=== PATIENT | female | born 1955 | race Caucasian/White ===

== ENCOUNTER → 2017-06-26 15:39 | Outpatient (CLI) | payer OTHER, SELFPAY ==
[2017-06-26 15:49] LABS: Pathologist Comment May follow
[2017-06-26 17:06] LABS: RBC /Synovial Fluid 0.006 10^6/uL (0); Synovial Fld Mononuclear WBC % 41.7 %; Synovial Fld Polynuclear WBC # 0.591 10^3/ul; Synovial Fld Polynuclear WBC % 58.3 %
[2017-06-26 20:20] LABS: Monocyte /Synovial Fluid 5 %; Neutrophil 39 % (0-25)
[2017-06-26 20:21] LABS: AUTO B FLUID DILUENT BKGD CT WBC <0.1 RBC <0.01 (W<.1,R<.01); CRYSTALS, BODY FLUID Other, see comment; Color / Synovial Fluid Yellow (Pale Yellow); Viscosity / Synovial Fluid Mod. Viscous (HIGH)
[2017-06-26 20:22] LABS: Appearance /Synovial Fluid Hazy (CLEAR); Source / Synovial Fluid RT KNEE; Source- Body Fluid SYNOVIAL
[2017-06-26 20:23] LABS: Body Fluid QC Type(s) BF1Q,BF2Q; Other Cell /Synovial Fluid 56 %
[2017-06-27 10:47] LABS: Pathologist Review Reviewed
== END ==
PROVIDERS: Family Provider Nurse Practitioner; PCP Nurse Practitioner; Visit Provider Internal Medicine Rheumatology
DX: M06.4 Inflammatory polyarthropathy (principal); M15.9 Polyosteoarthritis, unspecified; M25.562 Pain in left knee
CPT/HCPCS: 87070; 87075; 87205; 89050; 89051; 89060

== ENCOUNTER → 2017-08-10 13:36 | Outpatient (CLI) | payer OTHER, SELFPAY ==
[2017-08-10 15:15] LABS: Absolute Lymphocyte Count 3.14 X10^3/ul (0.83-4.51); Absolute Neutrophil Count 5.9 X10^3/uL (2.0-7.7); Basophil# 0.05 X10^3/uL; Basophil% 0.5 % (0-1); Eosinophil# 0.23 X10^3/uL; Eosinophils% 2.3 % (0-5); Hematocrit 41.8 % (37-47); Hemoglobin 13.8 g/dl (12.0-15.0); Lymphocyte # 3.14 X10^3/ul (4.0); Lymphocyte % 30.7 % (19-41); Mean Corpuscular Hgb 29.9 pg (27.0-32.0); Mean Corpuscular Volume 90.5 fL (81-99); Mean Platelet Vol. 10.5 fl (6.2-12.0); Monocyte# 0.91 X10^3/uL; Monocyte% 8.9 % (0-10); Neutrophil # 5.86 X10^3/uL (2.7-7.7); Neutrophil % 57.3 % (47-70); Platelet Count 285 K/mm3 (150-450); RBC Distribution Width CV 13.7 % (11.6-14.6); RBC Distribution Width SD 44.9 fl (35.1-43.9); Red Blood Count 4.62 M/mm3 (4.2-5.4); White Blood Count 10.2 K/mm3 (4.4-11.0)
[2017-08-10 15:24] LABS: AST(SGOT) 21 U/L (15-37); Alanine Aminotransfer ALT/SGPT 31 U/L (13-56); Albumin, Serum 3.7 g/dL (3.2-5.0); Alkaline Phosphatase 51 U/L (45-117); Anion Gap 7 (5-15); BUN 14 mg/dL (7-18); BUN/Creat Ratio 21.1 RATIO (10-20); Chloride 104 mmol/L (98-107); Creatinine, Serum 0.66 mg/dL (0.55-1.02); EST Glomerular Filtration Rate 96 mL/min (>60); Est Glom Filt Rate - Afr Amer 116 mL/min (>60); Globulin 3.7 g/dL (2.2-4.2); Glucose 98 mg/dL (74-106); Potassium 3.2 mmol/L (3.5-5.1); Protein, Total 7.4 g/dL (6.4-8.2); Sodium Level 143 mmol/L (136-145)
[2017-08-10 15:33] LABS: POSITIVE COUNT NO; POSITIVE DIFFERENTIAL NO; POSITIVE MORPHOLOGY NO
== END ==
PROVIDERS: Family Provider Nurse Practitioner; PCP Nurse Practitioner; Visit Provider Internal Medicine Rheumatology
DX: M06.4 Inflammatory polyarthropathy (principal); M15.9 Polyosteoarthritis, unspecified; K21.9 Gastro-esophageal reflux disease without esophagitis; K58.9 Irritable bowel syndrome, unspecified; H43.813 Vitreous degeneration, bilateral; R51 Headache; Z85.3 Personal history of malignant neoplasm of breast
CPT/HCPCS: 36415; 80053; 85025

== ENCOUNTER → 2017-08-27 13:47 | Outpatient (CLI) | payer OTHER, SELFPAY ==
--- NOTE | 2017-08-27 13:49 | VDLE_ITS ---
Reason For Study: SWELLING RIGHT GSV is normal. CFV is compressible, spontaneous, phasic, competent and demonstrates normal augmentation. FV is compressible, spontaneous, phasic, competent and demonstrates normal augmentation. POP V is compressible, spontaneous, phasic, competent and demonstrates normal augmentation. T/P Trunk is compressible. PTV is compressible. RT PerV is compressible. Procedure Exam performed in department. A preliminary report was called and/or faxed to Yaneth Mcgregor. Interpretation Summary Deep veins of the right lower extremity are patent and compressible segmentally. There is no evidence of right lower extremity deep vein thrombosis. Valvular competence appears intact within the proximal deep venous system on the right . The right greater saphenous vein appears patent and compressible segmentally. Ordering Physician: Yaneth Mcgregor Referring Physician: Yaneth Mcgregor Performed By: Sabrina Amaral, LAUREN, RVT
== END ==
PROVIDERS: Family Provider Nurse Practitioner; PCP Nurse Practitioner; Visit Provider Nurse Practitioner
DX: M79.89 Other specified soft tissue disorders (principal)
CPT/HCPCS: 93971

== ENCOUNTER 2018-03-06 05:24 | Inpatient (IN) | payer OTHER, SELFPAY ==
[2018-02-22 10:33] VITALS: BP 137/83; PULSE 94; RESP 16; TEMP 36.8; O2SAT 96; BMI 30.2
--- NOTE | 2018-02-22 10:40 | SDCEKG_ITS ---
Test Reason : Blood Pressure : / mmHG Vent. Rate : 086 BPM Atrial Rate : 086 BPM P-R Int : 142 ms QRS Dur : 088 ms QT Int : 372 ms P-R-T Axes : 011 023 039 degrees QTc Int : 445 ms Normal sinus rhythm Normal ECG Confirmed by LIZBETH VILLALBA, JOANNE ([id number]), greeting card editor OLIMPIA WOO ([id number] on 03/01/2018 1:11:35 PM Referred By: Mauricio Tapia Confirmed By:JOANNE NIEVES MD
[2018-02-22 11:07] LABS: Absolute Lymphocyte Count 2.38 X10^3/ul (0.83-4.51); Absolute Neutrophil Count 4.6 X10^3/uL (2.0-7.7); Basophil# 0.04 X10^3/uL; Basophil% 0.5 % (0-1); Eosinophil# 0.15 X10^3/uL; Eosinophils% 1.8 % (0-5); Hematocrit 43.6 % (37-47); Hemoglobin 14.5 g/dl (12.0-15.0); Lymphocyte # 2.38 X10^3/ul (4.0); Lymphocyte % 28.5 % (19-41); Mean Corp Hgb Conc 33.3 g/gl (32-36); Mean Corpuscular Hgb 30.1 pg (27.0-32.0); Mean Corpuscular Volume 90.5 fL (81-99); Mean Platelet Vol. 9.8 fl (6.2-12.0); Monocyte# 1.15 X10^3/uL; Monocyte% 13.8 % (0-10); POSITIVE COUNT NO; POSITIVE DIFFERENTIAL NO; POSITIVE MORPHOLOGY NO; Platelet Count 278 K/mm3 (150-450); RBC Distribution Width CV 13.1 % (11.6-14.6); RBC Distribution Width SD 42.8 fl (35.1-43.9); Red Blood Count 4.82 M/mm3 (4.2-5.4); White Blood Count 8.4 K/mm3 (4.4-11.0)
[2018-02-22 11:34] LABS: Anion Gap 7 (5-15); BUN 18 mg/dL (7-18); BUN/Creat Ratio 26.5 RATIO (10-20); Chloride 105 mmol/L (98-107); Creatinine, Serum 0.68 mg/dL (0.55-1.02); EST Glomerular Filtration Rate 93 mL/min (>60); Est Glom Filt Rate - Afr Amer 113 mL/min (>60); Estimated Creatinine Clearance 70.96 ml/min; Glucose 84 mg/dL (74-106); Potassium 4.2 mmol/L (3.5-5.1); Sodium Level 142 mmol/L (136-145)
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
--- NOTE | 2018-03-01 11:02 | CASEMGMT ---
Called and spoke with patient regarding discharge needs after upcoming surgery. Patient plans to return home with assistance from spouse. Outpatient physical therapy is set up for 03/11/18 at [facility] and spouse will assist with transportation to/from. Patient has a walker and cane at home. Does not have a toilet riser or shower seat but has both readily available for use. There is 1 step into house from outside, bedroom and bathroom are on 1st level of home. Informed patient that RN-CM will follow up after surgery. Zonia Langley LPN Clinical Support
[2018-03-06] VITALS (14 sets, daily range): BP systolic 108–147; BP diastolic 63–83; PULSE 95–111; RESP 16–18; TEMP 36.5–37; O2SAT 95–100; BMI 30.2
[2018-03-06] MEDS: Celecoxib 200 MG Capsule 400 MG PO (06:23)
[2018-03-06] MEDS: oxyCODONE HCl Cr 10 MG Tablet PO (06:23)
[2018-03-06] MEDS: Acetaminophen 500 MG Tablet 1000 MG PO ×2 (06:24→22:26)
[2018-03-06] MEDS: Scopolamine 1mg/72hr Patch 1 PATCH TD (06:55)
[2018-03-06] MEDS: Cefazolin 2 GM in 0.9% Normal Saline 100 ML IV (07:25)
--- NOTE | 2018-03-06 07:32 | RAD_ITS ---
STUDY: X-RAY - RIGHT KNEE REASON FOR EXAM: Female, 62 years old. Total right knee replacement. TECHNIQUE: 2 view(s) of the knee. COMPARISON: None. FINDINGS: Normal visualized distal femur. Normal visualized proximal tibia and fibula. Normal proximal tibiofibular articulation. The patient is status post right total knee replacement. There is normal alignment. Postoperative soft tissue changes. RAD/Knee 1 or 2 Views IMPRESSION: Status post total knee replacement. There is good alignment. Postoperative soft tissue changes. Electronically Signed: Ernie Fields MD at 14:22 EDT Tel [phone], Service support ,
--- NOTE | 2018-03-06 08:46 | PCM.OPRPT ---
Report of Operation Date of Procedure: 03/06/18 Pre-Operative Diagnosis: Right knee primary osteoarthritis Post-Operative Diagnosis: Right knee primary osteoarthritis Surgery/Procedure Performed:: Right total knee replacement Description of Surgical Findings:: Stable knee with good patella tracking software deployment engineer: Maya Means Type of Anesthesia:: Spinal Anesthesiologist: Mitchell Lambert Special Medications: 2 g Ancef, 1 g TXA at incision, 1 g TXA closure, 10 mg Decadron, joint cocktail (5 mg Duramorph, 30 mL of 0.5% Ropivicaine, 1000 units of epinephrine, 30 mg of Toradol) Specimen's removed: Bony cuts Estimated Blood Loss (mL): 50 Fluids Replaced: 1000 mL crystalloid Description of Procedure: Implants used: 1. [place] size 3 triathlon cruciate retaining distal femoral component 2. [place] size 3 universal tibial baseplate 3. Tristen X3 9 mm CS polyethylene 4. Tristen X3 29 mm asymmetric patella Brief history operative indications: 62-year-old f with history of right knee osteoarthritis with radiographic findings with loss of joint space, osteophyte formation and subchondral sclerosis. Failed conservative measures as mentioned in the H&P. Discussion of total knee arthroplasty as well as risk and benefits were discussed the patient including but not limited to blood loss, DVTs, PEs, neurovascular damage, general risk of anesthesia including loss of life, and stiffness or instability were discussed with patient. Patient demonstrated understanding and was able to sign informed consent. Procedure: On the date of procedure patient's right lower extremity was marked in the preoperative area. The patient was then taken back to the operating room where the patient was placed on the table in the supine position. All bony prominences were identified a well-padded. Anesthesia assumed control of the C-spine and airway and remained controlled throughout the remainder of the procedure. A tourniquet was placed on the right upper thigh and the leg was prepped in a sterile fashion. The surgeon then scrubbed at this time. Upon reentering the room the right lower extremity was draped in a standard orthopedic fashion. A timeout was then called and everyone agreed upon the side, the site, the procedure to be performed, patient's identity and antibiotics given. Esmarch bandage was used to exsanguinate the extremity and the tourniquet was placed up to 250 mmHg with the knee in flexion. A midline skin incision was made and sharp dissection was taken down through skin subcutaneous tissue and fat. The standard medial parapatellar incision was made and the patella was subluxed laterally. The standard deep MCL release was done and the fat pad was resected. Next our attention was directed to the femur. Navigation pins were placed, navigation was registered. The distal femoral cutting block was pinned into place and 9 mm of distal femur resection was completed. The distal femoral cut was verified with navigation. The knee was then placed in deep flexion in the standard [employer] sizing guide was used to place the femoral component in 3? external rotation based on the posterior condyles. A size 3 4-in-1 cutting block was selected and pinned into place. The anterior cut was then made and checked for notching. The subsequent anterior chamfer cuts, posterior condylar cuts and posterior chamfer cuts were made while ensuring the MCL and LCL were protected. Our attention was then turned to the tibia where the navigation pins were placed, navigation was registered. [employer] tibial cutting guide was used to make the appropriate tibial cut 90 degrees from the mechanical axis. Navigation was then used to verify the cut. A size 3 tibial base plate was selected. the knee was flexed to 90 degrees and the soft tissues and posterior osteophytes were removed from the joint. 40 cc of the periarticular injection was injected into the posterior medial corner of the joint. The appropriate trials were then placed on the femur and tibia. A trial polyethylene was trialed to ensure proper balancing and stability of the knee. Patella tracking, was then verified and corrected appropriately as needed. The appropriate tibial internal rotation was then marked with a bovie. Our attention was then directed to the patella. The patella was everted and a flat resection was made. The lug holes were drilled and the patella trial was placed. Patellar tracking was checked and deemed appropriate. Once we were happy lug holes were drilled for the femur and trial components were removed. the tibia was subluxed and pinned into place and the keel was punched and the canal was reamed. Final components were verified and opened, and cement was mixed in a vacuum. Tristen Simplex cement was used. The wound was copiously irrigated with normal saline. When the cement was ready the components were cemented into place starting with the tibia, femur and finally the patella. The trial poly component was placed and the knee was placed in full extension. All excess cement was removed in the process. Once the cement had cured the tracking, alignment and balance were verified and a size 9 mm polyethylene component was placed. Once the final components were placed the wound was copiously irrigated with normal saline solution and the periarticular injection was given. The wound was closed in a layer nath fashion using #1 vicryl interrupted sutures for the arthrotomy, 2-0 interrupted Vicryl suture for the subcuticular layer and marleen for final skin closure. A sterile compressive dressing was then placed. The patient was then awakened from anesthesia, transferred to the [facility] and transferred to the PACU for recovery. Post op plan DVT ppx: ASA 81mg, thigh high compression stockings Follow up: in office in 2 weeks for wound check PT: to start POD #0 at hospital, outpatient PT should be arranged. Grafts/Implants Used: Katy triathlon total knee - Complications None - Admit VTE Documentation VTE Present on Admission: No VTE Mechan Device Prophylaxis: SCD's, Thigh High IMER Hose VTE Pharm Prophylaxis ordered?: Yes
--- NOTE | 2018-03-06 08:49 | OP.PCM_ITS ---
Report of Operation Date of Procedure: 03/06/18 Pre-Operative Diagnosis: Right knee primary osteoarthritis Post-Operative Diagnosis: Right knee primary osteoarthritis Surgery/Procedure Performed:: Right total knee replacement Description of Surgical Findings:: Stable knee with good patella tracking piano accompanist: Maya Means Type of Anesthesia:: Spinal Anesthesiologist: Mitchell Lambert Special Medications: 2 g Ancef, 1 g TXA at incision, 1 g TXA closure, 10 mg Decadron, joint cocktail (5 mg Duramorph, 30 mL of 0.5% Ropivicaine, 1000 units of epinephrine, 30 mg of Toradol) Specimen's removed: Bony cuts Estimated Blood Loss (mL): 50 Fluids Replaced: 1000 mL crystalloid Description of Procedure: Implants used: 1. [place] size 3 triathlon cruciate retaining distal femoral component 2. [place] size 3 universal tibial baseplate 3. Tristen X3 9 mm CS polyethylene 4. Tristen X3 29 mm asymmetric patella Brief history operative indications: 62-year-old f with history of right knee osteoarthritis with radiographic findings with loss of joint space, osteophyte formation and subchondral sclerosis. Failed conservative measures as mentioned in the H&P. Discussion of total knee arthroplasty as well as risk and benefits were discussed the patient including but not limited to blood loss, DVTs, PEs, neurovascular damage , general risk of anesthesia including loss of life, and stiffness or instability were discussed with patient. Patient demonstrated understanding and was able to sign informed consent. Procedure: On the date of procedure patient's right lower extremity was marked in the preoperative area. The patient was then taken back to the operating room where the patient was placed on the table in the supine position. All bony prominences were identified a well-padded. Anesthesia assumed control of the C- spine and airway and remained controlled throughout the remainder of the procedure. A tourniquet was placed on the right upper thigh and the leg was prepped in a sterile fashion. The surgeon then scrubbed at this time. Upon reentering the room the right lower extremity was draped in a standard orthopedic fashion. A timeout was then called and everyone agreed upon the side , the site, the procedure to be performed, patient's identity and antibiotics given. Esmarch bandage was used to exsanguinate the extremity and the tourniquet was placed up to 250 mmHg with the knee in flexion. A midline skin incision was made and sharp dissection was taken down through skin subcutaneous tissue and fat. The standard medial parapatellar incision was made and the patella was subluxed laterally. The standard deep MCL release was done and the fat pad was resected. Next our attention was directed to the femur. Navigation pins were placed, navigation was registered. The distal femoral cutting block was pinned into place and 9 mm of distal femur resection was completed. The distal femoral cut was verified with navigation. The knee was then placed in deep flexion in the standard [employer] sizing guide was used to place the femoral component in 3? external rotation based on the posterior condyles. A size 3 4-in-1 cutting block was selected and pinned into place. The anterior cut was then made and checked for notching. The subsequent anterior chamfer cuts, posterior condylar cuts and posterior chamfer cuts were made while ensuring the MCL and LCL were protected. Our attention was then turned to the tibia where the navigation pins were placed , navigation was registered. [employer] tibial cutting guide was used to make the appropriate tibial cut 90 degrees from the mechanical axis. Navigation was then used to verify the cut. A size 3 tibial base plate was selected. the knee was flexed to 90 degrees and the soft tissues and posterior osteophytes were removed from the joint. 40 cc of the periarticular injection was injected into the posterior medial corner of the joint. The appropriate trials were then placed on the femur and tibia. A trial polyethylene was trialed to ensure proper balancing and stability of the knee. Patella tracking, was then verified and corrected appropriately as needed. The appropriate tibial internal rotation was then marked with a bovie. Our attention was then directed to the patella. The patella was everted and a flat resection was made. The lug holes were drilled and the patella trial was placed. Patellar tracking was checked and deemed appropriate. Once we were happy lug holes were drilled for the femur and trial components were removed. the tibia was subluxed and pinned into place and the keel was punched and the canal was reamed. Final components were verified and opened, and cement was mixed in a vacuum. [place] Simplex cement was used. The wound was copiously irrigated with normal saline. When the cement was ready the components were cemented into place starting with the tibia, femur and finally the patella. The trial poly component was placed and the knee was placed in full extension. All excess cement was removed in the process. Once the cement had cured the tracking, alignment and balance were verified and a size 9 mm polyethylene component was placed. Once the final components were placed the wound was copiously irrigated with normal saline solution and the periarticular injection was given. The wound was closed in a layer anth fashion using #1 vicryl interrupted sutures for the arthrotomy, 2-0 interrupted Vicryl suture for the subcuticular layer and marleen for final skin closure. A sterile compressive dressing was then placed. The patient was then awakened from anesthesia, transferred to the [facility] and transferred to the PACU for recovery. Post op plan DVT ppx: ASA 81mg, thigh high compression stockings Follow up: in office in 2 weeks for wound check PT: to start POD #0 at hospital, outpatient PT should be arranged. Grafts/Implants Used: Tristen triathlon total knee - Complications None - Admit VTE Documentation VTE Present on Admission: No VTE Mechan Device Prophylaxis: SCD's, Thigh High IMER Hose VTE Pharm Prophylaxis ordered?: Yes
[2018-03-06] MEDS: Lactated Ringers 1,000 ML 999 ML IV (09:00)
--- NOTE | 2018-03-06 09:10 | EKG12_ITS ---
Test Reason : POST OP Blood Pressure : / mmHG Vent. Rate : 104 BPM Atrial Rate : 104 BPM P-R Int : 166 ms QRS Dur : 088 ms QT Int : 390 ms P-R-T Axes : 067 029 031 degrees QTc Int : 512 ms Sinus tachycardia Otherwise normal ECG When compared with ECG of 22-FEB-2018 09:42, QT has lengthened Confirmed by LIZBETH VILLALBA, JOANNE ([id number]), scientific editor OLIMPIA WOO ([id number] on 03/07/2018 2:39:21 PM Referred By: Mauricio Tapia Confirmed By:JOANNE NIEVES MD
[2018-03-06] MEDS: Lactated Ringers 1,000 ML 125 ML IV ×2 (12:16→19:59)
[2018-03-06] MEDS: Ondansetron 4 MG/2 ML Vial IV (12:42)
[2018-03-06] MEDS: proMETHazine 25 MG/ML Syringe 12.5 MG IM (14:54)
[2018-03-06] MEDS: Cefazolin 1 GM/50 ML BAG IV ×2 (15:40→23:20)
[2018-03-06] MEDS: oxyCODONE 5 MG Tablet PO ×2 (17:12→22:31)
[2018-03-06] MEDS: Hydroxychloroquine 200 MG Tablet PO (17:13)
[2018-03-06] MEDS: Aspirin 81 MG TAB.CHEW PO (17:13)
[2018-03-06] MEDS: Meloxicam 7.5 MG Tablet PO (22:27)
[2018-03-06] MEDS: Senna/Docusate Sodium 1 Tablet 2 TABLET PO (22:28)
[2018-03-07 04:14] VITALS: BP 133/77; PULSE 97; RESP 18; TEMP 36.9; O2SAT 100
[2018-03-07 06:28] LABS: Hematocrit 36.7 % (37-47); Hemoglobin 12.2 g/dl (12.0-15.0); Mean Corp Hgb Conc 33.2 g/gl (32-36); Mean Corpuscular Hgb 30.1 pg (27.0-32.0); Mean Corpuscular Volume 90.6 fL (81-99); Mean Platelet Vol. 10.3 fl (6.2-12.0); Platelet Count 246 K/mm3 (150-450); RBC Distribution Width CV 12.8 % (11.6-14.6); RBC Distribution Width SD 42.5 fl (35.1-43.9); Red Blood Count 4.05 M/mm3 (4.2-5.4); White Blood Count 16.7 K/mm3 (4.4-11.0)
[2018-03-07 06:31] LABS: Scan Indicated on CBC? Y/N NO
[2018-03-07 06:43] LABS: Anion Gap 9 (5-15); BUN 12 mg/dL (7-18); Calcium,Total 8.7 mg/dL (8.5-10.1); Chloride 107 mmol/L (98-107); EST Glomerular Filtration Rate 89 mL/min (>60); Est Glom Filt Rate - Afr Amer 108 mL/min (>60); Estimated Creatinine Clearance 68.93 ml/min; Glucose 93 mg/dL (74-106); Potassium 3.6 mmol/L (3.5-5.1); Sodium Level 145 mmol/L (136-145)
[2018-03-07] MEDS: Acetaminophen 500 MG Tablet 1000 MG PO ×2 (06:48→13:48)
[2018-03-07] MEDS: oxyCODONE 5 MG Tablet PO ×2 (06:48→12:22)
[2018-03-07] MEDS: Omeprazole 20 MG Capsule PO (06:50)
[2018-03-07] MEDS: Meloxicam 7.5 MG Tablet PO (09:31)
[2018-03-07] MEDS: Multivitamins,Therapeutic Tablet 1 TABLET PO (09:31)
[2018-03-07] MEDS: Senna/Docusate Sodium 1 Tablet 2 TABLET PO (09:31)
[2018-03-07] MEDS: Hydroxychloroquine 200 MG Tablet PO (09:32)
[2018-03-07] MEDS: Aspirin 81 MG TAB.CHEW PO (09:32)
[2018-03-07 10:00] VITALS: BP 94/69; PULSE 102; RESP 18; TEMP 36.7; O2SAT 100
--- NOTE | 2018-03-07 10:01 | PCM.PN.ORT ---
Subjective: The patient was in physical therapy upon examination. Patient denies any chest pain, shortness of breath, dizziness, lightheadedness, nausea or vomiting, or calf pain. Pain is controlled on medications. No adverse overnight events. Patient is wishing to go home today. Objective: Vital signs stable and afebrile. Patient is able to plantarflex and dorsiflex actively. Sensation is intact to light touch to saphenous, sural, superficial and deep peroneal, and tibial distribution. Dressing is with minimal discharge Negative Homans bilaterally, negative signs and symptoms of DVT. - Physical Exam General: Alert, Oriented x3, Cooperative, No apparent distress Vital Signs Temp Pulse Resp BP Pulse Ox 98.4 F 97 18 133/77 H 100 03/07/18 04:14 03/07/18 04:14 03/07/18 04:14 03/07/18 04:14 03/07/18 04:14 Oxygen Delivery Method Room Air Weight: 78.7 kg Body Mass Index (BMI) 30.2 Intake and Output for Last 24 Hours 03/05/18 03/06/18 03/07/18 23:59 23:59 23:59 Intake Total 4533 / 4533 1786 / 1786 Balance 4533 / 4533 1786 / 1786 Laboratory Tests Past 24 Hrs 03/07/18 03/07/18 05:15 05:15 WBC 16.7 H RBC 4.05 L Hgb 12.2 Hct 36.7 L MCV 90.6 MCH 30.1 MCHC 33.2 RDW 12.8 RDW Differential 42.5 Plt Count 246 MPV 10.3 Sodium 145 Potassium 3.6 Chloride 107 Carbon Dioxide 29.0 Anion Gap 9 BUN 12 Creatinine 0.70 Estim Creat Clear Calc 68.93 Est GFR (MDRD) Af Amer 108 Est GFR (MDRD) Non-Af 89 BUN/Creatinine Ratio 17.0 Glucose 93 Calcium 8.7 Medical Necessity - Tobacco Use Smoking Status: Never smoker Assessment/Plan 1. S/P right total knee arthroplasty POD #1 2. Continue Pain Medications: Tylenol and OxyIR 3. DVT Prophylaxis: Aspirin 81 mg twice daily ?4 weeks 4. PT/OT: Weightbearing as tolerated 5. H & H: 12.2/36.7, asymptomatic 6. Leukocytosis: Currently 16.7, afebrile. Patient did receive Decadron intraoperatively 7. Encouraged Incentive Spirometry 8. Disposition: Plan will be for discharge home this afternoon. Prescriptions will be E scribed to [facility]. Patient will follow-up per postop instructions.
--- NOTE | 2018-03-07 10:07 | PCM.DC.TKR ---
Discharge Diet: No Restrictions Discharge Activity: May Not Drive May shower in (days): 1 - Turned dressing away from water Ice area for (Minutes): 20 - every hour while awake. Weight Bearing Status: Weight bearing as tolerated Elevate: Operative Extremity Additional Activity Instructions:: Wear elastic stockings for 2 weeks after your surgery. Call your doctor if your incision/area has: Continuous Slow Oozing, Sudden Increased Bleeding, Increased Pain/ Swelling, Increased Redness, Foul Smelling Discharge Call your doctor if you observe: Fever of 101 or Higher, Coldness, Increased Pain, Numbness or Tingling, Change in Color, Calf discomfort, Uncontrolled pain Remove Dressing in (days):: 4 - Okay to remove on March 11, 2018 Additional Instructions: Follow [facility] postop instructions Do not take [id number] fish oil products 2 weeks postoperatively Allergies/Adverse Reactions: Allergies lansoprazole [From Prevacid] Allergy (Verified 02/22/18 10:15) Chest tightness rabeprazole sodium [From Aciphex] Allergy (Verified 02/22/18 10:15) Chest tightness clarithromycin Adverse Reaction (Verified 02/22/18 10:15) Nausea/Vom/Diarrhea cyclobenzaprine HCl [From Flexeril] Adverse Reaction (Verified 02/22/18 10:15) Nausea/Vom/Diarrhea hydrocodone bitartrate [From Vicodin] Adverse Reaction (Verified 02/22/18 10:15) Nausea morphine Adverse Reaction (Verified 02/22/18 10:15) Nausea/Vom/Diarrhea Medications to take at Discharge Ergocalciferol [Vitamin D] 50,000 unit PO WE 05/22/13 Lorazepam [Ativan] 0.5 mg PO PRN PRN 05/22/13 Multivitamins,Therapeutic [Multivitamin] 1 tab PO DAILY 05/22/13 Omeprazole [Prilosec] 20 mg PO DAILY 05/22/13 Hydroxychloroquine Sulfate [Plaquenil] 200 mg PO BID 02/22/18 Lorazepam [Ativan] 0.5 mg PO BID 03/06/18 Acetaminophen [Tylenol] 1,000 mg PO Q8 #90 tab 03/07/18 Aspirin [Aspirin, Baby] 81 mg PO BIDCM #60 tab.chew 03/07/18 Meloxicam [Mobic] 7.5 mg PO BID #30 tab 03/07/18 Oxycodone [Oxyir] 5 - 10 mg PO Q4H PRN PRN 6 Days #80 tablet 03/07/18 Senna/Docusate Sodium [Senokot-S] 2 tab PO BID #20 tab 03/07/18 The following prescriptions were given: Oxycodone [Oxyir] 5 - 10 mg PO Q4H PRN PRN 6 Days #80 tablet PRN Reason: Mod-Severe Pain (-03/27) Acetaminophen [Tylenol] 1,000 mg PO Q8 #90 tab Aspirin [Aspirin, Baby] 81 mg PO BIDCM #60 tab.chew Meloxicam [Mobic] 7.5 mg PO BID #30 tab Senna/Docusate Sodium [Senokot-S] 2 tab PO BID #20 tab Primary Care Physician: Yaneth Mcgregor [Primary Care Provider] - Test Results: Test results from this visit will be discussed in further detail at your follow-up appointment, if applicable. Please Follow Up With: [facility] When: 03/11/18 @10:00 am with April Please Follow Up With: Stepan Wilson PA-C When: 03/20/18 @ 9:15 am
--- NOTE | 2018-03-07 10:12 | DCINST_ITS ---
Discharge Diet: No Restrictions Discharge Activity: May Not Drive May shower in (days): 1 - Turned dressing away from water Ice area for (Minutes): 20 - every hour while awake. Weight Bearing Status: Weight bearing as tolerated Elevate: Operative Extremity Additional Activity Instructions:: Wear elastic stockings for 2 weeks after your surgery. Call your doctor if your incision/area has: Continuous Slow Oozing, Sudden Increased Bleeding, Increased Pain/ Swelling, Increased Redness, Foul Smelling Discharge Call your doctor if you observe: Fever of 101 or Higher, Coldness, Increased Pain, Numbness or Tingling, Change in Color, Calf discomfort, Uncontrolled pain Remove Dressing in (days):: 4 - Okay to remove on March 11, 2018 Additional Instructions: Follow [facility] postop instructions Do not take [id number]-[id number] fish oil products 2 weeks postoperatively Allergies/Adverse Reactions: Allergies lansoprazole [From Prevacid] Allergy (Verified 02/22/18 10:15) Chest tightness rabeprazole sodium [From Aciphex] Allergy (Verified 02/22/18 10:15) Chest tightness clarithromycin Adverse Reaction (Verified 02/22/18 10:15) Nausea/Vom/Diarrhea cyclobenzaprine HCl [From Flexeril] Adverse Reaction (Verified 02/22/18 10:15) Nausea/Vom/Diarrhea hydrocodone bitartrate [From Vicodin] Adverse Reaction (Verified 02/22/18 10:15) Nausea morphine Adverse Reaction (Verified 02/22/18 10:15) Nausea/Vom/Diarrhea Medications to take at Discharge Ergocalciferol [Vitamin D] 50,000 unit PO WE 05/22/13 Lorazepam [Ativan] 0.5 mg PO PRN PRN 05/22/13 Multivitamins,Therapeutic [Multivitamin] 1 tab PO DAILY 05/22/13 Omeprazole [Prilosec] 20 mg PO DAILY 05/22/13 Hydroxychloroquine Sulfate [Plaquenil] 200 mg PO BID 02/22/18 Lorazepam [Ativan] 0.5 mg PO BID 03/06/18 Acetaminophen [Tylenol] 1,000 mg PO Q8 #90 tab 03/07/18 Aspirin [Aspirin, Baby] 81 mg PO BIDCM #60 tab.chew 03/07/18 Meloxicam [Mobic] 7.5 mg PO BID #30 tab 03/07/18 Oxycodone [Oxyir] 5 - 10 mg PO Q4H PRN PRN 6 Days #80 tablet 03/07/18 Senna/Docusate Sodium [Senokot-S] 2 tab PO BID #20 tab 03/07/18 The following prescriptions were given: Oxycodone [Oxyir] 5 - 10 mg PO Q4H PRN PRN 6 Days #80 tablet PRN Reason: Mod-Severe Pain (-03/27) Acetaminophen [Tylenol] 1,000 mg PO Q8 #90 tab Aspirin [Aspirin, Baby] 81 mg PO BIDCM #60 tab.chew Meloxicam [Mobic] 7.5 mg PO BID #30 tab Senna/Docusate Sodium [Senokot-S] 2 tab PO BID #20 tab Primary Care Physician: Yaneth Mcgregor [Primary Care Provider] - Test Results: Test results from this visit will be discussed in further detail at your follow- up appointment, if applicable. Please Follow Up With: [facility] When: 03/11/18 @10:00 am with April Please Follow Up With: Stepan Wilson PA-C When: 03/20/18 @ 9:15 am
--- NOTE | 2018-03-07 11:34 | CASEMGMT ---
RN CM Note. Intro role of CM to patient in room. Reviewed dc plan. Pt states she will return home with family support, has equipment and first PT appt is Sunday. No further needs identified. Rom COLINN RN ACM
[2018-03-07 13:48] VITALS: BP 118/70; PULSE 88; RESP 18; TEMP 37.1; O2SAT 100
[2018-03-07] MEDS: proMETHazine 25 MG/ML Syringe 12.5 MG IM (14:48)
[2018-03-07 15:21] VITALS: BP 118/70; PULSE 88; RESP 18; TEMP 37.1; O2SAT 100
== END 2018-03-07 15:28 | disposition home or self-care (01) | DRG 470 ==
LOC: ACINP 05:25 → MS3 08:37
PROVIDERS: Admitting Provider Specialist; Family Provider Nurse Practitioner; PCP Nurse Practitioner; Visit Provider Specialist
PROC: 0SRC0J9 Replacement of Right Knee Joint with Synthetic Substitute, Cemented, Open Approach (ICD-10-PCS; CPT 27447; principal; 2018-03-06 06:45)
DX: M17.11 Unilateral primary osteoarthritis, right knee (principal); K58.9 Irritable bowel syndrome, unspecified; Z85.3 Personal history of malignant neoplasm of breast
CPT/HCPCS: 36415; 71046; 73560; 80048; 85025; 85027; 87081; 93005; 97110; 97162; 97165; 97530; 97535; 99251; C1776; J7120; A4216; G0463; J2405

== ENCOUNTER → 2018-04-25 09:43 | Outpatient (CLI) | payer OTHER, SELFPAY ==
--- NOTE | 2018-04-25 09:46 | BI_ITS ---
MAMMOGRAPHY - BILATERAL SCREENING REASON FOR EXAM: Female, 62 years old. Routine annual screening examination. PERTINENT HISTORY: Personal history of breast cancer. Prior left lumpectomy with radiation treatment. TECHNIQUE: Digital bilateral breast guerita (3D mammographic acquisition) in the CC and MLO projections. 2-D mediolateral oblique (MLO) and craniocaudad (CC) views of both breasts were obtained. CAD: Full Field Digital Mammography with Computer Added Detection was performed. COMPARISON: Comparison is made with prior study dated April 24, 2017 and May 27, 2013. FINDINGS: Breast Composition: The breasts are almost entirely fatty. There are no dominant masses or suspicious calcifications. Once again, the patient is status post lumpectomy in the deep upper central portion of the left breast. Residual architectural distortion is present. This is in keeping with prior lumpectomy. There is stable overlying skin thickening. No other significant abnormalities are identified. There has been no significant change since the prior study. BI/SCREENING MAMM (CAD), BILAT IMPRESSION: Stable bilateral screening mammogram. Yearly follow-up mammogram recommended. (A) ASSESSMENT CATEGORY: BIRADS Category 2: Benign. A letter regarding these results will be sent to the patient by the facility within 30 days. Approximately 10% of breast cancers are not detected by mammography. A normal mammogram should not delay biopsy of a clinically suspicious abnormality. [id number] Electronically Signed: Ernie Fields MD at 11:28 EST Tel [phone], Service support ,
== END ==
PROVIDERS: Family Provider Nurse Practitioner; PCP Nurse Practitioner; Visit Provider Nurse Practitioner
DX: Z12.31 Encounter for screening mammogram for malignant neoplasm of breast (principal); C50.912 Malignant neoplasm of unspecified site of left female breast
CPT/HCPCS: 77063; 77067

== ENCOUNTER → 2018-07-12 09:31 | Outpatient (CLI) | payer OTHER, SELFPAY ==
[2018-03-06 06:06] VITALS: BMI 30.2
[2018-07-12 11:01] LABS: ALB/GLOB Ratio 1.1 RATIO (0.9-2.4); AST(SGOT) 20 U/L (15-37); Alanine Aminotransfer ALT/SGPT 32 U/L (13-56); Alkaline Phosphatase 53 U/L (45-117); Anion Gap 10 (5-15); BUN 18 mg/dL (7-18); Chloride 104 mmol/L (98-107); Cholesterol 186 mg/dL (200); Creatinine, Serum 0.67 mg/dL (0.55-1.02); EST Glomerular Filtration Rate 95 mL/min (>60); Est Glom Filt Rate - Afr Amer 115 mL/min (>60); Globulin 3.8 g/dL (2.2-4.2); Glucose 87 mg/dL (74-106); High Density Lipoprotein 48 mg/dL; Potassium 3.7 mmol/L (3.5-5.1); Protein, Total 7.8 g/dL (6.4-8.2); Sodium Level 142 mmol/L (136-145); Triglycerides 144 mg/dL; Very Low Density Lipoprotein 29 mg/dL (5-40); Vitamin D,25 Hydroxy 74.6 ng/mL (29.95-100.01)
== END ==
PROVIDERS: Family Provider Nurse Practitioner; PCP Nurse Practitioner; Referring Provider Nurse Practitioner; Visit Provider Nurse Practitioner
DX: Z13.220 Encounter for screening for lipoid disorders (principal); M19.90 Unspecified osteoarthritis, unspecified site; E55.9 Vitamin D deficiency, unspecified
CPT/HCPCS: 36415; 80053; 80061; 82306

== ENCOUNTER → 2018-07-22 08:50 | Outpatient (CLI) | payer OTHER, SELFPAY ==
[2018-07-22 09:44] LABS: Absolute Lymphocyte Count 2.74 X10^3/ul (0.83-4.51); Basophil# 0.04 X10^3/uL; Basophil% 0.5 % (0-1); Eosinophil# 0.18 X10^3/uL; Eosinophils% 2.3 % (0-5); Hematocrit 41.8 % (37-47); Hemoglobin 13.7 g/dl (12.0-15.0); Lymphocyte # 2.74 X10^3/ul (4.0); Lymphocyte % 35.8 % (19-41); Mean Corp Hgb Conc 32.8 g/gl (32-36); Mean Corpuscular Hgb 29.8 pg (27.0-32.0); Mean Corpuscular Volume 91.1 fL (81-99); Mean Platelet Vol. 10.4 fl (6.2-12.0); Monocyte# 0.67 X10^3/uL; Monocyte% 8.7 % (0-10); Neutrophil # 3.99 X10^3/uL (2.7-7.7); Neutrophil % 52.2 % (47-70); Platelet Count 270 K/mm3 (150-450); RBC Distribution Width CV 13.4 % (11.6-14.6); Red Blood Count 4.59 M/mm3 (4.2-5.4); White Blood Count 7.7 K/mm3 (4.4-11.0)
[2018-07-22 09:48] LABS: POSITIVE COUNT NO; POSITIVE DIFFERENTIAL NO; POSITIVE MORPHOLOGY NO
[2018-07-22 10:06] LABS: ALB/GLOB Ratio 1.1 RATIO (0.9-2.4); AST(SGOT) 19 U/L (15-37); Alanine Aminotransfer ALT/SGPT 32 U/L (13-56); Albumin, Serum 3.8 g/dL (3.2-5.0); Alkaline Phosphatase 54 U/L (45-117); Anion Gap 10 (5-15); BUN 16 mg/dL (7-18); BUN/Creat Ratio 23.5 RATIO (10-20); Calcium,Total 8.7 mg/dL (8.5-10.1); Chloride 105 mmol/L (98-107); Creatinine, Serum 0.68 mg/dL (0.55-1.02); EST Glomerular Filtration Rate 93 mL/min (>60); Est Glom Filt Rate - Afr Amer 112 mL/min (>60); Globulin 3.5 g/dL (2.2-4.2); Glucose 119 mg/dL (74-106); Potassium 3.5 mmol/L (3.5-5.1); Protein, Total 7.3 g/dL (6.4-8.2); Sodium Level 145 mmol/L (136-145)
== END ==
PROVIDERS: Family Provider Nurse Practitioner; PCP Nurse Practitioner; Referring Provider Internal Medicine Rheumatology; Visit Provider Internal Medicine Rheumatology
DX: M06.4 Inflammatory polyarthropathy (principal); M15.9 Polyosteoarthritis, unspecified; M35.00 Sjogren syndrome, unspecified; K21.9 Gastro-esophageal reflux disease without esophagitis; R51 Headache; K58.9 Irritable bowel syndrome, unspecified; H43.813 Vitreous degeneration, bilateral; Z85.3 Personal history of malignant neoplasm of breast
CPT/HCPCS: 36415; 80053; 85025

== ENCOUNTER → 2018-08-20 09:53 | Outpatient (CLI) | payer OTHER, SELFPAY ==
[2018-03-06 06:06] VITALS: BMI 30.2
--- NOTE | 2018-08-20 10:00 | BD_ITS ---
STUDY: DUAL ENERGY X-RAY ABSORPTIOMETRY / DXA REASON FOR EXAM: Female, 63 years old. The patient is postmenopausal. Loss of height. TECHNIQUE: Bone Mineral Density (BMD) measurements of lumbar spine and bilateral hips were obtained. COMPARISON: None. FINDINGS: Lumbar Spine (L1-L4): g/cm2 (0.977) / T-score (-1.6) / Z-score (0.2) Findings are suggestive of osteopenia with a moderate fracture risk. Left Femur Total: g/cm2 (0.827) / T-score (-1.4) / Z-score (-0.3) Left Femoral Neck: g/cm2 (0.765) / T-score (-2.0) / Z-score (-0.6) Right Femur Total: g/cm2 (0.806) / T-score (-1.6) / Z-score (-0.5) Right Femoral Neck: g/cm2 (0.780) / T-score (-1.9) / Z-score (-0.5) BD/Dexa Bone Density Study IMPRESSION: The patient is considered osteopenic as outlined below according to World Hal Organization (WHO) criteria with a moderate fracture risk. Reference Information: The T-score is the number of standard deviations above or below the standard which is normal for young adults at their peak bone mineral density. The World Health Organization (WHO) interprets the T-scores as follows: Above -1 Normal bone density Between -1 and -2.5 Osteopenia Equal to / or below -2.5 Osteoporosis As a practical clinical guideline, osteopenia may be graded as follows: Mild -1 through -1.5 Moderate -1.6 through -2.0 Severe -2.1 through -2.4 The Z-score is the number of standard deviations above or below age-matched controls. A Z-score of less than -1.5 would be considered abnormal. References: 1. NIH Osteoporosis and Related Bone Diseases http://www.osteo.org 2. International Society for Clinical Densitometry http://www.iscd.org 3. National Osteoporosis Foundation http://www.nof.org Electronically Signed: Ernie Fields, at 13:26 EST , Service support ,
== END ==
PROVIDERS: Family Provider Nurse Practitioner; PCP Nurse Practitioner; Referring Provider Nurse Practitioner; Visit Provider Nurse Practitioner
DX: Z78.0 Asymptomatic menopausal state (principal)
CPT/HCPCS: 77080

== ENCOUNTER → 2019-01-14 08:30 | Outpatient (CLI) | payer OTHER, SELFPAY ==
[2018-03-06 06:06] VITALS: BMI 30.2
[2019-01-14 08:57] LABS: Absolute Lymphocyte Count 2.57 X10^3/uL (0.83-4.51); Absolute Neutrophil Count 4.7 X10^3/uL (2.0-7.7); Basophil# 0.06 X10^3/uL; Basophil% 0.7 % (0-1); Eosinophil# 0.21 X10^3/uL; Eosinophils% 2.5 % (0-5); Hematocrit 44.4 % (37-47); Hemoglobin 14.7 g/dL (12.0-15.0); Lymphocyte # 2.57 X10^3/ul (4.0); Lymphocyte % 30.4 % (19-41); Mean Corp Hgb Conc 33.1 g/dL (32-36); Mean Corpuscular Hgb 30.3 pg (27.0-32.0); Mean Corpuscular Volume 91.5 fL (81-99); Mean Platelet Vol. 9.8 fl (6.2-12.0); Monocyte# 0.91 X10^3/uL; Monocyte% 10.8 % (0-10); NRBC Flagged by Analyzer 0 % (0-5); Neutrophil # 4.65 X10^3/uL (2.7-7.7); Platelet Count 287 K/mm3 (150-450); RBC Distribution Width CV 12.7 % (11.6-14.6); RBC Distribution Width SD 42.3 fl (35.1-43.9); Red Blood Count 4.85 M/mm3 (4.2-5.4); White Blood Count 8.5 K/mm3 (4.4-11.0)
[2019-01-14 09:29] LABS: ALB/GLOB Ratio 1.1 RATIO (0.9-2.4); AST(SGOT) 21 U/L (15-37); Alanine Aminotransfer ALT/SGPT 29 U/L (13-56); Albumin, Serum 3.9 g/dL (3.2-5.0); Alkaline Phosphatase 57 U/L (45-117); Anion Gap 8 (5-15); BUN 17 mg/dL (7-18); BUN/Creat Ratio 22.2 RATIO (10-20); Calcium,Total 8.9 mg/dL (8.5-10.1); Chloride 106 mmol/L (98-107); Creatinine, Serum 0.77 mg/dL (0.55-1.02); EST Glomerular Filtration Rate 81 mL/min (>60); Est Glom Filt Rate - Afr Amer 98 mL/min (>60); Globulin 3.6 g/dL (2.2-4.2); Glucose 101 mg/dL (74-106); Potassium 3.9 mmol/L (3.5-5.1); Protein, Total 7.5 g/dL (6.4-8.2); Sodium Level 143 mmol/L (136-145)
== END ==
PROVIDERS: Family Provider Nurse Practitioner; PCP Nurse Practitioner; Referring Provider Internal Medicine Rheumatology; Visit Provider Internal Medicine Rheumatology
DX: M06.4 Inflammatory polyarthropathy (principal); M15.9 Polyosteoarthritis, unspecified; M35.00 Sjogren syndrome, unspecified; K21.9 Gastro-esophageal reflux disease without esophagitis; R51 Headache; K58.9 Irritable bowel syndrome, unspecified; H43.813 Vitreous degeneration, bilateral; Z85.3 Personal history of malignant neoplasm of breast
CPT/HCPCS: 36415; 80053; 85025

== ENCOUNTER → 2019-04-30 09:56 | Outpatient (CLI) | payer OTHER, SELFPAY ==
--- NOTE | 2019-04-30 09:58 | BI_ITS ---
MAMMOGRAPHY - BILATERAL SCREENING REASON FOR EXAM: Female, 63 years old. Routine annual screening examination. PERTINENT HISTORY: Personal history of breast cancer. Prior left lumpectomy with radiation therapy. TECHNIQUE: Digital bilateral breast rose (3D mammographic acquisition) in the CC and MLO projections. 2-D mediolateral oblique (MLO) and craniocaudad (CC) views of both breasts were obtained. CAD: Full Field Digital Mammography with Computer Added Detection was performed. COMPARISON: Comparison is made with prior study of April 25, 2018 and April 24, 2017. FINDINGS: Breast Composition: The breasts are almost entirely fatty. There are no dominant masses or suspicious calcifications. Once again, the patient is status post lumpectomy in the upper deep central portion of the left breast. Residual postoperative architectural distortion is seen with the mild periareolar thickening. No other significant abnormalities are identified. There has been no significant change since the prior study. BI/SCREEN MAMM (CAD) W/ROSE BILAT IMPRESSION: Stable bilateral screening mammogram. Yearly follow-up mammogram recommended. (A) ASSESSMENT CATEGORY: BIRADS Category 2: Benign. A letter regarding these results will be sent to the patient by the facility within 30 days. Approximately 10% of breast cancers are not detected by mammography. A normal mammogram should not delay biopsy of a clinically suspicious abnormality. [id number] Electronically Signed: Ernie Fields, at 10:58 EST , Service support ,
== END ==
PROVIDERS: Family Provider Nurse Practitioner; PCP Nurse Practitioner; Referring Provider Nurse Practitioner; Visit Provider Nurse Practitioner
DX: C50.912 Malignant neoplasm of unspecified site of left female breast (principal); Z12.31 Encounter for screening mammogram for malignant neoplasm of breast
CPT/HCPCS: 77063; 77067

== ENCOUNTER → 2019-06-02 10:07 | Outpatient (CLI) | payer OTHER, SELFPAY ==
[2018-03-06 06:06] VITALS: BMI 30.2
[2019-06-02 11:17] LABS: Absolute Lymphocyte Count 2.93 X10^3/uL (0.83-4.51); Absolute Neutrophil Count 6.2 X10^3/uL (2.0-7.7); Basophil# 0.07 X10^3/uL; Basophil% 0.7 % (0-1); Eosinophil# 0.24 X10^3/uL; Eosinophils% 2.3 % (0-5); Hematocrit 45.8 % (37-47); Hemoglobin 14.6 g/dL (12.0-15.0); Lymphocyte # 2.93 X10^3/ul (4.0); Lymphocyte % 28.6 % (19-41); Mean Corp Hgb Conc 31.9 g/dL (32-36); Mean Corpuscular Hgb 29.4 pg (27.0-32.0); Mean Corpuscular Volume 92.3 fL (81-99); Mean Platelet Vol. 10.5 fl (6.2-12.0); Monocyte# 0.74 X10^3/uL; Monocyte% 7.2 % (0-10); NRBC Flagged by Analyzer 0 % (0-5); Neutrophil # 6.19 X10^3/uL (2.7-7.7); Neutrophil % 60.3 % (47-70); Platelet Count 309 K/mm3 (150-450); RBC Distribution Width CV 12.8 % (11.6-14.6); RBC Distribution Width SD 43.4 fl (35.1-43.9); Red Blood Count 4.96 M/mm3 (4.2-5.4); White Blood Count 10.3 K/mm3 (4.4-11.0)
[2019-06-02 11:26] LABS: Prothrombin Time (Protime)PT. 12.9 SECONDS (11.7-14.9)
[2019-06-02 11:50] LABS: AST(SGOT) 18 U/L (15-37); Alanine Aminotransfer ALT/SGPT 33 U/L (13-56); Alkaline Phosphatase 64 U/L (45-117); Anion Gap 3 (5-15); BUN 16 mg/dL (7-18); BUN/Creat Ratio 21.9 RATIO (10-20); Calcium,Total 8.9 mg/dL (8.5-10.1); Chloride 105 mmol/L (98-107); Creatinine, Serum 0.73 mg/dL (0.55-1.02); EST Glomerular Filtration Rate 85 mL/min (>60); Est Glom Filt Rate - Afr Amer 103 mL/min (>60); Globulin 3.9 g/dL (2.2-4.2); Glucose 137 mg/dL (74-106); Potassium 3.4 mmol/L (3.5-5.1); Protein, Total 7.9 g/dL (6.4-8.2); Sodium Level 139 mmol/L (136-145)
== END ==
PROVIDERS: Family Provider Nurse Practitioner; PCP Nurse Practitioner; Referring Provider Nurse Practitioner; Visit Provider Nurse Practitioner
DX: Z01.818 Encounter for other preprocedural examination (principal)
CPT/HCPCS: 36415; 80053; 85025; 85610

== ENCOUNTER → 2019-06-04 09:57 | Outpatient (CLI) | payer OTHER, SELFPAY ==
[2018-03-06 06:06] VITALS: BMI 30.2
[2019-06-04 10:31] LABS: Potassium 3.8 mmol/L (3.5-5.1)
== END ==
PROVIDERS: Family Provider Nurse Practitioner; PCP Nurse Practitioner; Referring Provider Nurse Practitioner; Visit Provider Nurse Practitioner
DX: E87.6 Hypokalemia (principal)
CPT/HCPCS: 36415; 84132

== ENCOUNTER → 2019-06-06 08:48 | Outpatient (CLI) | payer OTHER, SELFPAY ==
[2018-03-06 06:06] VITALS: BMI 30.2
--- NOTE | 2019-06-06 08:51 | ECHOCS_ITS ---
Reason For Study: Tachycardia Procedure This was a 2D Doppler, Color Flow transthoracic echocardiogram. Technically difficult study, contrast injection performed. Unable to perform strain analysis due to needed use of Definity. Exam performed in department. Left Ventricle Normal LV size. Left ventricular systolic function is normal. The estimated ejection fraction is 60 %. Stage 1 diastolic dysfunction. Atria Normal left atrium. Normal right atrium. Mitral Valve Normal mitral valve. Tricuspid Valve Normal tricuspid valve. Aortic Valve Normal aortic valve. Trisinus/trileaflet aortic valve. Pulmonic Valve Normal pulmonic valve. Great Vessels Normal aortic root. The pulmonary artery is normal size. Normal inferior vena cava. Pericardium/Pleural No pericardial effusion. Medication 22 gauge I.V. with prn adaptor inserted into right arm. Diluted definity 4ml given slow IV push to enhance endocardial definition. MMode/2D Measurements & Calculations LVIDd: 4.5 cm IVSd: 1.0 cm Ao root diam: 2.8 cm LVIDs: 2.5 cm LVPWd: 0.94 cm LA dimension: 3.8 cm RVDd: 3.3 cm FS: 44.7 % LAV(MOD-bp): 52.7 ml LA A4 area: 17.1 cm2 RA A4 area: 14.0 cm2 LAV(MOD-bp) Indexed: 28.3 ml/m2 LAV(MOD-sp2): 53.1 ml LAV(MOD-sp4): 44.8 ml Time Measurements MV dec time: 0.23 sec Doppler Measurements & Calculations MV E max duncan: 79.3 cm/sec Lat Peak E' Duncan: 6.6 cm/sec Med Peak E' Duncan: 5.9 cm/sec MV A max duncan: 102.5 cm/sec E/E' lat: 11.9 E/E' med: 13.5 MV E/A: 0.77 MV V2 max: 109.8 cm/sec MV P1/2t max duncan: 92.5 cm/sec Ao V2 max: 160.8 cm/sec MV max P.8 mmHg MV P1/2t: 64.1 msec Ao max P.3 mmHg MV V2 mean: 62.4 cm/sec MV dec slope: 422.6 cm/sec2 MV mean P.9 mmHg MV V2 VTI: 20.4 cm MVA(P1/2t): 3.4 cm2 LV V1 max: 101.0 cm/sec PA V2 max: 116.5 cm/sec LV V1 max P.1 mmHg Interpretation Summary Normal LV size. Left ventricular systolic function is normal. The estimated ejection fraction is 60 %. Stage 1 diastolic dysfunction. Contrast injection was performed. Ordering Physician: Yaneth Mcgregor Referring Physician: Yaneth Mcgregor Performed By: Brian Sánchez RCS
== END ==
PROVIDERS: Family Provider Nurse Practitioner; PCP Nurse Practitioner; Referring Provider Nurse Practitioner; Visit Provider Nurse Practitioner
DX: R00.0 Tachycardia, unspecified (principal)
CPT/HCPCS: 93225; 93226; 93306; Q9957; A4216; C8929

== ENCOUNTER → 2019-06-20 10:58 | Outpatient (CLI) | payer OTHER, SELFPAY ==
[2019-06-20 11:56] LABS: Erythrocyte Sedimentation Rate 6 mm/hr (0-30)
[2019-06-20 11:58] LABS: Absolute Lymphocyte Count 2.88 X10^3/uL (0.83-4.51); Absolute Neutrophil Count 5.8 X10^3/uL (2.0-7.7); Basophil# 0.05 X10^3/uL; Basophil% 0.5 % (0-1); Eosinophil# 0.24 X10^3/uL; Eosinophils% 2.4 % (0-5); Hematocrit 43.2 % (37-47); Lymphocyte # 2.88 X10^3/ul (4.0); Mean Corp Hgb Conc 32.4 g/dL (32-36); Mean Corpuscular Hgb 29.5 pg (27.0-32.0); Mean Corpuscular Volume 91.1 fL (81-99); Mean Platelet Vol. 10.1 fl (6.2-12.0); Monocyte# 0.92 X10^3/uL; Monocyte% 9.3 % (0-10); NRBC Flagged by Analyzer 0 % (0-5); Neutrophil # 5.78 X10^3/uL (2.7-7.7); Neutrophil % 58.2 % (47-70); Platelet Count 283 K/mm3 (150-450); RBC Distribution Width CV 12.8 % (11.6-14.6); RBC Distribution Width SD 42.5 fl (35.1-43.9); Red Blood Count 4.74 M/mm3 (4.2-5.4); White Blood Count 9.9 K/mm3 (4.4-11.0)
[2019-06-20 12:33] LABS: AST(SGOT) 28 U/L (15-37); Alanine Aminotransfer ALT/SGPT 46 U/L (13-56); Albumin, Serum 3.9 g/dL (3.2-5.0); Alkaline Phosphatase 57 U/L (45-117); Anion Gap 2 (5-15); BUN 14 mg/dL (7-18); BUN/Creat Ratio 19.3 RATIO (10-20); CRP 3.31 mg/L (0.0-3.0); Calcium,Total 8.7 mg/dL (8.5-10.1); Chloride 104 mmol/L (98-107); Creatinine, Serum 0.73 mg/dL (0.55-1.02); EST Glomerular Filtration Rate 86 mL/min (>60); Est Glom Filt Rate - Afr Amer 104 mL/min (>60); Globulin 3.8 g/dL (2.2-4.2); Glucose 105 mg/dL (74-106); Potassium 3.8 mmol/L (3.5-5.1); Protein, Total 7.7 g/dL (6.4-8.2); Sodium Level 137 mmol/L (136-145)
== END ==
PROVIDERS: Family Provider Nurse Practitioner; PCP Nurse Practitioner; Referring Provider Internal Medicine Rheumatology; Visit Provider Internal Medicine Rheumatology
DX: M06.4 Inflammatory polyarthropathy (principal); K21.9 Gastro-esophageal reflux disease without esophagitis; M35.00 Sjogren syndrome, unspecified; R51 Headache; K58.9 Irritable bowel syndrome, unspecified; H43.813 Vitreous degeneration, bilateral
CPT/HCPCS: 36415; 80053; 85025; 85652; 86140

== ENCOUNTER → 2019-07-16 09:55 | Outpatient (CLI) | payer OTHER, SELFPAY ==
--- NOTE | 2019-07-16 09:58 | VDLE_ITS ---
Reason For Study: PAIN RIGHT LEFT CFV is compressible, spontaneous, phasic, GSV is normal. competent and demonstrates normal CFV is compressible, spontaneous, phasic, augmentation. competent, and demonstrates normal Procedure augmentation. Exam performed in department. FV is compressible, spontaneous, phasic, A preliminary report was called and/or faxed competent and demonstrates normal to [facility]. augmentation. POP V is compressible, spontaneous, phasic, competent and demonstrates normal augmentation. T/P Trunk is compressible. PTV is compressible. LT PerV is compressible. Interpretation Summary Deep veins of the left lower extremity are patent and compressible segmentally. There is no evidence of left lower extremity deep vein thrombosis. Valvular competence appears intact within the proximal deep venous system on the left . The left great saphenous vein appears patent and compressible segmentally. Ordering Physician: Christ Wilson Referring Physician: EVIN GONZALEZ Performed By: Sabrina Amaral, LAUREN, RVT
== END ==
LOC: CVS 09:56
PROVIDERS: PCP Nurse Practitioner; Referring Provider Physician Assistant Surgical; Visit Provider Physician Assistant Surgical
DX: M79.662 Pain in left lower leg (principal)
CPT/HCPCS: 93971

== ENCOUNTER → 2020-05-03 08:41 | Outpatient (CLI) | payer OTHER, SELFPAY ==
[2018-03-06 06:06] VITALS: BMI 30.2
--- NOTE | 2020-05-03 08:43 | BI_ITS ---
MAMMOGRAPHY - BILATERAL SCREENING REASON FOR EXAM: Female, 64 years old. Routine annual screening examination. PERTINENT HISTORY: Personal history of breast cancer. Prior left lumpectomy with radiation treatment. TECHNIQUE: Digital bilateral breast rose (3D mammographic acquisition) in the CC and MLO projections. 2-D mediolateral oblique (MLO) and craniocaudad (CC) views of both breasts were obtained. CAD: Full Field Digital Mammography with Computer Added Detection was performed. COMPARISON: Comparison is made with prior examination dated 04/30/2019 and 04/25/2018. FINDINGS: Breast Composition: There are scattered areas of fibroglandular density. There are no dominant masses or suspicious calcifications. Once again, there is evidence of architectural distortion in the upper central portion of the left breast secondary to prior lumpectomy. There is deformity of the breast at that site. This is unchanged. No other significant abnormalities are identified. There has been no significant change since the prior study. BI/SCREEN MAMM (CAD) W/ROSE BILAT IMPRESSION: Stable bilateral screening mammogram. Yearly follow-up mammogram recommended. (A) ASSESSMENT CATEGORY: BIRADS Category 2: Benign. A letter regarding these results will be sent to the patient by the facility within 30 days. Approximately 10% of breast cancers are not detected by mammography. A normal mammogram should not delay biopsy of a clinically suspicious abnormality. [id number] Electronically Signed: Ernie Fields, at 10:02 EST , Service support ,
== END ==
PROVIDERS: Family Provider Nurse Practitioner; PCP Nurse Practitioner; Referring Provider Nurse Practitioner; Visit Provider Nurse Practitioner
DX: Z12.31 Encounter for screening mammogram for malignant neoplasm of breast (principal); C50.912 Malignant neoplasm of unspecified site of left female breast
CPT/HCPCS: 77063; 77067

== ENCOUNTER → 2020-08-24 09:40 | Outpatient (CLI) | payer BC, SELFPAY ==
[2020-08-27 08:41] LABS: HPV APTIMA, High Risk Negative (Negative)
== END ==
PROVIDERS: PCP Nurse Practitioner; Visit Provider Student in an Organized Health Care Education/Training Program
DX: Z12.4 Encounter for screening for malignant neoplasm of cervix (principal)
CPT/HCPCS: 87624; 88175; G0145

== ENCOUNTER 2020-08-26 11:41 | Outpatient (RCR) | payer MEDICARE, SELFPAY ==
[2018-03-06 06:06] VITALS: BMI 30.2
[2020-08-26] MEDS: COVID-19 VACC, MRNA(PFIZER)/PF 30 MCG/0.3 ML SYRINGE IM (10:42)
[2020-09-16] MEDS: COVID-19 VACC, MRNA(PFIZER)/PF 30 MCG/0.3 ML SYRINGE IM (10:27)
== END 2020-11-23 23:59 ==
LOC: IMMUN 11:41
PROVIDERS: PCP Nurse Practitioner; Referring Provider Family Medicine; Visit Provider Family Medicine
DX: Z23 Encounter for immunization (principal)
CPT/HCPCS: 0001A; 0002A; 91300

== ENCOUNTER → 2021-02-07 08:54 | Outpatient (CLI) | payer MEDICARE, SELFPAY ==
[2021-02-07 09:25] LABS: Absolute Lymphocyte Count 3.13 X10^3/uL (0.83-4.51); Absolute Neutrophil Count 5.8 X10^3/uL (2.0-7.7); Basophil# 0.06 X10^3/uL; Basophil% 0.6 % (0-1); Eosinophil# 0.23 X10^3/uL; Eosinophils% 2.3 % (0-5); Hematocrit 46.8 % (37-47); Hemoglobin 15.1 g/dL (12.0-15.0); Lymphocyte # 3.13 X10^3/ul (0.83-4.51); Lymphocyte % 31.1 % (19-41); Mean Corp Hgb Conc 32.3 g/dL (32-36); Mean Corpuscular Hgb 29.8 pg (27.0-32.0); Mean Corpuscular Volume 92.5 fL (81-99); Mean Platelet Vol. 10.2 fl (6.2-12.0); Monocyte# 0.83 X10^3/uL; Monocyte% 8.3 % (0-10); NRBC Flagged by Analyzer 0 % (0-5); Neutrophil # 5.76 X10^3/uL (2.7-7.7); Neutrophil % 57.2 % (47-70); Platelet Count 296 K/mm3 (150-450); RBC Distribution Width CV 13.2 % (11.6-14.6); RBC Distribution Width SD 44.8 fl (35.1-43.9); Red Blood Count 5.06 M/mm3 (4.2-5.4); White Blood Count 10.1 K/mm3 (4.4-11.0)
[2021-02-07 10:13] LABS: Vitamin D,25 Hydroxy 64.4 ng/mL
[2021-02-07 10:15] LABS: AST(SGOT) 26 U/L (15-37); Alanine Aminotransfer ALT/SGPT 39 U/L (13-56); Albumin, Serum 3.9 g/dL (3.2-5.0); Alkaline Phosphatase 64 U/L (45-117); Anion Gap 4 (5-15); BUN 13 mg/dL (7-18); BUN/Creat Ratio 19.2 RATIO (10-20); Chloride 104 mmol/L (98-107); Cholesterol 198 mg/dL (200); Creatinine, Serum 0.68 mg/dL (0.55-1.02); EST Glomerular Filtration Rate 93 mL/min (>60); Est Glom Filt Rate - Afr Amer 112 mL/min (>60); Globulin 4.1 g/dL (2.2-4.2); Glucose 96 mg/dL (74-106); High Density Lipoprotein 45 mg/dL; Potassium 3.9 mmol/L (3.5-5.1); Sodium Level 140 mmol/L (136-145); Thyroid Stim Hormone (TSH) 2.45 uIU/mL (0.358-3.74); Triglycerides 116 mg/dL; Very Low Density Lipoprotein 23 mg/dL (5-40)
== END ==
PROVIDERS: PCP Nurse Practitioner; Referring Provider Nurse Practitioner; Visit Provider Nurse Practitioner
DX: E55.9 Vitamin D deficiency, unspecified (principal); M19.90 Unspecified osteoarthritis, unspecified site; Z13.220 Encounter for screening for lipoid disorders; F41.9 Anxiety disorder, unspecified; R00.0 Tachycardia, unspecified; E87.6 Hypokalemia; Z68.32 Body mass index [BMI] 32.0-32.9, adult; Z78.0 Asymptomatic menopausal state
CPT/HCPCS: 36415; 80053; 80061; 82306; 84443; 85025

== ENCOUNTER → 2021-05-04 08:34 | Outpatient (CLI) | payer MEDICARE, SELFPAY ==
--- NOTE | 2021-05-04 08:36 | BI_ITS ---
MAMMOGRAPHY - BILATERAL SCREENING REASON FOR EXAM: Female, 65 years old. Routine annual screening examination. PERTINENT HISTORY: Personal history of breast cancer. Prior left lumpectomy with radiation therapy. TECHNIQUE: Digital bilateral breast rose (3D mammographic acquisition) in the CC and MLO projections. 2-D mediolateral oblique (MLO) and craniocaudad (CC) views of both breasts were obtained. CAD: Full Field Digital Mammography with Computer Added Detection was performed. COMPARISON: Comparison is made with prior examination dated 05/03/2020 and 04/30/2019. FINDINGS: Breast Composition: There are scattered areas of fibroglandular density. There are no dominant masses or suspicious calcifications. Once again, the patient is status post lumpectomy in the deep upper central aspect of the left breast with resultant architectural distortion and postoperative changes. There has been no change. No other significant abnormalities are identified. There has been no significant change since the prior study. BI/SCRN MAMM (CAD)W/ROSE BILAT IMPRESSION: Stable bilateral screening mammogram. Yearly follow-up mammogram recommended. (A) ASSESSMENT CATEGORY: BIRADS Category 2: Benign. A letter regarding these results will be sent to the patient by the facility within 30 days. Approximately 10% of breast cancers are not detected by mammography. A normal mammogram should not delay biopsy of a clinically suspicious abnormality. [id number] Electronically Signed: Ernie Fields MD at 9:36 EST , Service support ,
== END ==
PROVIDERS: PCP Nurse Practitioner; Referring Provider Nurse Practitioner; Visit Provider Nurse Practitioner
DX: Z12.31 Encounter for screening mammogram for malignant neoplasm of breast (principal)
CPT/HCPCS: 77063; 77067

== ENCOUNTER 2021-09-06 09:12 | Outpatient (CLI) | payer MEDICARE, SELFPAY ==
[2021-09-06 09:52] LABS: Absolute Lymphocyte Count 3.36 X10^3/uL (0.83-4.51); Absolute Neutrophil Count 6.3 X10^3/uL (2.0-7.7); Basophil# 0.07 X10^3/uL; Basophil% 0.6 % (0-1); Eosinophil# 0.31 X10^3/uL; Eosinophils% 2.8 % (0-5); Hematocrit 44.7 % (37-47); Hemoglobin 15.3 g/dL (12.0-15.0); Lymphocyte # 3.36 X10^3/ul (0.83-4.51); Lymphocyte % 30.6 % (19-41); Mean Corp Hgb Conc 34.2 g/dL (32-36); Mean Corpuscular Hgb 30.7 pg (27.0-32.0); Mean Corpuscular Volume 89.8 fL (81-99); Mean Platelet Vol. 10.4 fl (6.2-12.0); Monocyte# 0.87 X10^3/uL; Monocyte% 7.9 % (0-10); NRBC Flagged by Analyzer 0 % (0-5); Neutrophil # 6.31 X10^3/uL (2.7-7.7); Neutrophil % 57.6 % (47-70); Platelet Count 293 K/mm3 (150-450); RBC Distribution Width CV 13.1 % (11.6-14.6); RBC Distribution Width SD 42.6 fl (35.1-43.9); Red Blood Count 4.98 M/mm3 (4.2-5.4)
[2021-09-06 10:32] LABS: AST(SGOT) 23 U/L (15-37); Alanine Aminotransfer ALT/SGPT 33 U/L (13-56); Alkaline Phosphatase 64 U/L (45-117); Anion Gap 4 (5-15); BUN 13 mg/dL (7-18); BUN/Creat Ratio 19.8 RATIO (10-20); Calcium,Total 9.1 mg/dL (8.5-10.1); Chloride 102 mmol/L (98-107); Cholesterol 192 mg/dL (200); Creatinine, Serum 0.66 mg/dL (0.55-1.02); EST Glomerular Filtration Rate 96 mL/min (>60); Est Glom Filt Rate - Afr Amer 116 mL/min (>60); Globulin 3.9 g/dL (2.2-4.2); Glucose 100 mg/dL (74-106); High Density Lipoprotein 44 mg/dL; Potassium 3.7 mmol/L (3.5-5.1); Protein, Total 7.9 g/dL (6.4-8.2); Sodium Level 139 mmol/L (136-145); Thyroid Stim Hormone (TSH) 2.31 uIU/mL (0.358-3.74); Triglycerides 136 mg/dL; Very Low Density Lipoprotein 27 mg/dL (5-40)
== END 2021-09-06 23:59 | disposition home or self-care (01) ==
PROVIDERS: PCP Nurse Practitioner; Referring Provider Nurse Practitioner; Visit Provider Nurse Practitioner
DX: E55.9 Vitamin D deficiency, unspecified (principal); R51.9 Headache, unspecified; E87.6 Hypokalemia; I10 Essential (primary) hypertension; Z13.220 Encounter for screening for lipoid disorders
CPT/HCPCS: 36415; 80053; 80061; 82306; 84443; 85025

== ENCOUNTER → 2022-01-24 | Outpatient (CLI) | payer MEDICARE, SELFPAY ==
--- NOTE | 2022-01-24 09:00 | BD_ITS ---
STUDY: DUAL ENERGY X-RAY ABSORPTIOMETRY / DXA REASON FOR EXAM: Female, 66 years old. [id number]. Patient is postmenopausal. TECHNIQUE: Bone Mineral Density (BMD) measurements of lumbar spine and bilateral hips were obtained. COMPARISON: Comparison is made with prior study of 08/20/2018. FINDINGS: Lumbar Spine (L1-L4): g/cm2 (0.817) / T-score (-2.1) / Z-score (-0.2) Findings are suggestive of osteopenia with a high fracture risk. Left Femur Total: g/cm2 (0.742) / T-score (-1.6) / Z-score (-0.3) Left Femoral Neck: g/cm2 (0.548) / T-score (-2.7) / Z-score (-1.1) Right Femur Total: g/cm2 (0.747) / T-score (-1.6) / Z-score (-0.3) Right Femoral Neck: g/cm2 (0.626) / T-score (-2.0) / Z-score (-0.4) The T-Scores on the most recent prior examination were: Lumbar Spine (L1-L4): There has been worsening of bone density since the previous examination. Left Femur Total: which represents a worsening of 3.1%. Right Femur Total: which represents an improvement of 0.2%. BD/Dexa Bone Density Study IMPRESSION: The patient is considered osteoporotic as outlined below according to World Hal Organization (WHO) criteria with a high fracture risk. There has been worsening of bone density since the previous examination. Reference Information: The T-score is the number of standard deviations above or below the standard which is normal for young adults at their peak bone mineral density. The World Health Organization (WHO) interprets the T-scores as follows: Above -1 Normal bone density Between -1 and -2.5 Osteopenia Equal to / or below -2.5 Osteoporosis As a practical clinical guideline, osteopenia may be graded as follows: Mild -1 through -1.5 Moderate -1.6 through -2.0 Severe -2.1 through -2.4 The Z-score is the number of standard deviations above or below age-matched controls. A Z-score of less than -1.5 would be considered abnormal. References: 1. NIH Osteoporosis and Related Bone Diseases www osteo.org 2. International Society for Clinical Densitometry www iscd.org 3. National Osteoporosis Foundation www nof.org Electronically Signed: Ernie Fields MD at 15:23 EDT ,
== END | disposition home or self-care (01) ==
LOC: OPBD 08:56
PROVIDERS: PCP Nurse Practitioner; Visit Provider Nurse Practitioner Family
DX: Z78.0 Asymptomatic menopausal state (principal)
CPT/HCPCS: 77080

== ENCOUNTER → 2022-05-05 | Outpatient (CLI) | payer MEDICARE, SELFPAY ==
--- NOTE | 2022-05-05 07:58 | BI_ITS ---
MAMMOGRAPHY - BILATERAL SCREENING REASON FOR EXAM: Female, 66 years old. Routine annual screening examination. PERTINENT HISTORY: Personal history of breast cancer. Prior left lumpectomy and radiation treatment. TECHNIQUE: Digital bilateral breast rose (3D mammographic acquisition) in the CC and MLO projections. 2-D mediolateral oblique (MLO) and craniocaudad (CC) views of both breasts were obtained. CAD: Full Field Digital Mammography with Computer Added Detection was performed. COMPARISON: Comparison is made with prior study 05/04/2021 and 05/03/2020. FINDINGS: Breast Composition: There are scattered areas of fibroglandular density. The patient is status post lumpectomy in the deep upper central portion of the left breast with resultant breast deformity and postoperative dense calcification. No new abnormality is seen. No other significant abnormalities are identified. There has been no significant change since the prior study. BI/SCRN MAMM (CAD)W/ROSE BILAT IMPRESSION: Stable bilateral screening mammogram. Yearly follow-up mammogram recommended. (A) ASSESSMENT CATEGORY: BIRADS Category 2: Benign. A letter regarding these results will be sent to the patient by the facility within 30 days. Approximately 10% of breast cancers are not detected by mammography. A normal mammogram should not delay biopsy of a clinically suspicious abnormality. [id number] Electronically Signed: Ernie Fields MD at 8:51 EST ,
== END | disposition home or self-care (01) ==
LOC: OPBI 07:57
PROVIDERS: PCP Nurse Practitioner; Visit Provider Nurse Practitioner
DX: Z12.31 Encounter for screening mammogram for malignant neoplasm of breast (principal)
CPT/HCPCS: 77063; 77067

== ENCOUNTER 2022-05-22 09:52 | Outpatient (RCR) | payer MEDICARE, SELFPAY ==
--- NOTE | 2022-05-22 16:42 | HP.PTEVAL_ITS ---
Patient's Visit Information KEVIN PINA is a 66 year old F referred to Physical Therapy by Dr. Elena Nichole MD with a diagnosis of STRESS INCONTINENCE AND NOCTURIA. Date of Evaluation: 05/22/22 Physical Therapist: Aminata Giles PT, Cert MDT - Visit Plan Frequency: 1x/Week Duration: 8-10 WKS Plan: *CHECK AUTH: RECORD # OF VISITS APPROVED AND EXPIRATION DATE. CHECK CODES APPROVED WITH POC*. MANUAL PF THERAPY FOR STRENGTHENING, LENGTHENING/RELAXATION AND ENDURANCE TRAINING. URINARY RETENTION AND FREQUENCY EDUCATION. HEALTHY BLADDER HABBIT EDUCATION. TRAINING IN COORDINATION OF PELVIC FLOOR MUSCULATURE WITH HIP AND CORE (TRANSVERSE ABDOMINUS) MUSCULATURE. POSTURE CORRECTION/STRENGTHENING. CORE STRENGTHENING. GURPREET LE ROM, STRETCHING AND STRENGTHENING. TRAINING IN ABDOMINAL CAVITY PRESSURE MGMT WITH ADL'S. - Subjective Work/Leisure: SEMI-RETIRED. WATCHES 11 [employer]. Present symptoms: PATIENT REPORTS SHE HAD A UTI MAR 30 2022. TOOK ANTIBIOTIC. HAD A LOT OF PELVIC PAIN INITIALLY. STILL HAS SOME PELVIC PAIN AND HAS TO GO TO THE BATHROOM A LOT. HAVING SOME URINE LEAKING TOO. NO LONGER HAS A UTI. STATES UROLOGIST RULED OUT interstitial cystitis. STATES SHE ALSO LEAKES WITH COUGHING AND SNEEZING. GETTING UP TO URINATE 3-4 TIMES A NIGHT. Present since: URINARY FREQUENCY FOR 10 PLUS YEARS. Pain Scale: PELVIC PAIN - WORST 3/10, LEAST 0/10. Currently: 2/10. Is it getting better, worse or staying the same: STAYING THE SAME BUT BETTER THAN DURING UTI. WORSE NOW THAN BEFORE UTI. HAVING MORE URGENCY TO GO NOW THAN SHE DID BEFORE THE UTI. Commenced as a result of: UTI. Symptoms at onset: A LOT OF PELVIC PAIN. Worse: FULL BLADDER, AFTER micturition SHE HAS INCREASED PELVIC PAIN TOO. COUGHING AND SNEEZING CAUSE URINARY LEAKING. NIGHT TIME LEAKING. VAGINAL CREAM PRESCRIBED BY DR. NICHOLE - WILL LET HER KNOW - CAUSED BURNING WITH ONE USE. Better: EMPTYING BLADDER HELPS PELVIC PAIN. SITTING AND LYING DOWN SEEM TO HELP PELVIC PAIN TOO. Disturbed sleep: MORE URGENCY AT NIGHT. GETTING UP ABOUT 3 - 4 TIMES A NIGHT TO URINATE. Previous history/Previous treatment: FIRST UTI IN 20 TO 30 YEARS. NO PRIOR TREATMENT FOR INCONTINENCE OR PELVIC PAIN. NO SIGNIFICANT HISTORY OF LOW BACK PROBLEMS BUT DOES HAVE ARTHRITIS MAINLY IN HANDS AND FEET ALSO R HIP AND SHLDS. Treatment this episode: ANTIBIOTIC FOR UTI AND VAGINAL CREAM - SEE ABOVE. DR. HINKLE ALSO PRESCRIBED SOME MEDICINE ORGINALLY THAT HELPED SOME OF HER PELVIC PAIN. Gait: NORMAL. WALKS ABOUT A MILE ONE DAY A WK FOR EX. Bowel Dysfunction: NO. Unexplained weight loss: NO. Imaging: US OF BLADDER TO SEE IF BLADDER IS EMPTYING AND IT IS PER PATINT REPORT. PMH/Recent major surgery: IBS. GURPREET TKR'S. H/O BREAST CANCER TREATED WITH LUMPECTOMY AND RADIATION ABOUT 8 YEARS AGO. TACHYCARDIA, OSTEOPOROSIS, ARTHRITIS, GERD, HTN, ANXIETY. H/O FOOT FX. - Objective Sitting/Standing Posture: POOR. DECREASED LORDOSIS BUT NE RELEVENT LATERAL SHIFT. Active Correction of posture: BETTER - DECREASES C/O PELVIC PAIN. Other Observations: INDEP GAIT AND TRANSFERS. Sensory deficit: GURPREET LE LIGHT TOUCH SENSATION GROSSLY INTACT AND SYMMETRICAL. ROM deficit: GURPREET UE'S AND LE'S WFL BUT GURPREET HIP ADDUCTION, HIP FLEXION, HS AND GASTROC SOLEUS COMPLEX TIGHTNESS. Motor deficit: GURPREET LE'S GROSSLY 5/5 WITH MMT'ING EXCEPT HIPS 4-/5. Dural Signs: NEGATIVE GURPREET LE'S. Lumbar mvmt loss: flex - NIL. ext - MOD. R SG - MOD. L SG - MOD. PATIENT DENIES INCREASED PAIN WITH LUMBAR ROM TESTING ALL PLANES. Core strength: POOR. Palpation: NO EXTERNAL PELVIC TENDERNESS WITH PELVIC EXAM BUT THERE IS INTROITUS REDINESS AND IRRITATION UPON OBSERVATION. PATIENT REPORTS SHE IS STILL HAVING IRRIATATION FROM THE NEW CREAM SHE TRIED. INTERNAL VAGINAL EXAM postponed DUE TO REDNESS AND IRRITATION TODAY. PATIENT COMMUNICATES ONLY A FAIR UNDERSTANDING OF PROPER PF CONTRACTION AND FEELS WEAK. FUNCTIONAL SCREEN: Incontinence Impact Questionnaire Score: 0. Urogenital Distress Inventory Score: 9 - Goals Goal 1:: DECREASE URINARY LEAKAGE EPISODES TO 1 OR LESS PER DAY Goal Time Frame: 4-6 Weeks Goal 2:: PATIENT WILL SUCCESSFULLY DELAY VOIDING FOR 10 MINUTES WHEN URGENCY OCCURS WITHOUT PELVIC PAIN. Goal Time Frame: 2-4 Weeks Goal 3:: PATIENT WILL HAVE PELVIC FLOOR MUSCLE STRENGTH GRADE TO 5/5 Goal Time Frame: 6-8 Weeks Goal 4:: PATIENT WILL DEMONSTRATE 10 CONSISTENT AND CONSECUTIVE 10 SECOND PELVIC FLOOR MUSCLE CONTRACTIONS TO DEMONSTRATE GOOD PELVIC FLOOR ENDURANCE. Goal Time Frame: 8-12 Weeks Goal 5:: NORMALIZE VOIDING FREQUENCEY EVERY 3-4 HOURS WITHOUT PELVIC PAIN OR LEAKING. Goal Time Frame: 8-12 Weeks Goal 6:: PATIENT WILL BE INDEP WITH A HEP/HOME INSTRUCTIONS FOR CONTINUED IMPRO VEMENT ONCE FORMAL PHYSICAL THERAPY CONCLUDES. - Anticipated Interventions Patient/Client Instruction: Educate patient on: Condition, Plan of Care, Risk Factors For the Purpose of:: To improve self management Therapeutic Exercise to Include: Strength training, Endurance training, Coordination, Body mechanics, Postural training, Flexibilty training, Neuromotor development, Dynamic Lumbar Stabilization For the Purpose of:: To decrease pain, To improve muscle performance and motor function, To increase tolerance to activity/condition/position, To improve ability of physical actions for home/community/work/leisure Manual Therapy Techniques to Include: Soft tissue mobilization Comment: BIOFEEDBACK For the Purpose of:: To decrease pain, To improve muscle performance and motor function Thank you for the opportunity to evaluate your patient. For Medicare and Medicare HMO plans, please review the plan of care and approve it. It will need to be FAXED BACK to us at [phone] for Medicare purposes. For Medicare only, by signing this I certify the plan of care. Please let me know if there are questions or concerns regarding this plan of care. Physician Signature: Date:
--- NOTE | 2022-09-13 13:36 | HP.PT.NRP ---
KEVIN PINA was seen in my office for initial evaluation on 05/22/22. The following Plan of Care was established for this patient: Initial Frequency: 1x/Week Initial Duration: 8-10 WKS Patient/Client Instruction: Educate patient on: Condition, Plan of Care, Risk Factors For the Purpose of:: To improve self management Therapeutic Exercise to Include: Strength training, Endurance training, Coordination, Body mechanics, Postural training, Flexibilty training, Neuromotor development, Dynamic Lumbar Stabilization For the Purpose of:: To decrease pain, To improve muscle performance and motor function, To increase tolerance to activity/condition/position, To improve ability of physical actions for home/community/work/leisure Manual Therapy Techniques to Include: Soft tissue mobilization Comment: BIOFEEDBACK For the Purpose of:: To decrease pain, To improve muscle performance and motor function This patient was last seen in our office 05/22/23. Pertinent comments regarding their Physical therapy will appear below: This patient has not returned to Physical Therapy and is appropriate to return to MD for further follow-up as needed. At this point I will be discontinuing this patient from physical therapy. I would be happy to see this patient again in the future if found appropriate by the physician. Thank you! Aminata Giles, PT, Cert MDT
== END 2022-05-22 19:00 | disposition home or self-care (01) ==
LOC: PT 09:52
PROVIDERS: PCP Nurse Practitioner Family; Referring Provider Urology; Visit Provider Urology
DX: N39.3 Stress incontinence (female) (male) (principal); R35.1 Nocturia
CPT/HCPCS: 97162

== ENCOUNTER → 2022-10-04 | Outpatient (CLI) | payer MEDICARE, SELFPAY ==
[2022-10-04 09:59] LABS: Absolute Lymphocyte Count 3.86 X10^3/uL (0.83-4.51); Absolute Neutrophil Count 6.8 X10^3/uL (2.0-7.7); Basophil# 0.08 X10^3/uL; Basophil% 0.7 % (0-1); Eosinophil# 0.18 X10^3/uL; Eosinophils% 1.5 % (0-5); Hematocrit 45.4 % (37-47); Hemoglobin 14.6 g/dL (12.0-15.0); Lymphocyte # 3.86 X10^3/ul (0.83-4.51); Mean Corp Hgb Conc 32.2 g/dL (32-36); Mean Corpuscular Hgb 29.9 pg (27.0-32.0); Monocyte# 1.11 X10^3/uL; Monocyte% 9.2 % (0-10); NRBC Flagged by Analyzer 0 % (0-5); Neutrophil # 6.78 X10^3/uL (2.7-7.7); Neutrophil % 56.1 % (47-70); Platelet Count 283 K/mm3 (150-450); RBC Distribution Width CV 13.6 % (11.6-14.6); RBC Distribution Width SD 46.9 fl (35.1-43.9); Red Blood Count 4.88 M/mm3 (4.2-5.4); White Blood Count 12.1 K/mm3 (4.4-11.0)
[2022-10-04 10:23] LABS: Vitamin B12 669 pg/mL (211-911); Vitamin D,25 Hydroxy 48.3 ng/mL
[2022-10-04 10:58] LABS: AST(SGOT) 16 U/L (15-37); Alanine Aminotransfer ALT/SGPT 29 U/L (13-56); Albumin, Serum 3.8 g/dL (3.2-5.0); Alkaline Phosphatase 49 U/L (45-117); Anion Gap 3 (5-15); BUN 15 mg/dL (7-18); BUN/Creat Ratio 22.3 RATIO (10-20); Calcium,Total 8.7 mg/dL (8.5-10.1); Chloride 105 mmol/L (98-107); Cholesterol 194 mg/dL (200); Creatinine, Serum 0.67 mg/dL (0.55-1.02); EST Glomerular Filtration Rate 93 mL/min (>60); Est Glom Filt Rate - Afr Amer 112 mL/min (>60); Globulin 3.9 g/dL (2.2-4.2); Glucose 92 mg/dL (74-106); High Density Lipoprotein 45 mg/dL; Magnesium 2.3 mg/dL (1.6-2.6); Potassium 3.7 mmol/L (3.5-5.1); Protein, Total 7.7 g/dL (6.4-8.2); Sodium Level 137 mmol/L (136-145); Thyroid Stim Hormone (TSH) 2.67 uIU/mL (0.358-3.74); Triglycerides 183 mg/dL; Very Low Density Lipoprotein 37 mg/dL (5-40)
== END | disposition home or self-care (01) ==
LOC: LAB 09:16
PROVIDERS: PCP Internal Medicine; Referring Provider Nurse Practitioner Family; Visit Provider Nurse Practitioner Family
DX: E55.9 Vitamin D deficiency, unspecified (principal); I10 Essential (primary) hypertension; F41.9 Anxiety disorder, unspecified; Z13.220 Encounter for screening for lipoid disorders
CPT/HCPCS: 36415; 80053; 80061; 82306; 82607; 82746; 83735; 84443; 85025

== ENCOUNTER → 2023-06-21 | Outpatient (CLI) | payer MEDICARE, SELFPAY ==
--- NOTE | 2023-06-21 09:13 | BI_ITS ---
MAMMOGRAPHY - BILATERAL SCREENING REASON FOR EXAM: Female, 68 years old. Routine annual screening examination. PERTINENT HISTORY: Personal history of breast cancer. Prior left lumpectomy and radiation treatment. TECHNIQUE: Digital bilateral breast rose (3D mammographic acquisition) in the CC and MLO projections. 2-D mediolateral oblique (MLO) and craniocaudad (CC) views of both breasts were obtained. CAD: Full Field Digital Mammography with Computer Added Detection was performed. COMPARISON: Comparison is made with prior study dated May 05, 2022 and May 04, 2021. FINDINGS: Breast Composition: There are scattered areas of fibroglandular density. There are no dominant masses or suspicious calcifications. Metastases again, the patient is status post lumpectomy in the deep upper central portion of the left breast with resultant breast deformity and postoperative dystrophic calcification. No other significant abnormalities are identified. There has been no significant change since the prior study. BI/SCRN MAMM (CAD)W/ROSE BILAT IMPRESSION: Stable bilateral screening mammogram. Yearly follow-up mammogram recommended. (A) ASSESSMENT CATEGORY: BIRADS Category 2: Benign. A letter regarding these results will be sent to the patient by the facility within 30 days. Approximately 10% of breast cancers are not detected by mammography. A normal mammogram should not delay biopsy of a clinically suspicious abnormality. [id number] Electronically Signed: Ernie Fields MD at 13:46 EST ,
--- OUTSIDE RECORDS SUMMARY | 2023-06-21 09:43 | XMS RPT_ITS | CCD ---
Author Name Unknown Address [address] [place] [address] Organization [facility] Care Team Providers Care Front Maker Lockstitch Name Role Phone Ciesa, Nallely Unavailable [facility] [place] Unavailable Chuckie Kenny Unavailable Unavailable April Moon Unavailable Unavailable Unavailable Unavailable Unavailable Unavailable Miladys Duarte Unavailable Unavailable Elizabeth Ramirez Unavailable Chuckie Kenny Unavailable Unavailable April Moon Unavailable Unavailable Chuckie Cummins Unavailable Unavailable Ciesa LORENE Nallely Unavailable [facility] [place] Unavailable Chuckie Cummins LPN Unavailable Unavailable April Moon RN Unavailable Unavailable Unavailable Unavailable Estrella Dupree LPN Unavailable Unavailable Ciesa, Yaneth Unavailable Dr. Rayray Mary Unavailable CAM Macario LPN Unavailable Unavailable Beryl Whitmore CNP Unavailable Beryl Whitmore CNP Unavailable Ciesa, Yaneth Unavailable Clotilde Metcalf LPN Unavailable Unavailable Ciesa LORENE, Nallely Primary Care Provider Padmini Hinkle DO Unavailable Elena Nichole Unavailable fredrick Fuentes Unavailable Unavailable Beryl Whitmore Primary Care Provider [phone] Beryl Whitmore CNP Attending Unavailable Beryl Whitmore CNP Consulting Unavailable Beryl Whitmore CNP Referring Unavailable BERYL WHITMORE Primary Care Unavailable ASHLEY HINKLE Attending Unavailable Allergies Allergy Classification Reported Allergen(s) Allergy Type Date of Onset Reaction(s) Facility Acetaminophen / HYDROcodone (2 sources) Acetaminophen / HYDROcodone; Translations: [Vicodin *ANALGESICS - OPIOID*] Drug Allergy [facility] Work Phone: cyclobenzaprine (2 sources) cyclobenzaprine; Translations: [Flexeril *MUSCULOSKELETAL THERAPY AGENTS*] Drug Allergy Dizziness [facility] Work Phone: Dust (2 sources) Dust; Translations: [Dust] Substance Allergy [facility] Work Phone: Macrolides (antibiotic) (2 sources) Clarithromycin; Translations: [Clarithromycin *MACROLIDES*] Drug Allergy [facility] Work Phone: Opioid Agonists (2 sources) Morphine; Translations: [Morphine Sulfate (PF) *ANALGESICS - OPIOID*] Drug Allergy [facility]; [facility] Work Phone: Proton Pump Inhibitors (4 sources) RABEprazole; Translations: [Aciphex *ULCER DRUGS*] Drug Allergy [facility]; [facility] Work Phone: Medications Current Medications Medication Drug Class(es) Dates Sig (Normalized) Sig (Original) famotidine 20 mg oral tablet (2 sources) Histamine-2 Receptor Antagonist Start: 09-25-2022 End: 03-28-2023 take 1 tablet by mouth twice daily as needed famotidine 20 mg oral tablet 1 (one) tablet twice daily as needed for indigestion for 0 days Quantity: 30 {Tablet} Refills: 0 Ordered: 28-Mar-2023 Clotilde Metcalf LPN Start : 25-Sep-2022 End : 28-Mar-2023 Discontinued Comments: Medication taken as needed. Completed/Discontinued Medications Medication Drug Class(es) Dates Sig (Normalized) Sig (Original) acetaminophen 500 mg oral tablet (20 sources) take 1 tablet by natalie th every six hours as needed for pain Tylenol Extra Strength 500 MG Oral Tablet 1 q6h prn for pain (500 MG) Active Problems Active Problems Problem Classification Problem Date Documented Da te Episodic/Chronic Anxiety disorders (20 sources) Anxiety; Translations: [Anxiety] Onset: 06-03-2007 08-22-2017 Chronic Past or Other Problems Problem Classification Problem Date Documented Da te Episodic/Chronic Other bone disease and musculoskeletal deformities (4 sources) Osteopenia; Translations: [Other specified disorders of bone density and structure, unspecified site] Onset: 03-07-2013 06-13-2021 Episodic Other connective tissue disease (6 sources) Swelling of right lower limb; Translations: [Right leg swelling] Resolved: 07-09-2018 09-03-2018 Other non-traumatic joint disorders (2 sources) Arthritis of left knee; Translations: [Arthritis of knee, left] 06-24-2019 Results Test Name Value Interpretation Reference Range Facil ity Vital Signs Date Time Vital Sign Value Performing Clinician Facility 03-28-2023 09:11-0400 Body height 158.75 cm Clotilde Metcalf LPN [facility] Work Phone: 03-28-2023 09:11-0400 Body mass index (BMI) [Ratio] 32.4 kg/m2 Clotilde Metcalf LPN [facility] Work Phone: 03-28-2023 09:11-0400 Body surface area Derived from formula 1.84 m2 Clotilde Metcalf LPN [facility] Work Phone: 03-28-2023 09:11-0400 Body temperature 97.2 [degF] Clotilde Metcalf LPN [facility] Work Phone: Encounters Encounter Date Encounter Type Care Provider Facility Start: 05-21-2023 End: 05-21-2023 ambulatory BERYL WHITMORE Facility:[facility] Start: 03-28-2023 Review Beryl Whitmore [employer]Y FARM MANAGER Work Phone: [facility] Start: 02-23-2023 ambulatory Ashley Hinkle APRN.DA[employer] FARM MANAGER Work Phone: OB/Gynecology Procedures Date Procedure Procedure Detail Performing Clinician Start: 05-22-2022 End: 05-22-2022 Inital Evaluation (1) - PT Procedure Note: See Note; NOTES: [facility] [address] [place] [address] [address] [place] [address] / REHABILITATION SERVICES INITIAL EVALUATION MR#: [id number] Acct: [id number] Name: LYNSEY PINA Rep #: [id number] : 1955 66 From: Aminata Giles PT, Cert. MDT Referring Dr.: Dr. Elena Nichole MD Status: RE G RCR Insurance: [facility] MEDICARE S[employer]IOR [employer] SELF PAY INSURANCE Patient's Visit Information LYNSEY PINA is a 66 year old F referred to Physical Therapy by Dr. Elena Nichole MD with a diagnosis of STRESS INCONTINENCE AND NOCTURIA. Date of Evaluation: 05/22/22 Physical Therapist: Aminata Giles PT, Cert MDT - Visit Plan Frequency: 1x/Week Duration: 8-10 WKS Plan: *CHECK AUTH: RECORD # OF VISITS APPROVED AND EXPIRATION DATE. CHECK CODES APPROVED WITH POC*. MANUAL PF THERAPY FOR STRENGTHENING, LENGTHENING/RELAXATION AND ENDURANCE TRAINING. URINARY RETENTION AND FREQUENCY EDUCATION. HEALTHY BLADDER HABBIT EDUCATION. TRAINING IN COORDINATION OF PELVIC FLOOR MUSCULATURE WITH HIP AND CORE (TRANSVERSE ABDOMINUS) MUSCULATURE. POSTURE CORRECTION/STRENGTHENING. CORE STRENGTHENING. GURPREET LE ROM, STRETCHING AND STRENGTHENING. TRAINING IN ABDOMINAL CAVITY PRESSURE MGMT WITH ADL'S. - Subjective Work/Leisure: SEMI-RETIRED. WATCHES 11 [employer]. Present symptoms: PATIENT REPORTS SHE HAD A UTI MAR 30 2022. TOOK ANTIBIOTIC. HAD A LOT OF PELVIC PAIN INITIALLY. STILL HAS SOME PELVIC PAIN AND HAS TO GO TO THE BATHROOM A LOT. HAVING SOME URINE LEAKING TOO. NO LONGER HAS A UTI. STATES UROLOGIST RULED OUT interstitial cystitis. STATES SHE ALSO LEAKES WITH COUGHING AND SNEEZING. GETTING UP TO URINATE 3-4 TIMES A NIGHT. Present since: URINARY FREQUENCY FOR 10 PLUS YEARS. Pain Scale: PELVIC PAIN - WORST 3/10, LEAST 0/10. Currently: 2/10. Is it getting better, worse or staying the same: STAYING THE SAME BUT BETTER THAN DURING UTI. WORSE NOW THAN BEFORE UTI. HAVING MORE URGENCY TO GO NOW THAN SHE DID BEFORE THE UTI. Commenced as a result of: UTI. Symptoms at onset: A LOT OF PELVIC PAIN. Worse: FULL BLADDER, AFTER micturition SHE HAS INCREASED PELVIC PAIN TOO. COUGHING AND SNEEZING CAUSE URINARY LEAKING. NIGHT TIME LEAKING. VAGINAL CREAM PRESCRIBED BY DR. NICHOLE - WILL LET HER KNOW - CAUSED BURNING WITH ONE USE. Better: EMPTYING BLADDER HELPS PELVIC PAIN. SITTING AND LYING DOWN SEEM TO HELP PELVIC PAIN TOO. Disturbed sleep: MORE URGENCY AT NIGHT. GETTING UP ABOUT 3 - 4 TIMES A NIGHT TO URINATE. Previous history/Previous treatment: FIRST UTI IN 20 TO 30 YEARS. NO PRIOR TREATMENT FOR INCONTINENCE OR PELVIC PAIN. NO SIGNIFICANT HISTORY OF LOW BACK PROBLEMS BUT DOES HAVE ARTHRITIS MAINLY IN HANDS AND FEET ALSO R HIP AND SHLDS. Treatment this episode: ANTIBIOTIC FOR UTI AND VAGINAL CREAM - SEE ABOVE. DR. HINKLE ALSO PRESCRIBED SOME MEDICINE ORGINALLY THAT HELPED SOME OF HER PELVIC PAIN. Gait: NORMAL. WALKS ABOUT A MILE ONE DAY A WK FOR EX. Bowel Dysfunction: NO. Unexplained weight loss: NO. Imaging: US OF BLADDER TO SEE IF BLADDER IS EMPTYING AND IT IS PER PATINT REPORT. PMH/Recent major surgery: IBS. GURPREET TKR'S. H/O BREAST CANCER TREATED WITH LUMPECTOMY AND RADIATION ABOUT 8 YEARS AGO. TACHYCARDIA, OSTEOPOROSIS, ARTHRITIS, GERD, HTN, ANXIETY. H/O FOOT FX. - Objective Sitting/Standing Posture: POOR. DECREASED LORDOSIS BUT NE RELEVENT LATERAL SHIFT. Active Correction of posture: BETTER - DECREASES C/O PELVIC PAIN. Other Observations: INDEP GAIT AND TRANSFERS. Sensory deficit: GURPREET LE LIGHT TOUCH SENSATION GROSSLY INTACT AND SYMMETRICAL. ROM deficit: GURPREET UE'S AND LE'S WFL BUT GURPREET HIP ADDUCTION, HIP FLEXION, HS AND GASTROC SOLEUS COMPLEX TIGHTNESS. Motor deficit: GURPREET LE'S GROSSLY 5/5 WITH MMT'ING EXCEPT HIPS 4-/5. Dural Signs: NEGATIVE GURPREET LE'S. Lumbar mvmt loss: flex - NIL. ext - MOD. R SG - MOD. L SG - MOD. PATIENT DENIES INCREASED PAIN WITH LUMBAR ROM TESTING ALL PLANES. Core strength: POOR. Palpation: NO EXTERNAL PELVIC TENDERNESS WITH PELVIC EXAM BUT THERE IS INTROITUS REDINESS AND IRRITATION UPON OBSERVATION. PATIENT REPORTS SHE IS STILL HAVING IRRIATATION FROM THE NEW CREAM SHE TRIED. INTERNAL VAGINAL EXAM postponed DUE TO REDNESS AND IRRITATION TODAY. PATIENT COMMUNICATES ONLY A FAIR UNDERSTANDING OF PROPER PF CONTRACTION AND FEELS WEAK. FUNCTIONAL SCREEN: Incontinence Impact Questionnaire Score: 0. Urogenital Distress Inventory Score: 9 - Goals Goal 1:: DECREASE URINARY LEAKAGE EPISODES TO 1 OR LESS PER DAY Goal Time Frame: 4-6 Weeks Goal 2:: PATIENT WILL SUCCESSFULLY DELAY VOIDING FOR 10 MINUTES WHEN URGENCY OCCURS WITHOUT PELVIC PAIN. Goal Time Frame: 2-4 Weeks Goal 3:: PATIENT WILL HAVE PELVIC FLOOR MUSCLE STRENGTH GRADE TO 5/5 Goal Time Frame: 6-8 Weeks Goal 4:: PATIENT WILL DEMONSTRATE 10 CONSISTENT AND CONSECUTIVE 10 SECOND PELVIC FLOOR MUSCLE CONTRACTIONS TO DEMONSTRATE GOOD PELVIC FLOOR ENDURANCE. Goal Time Frame: 8-12 Weeks Goal 5:: NORMALIZE VOIDING FREQUENCEY EVERY 3-4 HOURS WITHOUT PELVIC PAIN OR LEAKING. Goal Time Frame: 8-12 Weeks Goal 6:: PATIENT WILL BE INDEP WITH A HEP/HOME INSTRUCTIONS FOR CONTINUED IMPROVEMENT ONCE FORMAL PHYSICAL THERAPY CONCLUDES. - Anticipated Interventions Patient/Client Instruction: Educate patient on: Condition, Plan of Care, Risk Factors For the Purpose of:: To improve self management Therapeutic Exercise to Include: Strength training, Endurance training, Coordination, Body mechanics, Postural training, Flexibilty training, Neuromotor development, Dynamic Lumbar Stabilization For the Purpose of:: To decrease pain, To improve muscle performance and motor function, To increase tolerance to activity/condition/position, To improve ability of physical actions for home/community/work/leisure Manual Therapy Techniques to Include: Soft tissue mobilization Comment: BIOFEEDBACK For the Purpose of:: To decrease pain, To improve muscle performance and motor function Thank you for the opportunity to evaluate your patient. For Medicare and Medicare HMO plans, please review the plan of care and approve it. It will need to be FAXED BACK to us at [phone] for Medicare purposes. For Medicare only, by signing this I certify the plan of care. Please let me know if there are questions or concerns regarding this plan of care. Physician Signature: _Date: <Electronically signed by Aminata Giles PT, Cert. T> 05/22/22 [id number] CC: CUCO Whitmore; Dr. Elena Nichole MD SOFI Signed Beryl Whitmore [employer] FARM MANAGER Work Phone: Start: 05-05-2022 End: 05-05-2022 SCRN MAMM (CAD)W/ROSE BILAT Procedure Note: See Note; NOTES: [facility] Imaging Services [address] [place] [address] SCRN MAMM (CAD)W/ROSE BILAT MR#: [id number] Acct: [id number] Name: LYNSEY PINA Rep #: [id number] : 1955 F 66 From: Ernie alcala MD PCP: Yaneth Mcgregor BRIDGE MAINTAINER-C Status: REG CLI Study: SCRN MAMM (CAD)W/ROSE BILAT Date of Exam: 04/18 02/06 Exam# [id number] Ordering Dr: Antonia Mattson NP N P-C MAMMOGRAPHY - BILATERAL SCREENING REASON FOR EXAM: Female, 66 years old. Routine annual screening examination. PERTINENT HISTORY: Personal history of breast cancer. Prior left lumpectomy and radiation treatment. TECHNIQUE: Digital bilateral breast rose (3D mammographic acquisition) in the CC and MLO projections. 2-D mediolateral oblique (MLO) and craniocaudad (CC) views of both breasts were obtained. CAD: Full Field Digital Mammography with Computer Added Detection was performed. COMPARISON: Comparison is made with prior study 05/04/2021 and 05/03/2020. FINDINGS: Breast Composition: There are scattered areas of fibroglandular density. The patient is status post lumpectomy in the deep upper central portion of the left breast with resultant breast deformity and postoperative dense calcification. No new abnormality is seen. No other significant abnormalities are identified. There has been no significant change since the prior study. BI/SCRN MAMM (CAD)W/ROSE BILAT IMPRESSION: Stable bilateral screening mammogram. Yearly follow-up mammogram recommended. (A) ASSESSMENT CATEGORY: BIRADS Category 2: Benign. A letter regarding these results will be sent to the patient by the facility within 30 days. Approximately 10% of breast cancers are not detected by mammography. A normal mammogram should not delay biopsy of a clinically suspicious abnormality. [id number] Electronically Signed: Ernie Fields MD at 8:51 EST , CC: ALFREDA Mattson; CUCO Mcgregor Hairspring Ii Inspector: Signed Beryl Whitmore [facility] Work Phone: Start: 04-16-2022 Urnls dip stick/tablet rgnt auto w/o microscopy Holly Berry APRN.[facility] Work Phone: Start: 01-24-2022 End: 01-25-2022 Dexa Bone Density Study Comments: See Note; NOTES: [facility] Imaging Services [address] [place] [address] Dexa Bone Density Study MR#: [id number] Acct: [id number] Name: LYNSEY PINA Rep #: [id number] : 1955 F 66 From: Ernie alcala MD PCP: CUCO Zambrano [facility] Study: Dexa Bone Density Study Date of Exam: 01/24/22 Exam# [id number] Ordering Dr: Beryl Whitmore STUDY: DUAL ENERGY X-RAY ABSORPTIOMETRY / DXA REASON FOR EXAM: Female, 66 years old. [id number]. Patient is postmenopausal. TECHNIQUE: Bone Mineral Density (BMD) measurements of lumbar spine and bilateral hips were obtained. COMPARISON: Comparison is made with prior study of 08/20/2018. FINDINGS: Lumbar Spine (L1-L4): g/cm2 (0.817) / T-score (-2.1) / Z-score (-0.2) Findings are suggestive of osteopenia with a high fracture risk. Left Femur Total: g/cm2 (0.742) / T-score (-1.6) / Z-score (-0.3) Left Femoral Neck: g/cm2 (0.548) / T-score (-2.7) / Z-score (-1.1) Right Femur Total: g/cm2 (0.747) / T-score (-1.6) / Z-score (-0.3) Right Femoral Neck: g/cm2 (0.626) / T-score (-2.0) / Z-score (-0.4) The T-Scores on the most recent prior examination were: Lumbar Spine (L1-L4): There has been worsening of bone density since the previous examination. Left Femur Total: which represents a worsening of 3.1%. Right Femur Total: which represents an improvement of 0.2%. BD/Dexa Bone Density Study IMPRESSION: The patient is considered osteoporotic as outlined below according to World Hal Organization (WHO) criteria with a high fracture risk. There has been worsening of bone density since the previous examination. Reference Information: The T-score is the number of standard deviations above or below the standard which is normal for young adults at their peak bone mineral density. The World Health Organization (WHO) interprets the T-scores as follows: Above -1 Normal bone density Between -1 and -2.5 Osteopenia Equal to / or below -2.5 Osteoporosis As a practical clinical guideline, osteopenia may be graded as follows: Mild -1 through -1.5 Moderate -1.6 through -2.0 Severe -2.1 through -2.4 The Z-score is the number of standard deviations above or below age-matched controls. A Z-score of less than -1.5 would be considered abnormal. References: 1. NIH Osteoporosis and Related Bone Diseases www osteo.org 2. International Society for Clinical Densitometry www iscd.org 3. National Osteoporosis Foundation www nof.org Electronically Signed: Ernie Fields MD at 15:23 EDT , CC: CUCO Whitmore; CUCO Mcgregor Hairspring Ii Inspector: Signed Beryl Whitmore [employer] FARM MANAGER Work Phone: Start: 05-04-2021 End: 05-04-2021 SCRN MAMM (CAD)W/ROSE BILAT Comments: See Note; NOTES: [facility] Imaging Services [address] [place] [address] SCRN MAMM (CAD)W/ROSE BILAT MR#: [id number] Acct: [id number] Name: LYNSEY PINA Rep #: [id number] : 1955 F 65 From: Ernie alcala MD PCP: CUCO Zambrano Status: REG CLI Study: SCRN MAMM (CAD)W/ROSE BILAT Date of Exam: 04/18 01/05 Exam# [id number] Ordering Dr: Antonia Mattson NP N P-C MAMMOGRAPHY - BILATERAL SCREENING REASON FOR EXAM: Female, 65 years old. Routine annual screening examination. PERTINENT HISTORY: Personal history of breast cancer. Prior left lumpectomy with radiation therapy. TECHNIQUE: Digital bilateral breast rose (3D mammographic acquisition) in the CC and MLO projections. 2-D mediolateral oblique (MLO) and craniocaudad (CC) views of both breasts were obtained. CAD: Full Field Digital Mammography with Computer Added Detection was performed. COMPARISON: Comparison is made with prior examination dated 05/03/2020 and 04/30/2019. FINDINGS: Breast Composition: There are scattered areas of fibroglandular density. There are no dominant masses or suspicious calcifications. Once again, the patient is status post lumpectomy in the deep upper central aspect of the left breast with resultant architectural distortion and postoperative changes. There has been no change. No other significant abnormalities are identified. There has been no significant change since the prior study. BI/SCRN MAMM (CAD)W/ROSE BILAT IMPRESSION: Stable bilateral screening mammogram. Yearly follow-up mammogram recommended. (A) ASSESSMENT CATEGORY: BIRADS Category 2: Benign. A letter regarding these results will be sent to the patient by the facility within 30 days. Approximately 10% of breast cancers are not detected by mammography. A normal mammogram should not delay biopsy of a clinically suspicious abnormality. [id number] Electronically Signed: Ernie Fields MD at 9:36 EST , Service support , CC: ALFREDA Mattson; CUCO Mcgregor Hairspring Ii Inspector: Signed Yaneth Mcgregor CNP Work Phone: Start: 05-03-2020 End: 05-03-2020 SCREEN MAMM (CAD) W/ROSE BILAT Comments: See Note; NOTES: [facility] Imaging Services [address] [place] [address] SCREEN MAMM (CAD) W/ROSE BILAT MR#: [id number] Acct: [id number] Name: LYNSEY PINA Rep #: [id number] : 1955 F 64 From: Ernie alcala MD PCP: CUCO Zambrano Status: [facility] Study: SCREEN MAMM (CAD) W/ROSE BILAT Date of Exam: 07/03/19 Exam# [id number] Ordering Dr: Antonia Mattson NP N P-C MAMMOGRAPHY - BILATERAL SCREENING REASON FOR EXAM: Female, 64 years old. Routine annual screening examination. PERTINENT HISTORY: Personal history of breast cancer. Prior left lumpectomy with radiation treatment. TECHNIQUE: Digital bilateral breast rose (3D mammographic acquisition) in the CC and MLO projections. 2-D mediolateral oblique (MLO) and craniocaudad (CC) views of both breasts were obtained. CAD: Full Field Digital Mammography with Computer Added Detection was performed. COMPARISON: Comparison is made with prior examination dated 04/30/2019 and 04/25/2018. FINDINGS: Breast Composition: There are scattered areas of fibroglandular density. There are no dominant masses or suspicious calcifications. Once again, there is evidence of architectural distortion in the upper central portion of the left breast secondary to prior lumpectomy. There is deformity of the breast at that site. This is unchanged. No other significant abnormalities are identified. There has been no significant change since the prior study. BI/SCREEN MAMM (CAD) W/ROSE BILAT IMPRESSION: Stable bilateral screening mammogram. Yearly follow-up mammogram recommended. (A) ASSESSMENT CATEGORY: BIRADS Category 2: Benign. A letter regarding these results will be sent to the patient by the facility within 30 days. Approximately 10% of breast cancers are not detected by mammography. A normal mammogram should not delay biopsy of a clinically suspicious abnormality. [id number] Electronically Signed: Ernie Fields, at 10:02 EST , Service support , CC: ALFREDA Mattson; CUCO Mcgregor Hairspring Ii Inspector: Signed Yaneth Mcgregor [employer] FARM MANAGER Work Phone: Start: 06-06-2019 End: 06-06-2019 Echo, Complete w/ Contrast Comments: See Note; NOTES: [facility] [address] [place] [address] Echo Complete W/ Contrast 06/06/19 0900 MR#: [id number] Acct: [id number] Name: LYNSEY PINA Rep #: [id number] : 1955 64 From: Niko Osorio MD Attending Dr: CUCO Zambrano Status: REG CLI Ordering Dr: Yaneth Mcgregor Date: 06/06/19 Location: [facility] Sex: F C Admitted: Reason For Study: Tachycardia Procedure This was a 2D Doppler, Color Flow transthoracic echocardiogram. Technically difficult study, contrast injection performed. Unable to perform strain analysis due to needed use of Definity. Exam performed in department. Left Ventricle Normal LV size. Left ventricular systolic function is normal. The estimated ejection fraction is 60 %. Stage 1 diastolic dysfunction. Atria Normal left atrium. Normal right atrium. Mitral Valve Normal mitral valve. Tricuspid Valve Normal tricuspid valve. Aortic Valve Normal aortic valve. Trisinus/trileaflet aortic valve. Pulmonic Valve Normal pulmonic valve. Great Vessels Normal aortic root. The pulmonary artery is normal size. Normal inferior vena cava. Pericardium/Pleural No pericardial effusion. Medication 22 gauge I.V. with prn adaptor inserted into right arm. Diluted definity 4ml given slow IV push to enhance endocardial definition. MMode/2D Measurements AND Calculations LVIDd: 4.5 cm IVSd: 1.0 cm Ao root diam: 2.8 cm LVIDs: 2.5 cm LVPWd: 0.94 cm LA dimension: 3.8 cm RVDd: 3.3 cm FS: 44.7 % LAV(MOD-bp): 52.7 ml LA A4 area: 17.1 cm2 RA A4 area: 14.0 cm2 LAV(MOD-bp) Indexed: 28.3 ml/m2 LAV(MOD-sp2): 53.1 ml LAV(MOD-sp4): 44.8 ml Time Measurements MV dec time: 0.23 sec Doppler Measurements AND Calculations MV E max duncan: 79.3 cm/sec Lat Peak E' Duncan: 6.6 cm/sec Med Peak E' Duncan: 5.9 cm/sec MV A max duncan: 102.5 cm/sec E/E' lat: 11.9 E/E' med: 13.5 MV E/A: 0.77 MV V2 max: 109.8 cm/sec MV P1/2t max duncan: 92.5 cm/sec Ao V2 max: 160.8 cm/sec MV max P.8 mmHg MV P1/2t: 64.1 msec Ao max P.3 mmHg MV V2 mean: 62.4 cm/sec MV dec slope: 422.6 cm/sec2 MV mean P.9 mmHg MV V2 VTI: 20.4 cm MVA(P1/2t): 3.4 cm2 LV V1 max: 101.0 cm/sec PA V2 max: 116.5 cm/sec LV V1 max P.1 mmHg Interpretation Summary Normal LV size. Left ventricular systolic function is normal. The estimated ejection fraction is 60 %. Stage 1 diastolic dysfunction. Contrast injection was performed. Ordering Physician: Yaneth Mcgregor Referring Physician: Yaneth Mcgregor Performed By: Brian Sánchez RCS 06/06/19 1047 Date Niko Osorio MD CC: BRIDGE MAINTAINER-C Yaneth cMgregor Date Dictated: 06/06/19 0900 Date Transcribed: 06/06/191046 Hairspring Ii Inspector: Signed Nallely Meche Work Phone: Start: 04-30-2019 End: 04-30-2019 SCREEN MAMM (CAD) W/ROSE BILAT Comments: See Note; NOTES: [facility] Imaging Services [address] [place] [address] SCREEN MAMM (CAD) W/ROSE BILAT MR#: [id number] Acct: [id number] Name: LYNSEY PINA Rep #: [id number] : 1955 F 63 From: Ernie Fields MD PCP: CUCO Zambrano [facility] [facility] Study: SCREEN MAMM (CAD) W/ROSE BILAT Date of Exam: 04/30/19 Exam# [id number] Ordering Dr: Antonia Mattson MAMMOGRAPHY - BILATERAL SCREENING REASON FOR EXAM: Female, 63 years old. Routine annual screening examination. PERTINENT HISTORY: Personal history of breast cancer. Prior left lumpectomy with radiation therapy. TECHNIQUE: Digital bilateral breast rose (3D mammographic acquisition) in the CC and MLO projections. 2-D mediolateral oblique (MLO) and craniocaudad (CC) views of both breasts were obtained. CAD: Full Field Digital Mammography with Computer Added Detection was performed. COMPARISON: Comparison is made with prior study of April 25, 2018 and April 24, 2017. FINDINGS: Breast Composition: The breasts are almost entirely fatty. There are no dominant masses or suspicious calcifications. Once again, the patient is status post lumpectomy in the upper deep central portion of the left breast. Residual postoperative architectural distortion is seen with the mild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 Plan of Treatment Date Care Activity Detail Author Start: 09-30-2025 Colonoscopy COLONOSCOPY [facility] Start: 09-30-2025 COLORECTAL CANCER SCREENING COLORECTAL CANCER SCREENING [facility] Start: 03-28-2023 25 hydroxy includes fractions if performed CALCIFEDIOL (71482) : prior next ov [facility] Work Phone: Start: 03-28-2023 Assay of thyroid stimulating hormone tsh TSH (THYROID STIMULATING HORMONE) (00179) : prior next ov [facility]; [facility] Work Phone: Start: 03-28-2023 Blood count complete auto&auto difrntl wbc CBC, PLATELETS & AUT DIFF (20365) : prior to next OV [facility]; [facility] Work Phone: Start: 03-28-2023 Comprehensive metabolic panel METABOLIC PANEL, COMPREHENSIVE (80851) : prior next ov [facility]; [facility] Work Phone: Start: 03-28-2023 Lipid panel LIPID PANEL (13067) : prior next ov [facility]; [facility] Work Phone: Start: 03-28-2023 Patient Education Osteoporosis in Women *: aging [facility]; [facility] Work Phone: Start: 03-28-2023 Procedure Education Eprescribed prescriptions (G8553) [facility]; [facility] Work Phone: Start: 03-28-2023 Provider Instructions for Treatment Follow up in 6 months [facility]; [facility] Work Phone: Start: 03-28-2023 Urinalysis qual/semiquant except immunoassays URINALYSIS (34793) : prior next ov [facility]; [facility] Work Phone: Start: 02-16-2023 Influenza vaccination INFLUENZA (#1) [facility] Start: 09-25-2022 25 hydroxy includes fractions if performed CALCIFEDIOL (34033) [facility]; [facility] Work Phone: Start: 09-25-2022 Assay of magnesium MAGNESIUM (53135) [facility]; [facility] Work Phone: Start: 09-25-2022 Assay of thyroid stimulating hormone tsh TSH (THYROID STIMULATING HORMONE) (00213) [facility]; [facility] Work Phone: Start: 09-25-2022 Blood count complete auto&auto difrntl wbc CBC, PLATELETS & AUT DIFF (07329) [facility]; [facility] Work Phone: Start: 09-25-2022 Comprehensive metabolic panel METABOLIC PANEL, COMPREHENSIVE (68262) [facility]; [facility] Work Phone: Start: 09-25-2022 Cyanocobalamin vitamin b-12 VITAMIN B12 AND FOLATES (93548) [facility]; [facility] Work Phone: Start: 09-25-2022 Lipid panel LIPID PANEL (35544) [facility]; [facility] Work Phone: Start: 09-25-2022 Procedure Education Eprescribed prescriptions (G8553) [facility]; [facility] Work Phone: Start: 09-25-2022 Provider Instructions for Treatment Follow up in 6 months [facility]; [facility] Work Phone: Start: 07-24-2022 Procedure Education Eprescribed prescriptions (G8553) [facility]; [facility] Work Phone: Start: 07-24-2022 Provider Instructions for Treatment Follow up if no improvement or if symptoms worsen [facility]; [facility] Work Phone: Start: 06-18-2022 ADVANCE DIRECTIVE DISCUSSION ADVANCE DIRECTIVE DISCUSSION [facility] Start: 06-18-2022 DEPRESSION ASSESSMENT DEPRESSION ASSESSMENT [facility] Start: 05-23-2022 Patient Education [facility]; [facility] Work Phone: Start: 05-23-2022 Procedure Education Eprescribed prescriptions (G8553) [facility]; [facility] Work Phone: Start: 05-23-2022 Provider Instructions for Treatment [facility]; [facility] Work Phone: Start: 05-23-2022 Urnls dip stick/tablet rgnt non-auto w/o micrscp Urinalysis, Office (55906) [facility]; [facility] Work Phone: Start: 04-20-2022 Procedure Education Eprescribed prescriptions (G8553) [facility]; [facility] Work Phone: Start: 03-30-2022 Procedure Education Eprescribed prescriptions (G8553) [facility]; [facility] Work Phone: Start: 02-16-2022 Influenza vaccination INFLUENZA (#1) [facility] Start: 01-27-2022 25 hydroxy includes fractions if performed CALCIFEDIOL (40864) [facility]; [facility] Work Phone: Immunizations Immunization Date Immunization Notes Care Provider Domi mendoza 12-31-2015 zoster vaccine, live Natalie C allow SCRUM MASTER.DAIRY FARM MANAGER Work Phone: [facility] Work Phone: 07-02-2007 tetanus toxoid, redu jean carlos diphtheria toxoid, and acellular pertussis vaccine, adsorbed Natalie Callskyler SCRUM MASTER.DAIRY FARM MANAGER Work Phone: [facility] Work Phone: Payers Date Payer Category Payer Medicare [id number] 2020 Unknown 2019 Unknown [id number] 1955 Unknown [id number] Social History Date Type Detail Facility Alcohol use: Never smoker [facility] Work Phone: Start: 04-16-2022 End: 07-14-2022 Exercise [facility] Work Phone: Medical Equipment Procedure Code Equipment Code Equipment Origin al Text Equipment Identifier Dates Mrkr 8ga [facility] mrk [employer] - [id number] Start: 04-10-2013 Clinical Notes 10-01-2015 to 05-21-2023 Colette Tomas RN - 02/23/2023 12:54 PM EDTDatavares Mattson APRN.CNP - 05/15/2022 8:54 AM ESTTelephone Encounter - Bonita Gavi - 04/17/2022 4:45 PM EDT Note Date & Type Note Facility 05-21-2023 Note HNO ID: [id number] Author: Ashley Hinkle APRN.DAIRY FARM MANAGER Service: ? 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 Inverse psoriasis Postmenopausal: Yes HRT use: Yes, OCP How long: few yrs. 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 Uses OTC prilosec. EGD 09/05/00 - - H pylori negative. 08/04/09 - Repeat EGD recommended as soon as insurance permits Hyperlipidemia 08/04/2009 Mild elevation. Diet recommended. 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.39) Sprain of neck 07/04/2007 08/04/09 - Neck symptom stable, occaisional need for home exercises Unspecified vitamin D deficiency 07/01/2007 PAST SURGICAL HISTORY Procedure Laterality Date BX BREAST PERC VACUUM/ROTN 04/10/2013 left 12 oclock superficial COLONOSCOPY FLX DX W/COLLJ SPEC WHEN PFRMD 10/01/2015 Colonoscopy EGD 09/05/2000 MASTECTOMY,PARTIAL, WITH AXILLARY LYMPHADENECTOMY 05/27/2013 left REMOVAL OF CALCIUM DEPOSITS ?2009 left middle finger REMV CATARACT EXTRACAP,INSERT LENS Bilateral TOTAL KNEE REPLACEMENT Bilateral 2018 FAMILY HISTORY Problem Relation Age of Onset Stroke Mother Cancer Father Bladder Cancer No Known Problems Brother Diabetes Maternal Grandmother SOCIAL HISTORY Social History Tobacco Use Smoking status: Never Passive exposure: Never Smokeless tobacco: Never Vaping Use Vaping Use: Never used Substance Use Topics Alcohol use: No Drug use: No REVIEW OF SYSTEMS Abdomen: No abdominal pain, nausea, vomiting, diarrhea, or constipation. No bloating, early satiety, indigestion, or increased flatulence. Bladder: No dysuria, gross hematuria, urinary frequency, urinary urgency, or incontinence Breast: No breast lumps, nipple d/c, overlying skin changes, redness or skin retraction Allergies and current medication updated:Yes EXAM: Ht 5' 2.5 (1.59m) Wt 181 lb (82.1kg) BMI 32.56 kg/(m2). GENERAL: pleasant, female in no apparent distress HEENT: Normocephalic, atraumatic, mucus membranes moist, and no lesions NECK: Supple, full range of motion, no adenopathy, and thyroid normal DERMATOLOGY: Normal, without lesions, non-icteric, and non-hirsute BREAST: soft, non-tender, symmetric, no dominant mass, normal nipple-areolar complex, no lymphadenopathy, and no nipple discharge CHEST: Normal inspiratory effort ABDOMEN: soft, non-tender, and no masses PELVIC: external genitalia normal, normal Bartholin's glands, urethra, [place]'s glands, no vulvar lesions, no cervical lesions, physiologic discharge present, normal appearing perineal body and perianal region BIMANUAL: uterus normal size, shape and consistency, no adnexal masses, and non-tender RECTOVAGINAL: deferred. NEURO: alert and oriented x3,exam grossly non-focal EXTREMITIES: normal ASSESSMENT/PLAN: 1) Health maintenance: Pap/HPV screening no longer needed Mammogram up to date Nutrition, exercise and routine health maintenance exams reviewed. Calcium/Vitamin D supplementation information provided. Colon cancer screening: up to date with screening BMD: up to date- 2022 osteoporosis 2) Follow up one year or sooner as needed Ashley Hinkle APRN.LORENE [facility] 02-23-2023 Note HNO ID: [id number] Author: Colette Tomas RN Service: ? Author Type: ? Type: Progress Notes Filed: 02/23/2023 12:54 PM Note Text: Received outside medical records from [facility]. Sent for scanning. Colette Tomas RN [facility] 02-23-2023 History of Present illness Narrative Received outside medical records from [facility]. Sent for scanning. Colette Tomas RN documented in this encounter [facility] 05-15-2022 History of Present illness Narrative Chief Complaint Patient presents with: Established Patient HPI: Lynsey Pina is a 66 year old female who presents here today for follow up breast cancer. Per Dr. James's previous note: H/o found to have an abnormality in the right breast on a screening mammogram 03/04/13. Magnification views and US: Spot compression views in CC and MLO projections, medial rolled CC view, and 90 degrees ML view of left breast are obtained. There is 6 mm x 7 mm slightly irregular nodule in posterior upper mid left breast. No calcifications in this nodule are noted. This is a new finding compared to previous studies of 2011 and 2008. Ultrasound study of left breast fails to visualize the nodule seen in the above described mammographic study. However there is 5 mm x 2 mm x 3 mm lobulated cyst in upper mid left breast 1 cm from the left nipple. No solid mass in ultrasound study is noted. IMPRESSION: 1. 7 mm irregular nodule in left breast as described above. Rule out malignancy. Stereotactic core biopsy of this nodule is suggested for further evaluation. 2. 5 mm cyst in the retroareolar left breast as described above. 3. BI-RADS 4. Suspicious. Underwent biopsy: Left breast, 12 o'clock, 3 o'clock, 6 o'clock, and 9 o'clock, needle core biopsies (A-D) - Small focus of invasive ductal carcinoma with extensive lymphocytic response. 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 -See comment. JJR/sld 04/11/2013 COMMENT Cytokeratin AE1/AE3, CAM 5.2 and cytokeratin 7 are positive within the tumor cells. A p63 and SMMS immunohistochemical stains focally highlight myoepithelial cells supporting the diagnosis of ductal carcinoma in situ and are negative surrounding the invasive carcinoma. Estrogen and progesterone receptors including FISH for HER2 will be reported in an addendum. Dr. Samina Vazquez has seen selected slides and concurs. ANALYTE SPECIFIC REAGENT (ASR) DISCLAIMER This test was developed and its performance characteristics determined by [facility] [place]. The U.S. Food and Drug Administration has not approved or cleared this test; however, FDA clearance or approval is not currently required for clinical use. Procedure Results and Interpretation HER2(ERBB2) Gene Amplification: NOT AMPLIFIED Result: HER2(ERBB2) gene amplification is absent; the average copy number is 2.0. The HER2(ERBB2)/Chromosome 17 ratio is 1.4 (reference range is 0.8 - 1.7). Specimen fixation and processin% neutral buffered formalin-fixed and paraffin-embedded tissue Length of fixation: > 6 hours and < 48 hours Cold ischemia time: 0 minutes The HER2(ERBB2) assay was developed, validated, and reported in accordance with guidelines published by the [place] Society of Clinical Oncology and the College of [place] Path[employer] (J. Clin. Oncol. 25: 118-145, 2007). JJR/sondra/04/17/2013 Procedure Pathologist: Abraham Che M.D. Electronic Signature ESTROGEN/PROGESTERONE RECEPTOR (ER/MA) ANALYSIS Date Ordered: 04/15/2013 Date Reported: 04/16/2013 Procedure Results and Interpretation Estrogen and Progesterone Receptor Immunoperoxidase Assay Estrogen receptor: Negative (< 1%) Stain intensity: Weak Progesterone receptor: Negative (< 1%) Stain intensity: Weak Staining of greater than or equal to 1% of the tumor cells is considered positive. MRI: FINDINGS: The breasts are mostly fatty bilaterally. No significant background enhancement is seen. There is mild postoperative change high in the 12 o'clock region of the left breast consistent with history of recent biopsy. There is mild nodular enhancement surrounding the biopsy site most consistent with residual neoplasm. No other areas of abnormal enhancement are seen bilaterally. No architectural distortion or abnormal lymph nodes are evident. IMPRESSION: Postoperative change with mild adjacent nodular enhancement consistent with biopsy-proven carcinoma. No additional areas of concern are seen bilaterally. Then underwent partial mastectomy with SLN biopsy and completion ALND 05/27/13. No SLN identified visibly despite blue dye localizing to an area in the axilla. Axillary contents sample didn't contain LNs. Final pathology: 2 mm invasive ductal carcinoma. No LVI. Margins negative. Closest was superior at 3 mm. Triple negative. No lymph nodes observed. Underwent repeat SLN biopsy on 08/21/2013--1 node negative. Radiation treatment:09/24/13 to 11/06/13. No new concerns today. Appetite: It's Good. Energy level: Good. Denies fevers or recent illness. Resp:denies cough or sob Cardiac:denies chest pain/palpitations GI:denies abd pain, n/v, moving bowels regularly :denies dysuria/hematuria-UTI in Mar. treated at -seeing Urologist tomorrow. Extrem:+arthritis to feet/hands-takes mobic prn- Dx with RA fall 2016. Pt. s/p L total knee done in 2019 Endo:denies hot flashes Neuro:denies symptoms of neuropathy Skin:denies rashes/lesions Heme:denies bleeding The ROS is otherwise negative. Past medical history, appointments, medications, allergies reviewed. No changes. EXAM: BP 157/92 Pulse 111 Temp 36.8 C (98.2 F) Ht 160 cm (5' 2.99 ) Wt 81.6 kg (180 lb) BMI 31.89 kg/m APPEARANCE Well appearing, alert, in no acute distress, well-hydrated, well nourished. HEART RRR with normal S1 and S2, no murmur LUNG clear to auscultation BREAST FEMALE no mass/nodule b/l, L scar to upper/radiation changes LYMPH NODES No cervical lymphadenopathy, No supraclavicular lymphadenopathy, and No axillary lymphadenopathy. ABDOMEN bowel sounds normoactive, soft, non-tender, non-distended EXTREMITIES No edema NEURO Awake, alert and oriented x 3, Normal gait, and No involuntary motions. SKIN Skin color, texture, turgor normal, no suspicious rashes or lesions ASSESSMENT/PLAN: 1. Personal history of breast cancer - ICD9: V10.3, ICD10: Z85.3 pT1a (2mm) pN0 M0 ER/MA negative HER2 non-amplified (FISH) invasive ductal carcinoma of the left breast. - No concerning findings on exam. - Pt. now over 8 years out from radiation treatment. - BP lower at home per pt. - Reviewed mammogram with pt. Done at [facility]. - Mammogram due 2022. Pt. has this done at [facility]. - Follow up as needed. Pt. will follow up with PCP/MANAGER VIDEO for yearly CBE/mammogram. - Pt. aware to call office with any questions/concerns. The patient indicates understanding of these issues and agrees with the plan. All documentation from previous visit of 05/11/21-Dr. James/myself was copied and pasted, documentation has been reviewed and edited as necessary for today's visit. Antonia Mattson APRN.CNP documented in this encounter [facility] 04-17-2022 Miscellaneous Notes Patient given results and verbalized understanding of instructions given. Bonita Gatica Please inform patient that urine culture did not show any growth of bacteria requiring treatment. I would recommend to stop antibiotic Advise due to blood in the urine that she follow up with urology or MANAGER VIDEO for recheck of urine in 1-2 weeks, as well as discuss possible UTI symptom. documented in this encounter [facility] 04-16-2022 History of Present illness Narrative Subjective HPI Lynsey presents today with one day hx of pain with urination, urgency and she noted a small amount of blood in the urine. She states she has just complete a RX of Macrobid one week ago. She felt better for a few days after completing, symptoms were similar. She states prior to this she has not had hx of uti She denies back discomfort, abdominal pain, she is eating and drinking, she is post menopausal and is having no vaginal issues Blood pressure 148/84, pulse 104, temperature 36.9 C (98.5 F), temperature source Tympanic, resp. rate 18, weight 84 kg (185 lb 3.2 oz), SpO2 99 %. PAST MEDICAL HISTORY Diagnosis Date Allergic rhinitis 08/04/2009 Use nasonex routinely ANXIETY STATE NOS 06/03/2007 Takes prn lorazepam, infrequent use Breast cancer (HCC) 03/2013 GERD (gastroesophageal reflux disease) 08/04/2009 Chronic GERD, uses PPI routinely. Uses OTC prilosec. EGD 09/05/00 - - H pylori negative. 08/04/09 - Repeat EGD recommended as soon as insurance permits Hyperlipidemia 08/04/2009 Mild elevation. Diet recommended. 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) Sprain of neck 07/04/2007 08/04/09 - Neck symptom stable, occaisional need for home exercises Unspecified vitamin D deficiency 07/01/2007 PAST SURGICAL HISTORY Procedure Laterality Date BX BREAST PERC VACUUM/ROTN 04/10/13 left 12 oclock superficial COLONOSCOPY FLX DX W/COLLJ SPEC WHEN PFRMD 10/01/15 Colonoscopy EGD 09/05/00 MASTECTOMY,PARTIAL, WITH AXILLARY LYMPHADENECTOMY 05/27/13 left REMOVAL OF CALCIUM DEPOSITS ?2008 left middle finger ALLERGIES Codeine, Morphine, Aciphex [Rabeprazole Sodium], Clarithromycin, Flexeril [Cyclobenzaprine Hcl], Flonase [Fluticasone Propionate], and Prevacid [Lansoprazole] MEDICATIONS calcium carbonate/vitamin D3 (CALCIUM 600 + D ORAL) Take by mouth. Zinc 50 mg tab Take 50 mg by mouth once daily. ascorbic acid, vitamin C, (VITAMIN C) 500 mg tablet Take 500 mg by mouth once daily. meloxicam (MOBIC) 7.5 mg tablet Take 7.5 mg by mouth twice daily. acetaminophen (TYLENOL) 500 mg tablet Take 500 mg by mouth every 8 hours as needed. VITAMIN D 50,000 unit capsule TAKE 1 CAPSULE BY MOUTH ONCE PER WEEK (Patient taking differently: 5,000 Units.) PSEUDOEPHEDRINE HCL (SUDAFED ORAL) Take by mouth. PRN for sinus infection guaiFENesin (MUCINEX) 600 mg 12 hr tablet Take 1,200 mg by mouth as needed. LORazepam (ATIVAN) 0.5 mg tab Take 1 tablet by mouth twice daily as needed. Omeprazole Magnesium (PRILOSEC OTC) 20 mg tablet Take 1 tablet by mouth once daily. multivitamins w-minerals/lut(CENTRUM SILVER TAB) Take one(1) tablet daily. sulfamethoxazole-trimethoprim (BACTRIM DS) 800-160 mg per tablet Take 1 tablet by mouth twice daily for 7 days. FAMILY HISTORY Problem Relation Age of Onset Stroke Mother Diabetes Maternal Grandmother Cancer Father Bladder Cancer None Sister None Sister None Brother Social History Tobacco Use Smoking status: Never Smokeless tobacco: Never Vaping Use Vaping Use: Never used Substance Use Topics Alcohol use: No Drug use: No Review of Systems Genitourinary: Positive for dysuria, frequency, hematuria and urgency. Negative for flank pain. All other systems reviewed and are negative. Objective Physical Exam Vitals and nursing note reviewed. Constitutional: General: She is not in acute distress. Appearance: Normal appearance. She is not ill-appearing. HENT: Head: Normocephalic and atraumatic. Nose: Nose normal. Eyes: Extraocular Movements: Extraocular movements intact. Pupils: Pupils are equal, round, and reactive to light. Cardiovascular: Rate and Rhythm: Normal rate and regular rhythm. Pulmonary: Effort: Pulmonary effort is normal. Breath sounds: Normal breath sounds. Abdominal: General: Abdomen is flat. Bowel sounds are normal. There is no distension. Palpations: Abdomen is soft. There is no mass. Tenderness: There is no abdominal tenderness. There is no right CVA tenderness, left CVA tenderness, guarding or rebound. Hernia: No hernia is present. Musculoskeletal: General: Normal range of motion. Cervical back: Normal range of motion and neck supple. No rigidity. Lymphadenopathy: Cervical: No cervical adenopathy. Skin: General: Skin is warm and dry. Neurological: General: No focal deficit present. Mental Status: She is alert and oriented to person, place, and time. Psychiatric: Mood and Affect: Mood normal. ASSESSMENT/PLAN: 1. Urinary frequency - ICD9: 788.41, ICD10: R35.0 recurrent - UA positive for hematuria - Patient education for prevention given - UA DIP, URINE (POC) - URINE CULTURE Long discussion on hematuria and post menopausal, she is to make appt with pcp to discuss. She has not had a hx of UTI and this is second in one month, pending culture results. She will call in two days if she has not been notified Natalie Jay APRN.CNP documented in this encounter [facility] documented as of this encounter (statuses as of 04/16/2022) [facility]04-15-2016 History of Past illness Narrative* Problem Noted Date Resolved Date Colon cancer screening 10/01/2015 6 Abnormal mammogram, unspecified 04/10/2013 12/04/2013 Hyperlipidemia 08/04/2009 03/20/2013 Overview: Mild elevation. Diet recommended. Component Reference Range 07/14/2009 Triglyceride, Kareem 30-200 mg/dL 142 Cholesterol, Lena 0-200 mg/dL 203 (H) HDL Chol, Kareem 40-60 mg/dL 39 (L) VLDL Chol, Kareem 5-40 mg/dL 28 LDL Chol, Kareem 0-129 mg/dL 136 (H) TC HDL Risk, Kareem 0.0-5.0 5.2 (H) Atopic rhinitis 03/12/2009 08/04/2009 Pain in joint, shoulder region 09/01/2008 0 10/13/2008 Neck Sprain and Strain 07/04/2007 3 Overview: 08/04/09 - Neck symptom stable, occaisional need for home exercises documented as of this encounter (statuses as of 04/17/2022) [facility]2016 History of Past illness Narrative* Problem Noted Date Resolved Date Colon cancer screening 10/01/2015 6 Abnormal mammogram, unspecified 04/10/2013 12/04/2013 Hyperlipidemia 08/04/2009 03/20/2013 Overview: Mild elevation. Diet recommended. Component Reference Range 07/14/2009 Triglyceride, Lena 30-200 mg/dL 142 Cholesterol, Lena 0-200 mg/dL 203 (H) HDL Chol, Kareem 40-60 mg/dL 39 (L) VLDL Chol, Lena 5-40 mg/dL 28 LDL Chol, Lena 0-129 mg/dL 136 (H) TC HDL Risk, Kareem 0.0-5.0 5.2 (H) Atopic rhinitis 03/12/2009 08/04/2009 Pain in joint, shoulder region 09/01/2008 0 10/13/2008 Neck Sprain and Strain 07/04/2007 3 Overview: 08/04/09 - Neck symptom stable, occaisional need for home exercises documented as of this encounter (statuses as of 05/15/2022) [facility] History of Past illness Narrative* Problem Noted Date Diagnosed Date Resolved Date Colon cancer screening 10/01/201505/05 Abnormal mammogram, unspecified 04/10/2013 12/04/2013 Hyperlipidemia 08/04/2009 03/20/2013 Overview: Mild elevation. Diet recommended. Component Reference Range 07/14/2009 Triglyceride, Lena 30-200 mg/dL 142 Cholesterol, Lena 0-200 mg/dL 203 (H) HDL Chol, Lena 40-60 mg/dL 39 (L) VLDL Chol, Lena 5-40 mg/dL 28 LDL Chol, Lena 0-129 mg/dL 136 (H) TC HDL Risk, Lena 0.0-5.0 5.2 (H) Atopic rhinitis 03/12/2009 08/04/2009 Pain in joint, shoulder region 09/01/2008 10/13/2008 Neck Sprain and Strain 07/04/200703/20 Overview: 08/04/09 - Neck symptom stable, occaisional need for home exercises documented as of this encounter (statuses as of 02/23/2023) [facility]- Primary [facility] Personal history of breast cancer- Primary Personal history of malignant neoplasm of breast [facility] Name Dates Details How to access health [employer] online Indication:Non-smoker Start:24-Jun-2019 Instruction Type:Patient Education How to access health [employer] online - Detail Indication:Non-smoker Start:24-Jun-2019 Instruction Type:Patient Education Patient Instructions Indication:BMI 32.0-32.9,adult Start:24-Jun-2019 Instruction Type:Provider Instructions for Treatment How to access health informa tion online Indication:Non-smoker Start:13-Jun-2019 Instruction Type:Patient Education How to access health informa tion online - Detail Indication:Non-smoker Start:13-Jun-2019 Instruction Type:Patient Education Patient Instructions Indication:Non-smoker Start:13-Jun-2019 Instruction Type:Provider Instructions for Treatment How to access health informa [employer] online Indication:Non-smoker Start:23-May-2019 Instruction Type:Patient Education How to access health informa tion online - Detail Indication:Non-smoker Start:23-May-2019 Instruction Type:Patient Education Patient Instructions Indication:Non-smoker Start:23-May-2019 Instruction Type:Provider Instructions for Treatment How to access health informa tion online Indication:Non-smoker Start:05-Sep-2018 Instruction Type:Patient Education How to access health informa tion online - Detail Indication:Non-smoker Start:05-Sep-2018 Instruction Type:Patient Education Patient Instructions Indication:Non-smoker Start:05-Sep-2018 Instruction Type:Provider Instructions for Treatment How to access health informa tion online Indication:Non-smoker Start:03-Sep-2018 Instruction Type:Patient Education How to access health informa tion online - Detail Indication:Non-smoker Start:03-Sep-2018 Instruction Type:Patient Education Patient Instructions Indication:Non-smoker Start:03-Sep-2018 Instruction Type:Provider Instructions for Treatment How to access health informa tion online Indication:Non-smoker Start:09-Jul-2018 Instruction Type:Patient Education How to access health informa tion online - Detail Indication:Non-smoker Start:09-Jul-2018 Instruction Type:Patient Education Patient Instructions Indication:Non-smoker Start:09-Jul-2018 Instruction Type:Provider Instructions for Treatment How to access health informa tion online Indication:Anxiety Start:22-Aug-2017 Instruction Type:Patient Education How to access health informa tion online - Detail Indication:Anxiety Start:22-Aug-2017 Instruction Type:Patient Education Patient Instructions Indication:Anxiety Start:22-Aug-2017 Instruction Type:Provider Instructions for Treatment How to access health informa tion online Indication:Sore throat Start:06-Apr-2017 Instruction Type:Patient Education How to access health informa tion online - Detail Indication:Sore throat Start:06-Apr-2017 Instruction Type:Patient Education Patient Instructions Indication:Sore throat Start:06-Apr-2017 Instruction Type:Provider Instructions for Treatment Patient Instructions Indication:Dislocation of jaw, bilateral, subsequent encounter Start:24-Oct-2016 Instruction Type:Provider Instructions for Treatment How to access health informa tion online Indication:Sore throat Start:24-Oct-2016 Instruction Type:Patient Education How to access health informa tion online - Detail Indication:Sore throat Start:24-Oct-2016 Instruction Type:Patient Education Patient Instructions Indication:Sore throat Start:24-Oct-2016 Instruction Type:Provider Instructions for Treatment [facility]; [facility] Work Phone: Instructions* Name Dates Details Patient Instructions Indication:BMI 32.0-32.9,adult Start:02-Feb-2021 Instruction Type:Provider Instructions for Treatment How to Access Health Informa tion Online using Patient Portal and [employer] Apps Indication:BMI 32.0-32.9,adult Start:02-Feb-2021 Instruction Type:Patient Education How to access health informa tion online Indication:Non-smoker Start:24-Jun-2019 Instruction Type:Patient Education How to access health informa tion online - Detail Indication:Non-smoker Start:24-Jun-2019 Instruction Type:Patient Education Patient Instructions Indication:BMI 32.0-32.9,adult Start:24-Jun-2019 Instruction Type:Provider Instructions for Treatment How to access health informa tion online Indication:Non-smoker Start:13-Jun-2019 Instruction Type:Patient Education How to access health informa tion online - Detail Indication:Non-smoker Start:13-Jun-2019 Instruction Type:Patient Education Patient Instructions Indication:Non-smoker Start:13-Jun-2019 Instruction Type:Provider Instructions for Treatment How to access health informa tion online Indication:Non-smoker Start:23-May-2019 Instruction Type:Patient Education How to access health informa tion online - Detail Indication:Non-smoker Start:23-May-2019 Instruction Type:Patient Education Patient Instructions Indication:Non-smoker Start:23-May-2019 Instruction Type:Provider Instructions for Treatment How to access health informa tion online Indication:Non-smoker Start:05-Sep-2018 Instruction Type:Patient Education How to access health informa tion online - Detail Indication:Non-smoker Start:05-Sep-2018 Instruction Type:Patient Education Patient Instructions Indication:Non-smoker Start:05-Sep-2018 Instruction Type:Provider Instructions for Treatment How to access health informa tion online Indication:Non-smoker Start:03-Sep-2018 Instruction Type:Patient Education How to access health informa tion online - Detail Indication:Non-smoker Start:03-Sep-2018 Instruction Type:Patient Education Patient Instructions Indication:Non-smoker Start:03-Sep-2018 Instruction Type:Provider Instructions for Treatment How to access health informa tion online Indication:Non-smoker Start:09-Jul-2018 Instruction Type:Patient Education How to access health informa tion online - Detail Indication:Non-smoker Start:09-Jul-2018 Instruction Type:Patient Education Patient Instructions Indication:Non-smoker Start:09-Jul-2018 Instruction Type:Provider Instructions for Treatment How to access health informa tion online Indication:Anxiety Start:22-Aug-2017 Instruction Type:Patient Education How to access health informa tion online - Detail Indication:Anxiety Start:22-Aug-2017 Instruction Type:Patient Education Patient Instructions Indication:Anxiety Start:22-Aug-2017 Instruction Type:Provider Instructions for Treatment How to access health informa tion online Indication:Sore throat Start:06-Apr-2017 Instruction Type:Patient Education How to access health informa tion online - Detail Indication:Sore throat Start:06-Apr-2017 Instruction Type:Patient Education Patient Instructions Indication:Sore throat Start:06-Apr-2017 Instruction Type:Provider Instructions for Treatment Patient Instructions Indication:Dislocation of jaw, bilateral, subsequent encounter Start:24-Oct-2016 Instruction Type:Provider Instructions for Treatment How to access health informa tion online Indication:Sore throat Start:24-Oct-2016 Instruction Type:Patient Education How to access health informa tion online - Detail Indication:Sore throat Start:24-Oct-2016 Instruction Type:Patient Education Patient Instructions Indication:Sore throat Start:24-Oct-2016 Instruction Type:Provider Instructions for Treatment [facility]; [facility] Work Phone: Instructions* Name Dates Details Patient Instructions Indication:Non-smoker Start:22-Jun-2021 Instruction Type:Provider Instructions for Treatment How to Access Health Informa tion Online using Patient Portal and [employer] Apps Indication:Non-smoker Start:22-Jun-2021 Instruction Type:Patient Education Patient Instructions Indication:BMI 32.0-32.9,adult Start:02-Feb-2021 Instruction Type:Provider Instructions for Treatment How to Access Health Informa tion Online using Patient Portal and [employer] Apps Indication:BMI 32.0-32.9,adult Start:02-Feb-2021 Instruction Type:Patient Education How to access health informa tion online Indication:Non-smoker Start:24-Jun-2019 Instruction Type:Patient Education How to access health informa tion online - Detail Indication:Non-smoker Start:24-Jun-2019 Instruction Type:Patient Education Patient Instructions Indication:BMI 32.0-32.9,adult Start:24-Jun-2019 Instruction Type:Provider Instructions for Treatment How to access health informa tion online Indication:Non-smoker Start:13-Jun-2019 Instruction Type:Patient Education How to access health informa tion online - Detail Indication:Non-smoker Start:13-Jun-2019 Instruction Type:Patient Education Patient Instructions Indication:Non-smoker Start:13-Jun-2019 Instruction Type:Provider Instructions for Treatment How to access health informa tion online Indication:Non-smoker Start:23-May-2019 Instruction Type:Patient Education How to access health informa tion online - Detail Indication:Non-smoker Start:23-May-2019 Instruction Type:Patient Education Patient Instructions Indication:Non-smoker Start:23-May-2019 Instruction Type:Provider Instructions for Treatment How to access health informa tion online Indication:Non-smoker Start:05-Sep-2018 Instruction Type:Patient Education How to access health informa tion online - Detail Indication:Non-smoker Start:05-Sep-2018 Instruction Type:Patient Education Patient Instructions Indication:Non-smoker Start:05-Sep-2018 Instruction Type:Provider Instructions for Treatment How to access health informa tion online Indication:Non-smoker Start:03-Sep-2018 Instruction Type:Patient Education How to access health informa tion online - Detail Indication:Non-smoker Start:03-Sep-2018 Instruction Type:Patient Education Patient Instructions Indication:Non-smoker Start:03-Sep-2018 Instruction Type:Provider Instructions for Treatment How to access health informa tion online Indication:Non-smoker Start:09-Jul-2018 Instruction Type:Patient Education How to access health informa tion online - Detail Indication:Non-smoker Start:09-Jul-2018 Instruction Type:Patient Education Patient Instructions Indication:Non-smoker Start:09-Jul-2018 Instruction Type:Provider Instructions for Treatment How to access health informa tion online Indication:Anxiety Start:22-Aug-2017 Instruction Type:Patient Education How to access health informa tion online - Detail Indication:Anxiety Start:22-Aug-2017 Instruction Type:Patient Education Patient Instructions Indication:Anxiety Start:22-Aug-2017 Instruction Type:Provider Instructions for Treatment How to access health informa tion online Indication:Sore throat Start:06-Apr-2017 Instruction Type:Patient Education How to access health informa tion online - Detail Indication:Sore throat Start:06-Apr-2017 Instruction Type:Patient Education Patient Instructions Indication:Sore throat Start:06-Apr-2017 Instruction Type:Provider Instructions for Treatment Patient Instructions Indication:Dislocation of jaw, bilateral, subsequent encounter Start:24-Oct-2016 Instruction Type:Provider Instructions for Treatment How to access health informa tion online Indication:Sore throat Start:24-Oct-2016 Instruction Type:Patient Education How to access health informa tion online - Detail Indication:Sore throat Start:24-Oct-2016 Instruction Type:Patient Education Patient Instructions Indication:Sore throat Start:24-Oct-2016 Instruction Type:Provider Instructions for Treatment [facility]; [facility] Work Phone: Instructions* Name Dates Details Patient Instructions Indication:Non-smoker Start:22-Jun-2021 Instruction Type:Provider Instructions for Treatment How to Access Health Informa tion Online using Patient Portal and [employer] Apps Indication:Non-smoker Start:22-Jun-2021 Instruction Type:Patient Education Patient Instructions Indication:BMI 32.0-32.9,adult Start:02-Feb-2021 Instruction Type:Provider Instructions for Treatment How to Access Health Informa tion Online using Patient Portal and [employer] Indication:BMI 32.0-32.9,adult Start:02-Feb-2021 Instruction Type:Patient Education How to access health informa tion online Indication:Non-smoker Start:24-Jun-2019 Instruction Type:Patient Education How to access health informa tion online - Detail Indication:Non-smoker Start:24-Jun-2019 Instruction Type:Patient Education Patient Instructions Indication:BMI 32.0-32.9,adult Start:24-Jun-2019 Instruction Type:Provider Instructions for Treatment How to access health informa tion online Indication:Non-smoker Start:13-Jun-2019 Instruction Type:Patient Education How to access health informa tion online - Detail Indication:Non-smoker Start:13-Jun-2019 Instruction Type:Patient Education Patient Instructions Indication:Non-smoker Start:13-Jun-2019 Instruction Type:Provider Instructions for Treatment How to access health informa tion online Indication:Non-smoker Start:23-May-2019 Instruction Type:Patient Education How to access health informa tion online - Detail Indication:Non-smoker Start:23-May-2019 Instruction Type:Patient Education Patient Instructions Indication:Non-smoker Start:23-May-2019 Instruction Type:Provider Instructions for Treatment How to access health informa tion online Indication:Non-smoker Start:05-Sep-2018 Instruction Type:Patient Education How to access health informa tion online - Detail Indication:Non-smoker Start:05-Sep-2018 Instruction Type:Patient Education Patient Instructions Indication:Non-smoker Start:05-Sep-2018 Instruction Type:Provider Instructions for Treatment How to access health informa tion online Indication:Non-smoker Start:03-Sep-2018 Instruction Type:Patient Education How to access health informa tion online - Detail Indication:Non-smoker Start:03-Sep-2018 Instruction Type:Patient Education Patient Instructions Indication:Non-smoker Start:03-Sep-2018 Instruction Type:Provider Instructions for Treatment How to access health informa tion online Indication:Non-smoker Start:09-Jul-2018 Instruction Type:Patient Education How to access health informa tion online - Detail Indication:Non-smoker Start:09-Jul-2018 Instruction Type:Patient Education Patient Instructions Indication:Non-smoker Start:09-Jul-2018 Instruction Type:Provider Instructions for Treatment How to access health informa tion online Indication:Anxiety Start:22-Aug-2017 Instruction Type:Patient Education How to access health informa tion online - Detail Indication:Anxiety Start:22-Aug-2017 Instruction Type:Patient Education Patient Instructions Indication:Anxiety Start:22-Aug-2017 Instruction Type:Provider Instructions for Treatment How to access health informa tion online Indication:Sore throat Start:06-Apr-2017 Instruction Type:Patient Education How to access health informa tion online - Detail Indication:Sore throat Start:06-Apr-2017 Instruction Type:Patient Education Patient Instructions Indication:Sore throat Start:06-Apr-2017 Instruction Type:Provider Instructions for Treatment Patient Instructions Indication:Dislocation of jaw, bilateral, subsequent encounter Start:24-Oct-2016 Instruction Type:Provider Instructions for Treatment How to access health informa tion online Indication:Sore throat Start:24-Oct-2016 Instruction Type:Patient Education How to access health informa tion online - Detail Indication:Sore throat Start:24-Oct-2016 Instruction Type:Patient Education Patient Instructions Indication:Sore throat Start:24-Oct-2016 Instruction Type:Provider Instructions for Treatment [facility]; [facility] Work Phone: Instructions* Name Dates Details Patient Instructions Indication:Non-smoker Start:21-Sep-2021 Instruction Type:Provider Instructions for Treatment How to Access Health Informa tion Online using Patient Portal and [employer] Apps Indication:Non-smoker Start:21-Sep-2021 Instruction Type:Patient Education Patient Instructions Indication:BMI 32.0-32.9,adult Start:22-Aug-2021 Instruction Type:Provider Instructions for Treatment How to Access Health Informa tion Online using Patient Portal and [employer] Apps Indication:BMI 32.0-32.9,adult Start:22-Aug-2021 Instruction Type:Patient Education Patient Instructions Indication:Non-smoker Start:22-Jun-2021 Instruction Type:Provider Instructions for Treatment How to Access Health Informa tion Online using Patient Portal and [employer] Apps Indication:Non-smoker Start:22-Jun-2021 Instruction Type:Patient Education Patient Instructions Indication:BMI 32.0-32.9,adult Start:02-Feb-2021 Instruction Type:Provider Instructions for Treatment How to Access Health Informa tion Online using Patient Portal and [employer] Apps Indication:BMI 32.0-32.9,adult Start:02-Feb-2021 Instruction Type:Patient Education How to access health informa tion online Indication:Non-smoker Start:24-Jun-2019 Instruction Type:Patient Education How to access health informa tion online - Detail Indication:Non-smoker Start:24-Jun-2019 Instruction Type:Patient Education Patient Instructions Indication:BMI 32.0-32.9,adult Start:24-Jun-2019 Instruction Type:Provider Instructions for Treatment How to access health informa tion online Indication:Non-smoker Start:13-Jun-2019 Instruction Type:Patient Education How to access health informa tion online - Detail Indication:Non-smoker Start:13-Jun-2019 Instruction Type:Patient Education Patient Instructions Indication:Non-smoker Start:13-Jun-2019 Instruction Type:Provider Instructions for Treatment How to access health informa tion online Indication:Non-smoker Start:23-May-2019 Instruction Type:Patient Education How to access health informa tion online - Detail Indication:Non-smoker Start:23-May-2019 Instruction Type:Patient Education Patient Instructions Indication:Non-smoker Start:23-May-2019 Instruction Type:Provider Instructions for Treatment How to access health informa tion online Indication:Non-smoker Start:05-Sep-2018 Instruction Type:Patient Education How to access health informa tion online - Detail Indication:Non-smoker Start:05-Sep-2018 Instruction Type:Patient Education Patient Instructions Indication:Non-smoker Start:05-Sep-2018 Instruction Type:Provider Instructions for Treatment How to access health informa tion online Indication:Non-smoker Start:03-Sep-2018 Instruction Type:Patient Education How to access health informa tion online - Detail Indication:Non-smoker Start:03-Sep-2018 Instruction Type:Patient Education Patient Instructions Indication:Non-smoker Start:03-Sep-2018 Instruction Type:Provider Instructions for Treatment How to access health informa tion online Indication:Non-smoker Start:09-Jul-2018 Instruction Type:Patient Education How to access health informa tion online - Detail Indication:Non-smoker Start:09-Jul-2018 Instruction Type:Patient Education Patient Instructions Indication:Non-smoker Start:09-Jul-2018 Instruction Type:Provider Instructions for Treatment How to access health informa tion online Indication:Anxiety Start:22-Aug-2017 Instruction Type:Patient Education How to access health informa tion online - Detail Indication:Anxiety Start:22-Aug-2017 Instruction Type:Patient Education Patient Instructions Indication:Anxiety Start:22-Aug-2017 Instruction Type:Provider Instructions for Treatment How to access health informa tion online Indication:Sore throat Start:06-Apr-2017 Instruction Type:Patient Education How to access health informa tion online - Detail Indication:Sore throat Start:06-Apr-2017 Instruction Type:Patient Education Patient Instructions Indication:Sore throat Start:06-Apr-2017 Instruction Type:Provider Instructions for Treatment Patient Instructions Indication:Dislocation of jaw, bilateral, subsequent encounter Start:24-Oct-2016 Instruction Type:Provider Instructions for Treatment How to access health informa tion online Indication:Sore throat Start:24-Oct-2016 Instruction Type:Patient Education How to access health informa tion online - Detail Indication:Sore throat Start:24-Oct-2016 Instruction Type:Patient Education Patient Instructions Indication:Sore throat Start:24-Oct-2016 Instruction Type:Provider Instructions for Treatment [facility]; [facility] Work Phone: Instructions* Name Dates Details Patient Instructions Indication:Non-smoker Start:04-Jan-2022 Instruction Type:Provider Instructions for Treatment How to Access Health Informa tion Online using Patient Portal and [employer] Apps Indication:Non-smoker Start:04-Jan-2022 Instruction Type:Patient Education Patient Instructions Indication:Non-smoker Start:21-Sep-2021 Instruction Type:Provider Instructions for Treatment How to Access Health Informa tion Online using Patient Portal and [employer] Apps Indication:Non-smoker Start:21-Sep-2021 Instruction Type:Patient Education Patient Instructions Indication:BMI 32.0-32.9,adult Start:22-Aug-2021 Instruction Type:Provider Instructions for Treatment How to Access Health Informa tion Online using Patient Portal and [employer] Apps Indication:BMI 32.0-32.9,adult Start:22-Aug-2021 Instruction Type:Patient Education Patient Instructions Indication:Non-smoker Start:22-Jun-2021 Instruction Type:Provider Instructions for Treatment How to Access Health Informa tion Online using Patient Portal and [employer] Apps Indication:Non-smoker Start:22-Jun-2021 Instruction Type:Patient Education Patient Instructions Indication:BMI 32.0-32.9,adult Start:02-Feb-2021 Instruction Type:Provider Instructions for Treatment How to Access Health Informa tion Online using Patient Portal and [employer]rd [employer] Apps Indication:BMI 32.0-32.9,adult Start:02-Feb-2021 Instruction Type:Patient Education How to access health informa tion online Indication:Non-smoker Start:24-Jun-2019 Instruction Type:Patient Education How to access health informa tion online - Detail Indication:Non-smoker Start:24-Jun-2019 Instruction Type:Patient Education Patient Instructions Indication:BMI 32.0-32.9,adult Start:24-Jun-2019 Instruction Type:Provider Instructions for Treatment How to access health informa tion online Indication:Non-smoker Start:13-Jun-2019 Instruction Type:Patient Education How to access health informa tion online - Detail Indication:Non-smoker Start:13-Jun-2019 Instruction Type:Patient Education Patient Instructions Indication:Non-smoker Start:13-Jun-2019 Instruction Type:Provider Instructions for Treatment How to access health informa tion online Indication:Non-smoker Start:23-May-2019 Instruction Type:Patient Education How to access health informa tion online - Detail Indication:Non-smoker Start:23-May-2019 Instruction Type:Patient Education Patient Instructions Indication:Non-smoker Start:23-May-2019 Instruction Type:Provider Instructions for Treatment How to access health informa tion online Indication:Non-smoker Start:05-Sep-2018 Instruction Type:Patient Education How to access health informa tion online - Detail Indication:Non-smoker Start:05-Sep-2018 Instruction Type:Patient Education Patient Instructions Indication:Non-smoker Start:05-Sep-2018 Instruction Type:Provider Instructions for Treatment How to access health informa tion online Indication:Non-smoker Start:03-Sep-2018 Instruction Type:Patient Education How to access health informa tion online - Detail Indication:Non-smoker Start:03-Sep-2018 Instruction Type:Patient Education Patient Instructions Indication:Non-smoker Start:03-Sep-2018 Instruction Type:Provider Instructions for Treatment How to access health informa tion online Indication:Non-smoker Start:09-Jul-2018 Instruction Type:Patient Education How to access health informa tion online - Detail Indication:Non-smoker Start:09-Jul-2018 Instruction Type:Patient Education Patient Instructions Indication:Non-smoker Start:09-Jul-2018 Instruction Type:Provider Instructions for Treatment How to access health informa tion online Indication:Anxiety Start:22-Aug-2017 Instruction Type:Patient Education How to access health informa tion online - Detail Indication:Anxiety Start:22-Aug-2017 Instruction Type:Patient Education Patient Instructions Indication:Anxiety Start:22-Aug-2017 Instruction Type:Provider Instructions for Treatment How to access health informa tion online Indication:Sore throat Start:06-Apr-2017 Instruction Type:Patient Education How to access health informa tion online - Detail Indication:Sore throat Start:06-Apr-2017 Instruction Type:Patient Education Patient Instructions Indication:Sore throat Start:06-Apr-2017 Instruction Type:Provider Instructions for Treatment Patient Instructions Indication:Dislocation of jaw, bilateral, subsequent encounter Start:24-Oct-2016 Instruction Type:Provider Instructions for Treatment How to access health informa tion online Indication:Sore throat Start:24-Oct-2016 Instruction Type:Patient Education How to access health informa tion online - Detail Indication:Sore throat Start:24-Oct-2016 Instruction Type:Patient Education Patient Instructions Indication:Sore throat Start:24-Oct-2016 Instruction Type:Provider Instructions for Treatment [facility]; [facility] Work Phone: Instructions* Name Dates Details Patient Instructions Indication:Non-smoker Start:04-Jan-2022 Instruction Type:Provider Instructions for Treatment How to Access Health Informa tion Online using Patient Portal and [employer]rd [employer] Apps Indication:Non-smoker Start:04-Jan-2022 Instruction Type:Patient Education Patient Instructions Indication:Non-smoker Start:21-Sep-2021 Instruction Type:Provider Instructions for Treatment How to Access Health Informa tion Online using Patient Portal and [employer]rd [employer] Apps Indication:Non-smoker Start:21-Sep-2021 Instruction Type:Patient Education Patient Instructions Indication:BMI 32.0-32.9,adult Start:22-Aug-2021 Instruction Type:Provider Instructions for Treatment How to Access Health Informa tion Online using Patient Portal and [employer]rd [employer] Apps Indication:BMI 32.0-32.9,adult Start:22-Aug-2021 Instruction Type:Patient Education Patient Instructions Indication:Non-smoker Start:22-Jun-2021 Instruction Type:Provider Instructions for Treatment How to Access Health Informa tion Online using Patient Portal and [employer]rd [employer] Apps Indication:Non-smoker Start:22-Jun-2021 Instruction Type:Patient Education Patient Instructions Indication:BMI 32.0-32.9,adult Start:02-Feb-2021 Instruction Type:Provider Instructions for Treatment How to Access Health Informa tion Online using Patient Portal and [employer]rd [employer] Apps Indication:BMI 32.0-32.9,adult Start:02-Feb-2021 Instruction Type:Patient Education How to access health informa tion online Indication:Non-smoker Start:24-Jun-2019 Instruction Type:Patient Education How to access health informa tion online - Detail Indication:Non-smoker Start:24-Jun-2019 Instruction Type:Patient Education Patient Instructions Indication:BMI 32.0-32.9,adult Start:24-Jun-2019 Instruction Type:Provider Instructions for Treatment How to access health informa tion online Indication:Non-smoker Start:13-Jun-2019 Instruction Type:Patient Education How to access health informa tion online - Detail Indication:Non-smoker Start:13-Jun-2019 Instruction Type:Patient Education Patient Instructions Indication:Non-smoker Start:13-Jun-2019 Instruction Type:Provider Instructions for Treatment How to access health informa tion online Indication:Non-smoker Start:23-May-2019 Instruction Type:Patient Education How to access health informa tion online - Detail Indication:Non-smoker Start:23-May-2019 Instruction Type:Patient Education Patient Instructions Indication:Non-smoker Start:23-May-2019 Instruction Type:Provider Instructions for Treatment How to access health informa tion online Indication:Non-smoker Start:05-Sep-2018 Instruction Type:Patient Education How to access health informa tion online - Detail Indication:Non-smoker Start:05-Sep-2018 Instruction Type:Patient Education Patient Instructions Indication:Non-smoker Start:05-Sep-2018 Instruction Type:Provider Instructions for Treatment How to access health informa tion online Indication:Non-smoker Start:03-Sep-2018 Instruction Type:Patient Education How to access health informa tion online - Detail Indication:Non-smoker Start:03-Sep-2018 Instruction Type:Patient Education Patient Instructions Indication:Non-smoker Start:03-Sep-2018 Instruction Type:Provider Instructions for Treatment How to access health informa tion online Indication:Non-smoker Start:09-Jul-2018 Instruction Type:Patient Education How to access health informa tion online - Detail Indication:Non-smoker Start:09-Jul-2018 Instruction Type:Patient Education Patient Instructions Indication:Non-smoker Start:09-Jul-2018 Instruction Type:Provider Instructions for Treatment How to access health informa tion online Indication:Anxiety Start:22-Aug-2017 Instruction Type:Patient Education How to access health informa tion online - Detail Indication:Anxiety Start:22-Aug-2017 Instruction Type:Patient Education Patient Instructions Indication:Anxiety Start:22-Aug-2017 Instruction Type:Provider Instructions for Treatment How to access health informa tion online Indication:Sore throat Start:06-Apr-2017 Instruction Type:Patient Education How to access health informa tion online - Detail Indication:Sore throat Start:06-Apr-2017 Instruction Type:Patient Education Patient Instructions Indication:Sore throat Start:06-Apr-2017 Instruction Type:Provider Instructions for Treatment Patient Instructions Indication:Dislocation of jaw, bilateral, subsequent encounter Start:24-Oct-2016 Instruction Type:Provider Instructions for Treatment How to access health informa tion online Indication:Sore throat Start:24-Oct-2016 Instruction Type:Patient Education How to access health informa tion online - Detail Indication:Sore throat Start:24-Oct-2016 Instruction Type:Patient Education Patient Instructions Indication:Sore throat Start:24-Oct-2016 Instruction Type:Provider Instructions for Treatment [facility]; [facility] Work Phone: Instructions* Name Dates Details Patient Instructions Indication:Non-smoker Start:04-Jan-2022 Instruction Type:Provider Instructions for Treatment How to Access Health Informa tion Online using Patient Portal and [employer]rd [employer] Apps Indication:Non-smoker Start:04-Jan-2022 Instruction Type:Patient Education Patient Instructions Indication:Non-smoker Start:21-Sep-2021 Instruction Type:Provider Instructions for Treatment How to Access Health Informa tion Online using Patient Portal and [employer]rd [employer] Apps Indication:Non-smoker Start:21-Sep-2021 Instruction Type:Patient Education Patient Instructions Indication:BMI 32.0-32.9,adult Start:22-Aug-2021 Instruction Type:Provider Instructions for Treatment How to Access Health Informa tion Online using Patient Portal and [employer]rd [employer] Apps Indication:BMI 32.0-32.9,adult Start:22-Aug-2021 Instruction Type:Patient Education Patient Instructions Indication:Non-smoker Start:22-Jun-2021 Instruction Type:Provider Instructions for Treatment How to Access Health Informa tion Online using Patient Portal and [employer]rd [employer] Apps Indication:Non-smoker Start:22-Jun-2021 Instruction Type:Patient Education Patient Instructions Indication:BMI 32.0-32.9,adult Start:02-Feb-2021 Instruction Type:Provider Instructions for Treatment How to Access Health Informa tion Online using Patient Portal and [employer]rd [employer] Apps Indication:BMI 32.0-32.9,adult Start:02-Feb-2021 Instruction Type:Patient Education How to access health informa tion online Indication:Non-smoker Start:24-Jun-2019 Instruction Type:Patient Education How to access health informa tion online - Detail Indication:Non-smoker Start:24-Jun-2019 Instruction Type:Patient Education Patient Instructions Indication:BMI 32.0-32.9,adult Start:24-Jun-2019 Instruction Type:Provider Instructions for Treatment How to access health informa tion online Indication:Non-smoker Start:13-Jun-2019 Instruction Type:Patient Education How to access health informa tion online - Detail Indication:Non-smoker Start:13-Jun-2019 Instruction Type:Patient Education Patient Instructions Indication:Non-smoker Start:13-Jun-2019 Instruction Type:Provider Instructions for Treatment How to access health informa tion online Indication:Non-smoker Start:23-May-2019 Instruction Type:Patient Education How to access health informa tion online - Detail Indication:Non-smoker Start:23-May-2019 Instruction Type:Patient Education Patient Instructions Indication:Non-smoker Start:23-May-2019 Instruction Type:Provider Instructions for Treatment How to access health informa tion online Indication:Non-smoker Start:05-Sep-2018 Instruction Type:Patient Education How to access health informa tion online - Detail Indication:Non-smoker Start:05-Sep-2018 Instruction Type:Patient Education Patient Instructions Indication:Non-smoker Start:05-Sep-2018 Instruction Type:Provider Instructions for Treatment How to access health informa tion online Indication:Non-smoker Start:03-Sep-2018 Instruction Type:Patient Education How to access health informa tion online - Detail Indication:Non-smoker Start:03-Sep-2018 Instruction Type:Patient Education Patient Instructions Indication:Non-smoker Start:03-Sep-2018 Instruction Type:Provider Instructions for Treatment How to access health informa tion online Indication:Non-smoker Start:09-Jul-2018 Instruction Type:Patient Education How to access health informa tion online - Detail Indication:Non-smoker Start:09-Jul-2018 Instruction Type:Patient Education Patient Instructions Indication:Non-smoker Start:09-Jul-2018 Instruction Type:Provider Instructions for Treatment How to access health informa tion online Indication:Anxiety Start:22-Aug-2017 Instruction Type:Patient Education How to access health informa tion online - Detail Indication:Anxiety Start:22-Aug-2017 Instruction Type:Patient Education Patient Instructions Indication:Anxiety Start:22-Aug-2017 Instruction Type:Provider Instructions for Treatment How to access health informa tion online Indication:Sore throat Start:06-Apr-2017 Instruction Type:Patient Education How to access health informa tion online - Detail Indication:Sore throat Start:06-Apr-2017 Instruction Type:Patient Education Patient Instructions Indication:Sore throat Start:06-Apr-2017 Instruction Type:Provider Instructions for Treatment Patient Instructions Indication:Dislocation of jaw, bilateral, subsequent encounter Start:24-Oct-2016 Instruction Type:Provider Instructions for Treatment How to access health informa tion online Indication:Sore throat Start:24-Oct-2016 Instruction Type:Patient Education How to access health informa tion online - Detail Indication:Sore throat Start:24-Oct-2016 Instruction Type:Patient Education Patient Instructions Indication:Sore throat Start:24-Oct-2016 Instruction Type:Provider Instructions for Treatment [facility]; [facility] Work Phone: Instructions* Name Dates Details Patient Instructions Indication:Non-smoker Start:04-Jan-2022 Instruction Type:Provider Instructions for Treatment How to Access Health Informa tion Online using Patient Portal and [employer]rd [employer] Apps Indication:Non-smoker Start:04-Jan-2022 Instruction Type:Patient Education Patient Instructions Indication:Non-smoker Start:21-Sep-2021 Instruction Type:Provider Instructions for Treatment How to Access Health Informa tion Online using Patient Portal and [employer] Apps Indication:Non-smoker Start:21-Sep-2021 Instruction Type:Patient Education Patient Instructions Indication:BMI 32.0-32.9,adult Start:22-Aug-2021 Instruction Type:Provider Instructions for Treatment How to Access Health Informa tion Online using Patient Portal and [employer]rd [employer] Apps Indication:BMI 32.0-32.9,adult Start:22-Aug-2021 Instruction Type:Patient Education Patient Instructions Indication:Non-smoker Start:22-Jun-2021 Instruction Type:Provider Instructions for Treatment How to Access Health Informa tion Online using Patient Portal and [employer] Apps Indication:Non-smoker Start:22-Jun-2021 Instruction Type:Patient Education Patient Instructions Indication:BMI 32.0-32.9,adult Start:02-Feb-2021 Instruction Type:Provider Instructions for Treatment How to Access Health Informa tion Online using Patient Portal and [employer]rd [employer] Apps Indication:BMI 32.0-32.9,adult Start:02-Feb-2021 Instruction Type:Patient Education How to access health informa tion online Indication:Non-smoker Start:24-Jun-2019 Instruction Type:Patient Education How to access health informa tion online - Detail Indication:Non-smoker Start:24-Jun-2019 Instruction Type:Patient Education Patient Instructions Indication:BMI 32.0-32.9,adult Start:24-Jun-2019 Instruction Type:Provider Instructions for Treatment How to access health informa tion online Indication:Non-smoker Start:13-Jun-2019 Instruction Type:Patient Education How to access health informa tion online - Detail Indication:Non-smoker Start:13-Jun-2019 Instruction Type:Patient Education Patient Instructions Indication:Non-smoker Start:13-Jun-2019 Instruction Type:Provider Instructions for Treatment How to access health informa tion online Indication:Non-smoker Start:23-May-2019 Instruction Type:Patient Education How to access health informa tion online - Detail Indication:Non-smoker Start:23-May-2019 Instruction Type:Patient Education Patient Instructions Indication:Non-smoker Start:23-May-2019 Instruction Type:Provider Instructions for Treatment How to access health informa tion online Indication:Non-smoker Start:05-Sep-2018 Instruction Type:Patient Education How to access health informa tion online - Detail Indication:Non-smoker Start:05-Sep-2018 Instruction Type:Patient Education Patient Instructions Indication:Non-smoker Start:05-Sep-2018 Instruction Type:Provider Instructions for Treatment How to access health informa tion online Indication:Non-smoker Start:03-Sep-2018 Instruction Type:Patient Education How to access health informa tion online - Detail Indication:Non-smoker Start:03-Sep-2018 Instruction Type:Patient Education Patient Instructions Indication:Non-smoker Start:03-Sep-2018 Instruction Type:Provider Instructions for Treatment How to access health informa tion online Indication:Non-smoker Start:09-Jul-2018 Instruction Type:Patient Education How to access health informa tion online - Detail Indication:Non-smoker Start:09-Jul-2018 Instruction Type:Patient Education Patient Instructions Indication:Non-smoker Start:09-Jul-2018 Instruction Type:Provider Instructions for Treatment How to access health informa tion online Indication:Anxiety Start:22-Aug-2017 Instruction Type:Patient Education How to access health informa tion online - Detail Indication:Anxiety Start:22-Aug-2017 Instruction Type:Patient Education Patient Instructions Indication:Anxiety Start:22-Aug-2017 Instruction Type:Provider Instructions for Treatment How to access health informa tion online Indication:Sore throat Start:06-Apr-2017 Instruction Type:Patient Education How to access health informa tion online - Detail Indication:Sore throat Start:06-Apr-2017 Instruction Type:Patient Education Patient Instructions Indication:Sore throat Start:06-Apr-2017 Instruction Type:Provider Instructions for Treatment Patient Instructions Indication:Dislocation of jaw, bilateral, subsequent encounter Start:24-Oct-2016 Instruction Type:Provider Instructions for Treatment How to access health informa tion online Indication:Sore throat Start:24-Oct-2016 Instruction Type:Patient Education How to access health informa tion online - Detail Indication:Sore throat Start:24-Oct-2016 Instruction Type:Patient Education Patient Instructions Indication:Sore throat Start:24-Oct-2016 Instruction Type:Provider Instructions for Treatment [facility]; [facility] Work Phone: Instructions* Name Dates Details Patient Instructions Indication:Non-smoker Start:20-Apr-2022 Instruction Type:Provider Instructions for Treatment How to Access Health Informa tion Online using Patient Portal and [employer] Apps Indication:Non-smoker Start:20-Apr-2022 Instruction Type:Patient Education Patient Instructions Indication:Painful urination Start:30-Mar-2022 Instruction Type:Provider Instructions for Treatment How to Access Health Informa tion Online using Patient Portal and [employer] Apps Indication:Painful urination Start:30-Mar-2022 Instruction Type:Patient Education Patient Instructions Indication:Non-smoker Start:04-Jan-2022 Instruction Type:Provider Instructions for Treatment How to Access Health Informa tion Online using Patient Portal and [employer] Apps Indication:Non-smoker Start:04-Jan-2022 Instruction Type:Patient Education Patient Instructions Indication:Non-smoker Start:21-Sep-2021 Instruction Type:Provider Instructions for Treatment How to Access Health Informa tion Online using Patient Portal and [employer] Apps Indication:Non-smoker Start:21-Sep-2021 Instruction Type:Patient Education Patient Instructions Indication:BMI 32.0-32.9,adult Start:22-Aug-2021 Instruction Type:Provider Instructions for Treatment How to Access Health Informa tion Online using Patient Portal and [employer] Apps Indication:BMI 32.0-32.9,adult Start:22-Aug-2021 Instruction Type:Patient Education Patient Instructions Indication:Non-smoker Start:22-Jun-2021 Instruction Type:Provider Instructions for Treatment How to Access Health Informa tion Online using Patient Portal and [employer] Apps Indication:Non-smoker Start:22-Jun-2021 Instruction Type:Patient Education Patient Instructions Indication:BMI 32.0-32.9,adult Start:02-Feb-2021 Instruction Type:Provider Instructions for Treatment How to Access Health Informa tion Online using Patient Portal and [employer] Apps Indication:BMI 32.0-32.9,adult Start:02-Feb-2021 Instruction Type:Patient Education How to access health informa tion online Indication:Non-smoker Start:24-Jun-2019 Instruction Type:Patient Education How to access health informa tion online - Detail Indication:Non-smoker Start:24-Jun-2019 Instruction Type:Patient Education Patient Instructions Indication:BMI 32.0-32.9,adult Start:24-Jun-2019 Instruction Type:Provider Instructions for Treatment How to access health informa tion online Indication:Non-smoker Start:13-Jun-2019 Instruction Type:Patient Education How to access health informa tion online - Detail Indication:Non-smoker Start:13-Jun-2019 Instruction Type:Patient Education Patient Instructions Indication:Non-smoker Start:13-Jun-2019 Instruction Type:Provider Instructions for Treatment How to access health informa tion online Indication:Non-smoker Start:23-May-2019 Instruction Type:Patient Education How to access health informa tion online - Detail Indication:Non-smoker Start:23-May-2019 Instruction Type:Patient Education Patient Instructions Indication:Non-smoker Start:23-May-2019 Instruction Type:Provider Instructions for Treatment How to access health informa tion online Indication:Non-smoker Start:05-Sep-2018 Instruction Type:Patient Education How to access health informa tion online - Detail Indication:Non-smoker Start:05-Sep-2018 Instruction Type:Patient Education Patient Instructions Indication:Non-smoker Start:05-Sep-2018 Instruction Type:Provider Instructions for Treatment How to access health informa tion online Indication:Non-smoker Start:03-Sep-2018 Instruction Type:Patient Education How to access health informa tion online - Detail Indication:Non-smoker Start:03-Sep-2018 Instruction Type:Patient Education Patient Instructions Indication:Non-smoker Start:03-Sep-2018 Instruction Type:Provider Instructions for Treatment How to access health informa tion online Indication:Non-smoker Start:09-Jul-2018 Instruction Type:Patient Education How to access health informa tion online - Detail Indication:Non-smoker Start:09-Jul-2018 Instruction Type:Patient Education Patient Instructions Indication:Non-smoker Start:09-Jul-2018 Instruction Type:Provider Instructions for Treatment How to access health informa tion online Indication:Anxiety Start:22-Aug-2017 Instruction Type:Patient Education How to access health informa tion online - Detail Indication:Anxiety Start:22-Aug-2017 Instruction Type:Patient Education Patient Instructions Indication:Anxiety Start:22-Aug-2017 Instruction Type:Provider Instructions for Treatment How to access health informa tion online Indication:Sore throat Start:06-Apr-2017 Instruction Type:Patient Education How to access health informa tion online - Detail Indication:Sore throat Start:06-Apr-2017 Instruction Type:Patient Education Patient Instructions Indication:Sore throat Start:06-Apr-2017 Instruction Type:Provider Instructions for Treatment Patient Instructions Indication:Dislocation of jaw, bilateral, subsequent encounter Start:24-Oct-2016 Instruction Type:Provider Instructions for Treatment How to access health informa tion online Indication:Sore throat Start:24-Oct-2016 Instruction Type:Patient Education How to access health informa tion online - Detail Indication:Sore throat Start:24-Oct-2016 Instruction Type:Patient Education Patient Instructions Indication:Sore throat Start:24-Oct-2016 Instruction Type:Provider Instructions for Treatment [facility]; [facility] Work Phone: Instructions* Name Dates Details Patient Instructions Indication:Non-smoker Start:20-Apr-2022 Instruction Type:Provider Instructions for Treatment How to Access Health Informa tion Online using Patient Portal and 3rd [employer] Indication:Non-smoker Start:20-Apr-2022 Instruction Type:Patient Education Patient Instructions Indication:Painful urination Start:30-Mar-2022 Instruction Type:Provider Instructions for Treatment How to Access Health Informa tion Online using Patient Portal and [employer]rd [employer] Indication:Painful urination Start:30-Mar-2022 Instruction Type:Patient Education Patient Instructions Indication:Non-smoker Start:04-Jan-2022 Instruction Type:Provider Instructions for Treatment How to Access Health Informa tion Online using Patient Portal and [employer]rd [employer] Indication:Non-smoker Start:04-Jan-2022 Instruction Type:Patient Education Patient Instructions Indication:Non-smoker Start:21-Sep-2021 Instruction Type:Provider Instructions for Treatment How to Access Health Informa tion Online using Patient Portal and [employer]rd [employer] Indication:Non-smoker Start:21-Sep-2021 Instruction Type:Patient Education Patient Instructions Indication:BMI 32.0-32.9,adult Start:22-Aug-2021 Instruction Type:Provider Instructions for Treatment How to Access Health Informa tion Online using Patient Portal and [employer]rd [employer] Indication:BMI 32.0-32.9,adult Start:22-Aug-2021 Instruction Type:Patient Education Patient Instructions Indication:Non-smoker Start:22-Jun-2021 Instruction Type:Provider Instructions for Treatment How to Access Health Informa tion Online using Patient Portal and [employer]rd [employer] Indication:Non-smoker Start:22-Jun-2021 Instruction Type:Patient Education Patient Instructions Indication:BMI 32.0-32.9,adult Start:02-Feb-2021 Instruction Type:Provider Instructions for Treatment How to Access Health Informa tion Online using Patient Portal and [employer]rd [employer] Indication:BMI 32.0-32.9,adult Start:02-Feb-2021 Instruction Type:Patient Education How to access health informa tion online Indication:Non-smoker Start:24-Jun-2019 Instruction Type:Patient Education How to access health informa tion online - Detail Indication:Non-smoker Start:24-Jun-2019 Instruction Type:Patient Education Patient Instructions Indication:BMI 32.0-32.9,adult Start:24-Jun-2019 Instruction Type:Provider Instructions for Treatment How to access health informa tion online Indication:Non-smoker Start:13-Jun-2019 Instruction Type:Patient Education How to access health informa tion online - Detail Indication:Non-smoker Start:13-Jun-2019 Instruction Type:Patient Education Patient Instructions Indication:Non-smoker Start:13-Jun-2019 Instruction Type:Provider Instructions for Treatment How to access health informa tion online Indication:Non-smoker Start:23-May-2019 Instruction Type:Patient Education How to access health informa tion online - Detail Indication:Non-smoker Start:23-May-2019 Instruction Type:Patient Education Patient Instructions Indication:Non-smoker Start:23-May-2019 Instruction Type:Provider Instructions for Treatment How to access health informa tion online Indication:Non-smoker Start:05-Sep-2018 Instruction Type:Patient Education How to access health informa tion online - Detail Indication:Non-smoker Start:05-Sep-2018 Instruction Type:Patient Education Patient Instructions Indication:Non-smoker Start:05-Sep-2018 Instruction Type:Provider Instructions for Treatment How to access health informa tion online Indication:Non-smoker Start:03-Sep-2018 Instruction Type:Patient Education How to access health informa tion online - Detail Indication:Non-smoker Start:03-Sep-2018 Instruction Type:Patient Education Patient Instructions Indication:Non-smoker Start:03-Sep-2018 Instruction Type:Provider Instructions for Treatment How to access health informa tion online Indication:Non-smoker Start:09-Jul-2018 Instruction Type:Patient Education How to access health informa tion online - Detail Indication:Non-smoker Start:09-Jul-2018 Instruction Type:Patient Education Patient Instructions Indication:Non-smoker Start:09-Jul-2018 Instruction Type:Provider Instructions for Treatment How to access health informa tion online Indication:Anxiety Start:22-Aug-2017 Instruction Type:Patient Education How to access health informa tion online - Detail Indication:Anxiety Start:22-Aug-2017 Instruction Type:Patient Education Patient Instructions Indication:Anxiety Start:22-Aug-2017 Instruction Type:Provider Instructions for Treatment How to access health informa tion online Indication:Sore throat Start:06-Apr-2017 Instruction Type:Patient Education How to access health informa tion online - Detail Indication:Sore throat Start:06-Apr-2017 Instruction Type:Patient Education Patient Instructions Indication:Sore throat Start:06-Apr-2017 Instruction Type:Provider Instructions for Treatment Patient Instructions Indication:Dislocation of jaw, bilateral, subsequent encounter Start:24-Oct-2016 Instruction Type:Provider Instructions for Treatment How to access health informa tion online Indication:Sore throat Start:24-Oct-2016 Instruction Type:Patient Education How to access health informa tion online - Detail Indication:Sore throat Start:24-Oct-2016 Instruction Type:Patient Education Patient Instructions Indication:Sore throat Start:24-Oct-2016 Instruction Type:Provider Instructions for Treatment [facility]; [facility] Work Phone: Instructions* Name Dates Details How to Access Health Informa tion Online using Patient Portal and [employer] Indication:Non-smoker Start:23-May-2022 Instruction Type:Patient Education Patient Instructions Indication:Non-smoker Start:23-May-2022 Instruction Type:Provider Instructions for Treatment Patient Instructions Indication:Non-smoker Start:20-Apr-2022 Instruction Type:Provider Instructions for Treatment How to Access Health Informa tion Online using Patient Portal and [employer] Indication:Non-smoker Start:20-Apr-2022 Instruction Type:Patient Education Patient Instructions Indication:Painful urination Start:30-Mar-2022 Instruction Type:Provider Instructions for Treatment How to Access Health Informa tion Online using Patient Portal and [employer]rd [employer] Indication:Painful urination Start:30-Mar-2022 Instruction Type:Patient Education Patient Instructions Indication:Non-smoker Start:04-Jan-2022 Instruction Type:Provider Instructions for Treatment How to Access Health Informa tion Online using Patient Portal and [employer] Indication:Non-smoker Start:04-Jan-2022 Instruction Type:Patient Education Patient Instructions Indication:Non-smoker Start:21-Sep-2021 Instruction Type:Provider Instructions for Treatment How to Access Health Informa tion Online using Patient Portal and [employer] Indication:Non-smoker Start:21-Sep-2021 Instruction Type:Patient Education Patient Instructions Indication:BMI 32.0-32.9,adult Start:22-Aug-2021 Instruction Type:Provider Instructions for Treatment How to Access Health Informa tion Online using Patient Portal and [employer] Indication:BMI 32.0-32.9,adult Start:22-Aug-2021 Instruction Type:Patient Education Patient Instructions Indication:Non-smoker Start:22-Jun-2021 Instruction Type:Provider Instructions for Treatment How to Access Health Informa tion Online using Patient Portal and [employer] Indication:Non-smoker Start:22-Jun-2021 Instruction Type:Patient Education Patient Instructions Indication:BMI 32.0-32.9,adult Start:02-Feb-2021 Instruction Type:Provider Instructions for Treatment How to Access Health Informa tion Online using Patient Portal and [employer] Indication:BMI 32.0-32.9,adult Start:02-Feb-2021 Instruction Type:Patient Education How to access health informa tion online Indication:Non-smoker Start:24-Jun-2019 Instruction Type:Patient Education How to access health informa tion online - Detail Indication:Non-smoker Start:24-Jun-2019 Instruction Type:Patient Education Patient Instructions Indication:BMI 32.0-32.9,adult Start:24-Jun-2019 Instruction Type:Provider Instructions for Treatment How to access health informa tion online Indication:Non-smoker Start:13-Jun-2019 Instruction Type:Patient Education How to access health informa tion online - Detail Indication:Non-smoker Start:13-Jun-2019 Instruction Type:Patient Education Patient Instructions Indication:Non-smoker Start:13-Jun-2019 Instruction Type:Provider Instructions for Treatment How to access health informa tion online Indication:Non-smoker Start:23-May-2019 Instruction Type:Patient Education How to access health informa tion online - Detail Indication:Non-smoker Start:23-May-2019 Instruction Type:Patient Education Patient Instructions Indication:Non-smoker Start:23-May-2019 Instruction Type:Provider Instructions for Treatment How to access health informa tion online Indication:Non-smoker Start:05-Sep-2018 Instruction Type:Patient Education How to access health informa tion online - Detail Indication:Non-smoker Start:05-Sep-2018 Instruction Type:Patient Education Patient Instructions Indication:Non-smoker Start:05-Sep-2018 Instruction Type:Provider Instructions for Treatment How to access health informa tion online Indication:Non-smoker Start:03-Sep-2018 Instruction Type:Patient Education How to access health informa tion online - Detail Indication:Non-smoker Start:03-Sep-2018 Instruction Type:Patient Education Patient Instructions Indication:Non-smoker Start:03-Sep-2018 Instruction Type:Provider Instructions for Treatment How to access health informa tion online Indication:Non-smoker Start:09-Jul-2018 Instruction Type:Patient Education How to access health informa tion online - Detail Indication:Non-smoker Start:09-Jul-2018 Instruction Type:Patient Education Patient Instructions Indication:Non-smoker Start:09-Jul-2018 Instruction Type:Provider Instructions for Treatment How to access health informa tion online Indication:Anxiety Start:22-Aug-2017 Instruction Type:Patient Education How to access health informa tion online - Detail Indication:Anxiety Start:22-Aug-2017 Instruction Type:Patient Education Patient Instructions Indication:Anxiety Start:22-Aug-2017 Instruction Type:Provider Instructions for Treatment How to access health informa tion online Indication:Sore throat Start:06-Apr-2017 Instruction Type:Patient Education How to access health informa tion online - Detail Indication:Sore throat Start:06-Apr-2017 Instruction Type:Patient Education Patient Instructions Indication:Sore throat Start:06-Apr-2017 Instruction Type:Provider Instructions for Treatment Patient Instructions Indication:Dislocation of jaw, bilateral, subsequent encounter Start:24-Oct-2016 Instruction Type:Provider Instructions for Treatment How to access health informa tion online Indication:Sore throat Start:24-Oct-2016 Instruction Type:Patient Education How to access health informa tion online - Detail Indication:Sore throat Start:24-Oct-2016 Instruction Type:Patient Education Patient Instructions Indication:Sore throat Start:24-Oct-2016 Instruction Type:Provider Instructions for Treatment [facility]; [facility] Work Phone: Instructions* Name Dates Details How to Access Health Informa tion Online using Patient Portal and [employer] Indication:Non-smoker Start:23-May-2022 Instruction Type:Patient Education Patient Instructions Indication:Non-smoker Start:23-May-2022 Instruction Type:Provider Instructions for Treatment Patient Instructions Indication:Non-smoker Start:20-Apr-2022 Instruction Type:Provider Instructions for Treatment How to Access Health Informa tion Online using Patient Portal and [employer] Indication:Non-smoker Start:20-Apr-2022 Instruction Type:Patient Education Patient Instructions Indication:Painful urination Start:30-Mar-2022 Instruction Type:Provider Instructions for Treatment How to Access Health Informa tion Online using Patient Portal and [employer] Indication:Painful urination Start:30-Mar-2022 Instruction Type:Patient Education Patient Instructions Indication:Non-smoker Start:04-Jan-2022 Instruction Type:Provider Instructions for Treatment How to Access Health Informa tion Online using Patient Portal and [employer] Indication:Non-smoker Start:04-Jan-2022 Instruction Type:Patient Education Patient Instructions Indication:Non-smoker Start:21-Sep-2021 Instruction Type:Provider Instructions for Treatment How to Access Health Informa tion Online using Patient Portal and [employer] Indication:Non-smoker Start:21-Sep-2021 Instruction Type:Patient Education Patient Instructions Indication:BMI 32.0-32.9,adult Start:22-Aug-2021 Instruction Type:Provider Instructions for Treatment How to Access Health Informa tion Online using Patient Portal and [employer] Indication:BMI 32.0-32.9,adult Start:22-Aug-2021 Instruction Type:Patient Education Patient Instructions Indication:Non-smoker Start:22-Jun-2021 Instruction Type:Provider Instructions for Treatment How to Access Health Informa tion Online using Patient Portal and [employer]rd [employer] Indication:Non-smoker Start:22-Jun-2021 Instruction Type:Patient Education Patient Instructions Indication:BMI 32.0-32.9,adult Start:02-Feb-2021 Instruction Type:Provider Instructions for Treatment How to Access Health Informa tion Online using Patient Portal and [employer] Indication:BMI 32.0-32.9,adult Start:02-Feb-2021 Instruction Type:Patient Education How to access health informa tion online Indication:Non-smoker Start:24-Jun-2019 Instruction Type:Patient Education How to access health informa tion online - Detail Indication:Non-smoker Start:24-Jun-2019 Instruction Type:Patient Education Patient Instructions Indication:BMI 32.0-32.9,adult Start:24-Jun-2019 Instruction Type:Provider Instructions for Treatment How to access health informa tion online Indication:Non-smoker Start:13-Jun-2019 Instruction Type:Patient Education How to access health informa tion online - Detail Indication:Non-smoker Start:13-Jun-2019 Instruction Type:Patient Education Patient Instructions Indication:Non-smoker Start:13-Jun-2019 Instruction Type:Provider Instructions for Treatment How to access health informa tion online Indication:Non-smoker Start:23-May-2019 Instruction Type:Patient Education How to access health informa tion online - Detail Indication:Non-smoker Start:23-May-2019 Instruction Type:Patient Education Patient Instructions Indication:Non-smoker Start:23-May-2019 Instruction Type:Provider Instructions for Treatment How to access health informa tion online Indication:Non-smoker Start:05-Sep-2018 Instruction Type:Patient Education How to access health informa tion online - Detail Indication:Non-smoker Start:05-Sep-2018 Instruction Type:Patient Education Patient Instructions Indication:Non-smoker Start:05-Sep-2018 Instruction Type:Provider Instructions for Treatment How to access health informa tion online Indication:Non-smoker Start:03-Sep-2018 Instruction Type:Patient Education How to access health informa tion online - Detail Indication:Non-smoker Start:03-Sep-2018 Instruction Type:Patient Education Patient Instructions Indication:Non-smoker Start:03-Sep-2018 Instruction Type:Provider Instructions for Treatment How to access health informa tion online Indication:Non-smoker Start:09-Jul-2018 Instruction Type:Patient Education How to access health informa tion online - Detail Indication:Non-smoker Start:09-Jul-2018 Instruction Type:Patient Education Patient Instructions Indication:Non-smoker Start:09-Jul-2018 Instruction Type:Provider Instructions for Treatment How to access health informa tion online Indication:Anxiety Start:22-Aug-2017 Instruction Type:Patient Education How to access health informa tion online - Detail Indication:Anxiety Start:22-Aug-2017 Instruction Type:Patient Education Patient Instructions Indication:Anxiety Start:22-Aug-2017 Instruction Type:Provider Instructions for Treatment How to access health informa tion online Indication:Sore throat Start:06-Apr-2017 Instruction Type:Patient Education How to access health informa tion online - Detail Indication:Sore throat Start:06-Apr-2017 Instruction Type:Patient Education Patient Instructions Indication:Sore throat Start:06-Apr-2017 Instruction Type:Provider Instructions for Treatment Patient Instructions Indication:Dislocation of jaw, bilateral, subsequent encounter Start:24-Oct-2016 Instruction Type:Provider Instructions for Treatment How to access health informa tion online Indication:Sore throat Start:24-Oct-2016 Instruction Type:Patient Education How to access health informa tion online - Detail Indication:Sore throat Start:24-Oct-2016 Instruction Type:Patient Education Patient Instructions Indication:Sore throat Start:24-Oct-2016 Instruction Type:Provider Instructions for Treatment [facility]; [facility] Work Phone: Instructions* Name Dates Details Patient Instructions Indication:Non-smoker Start:24-Jul-2022 Instruction Type:Provider Instructions for Treatment How to Access Health Informa tion Online using Patient Portal and [employer] Indication:Non-smoker Start:24-Jul-2022 Instruction Type:Patient Education How to Access Health Informa tion Online using Patient Portal and [employer] Indication:Non-smoker Start:23-May-2022 Instruction Type:Patient Education Patient Instructions Indication:Non-smoker Start:23-May-2022 Instruction Type:Provider Instructions for Treatment Patient Instructions Indication:Non-smoker Start:20-Apr-2022 Instruction Type:Provider Instructions for Treatment How to Access Health Informa tion Online using Patient Portal and [employer] Indication:Non-smoker Start:20-Apr-2022 Instruction Type:Patient Education Patient Instructions Indication:Painful urination Start:30-Mar-2022 Instruction Type:Provider Instructions for Treatment How to Access Health Informa tion Online using Patient Portal and [employer] Indication:Painful urination Start:30-Mar-2022 Instruction Type:Patient Education Patient Instructions Indication:Non-smoker Start:04-Jan-2022 Instruction Type:Provider Instructions for Treatment How to Access Health Informa tion Online using Patient Portal and [employer] Indication:Non-smoker Start:04-Jan-2022 Instruction Type:Patient Education Patient Instructions Indication:Non-smoker Start:21-Sep-2021 Instruction Type:Provider Instructions for Treatment How to Access Health Informa tion Online using Patient Portal and [employer] Indication:Non-smoker Start:21-Sep-2021 Instruction Type:Patient Education Patient Instructions Indication:BMI 32.0-32.9,adult Start:22-Aug-2021 Instruction Type:Provider Instructions for Treatment How to Access Health Informa tion Online using Patient Portal and [employer]rd [employer] Indication:BMI 32.0-32.9,adult Start:22-Aug-2021 Instruction Type:Patient Education Patient Instructions Indication:Non-smoker Start:22-Jun-2021 Instruction Type:Provider Instructions for Treatment How to Access Health Informa tion Online using Patient Portal and [employer] Indication:Non-smoker Start:22-Jun-2021 Instruction Type:Patient Education Patient Instructions Indication:BMI 32.0-32.9,adult Start:02-Feb-2021 Instruction Type:Provider Instructions for Treatment How to Access Health Informa tion Online using Patient Portal and [employer] Indication:BMI 32.0-32.9,adult Start:02-Feb-2021 Instruction Type:Patient Education How to access health informa tion online Indication:Non-smoker Start:24-Jun-2019 Instruction Type:Patient Education How to access health informa tion online - Detail Indication:Non-smoker Start:24-Jun-2019 Instruction Type:Patient Education Patient Instructions Indication:BMI 32.0-32.9,adult Start:24-Jun-2019 Instruction Type:Provider Instructions for Treatment How to access health informa tion online Indication:Non-smoker Start:13-Jun-2019 Instruction Type:Patient Education How to access health informa tion online - Detail Indication:Non-smoker Start:13-Jun-2019 Instruction Type:Patient Education Patient Instructions Indication:Non-smoker Start:13-Jun-2019 Instruction Type:Provider Instructions for Treatment How to access health informa tion online Indication:Non-smoker Start:23-May-2019 Instruction Type:Patient Education How to access health informa tion online - Detail Indication:Non-smoker Start:23-May-2019 Instruction Type:Patient Education Patient Instructions Indication:Non-smoker Start:23-May-2019 Instruction Type:Provider Instructions for Treatment How to access health informa tion online Indication:Non-smoker Start:05-Sep-2018 Instruction Type:Patient Education How to access health informa tion online - Detail Indication:Non-smoker Start:05-Sep-2018 Instruction Type:Patient Education Patient Instructions Indication:Non-smoker Start:05-Sep-2018 Instruction Type:Provider Instructions for Treatment How to access health informa tion online Indication:Non-smoker Start:03-Sep-2018 Instruction Type:Patient Education How to access health informa tion online - Detail Indication:Non-smoker Start:03-Sep-2018 Instruction Type:Patient Education Patient Instructions Indication:Non-smoker Start:03-Sep-2018 Instruction Type:Provider Instructions for Treatment How to access health informa tion online Indication:Non-smoker Start:09-Jul-2018 Instruction Type:Patient Education How to access health informa tion online - Detail Indication:Non-smoker Start:09-Jul-2018 Instruction Type:Patient Education Patient Instructions Indication:Non-smoker Start:09-Jul-2018 Instruction Type:Provider Instructions for Treatment How to access health informa tion online Indication:Anxiety Start:22-Aug-2017 Instruction Type:Patient Education How to access health informa tion online - Detail Indication:Anxiety Start:22-Aug-2017 Instruction Type:Patient Education Patient Instructions Indication:Anxiety Start:22-Aug-2017 Instruction Type:Provider Instructions for Treatment How to access health informa tion online Indication:Sore throat Start:06-Apr-2017 Instruction Type:Patient Education How to access health informa tion online - Detail Indication:Sore throat Start:06-Apr-2017 Instruction Type:Patient Education Patient Instructions Indication:Sore throat Start:06-Apr-2017 Instruction Type:Provider Instructions for Treatment Patient Instructions Indication:Dislocation of jaw, bilateral, subsequent encounter Start:24-Oct-2016 Instruction Type:Provider Instructions for Treatment How to access health informa tion online Indication:Sore throat Start:24-Oct-2016 Instruction Type:Patient Education How to access health informa tion online - Detail Indication:Sore throat Start:24-Oct-2016 Instruction Type:Patient Education Patient Instructions Indication:Sore throat Start:24-Oct-2016 Instruction Type:Provider Instructions for Treatment [facility]; [facility] Work Phone: Instructions* Name Dates Details Patient Instructions Indication:Non-smoker Start:24-Jul-2022 Instruction Type:Provider Instructions for Treatment How to Access Health Informa tion Online using Patient Portal and [employer] Indication:Non-smoker Start:24-Jul-2022 Instruction Type:Patient Education How to Access Health Informa tion Online using Patient Portal and [employer] Indication:Non-smoker Start:23-May-2022 Instruction Type:Patient Education Patient Instructions Indication:Non-smoker Start:23-May-2022 Instruction Type:Provider Instructions for Treatment Patient Instructions Indication:Non-smoker Start:20-Apr-2022 Instruction Type:Provider Instructions for Treatment How to Access Health Informa tion Online using Patient Portal and [employer] Indication:Non-smoker Start:20-Apr-2022 Instruction Type:Patient Education Patient Instructions Indication:Painful urination Start:30-Mar-2022 Instruction Type:Provider Instructions for Treatment How to Access Health Informa tion Online using Patient Portal and [employer] Indication:Painful urination Start:30-Mar-2022 Instruction Type:Patient Education Patient Instructions Indication:Non-smoker Start:04-Jan-2022 Instruction Type:Provider Instructions for Treatment How to Access Health Informa tion Online using Patient Portal and [employer] Apps Indication:Non-smoker Start:04-Jan-2022 Instruction Type:Patient Education Patient Instructions Indication:Non-smoker Start:21-Sep-2021 Instruction Type:Provider Instructions for Treatment How to Access Health Informa tion Online using Patient Portal and [employer]rd [employer] Apps Indication:Non-smoker Start:21-Sep-2021 Instruction Type:Patient Education Patient Instructions Indication:BMI 32.0-32.9,adult Start:22-Aug-2021 Instruction Type:Provider Instructions for Treatment How to Access Health Informa tion Online using Patient Portal and [employer] Apps Indication:BMI 32.0-32.9,adult Start:22-Aug-2021 Instruction Type:Patient Education Patient Instructions Indication:Non-smoker Start:22-Jun-2021 Instruction Type:Provider Instructions for Treatment How to Access Health Informa tion Online using Patient Portal and [employer] Apps Indication:Non-smoker Start:22-Jun-2021 Instruction Type:Patient Education Patient Instructions Indication:BMI 32.0-32.9,adult Start:02-Feb-2021 Instruction Type:Provider Instructions for Treatment How to Access Health Informa tion Online using Patient Portal and [employer] Apps Indication:BMI 32.0-32.9,adult Start:02-Feb-2021 Instruction Type:Patient Education How to access health informa tion online Indication:Non-smoker Start:24-Jun-2019 Instruction Type:Patient Education How to access health informa tion online - Detail Indication:Non-smoker Start:24-Jun-2019 Instruction Type:Patient Education Patient Instructions Indication:BMI 32.0-32.9,adult Start:24-Jun-2019 Instruction Type:Provider Instructions for Treatment How to access health informa tion online Indication:Non-smoker Start:13-Jun-2019 Instruction Type:Patient Education How to access health informa tion online - Detail Indication:Non-smoker Start:13-Jun-2019 Instruction Type:Patient Education Patient Instructions Indication:Non-smoker Start:13-Jun-2019 Instruction Type:Provider Instructions for Treatment How to access health informa tion online Indication:Non-smoker Start:23-May-2019 Instruction Type:Patient Education How to access health informa tion online - Detail Indication:Non-smoker Start:23-May-2019 Instruction Type:Patient Education Patient Instructions Indication:Non-smoker Start:23-May-2019 Instruction Type:Provider Instructions for Treatment How to access health informa tion online Indication:Non-smoker Start:05-Sep-2018 Instruction Type:Patient Education How to access health informa tion online - Detail Indication:Non-smoker Start:05-Sep-2018 Instruction Type:Patient Education Patient Instructions Indication:Non-smoker Start:05-Sep-2018 Instruction Type:Provider Instructions for Treatment How to access health informa tion online Indication:Non-smoker Start:03-Sep-2018 Instruction Type:Patient Education How to access health informa tion online - Detail Indication:Non-smoker Start:03-Sep-2018 Instruction Type:Patient Education Patient Instructions Indication:Non-smoker Start:03-Sep-2018 Instruction Type:Provider Instructions for Treatment How to access health informa tion online Indication:Non-smoker Start:09-Jul-2018 Instruction Type:Patient Education How to access health informa tion online - Detail Indication:Non-smoker Start:09-Jul-2018 Instruction Type:Patient Education Patient Instructions Indication:Non-smoker Start:09-Jul-2018 Instruction Type:Provider Instructions for Treatment How to access health informa tion online Indication:Anxiety Start:22-Aug-2017 Instruction Type:Patient Education How to access health informa tion online - Detail Indication:Anxiety Start:22-Aug-2017 Instruction Type:Patient Education Patient Instructions Indication:Anxiety Start:22-Aug-2017 Instruction Type:Provider Instructions for Treatment How to access health informa tion online Indication:Sore throat Start:06-Apr-2017 Instruction Type:Patient Education How to access health informa tion online - Detail Indication:Sore throat Start:06-Apr-2017 Instruction Type:Patient Education Patient Instructions Indication:Sore throat Start:06-Apr-2017 Instruction Type:Provider Instructions for Treatment Patient Instructions Indication:Dislocation of jaw, bilateral, subsequent encounter Start:24-Oct-2016 Instruction Type:Provider Instructions for Treatment How to access health informa tion online Indication:Sore throat Start:24-Oct-2016 Instruction Type:Patient Education How to access health informa tion online - Detail Indication:Sore throat Start:24-Oct-2016 Instruction Type:Patient Education Patient Instructions Indication:Sore throat Start:24-Oct-2016 Instruction Type:Provider Instructions for Treatment [facility]; [facility] Work Phone: Instructions* Name Dates Details Patient Instructions Indication:Non-smoker Start:25-Sep-2022 Instruction Type:Provider Instructions for Treatment How to Access Health Informa tion Online using Patient Portal and [employer]rd [employer] Apps Indication:Non-smoker Start:25-Sep-2022 Instruction Type:Patient Education Patient Instructions Indication:Non-smoker Start:24-Jul-2022 Instruction Type:Provider Instructions for Treatment How to Access Health Informa tion Online using Patient Portal and [employer] Apps Indication:Non-smoker Start:24-Jul-2022 Instruction Type:Patient Education How to Access Health Informa tion Online using Patient Portal and [employer] Apps Indication:Non-smoker Start:23-May-2022 Instruction Type:Patient Education Patient Instructions Indication:Non-smoker Start:23-May-2022 Instruction Type:Provider Instructions for Treatment Patient Instructions Indication:Non-smoker Start:20-Apr-2022 Instruction Type:Provider Instructions for Treatment How to Access Health Informa tion Online using Patient Portal and [employer] Apps Indication:Non-smoker Start:20-Apr-2022 Instruction Type:Patient Education Patient Instructions Indication:Painful urination Start:30-Mar-2022 Instruction Type:Provider Instructions for Treatment How to Access Health Informa tion Online using Patient Portal and [employer] Apps Indication:Painful urination Start:30-Mar-2022 Instruction Type:Patient Education Patient Instructions Indication:Non-smoker Start:04-Jan-2022 Instruction Type:Provider Instructions for Treatment How to Access Health Informa tion Online using Patient Portal and [employer] Apps Indication:Non-smoker Start:04-Jan-2022 Instruction Type:Patient Education Patient Instructions Indication:Non-smoker Start:21-Sep-2021 Instruction Type:Provider Instructions for Treatment How to Access Health Informa tion Online using Patient Portal and [employer] Apps Indication:Non-smoker Start:21-Sep-2021 Instruction Type:Patient Education Patient Instructions Indication:BMI 32.0-32.9,adult Start:22-Aug-2021 Instruction Type:Provider Instructions for Treatment How to Access Health Informa tion Online using Patient Portal and [employer] Apps Indication:BMI 32.0-32.9,adult Start:22-Aug-2021 Instruction Type:Patient Education Patient Instructions Indication:Non-smoker Start:22-Jun-2021 Instruction Type:Provider Instructions for Treatment How to Access Health Informa tion Online using Patient Portal and [employer] Apps Indication:Non-smoker Start:22-Jun-2021 Instruction Type:Patient Education Patient Instructions Indication:BMI 32.0-32.9,adult Start:02-Feb-2021 Instruction Type:Provider Instructions for Treatment How to Access Health Informa tion Online using Patient Portal and [employer] Apps Indication:BMI 32.0-32.9,adult Start:02-Feb-2021 Instruction Type:Patient Education How to access health informa tion online Indication:Non-smoker Start:24-Jun-2019 Instruction Type:Patient Education How to access health informa tion online - Detail Indication:Non-smoker Start:24-Jun-2019 Instruction Type:Patient Education Patient Instructions Indication:BMI 32.0-32.9,adult Start:24-Jun-2019 Instruction Type:Provider Instructions for Treatment How to access health informa tion online Indication:Non-smoker Start:13-Jun-2019 Instruction Type:Patient Education How to access health informa tion online - Detail Indication:Non-smoker Start:13-Jun-2019 Instruction Type:Patient Education Patient Instructions Indication:Non-smoker Start:13-Jun-2019 Instruction Type:Provider Instructions for Treatment How to access health informa tion online Indication:Non-smoker Start:23-May-2019 Instruction Type:Patient Education How to access health informa tion online - Detail Indication:Non-smoker Start:23-May-2019 Instruction Type:Patient Education Patient Instructions Indication:Non-smoker Start:23-May-2019 Instruction Type:Provider Instructions for Treatment How to access health informa tion online Indication:Non-smoker Start:05-Sep-2018 Instruction Type:Patient Education How to access health informa tion online - Detail Indication:Non-smoker Start:05-Sep-2018 Instruction Type:Patient Education Patient Instructions Indication:Non-smoker Start:05-Sep-2018 Instruction Type:Provider Instructions for Treatment How to access health informa tion online Indication:Non-smoker Start:03-Sep-2018 Instruction Type:Patient Education How to access health informa tion online - Detail Indication:Non-smoker Start:03-Sep-2018 Instruction Type:Patient Education Patient Instructions Indication:Non-smoker Start:03-Sep-2018 Instruction Type:Provider Instructions for Treatment How to access health informa tion online Indication:Non-smoker Start:09-Jul-2018 Instruction Type:Patient Education How to access health informa tion online - Detail Indication:Non-smoker Start:09-Jul-2018 Instruction Type:Patient Education Patient Instructions Indication:Non-smoker Start:09-Jul-2018 Instruction Type:Provider Instructions for Treatment How to access health informa tion online Indication:Anxiety Start:22-Aug-2017 Instruction Type:Patient Education How to access health informa tion online - Detail Indication:Anxiety Start:22-Aug-2017 Instruction Type:Patient Education Patient Instructions Indication:Anxiety Start:22-Aug-2017 Instruction Type:Provider Instructions for Treatment How to access health informa tion online Indication:Sore throat Start:06-Apr-2017 Instruction Type:Patient Education How to access health informa tion online - Detail Indication:Sore throat Start:06-Apr-2017 Instruction Type:Patient Education Patient Instructions Indication:Sore throat Start:06-Apr-2017 Instruction Type:Provider Instructions for Treatment Patient Instructions Indication:Dislocation of jaw, bilateral, subsequent encounter Start:24-Oct-2016 Instruction Type:Provider Instructions for Treatment How to access health informa tion online Indication:Sore throat Start:24-Oct-2016 Instruction Type:Patient Education How to access health informa tion online - Detail Indication:Sore throat Start:24-Oct-2016 Instruction Type:Patient Education Patient Instructions Indication:Sore throat Start:24-Oct-2016 Instruction Type:Provider Instructions for Treatment [facility]; [facility] Work Phone: Instructions* Name Dates Details How to Access Health Informa tion Online using Patient Portal and [employer] Apps Indication:Non-smoker Start:28-Mar-2023 Instruction Type:Patient Education Patient Instructions Indication:Non-smoker Start:28-Mar-2023 Instruction Type:Provider Instructions for Treatment Patient Instructions Indication:Non-smoker Start:25-Sep-2022 Instruction Type:Provider Instructions for Treatment How to Access Health Informa tion Online using Patient Portal and [employer] Apps Indication:Non-smoker Start:25-Sep-2022 Instruction Type:Patient Education Patient Instructions Indication:Non-smoker Start:24-Jul-2022 Instruction Type:Provider Instructions for Treatment How to Access Health Informa tion Online using Patient Portal and [employer] Apps Indication:Non-smoker Start:24-Jul-2022 Instruction Type:Patient Education How to Access Health Informa tion Online using Patient Portal and [employer] Apps Indication:Non-smoker Start:23-May-2022 Instruction Type:Patient Education Patient Instructions Indication:Non-smoker Start:23-May-2022 Instruction Type:Provider Instructions for Treatment Patient Instructions Indication:Non-smoker Start:20-Apr-2022 Instruction Type:Provider Instructions for Treatment How to Access Health Informa tion Online using Patient Portal and [employer] Apps Indication:Non-smoker Start:20-Apr-2022 Instruction Type:Patient Education Patient Instructions Indication:Painful urination Start:30-Mar-2022 Instruction Type:Provider Instructions for Treatment How to Access Health Informa tion Online using Patient Portal and [employer] Apps Indication:Painful urination Start:30-Mar-2022 Instruction Type:Patient Education Patient Instructions Indication:Non-smoker Start:04-Jan-2022 Instruction Type:Provider Instructions for Treatment How to Access Health Informa tion Online using Patient Portal and [employer] Apps Indication:Non-smoker Start:04-Jan-2022 Instruction Type:Patient Education Patient Instructions Indication:Non-smoker Start:21-Sep-2021 Instruction Type:Provider Instructions for Treatment How to Access Health Informa tion Online using Patient Portal and [employer] Apps Indication:Non-smoker Start:21-Sep-2021 Instruction Type:Patient Education Patient Instructions Indication:BMI 32.0-32.9,adult Start:22-Aug-2021 Instruction Type:Provider Instructions for Treatment How to Access Health Informa tion Online using Patient Portal and [employer] Apps Indication:BMI 32.0-32.9,adult Start:22-Aug-2021 Instruction Type:Patient Education Patient Instructions Indication:Non-smoker Start:22-Jun-2021 Instruction Type:Provider Instructions for Treatment How to Access Health Informa tion Online using Patient Portal and [employer] Apps Indication:Non-smoker Start:22-Jun-2021 Instruction Type:Patient Education Patient Instructions Indication:BMI 32.0-32.9,adult Start:02-Feb-2021 Instruction Type:Provider Instructions for Treatment How to Access Health Informa tion Online using Patient Portal and [employer] Apps Indication:BMI 32.0-32.9,adult Start:02-Feb-2021 Instruction Type:Patient Education How to access health informa tion online Indication:Non-smoker Start:24-Jun-2019 Instruction Type:Patient Education How to access health informa tion online - Detail Indication:Non-smoker Start:24-Jun-2019 Instruction Type:Patient Education Patient Instructions Indication:BMI 32.0-32.9,adult Start:24-Jun-2019 Instruction Type:Provider Instructions for Treatment How to access health informa tion online Indication:Non-smoker Start:13-Jun-2019 Instruction Type:Patient Education How to access health informa tion online - Detail Indication:Non-smoker Start:13-Jun-2019 Instruction Type:Patient Education Patient Instructions Indication:Non-smoker Start:13-Jun-2019 Instruction Type:Provider Instructions for Treatment How to access health informa tion online Indication:Non-smoker Start:23-May-2019 Instruction Type:Patient Education How to access health informa tion online - Detail Indication:Non-smoker Start:23-May-2019 Instruction Type:Patient Education Patient Instructions Indication:Non-smoker Start:23-May-2019 Instruction Type:Provider Instructions for Treatment How to access health informa tion online Indication:Non-smoker Start:05-Sep-2018 Instruction Type:Patient Education How to access health informa tion online - Detail Indication:Non-smoker Start:05-Sep-2018 Instruction Type:Patient Education Patient Instructions Indication:Non-smoker Start:05-Sep-2018 Instruction Type:Provider Instructions for Treatment How to access health informa tion online Indication:Non-smoker Start:03-Sep-2018 Instruction Type:Patient Education How to access health informa tion online - Detail Indication:Non-smoker Start:03-Sep-2018 Instruction Type:Patient Education Patient Instructions Indication:Non-smoker Start:03-Sep-2018 Instruction Type:Provider Instructions for Treatment How to access health informa tion online Indication:Non-smoker Start:09-Jul-2018 Instruction Type:Patient Education How to access health informa tion online - Detail Indication:Non-smoker Start:09-Jul-2018 Instruction Type:Patient Education Patient Instructions Indication:Non-smoker Start:09-Jul-2018 Instruction Type:Provider Instructions for Treatment How to access health informa tion online Indication:Anxiety Start:22-Aug-2017 Instruction Type:Patient Education How to access health informa tion online - Detail Indication:Anxiety Start:22-Aug-2017 Instruction Type:Patient Education Patient Instructions Indication:Anxiety Start:22-Aug-2017 Instruction Type:Provider Instructions for Treatment How to access health informa tion online Indication:Sore throat Start:06-Apr-2017 Instruction Type:Patient Education How to access health informa tion online - Detail Indication:Sore throat Start:06-Apr-2017 Instruction Type:Patient Education Patient Instructions Indication:Sore throat Start:06-Apr-2017 Instruction Type:Provider Instructions for Treatment Patient Instructions Indication:Dislocation of jaw, bilateral, subsequent encounter Start:24-Oct-2016 Instruction Type:Provider Instructions for Treatment How to access health informa tion online Indication:Sore throat Start:24-Oct-2016 Instruction Type:Patient Education How to access [employer] online - Detail Indication:Sore throat Start:24-Oct-2016 Instruction Type:Patient Education Patient Instructions Indication:Sore throat Start:24-Oct-2016 Instruction Type:Provider Instructions for Treatment [facility]; [facility] Work Phone: Family History No Family History Records FoundUnknown Family Member Name Dates Details Brother 1 Comments:anxiety Status:Active Father Comments:Bladder cancer, Kid adela disease Status:Active Maternal Grandfather Comments:anxiety Status:Active Maternal Grandmother Comments:Type 2 diabetes Status:Active Mother Comments:Isometric stroke, [place] Status:Active Paternal Grandfather Comments:skin cancer Status:Active Paternal Grandmother Comments:Arteriosclerosis Status:Active Unknown Family Member Name Dates Details Brother 1 Comments:anxiety Status:Active Father Comments:Bladder cancer, Kid adela disease Status:Active Maternal Grandfather Comments:anxiety Status:Active Maternal Grandmother Comments:Type 2 diabetes Status:Active Mother Comments:Isometric stroke, [place] Status:Active Paternal Grandfather Comments:skin cancer Status:Active Paternal Grandmother Comments:Arteriosclerosis Status:Active Unknown Family Member Name Dates Details Brother 1 Comments:anxiety Status:Active Father Comments:Bladder cancer, Kid adela disease Status:Active Maternal Grandfather Comments:anxiety Status:Active Maternal Grandmother Comments:Type 2 diabetes Status:Active Mother Comments:Isometric stroke, [place] Status:Active Paternal Grandfather Comments:skin cancer Status:Active Paternal Grandmother Comments:Arteriosclerosis Status:Active Unknown Family Member Name Dates Details Brother 1 Comments:anxiety Status:Active Father Comments:Bladder cancer, Kid adela disease Status:Active Maternal Grandfather Comments:anxiety Status:Active Maternal Grandmother Comments:Type 2 diabetes Status:Active Mother Comments:Isometric stroke, [place] Status:Active Paternal Grandfather Comments:skin cancer Status:Active Paternal Grandmother Comments:Arteriosclerosis Status:Active Unknown Family Member Name Dates Details Brother 1 Comments:anxiety Status:Active Father Comments:Bladder cancer, Kid adela disease Status:Active Maternal Grandfather Comments:anxiety Status:Active Maternal Grandmother Comments:Type 2 diabetes Status:Active Mother Comments:Isometric stroke, [place] Status:Active Paternal Grandfather Comments:skin cancer Status:Active Paternal Grandmother Comments:Arteriosclerosis Status:Active Unknown Family Member Name Dates Details Brother 1 Comments:anxiety Status:Active Father Comments:Bladder cancer, Kid adela disease Status:Active Maternal Grandfather Comments:anxiety Status:Active Maternal Grandmother Comments:Type 2 diabetes Status:Active Mother Comments:Isometric stroke, [place] Status:Active Paternal Grandfather Comments:skin cancer Status:Active Paternal Grandmother Comments:Arteriosclerosis Status:Active Unknown Family Member Name Dates Details Brother 1 Comments:anxiety Status:Active Father Comments:Bladder cancer, Kid adela disease Status:Active Maternal Grandfather Comments:anxiety Status:Active Maternal Grandmother Comments:Type 2 diabetes Status:Active Mother Comments:Isometric stroke, [place] Status:Active Paternal Grandfather Comments:skin cancer Status:Active Paternal Grandmother Comments:Arteriosclerosis Status:Active Unknown Family Member Name Dates Details Brother 1 Comments:anxiety Status:Active Father Comments:Bladder cancer, Kid adela disease Status:Active Maternal Grandfather Comments:anxiety Status:Active Maternal Grandmother Comments:Type 2 diabetes Status:Active Mother Comments:Isometric stroke, [place] Status:Active Paternal Grandfather Comments:skin cancer Status:Active Paternal Grandmother Comments:Arteriosclerosis Status:Active Unknown Family Member Name Dates Details Brother 1 Comments:anxiety Status:Active Father Comments:Bladder cancer, Kid adela disease Status:Active Maternal Grandfather Comments:anxiety Status:Active Maternal Grandmother Comments:Type 2 diabetes Status:Active Mother Comments:Isometric stroke, [place] Status:Active Paternal Grandfather Comments:skin cancer Status:Active Paternal Grandmother Comments:Arteriosclerosis Status:Active Unknown Family Member Name Dates Details Brother 1 Comments:anxiety Status:Active Father Comments:Bladder cancer, Kid adela disease Status:Active Maternal Grandfather Comments:anxiety Status:Active Maternal Grandmother Comments:Type 2 diabetes Status:Active Mother Comments:Isometric stroke, [place] Status:Active Paternal Grandfather Comments:skin cancer Status:Active Paternal Grandmother Comments:Arteriosclerosis Status:Active Unknown Family Member Name Dates Details Brother 1 Comments:anxiety Status:Active Father Comments:Bladder cancer, Kid aedla disease Status:Active Maternal Grandfather Comments:anxiety Status:Active Maternal Grandmother Comments:Type 2 diabetes Status:Active Mother Comments:Isometric stroke, [place] Status:Active Paternal Grandfather Comments:skin cancer Status:Active Paternal Grandmother Comments:Arteriosclerosis Status:Active Unknown Family Member Name Dates Details Brother 1 Comments:anxiety Status:Active Father Comments:Bladder cancer, Kid adela disease Status:Active Maternal Grandfather Comments:anxiety Status:Active Maternal Grandmother Comments:Type 2 diabetes Status:Active Mother Comments:Isometric stroke, [place] Status:Active Paternal Grandfather Comments:skin cancer Status:Active Paternal Grandmother Comments:Arteriosclerosis Status:Active Unknown Family Member Name Dates Details Brother 1 Comments:anxiety Status:Active Father Comments:Bladder cancer, Kid adela disease Status:Active Maternal Grandfather Comments:anxiety Status:Active Maternal Grandmother Comments:Type 2 diabetes Status:Active Mother Comments:Isometric stroke, [place] Status:Active Paternal Grandfather Comments:skin cancer Status:Active Paternal Grandmother Comments:Arteriosclerosis Status:Active Unknown Family Member Name Dates Details Brother 1 Comments:anxiety Status:Active Father Comments:Bladder cancer, Kid adela disease Status:Active Maternal Grandfather Comments:anxiety Status:Active Maternal Grandmother Comments:Type 2 diabetes Status:Active Mother Comments:Isometric stroke, [place] Status:Active Paternal Grandfather Comments:skin cancer Status:Active Paternal Grandmother Comments:Arteriosclerosis Status:Active Unknown Family Member Name Dates Details Brother 1 Comments:anxiety Status:Active Father Comments:Bladder cancer, Kid adela disease Status:Active Maternal Grandfather Comments:anxiety Status:Active Maternal Grandmother Comments:Type 2 diabetes Status:Active Mother Comments:Isometric stroke, [place] Status:Active Paternal Grandfather Comments:skin cancer Status:Active Paternal Grandmother Comments:Arteriosclerosis Status:Active Unknown Family Member Name Dates Details Brother 1 Comments:anxiety Status:Active Father Comments:Bladder cancer, Kid adela disease Status:Active Maternal Grandfather Comments:anxiety Status:Active Maternal Grandmother Comments:Type 2 diabetes Status:Active Mother Comments:Isometric stroke, [place] Status:Active Paternal Grandfather Comments:skin cancer Status:Active Paternal Grandmother Comments:Arteriosclerosis Status:Active Unknown Family Member Name Dates Details Brother 1 Comments:anxiety Status:Active Father Comments:Bladder cancer, Kid adela disease Status:Active Maternal Grandfather Comments:anxiety Status:Active Maternal Grandmother Comments:Type 2 diabetes Status:Active Mother Comments:Isometric stroke, [place] Status:Active Paternal Grandfather Comments:skin cancer Status:Active Paternal Grandmother Comments:Arteriosclerosis Status:Active Unknown Family Member Name Dates Details Brother 1 Comments:anxiety Status:Active Father Comments:Bladder cancer, Kid adela disease Status:Active Maternal Grandfather Comments:anxiety Status:Active Maternal Grandmother Comments:Type 2 diabetes Status:Active Mother Comments:Isometric stroke, [place] Status:Active Paternal Grandfather Comments:skin cancer Status:Active Paternal Grandmother Comments:Arteriosclerosis Status:Active Unknown Family Member Name Dates Details Brother 1 Comments:anxiety Status:Active Father Comments:Bladder cancer, Kid adela disease Status:Active Maternal Grandfather Comments:anxiety Status:Active Maternal Grandmother Comments:Type 2 diabetes Status:Active Mother Comments:Isometric stroke, [place] Status:Active Paternal Grandfather Comments:skin cancer Status:Active Paternal Grandmother Comments:Arteriosclerosis Status:Active Unknown Family Member Name Dates Details Brother 1 Comments:anxiety Status:Active Father Comments:Bladder cancer, Kid adela disease Status:Active Maternal Grandfather Comments:anxiety Status:Active Maternal Grandmother Comments:Type 2 diabetes Status:Active Mother Comments:Isometric stroke, [place] Status:Active Paternal Grandfather Comments:skin cancer Status:Active Paternal Grandmother Comments:Arteriosclerosis Status:Active Unknown Family Member Name Dates Details Brother 1 Comments:anxiety Status:Active Father Comments:Bladder cancer, Kid adela disease Status:Active Maternal Grandfather Comments:anxiety Status:Active Maternal Grandmother Comments:Type 2 diabetes Status:Active Mother Comments:Isometric stroke, [place] Status:Active Paternal Grandfather Comments:skin cancer Status:Active Paternal Grandmother Comments:Arteriosclerosis Status:Active Unknown Family Member Name Dates Details Brother 1 Comments:anxiety Status:Active Father Comments:Bladder cancer, Kid adela disease Status:Active Maternal Grandfather Comments:anxiety Status:Active Maternal Grandmother Comments:Type 2 diabetes Status:Active Mother Comments:Isometric stroke, [place] Status:Active Paternal Grandfather Comments:skin cancer Status:Active Paternal Grandmother Comments:Arteriosclerosis Status:Active Unknown Family Member Name Dates Details Brother 1 Comments:anxiety Status:Active Father Comments:Bladder cancer, Kid adela disease Status:Active Maternal Grandfather Comments:anxiety Status:Active Maternal Grandmother Comments:Type 2 diabetes Status:Active Mother Comments:Isometric stroke, [place] Status:Active Paternal Grandfather Comments:skin cancer Status:Active Paternal Grandmother Comments:Arteriosclerosis Status:Active Unknown Family Member Name Dates Details Brother 1 Comments:anxiety Status:Active Father Comments:Bladder cancer, Kid adela disease Status:Active Maternal Grandfather Comments:anxiety Status:Active Maternal Grandmother Comments:Type 2 diabetes Status:Active Mother Comments:Isometric stroke, [place] Status:Active Paternal Grandfather Comments:skin cancer Status:Active Paternal Grandmother Comments:Arteriosclerosis Status:Active Unknown Family Member Name Dates Details Brother 1 Comments:anxiety Status:Active Father Comments:Bladder cancer, Kid adela disease Status:Active Maternal Grandfather Comments:anxiety Status:Active Maternal Grandmother Comments:Type 2 diabetes Status:Active Mother Comments:Isometric stroke, [place] Status:Active Paternal Grandfather Comments:skin cancer Status:Active Paternal Grandmother Comments:Arteriosclerosis Status:Active Unknown Family Member Name Dates Details Brother 1 Comments:anxiety Status:Active Father Comments:Bladder cancer, Kid adela disease Status:Active Maternal Grandfather Comments:anxiety Status:Active Maternal Grandmother Comments:Type 2 diabetes Status:Active Mother Comments:Isometric stroke, [place] Status:Active Paternal Grandfather Comments:skin cancer Status:Active Paternal Grandmother Comments:Arteriosclerosis Status:Active Unknown Family Member Name Dates Details Brother 1 Comments:anxiety Status:Active Father Comments:Bladder cancer, Kid adela disease Status:Active Maternal Grandfather Comments:anxiety Status:Active Maternal Grandmother Comments:Type 2 diabetes Status:Active Mother Comments:Isometric stroke, [place] Status:Active Paternal Grandfather Comments:skin cancer Status:Active Paternal Grandmother Comments:Arteriosclerosis Status:Active Unknown Family Member Name Dates Details Brother 1 Comments:anxiety Status:Active Father Comments:Bladder cancer, Kid adela disease Status:Active Maternal Grandfather Comments:anxiety Status:Active Maternal Grandmother Comments:Type 2 diabetes Status:Active Mother Comments:Isometric stroke, [place] Status:Active Paternal Grandfather Comments:skin cancer Status:Active Paternal Grandmother Comments:Arteriosclerosis Status:Active Unknown Family Member Name Dates Details Brother 1 Comments:anxiety Status:Active Father Comments:Bladder cancer, Kid adela disease Status:Active Maternal Grandfather Comments:anxiety Status:Active Maternal Grandmother Comments:Type 2 diabetes Status:Active Mother Comments:Isometric stroke, [place] Status:Active Paternal Grandfather Comments:skin cancer Status:Active Paternal Grandmother Comments:Arteriosclerosis Status:Active Instructions Name Dates Details Non-smoker : How to access h ealth information online Indication:Non-smoker Non-smoker : How to access h ealth information online - Detail Indication:Non-smoker Non-smoker : Patient Instruc tions Indication:Non-smoker Anxiety : How to access heal th information online Indication:Anxiety Anxiety : How to access heal th information online - Detail Indication:Anxiety Anxiety : Patient Instructio ns Indication:Anxiety Sore throat : How to access health information online Indication:Sore throat Sore throat : How to access health information online - Detail Indication:Sore throat Sore throat : Patient Instru ctions Indication:Sore throat Dislocation of jaw, bilatera l, subsequent encounter : Patient Instructions Indication:Dislocation of jaw, bilateral, subsequent encounter Name Dates Details Non-smoker : How to access h ealth information online Indication:Non-smoker Non-smoker : How to access h ealth information online - Detail Indication:Non-smoker Non-smoker : Patient Instruc tions Indication:Non-smoker Anxiety : How to access heal th information online Indication:Anxiety Anxiety : How to access heal th information online - Detail Indication:Anxiety Anxiety : Patient Instructio ns Indication:Anxiety Sore throat : How to access health information online Indication:Sore throat Sore throat : How to access health information online - Detail Indication:Sore throat Sore throat : Patient Instru ctions Indication:Sore throat Dislocation of jaw, bilatera l, subsequent encounter : Patient Instructions Indication:Dislocation of jaw, bilateral, subsequent encounter Name Dates Details Non-smoker : How to access h ealth information online Indication:Non-smoker Non-smoker : How to access h ealth information online - Detail Indication:Non-smoker Non-smoker : Patient Instruc tions Indication:Non-smoker Anxiety : How to access heal th information online Indication:Anxiety Anxiety : How to access heal th information online - Detail Indication:Anxiety Anxiety : Patient Instructio ns Indication:Anxiety Sore throat : How to access health information online Indication:Sore throat Sore throat : How to access health information online - Detail Indication:Sore throat Sore throat : Patient Instru ctions Indication:Sore throat Dislocation of jaw, bilatera l, subsequent encounter : Patient Instructions Indication:Dislocation of jaw, bilateral, subsequent encounter Name Dates Details Non-smoker : How to access h ealth information online Indication:Non-smoker Non-smoker : How to access h ealth information online - Detail Indication:Non-smoker Non-smoker : Patient Instruc tions Indication:Non-smoker Anxiety : How to access heal th information online Indication:Anxiety Anxiety : How to access heal th information online - Detail Indication:Anxiety Anxiety : Patient Instructio ns Indication:Anxiety Sore throat : How to access health information online Indication:Sore throat Sore throat : How to access health information online - Detail Indication:Sore throat Sore throat : Patient Instru ctions Indication:Sore throat Dislocation of jaw, bilatera l, subsequent encounter : Patient Instructions Indication:Dislocation of jaw, bilateral, subsequent encounter Name Dates Details Non-smoker : How to access h ealth information online Indication:Non-smoker Non-smoker : How to access h ealth information online - Detail Indication:Non-smoker Non-smoker : Patient Instruc tions Indication:Non-smoker Anxiety : How to access heal th information online Indication:Anxiety Anxiety : How to access heal th information online - Detail Indication:Anxiety Anxiety : Patient Instructio ns Indication:Anxiety Sore throat : How to access health information online Indication:Sore throat Sore throat : How to access health information online - Detail Indication:Sore throat Sore throat : Patient Instru ctions Indication:Sore throat Dislocation of jaw, bilatera l, subsequent encounter : Patient Instructions Indication:Dislocation of jaw, bilateral, subsequent encounter Name Dates Details Non-smoker : How to access h ealth information online Indication:Non-smoker Non-smoker : How to access h ealth information online - Detail Indication:Non-smoker Non-smoker : Patient Instruc tions Indication:Non-smoker Anxiety : How to access heal th information online Indication:Anxiety Anxiety : How to access heal th information online - Detail Indication:Anxiety Anxiety : Patient Instructio ns Indication:Anxiety Sore throat : How to access health information online Indication:Sore throat Sore throat : How to access health information online - Detail Indication:Sore throat Sore throat : Patient Instru ctions Indication:Sore throat Dislocation of jaw, bilatera l, subsequent encounter : Patient Instructions Indication:Dislocation of jaw, bilateral, subsequent encounter Name Dates Details Non-smoker : How to access h ealth information online Indication:Non-smoker Non-smoker : How to access h ealth information online - Detail Indication:Non-smoker Non-smoker : Patient Instruc tions Indication:Non-smoker Anxiety : How to access heal th information online Indication:Anxiety Anxiety : How to access heal th information online - Detail Indication:Anxiety Anxiety : Patient Instructio ns Indication:Anxiety Sore throat : How to access health information online Indication:Sore throat Sore throat : How to access health information online - Detail Indication:Sore throat Sore throat : Patient Instru ctions Indication:Sore throat Dislocation of jaw, bilatera l, subsequent encounter : Patient Instructions Indication:Dislocation of jaw, bilateral, subsequent encounter Name Dates Details How to access health informa tion online Indication:Non-smoker Start:05-Sep-2018 Instruction Type:Patient Education How to access health informa tion online - Detail Indication:Non-smoker Start:05-Sep-2018 Instruction Type:Patient Education Patient Instructions Indication:Non-smoker Start:05-Sep-2018 Instruction Type:Provider Instructions for Treatment How to access health informa tion online Indication:Non-smoker Start:03-Sep-2018 Instruction Type:Patient Education How to access health informa tion online - Detail Indication:Non-smoker Start:03-Sep-2018 Instruction Type:Patient Education Patient Instructions Indication:Non-smoker Start:03-Sep-2018 Instruction Type:Provider Instructions for Treatment How to access health informa tion online Indication:Non-smoker Start:09-Jul-2018 Instruction Type:Patient Education How to access health informa tion online - Detail Indication:Non-smoker Start:09-Jul-2018 Instruction Type:Patient Education Patient Instructions Indication:Non-smoker Start:09-Jul-2018 Instruction Type:Provider Instructions for Treatment How to access health informa tion online Indication:Anxiety Start:22-Aug-2017 Instruction Type:Patient Education How to access health informa tion online - Detail Indication:Anxiety Start:22-Aug-2017 Instruction Type:Patient Education Patient Instructions Indication:Anxiety Start:22-Aug-2017 Instruction Type:Provider Instructions for Treatment How to access health informa tion online Indication:Sore throat Start:06-Apr-2017 Instruction Type:Patient Education How to access health informa tion online - Detail Indication:Sore throat Start:06-Apr-2017 Instruction Type:Patient Education Patient Instructions Indication:Sore throat Start:06-Apr-2017 Instruction Type:Provider Instructions for Treatment Patient Instructions Indication:Dislocation of jaw, bilateral, subsequent encounter Start:24-Oct-2016 Instruction Type:Provider Instructions for Treatment How to access health informa tion online Indication:Sore throat Start:24-Oct-2016 Instruction Type:Patient Education How to access health informa tion online - Detail Indication:Sore throat Start:24-Oct-2016 Instruction Type:Patient Education Patient Instructions Indication:Sore throat Start:24-Oct-2016 Instruction Type:Provider Instructions for Treatment Name Dates Details How to access health informa tion online Indication:Non-smoker Start:05-Sep-2018 Instruction Type:Patient Education How to access health informa tion online - Detail Indication:Non-smoker Start:05-Sep-2018 Instruction Type:Patient Education Patient Instructions Indication:Non-smoker Start:05-Sep-2018 Instruction Type:Provider Instructions for Treatment How to access health informa tion online Indication:Non-smoker Start:03-Sep-2018 Instruction Type:Patient Education How to access health informa tion online - Detail Indication:Non-smoker Start:03-Sep-2018 Instruction Type:Patient Education Patient Instructions Indication:Non-smoker Start:03-Sep-2018 Instruction Type:Provider Instructions for Treatment How to access health informa tion online Indication:Non-smoker Start:09-Jul-2018 Instruction Type:Patient Education How to access health informa tion online - Detail Indication:Non-smoker Start:09-Jul-2018 Instruction Type:Patient Education Patient Instructions Indication:Non-smoker Start:09-Jul-2018 Instruction Type:Provider Instructions for Treatment How to access health informa tion online Indication:Anxiety Start:22-Aug-2017 Instruction Type:Patient Education How to access health informa tion online - Detail Indication:Anxiety Start:22-Aug-2017 Instruction Type:Patient Education Patient Instructions Indication:Anxiety Start:22-Aug-2017 Instruction Type:Provider Instructions for Treatment How to access health informa tion online Indication:Sore throat Start:06-Apr-2017 Instruction Type:Patient Education How to access health informa tion online - Detail Indication:Sore throat Start:06-Apr-2017 Instruction Type:Patient Education Patient Instructions Indication:Sore throat Start:06-Apr-2017 Instruction Type:Provider Instructions for Treatment Patient Instructions Indication:Dislocation of jaw, bilateral, subsequent encounter Start:24-Oct-2016 Instruction Type:Provider Instructions for Treatment How to access health informa tion online Indication:Sore throat Start:24-Oct-2016 Instruction Type:Patient Education How to access health informa tion online - Detail Indication:Sore throat Start:24-Oct-2016 Instruction Type:Patient Education Patient Instructions Indication:Sore throat Start:24-Oct-2016 Instruction Type:Provider Instructions for Treatment Name Dates Details How to access health informa tion online Indication:Non-smoker Start:24-Jun-2019 Instruction Type:Patient Education How to access health informa tion online - Detail Indication:Non-smoker Start:24-Jun-2019 Instruction Type:Patient Education Patient Instructions Indication:BMI 32.0-32.9,adult Start:24-Jun-2019 Instruction Type:Provider Instructions for Treatment How to access health informa tion online Indication:Non-smoker Start:13-Jun-2019 Instruction Type:Patient Education How to access health informa tion online - Detail Indication:Non-smoker Start:13-Jun-2019 Instruction Type:Patient Education Patient Instructions Indication:Non-smoker Start:13-Jun-2019 Instruction Type:Provider Instructions for Treatment How to access health informa tion online Indication:Non-smoker Start:23-May-2019 Instruction Type:Patient Education How to access health informa tion online - Detail Indication:Non-smoker Start:23-May-2019 Instruction Type:Patient Education Patient Instructions Indication:Non-smoker Start:23-May-2019 Instruction Type:Provider Instructions for Treatment How to access health informa tion online Indication:Non-smoker Start:05-Sep-2018 Instruction Type:Patient Education How to access health informa tion online - Detail Indication:Non-smoker Start:05-Sep-2018 Instruction Type:Patient Education Patient Instructions Indication:Non-smoker Start:05-Sep-2018 Instruction Type:Provider Instructions for Treatment How to access health informa tion online Indication:Non-smoker Start:03-Sep-2018 Instruction Type:Patient Education How to access health informa tion online - Detail Indication:Non-smoker Start:03-Sep-2018 Instruction Type:Patient Education Patient Instructions Indication:Non-smoker Start:03-Sep-2018 Instruction Type:Provider Instructions for Treatment How to access health informa tion online Indication:Non-smoker Start:09-Jul-2018 Instruction Type:Patient Education How to access health informa tion online - Detail Indication:Non-smoker Start:09-Jul-2018 Instruction Type:Patient Education Patient Instructions Indication:Non-smoker Start:09-Jul-2018 Instruction Type:Provider Instructions for Treatment How to access health informa tion online Indication:Anxiety Start:22-Aug-2017 Instruction Type:Patient Education How to access health informa tion online - Detail Indication:Anxiety Start:22-Aug-2017 Instruction Type:Patient Education Patient Instructions Indication:Anxiety Start:22-Aug-2017 Instruction Type:Provider Instructions for Treatment How to access health informa tion online Indication:Sore throat Start:06-Apr-2017 Instruction Type:Patient Education How to access health informa tion online - Detail Indication:Sore throat Start:06-Apr-2017 Instruction Type:Patient Education Patient Instructions Indication:Sore throat Start:06-Apr-2017 Instruction Type:Provider Instructions for Treatment Patient Instructions Indication:Dislocation of jaw, bilateral, subsequent encounter Start:24-Oct-2016 Instruction Type:Provider Instructions for Treatment How to access health informa tion online Indication:Sore throat Start:24-Oct-2016 Instruction Type:Patient Education How to access health informa tion online - Detail Indication:Sore throat Start:24-Oct-2016 Instruction Type:Patient Education Patient Instructions Indication:Sore throat Start:24-Oct-2016 Instruction Type:Provider Instructions for Treatment Name Dates Details How to access health informa tion online Indication:Non-smoker Start:05-Sep-2018 Instruction Type:Patient Education How to access health informa tion online - Detail Indication:Non-smoker Start:05-Sep-2018 Instruction Type:Patient Education Patient Instructions Indication:Non-smoker Start:05-Sep-2018 Instruction Type:Provider Instructions for Treatment How to access health informa tion online Indication:Non-smoker Start:03-Sep-2018 Instruction Type:Patient Education How to access health informa tion online - Detail Indication:Non-smoker Start:03-Sep-2018 Instruction Type:Patient Education Patient Instructions Indication:Non-smoker Start:03-Sep-2018 Instruction Type:Provider Instructions for Treatment How to access health informa tion online Indication:Non-smoker Start:09-Jul-2018 Instruction Type:Patient Education How to access health informa tion online - Detail Indication:Non-smoker Start:09-Jul-2018 Instruction Type:Patient Education Patient Instructions Indication:Non-smoker Start:09-Jul-2018 Instruction Type:Provider Instructions for Treatment How to access health informa tion online Indication:Anxiety Start:22-Aug-2017 Instruction Type:Patient Education How to access health informa tion online - Detail Indication:Anxiety Start:22-Aug-2017 Instruction Type:Patient Education Patient Instructions Indication:Anxiety Start:22-Aug-2017 Instruction Type:Provider Instructions for Treatment How to access health informa tion online Indication:Sore throat Start:06-Apr-2017 Instruction Type:Patient Education How to access health informa tion online - Detail Indication:Sore throat Start:06-Apr-2017 Instruction Type:Patient Education Patient Instructions Indication:Sore throat Start:06-Apr-2017 Instruction Type:Provider Instructions for Treatment Patient Instructions Indication:Dislocation of jaw, bilateral, subsequent encounter Start:24-Oct-2016 Instruction Type:Provider Instructions for Treatment How to access health informa tion online Indication:Sore throat Start:24-Oct-2016 Instruction Type:Patient Education How to access health informa tion online - Detail Indication:Sore throat Start:24-Oct-2016 Instruction Type:Patient Education Patient Instructions Indication:Sore throat Start:24-Oct-2016 Instruction Type:Provider Instructions for Treatment Summary Purpose Advance Directives No Advanced Directives Records FoundNo Advanced Directives Records FoundNo Advanced Directives Records Found Additional Source Comments INFORMATION SOURCE (unrecogn ized section and content) DATE CREATED AUTHOR AUTHOR'S ORGANIZ ATION 09/25/2022 [facility] DATE CREATED AUTHOR AUTHOR'S ORGANIZ ATION 05/23/2023 [facility] Source Comments (unrecognize d section and content) In the event this informatio n is protected by the Federal Confidentiality of Alcohol and Drug Abuse Patient Records regulations: The Federal rules restrict any use of the information to criminally investigate or prosecute any alcohol or drug abuse patient.[facility] the event this information is protected by the Federal Confidentiality of Alcohol and Drug Abuse Patient Records regulations: The Federal rules restrict any use of the information to criminally investigate or prosecute any alcohol or drug abuse patient.[facility] the event this information is protected by the Federal Confidentiality of Alcohol and Drug Abuse Patient Records regulations: The Federal rules restrict any use of the information to criminally investigate or prosecute any alcohol or drug abuse patient.[facility] the event this information is protected by the Federal Confidentiality of Alcohol and Drug Abuse Patient Records regulations: The Federal rules restrict any use of the information to criminally investigate or prosecute any alcohol or drug abuse patient.[facility] Reason for Visit (unrecogniz ed section and content) Reason Comments Results Reason Comments Established Patient Specialty Diagnoses / Procedures Referred By Contac t Referred To Contact HEMATOLOGY/ONCOLOGY Diagnoses 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) Procedures office visit Antonia Mattson, KAYLEN.[employer] [address] [place] [address] [facility] [address] [place] [address] Referral ID Status Reason Start Date Expiration Date V isits Requested Visits Authorized [id number] Closed Financial Clearance Required - OON Payor Patient Cleared - Qualified 100% FAS Patient Cleared - INN Insurance Found 04/05/2021 07/04/2021 1 1 Reason Comments Received Outside Medical Records Care Teams (unrecognized sec tion and content) Front Maker Lockstitch Relationship Specialty Start Date End Date Yaneth Mcgregor CNP [address] [facility] [address] [place], [place] [address] PCP - General Internal Medicine 05/07/17 Front Maker Lockstitch Relationship Specialty Start Date End Date Beryl Whitmore [address] [facility] [address] [place], [place] [id number] PCP - General Family Medicine 05/15/22 Front Maker Lockstitch Relationship Specialty Start Date End Date Berly Whitmore [address] [facility] [address] [place] [address] PCP - General Family Medicine 05/15/22 FOR RECORDS PERTAINING TO PATIENTS WHO ARE OR HAVE BEEN ENROLLED IN A CHEMICAL DEPENDENCY/SUBSTANCEABUSE PROGRAM, SOME INFORMATION MAY BE OMITTED. This clinical summary was aggregated from multiple sources. Caution should be exercised in using it in the provision of clinical care. This summary normalizes information from multiple sources, and as a consequence, information in this document may materially change the coding, format and clinical context of patient data. In addition, data may be omitted in some cases. CLINICAL DECISIONS SHOULD BE BASED ON THE PRIMARY CLINICAL RECORDS. [facility]. provides no warranty or guarantee of the accuracy or completeness of information in this document.
== END | disposition home or self-care (01) ==
LOC: OPBI 09:13
PROVIDERS: PCP Internal Medicine; Referring Provider Internal Medicine; Visit Provider Nurse Practitioner Family
DX: Z12.31 Encounter for screening mammogram for malignant neoplasm of breast (principal)
CPT/HCPCS: 77063; 77067

== ENCOUNTER → 2023-07-08 | Outpatient (CLI) | payer MEDICARE, SELFPAY ==
[2023-07-08 11:52] VITALS: BP 145/85; PULSE 107; RESP 18; TEMP 35.9; O2SAT 98; BMI 31.3
--- NOTE | 2023-07-08 12:12 | EDS_ITS ---
HPI <JUVE Bonner - Last Filed: 07/08/23 16:19> History of Present Illness Chief Complaint: Diarrhea Narrative Narrative: Patient presenting today due to diarrhea that she has had since . She reports a history of IBS, she was not sure if her diarrhea was related to that or not. She reports that on she had several episodes of vomiting that resolved within 24 hours. She is no longer nauseous or vomiting. She reports having some mild abdominal cramping when she has to have a bowel movement but otherwise denies having abdominal pain. No history of diverticulitis or previous abdominal surgeries. No history of C. difficile or recent antibiotic use. She denies fevers, chills, hematemesis, and melena. She reports that she does have a few hemorrhoids that have become irritated and are bleeding slightly while she has a bowel movement but quickly stops. PFSH <JUVE Bonner - Last Filed: 07/08/23 16:19> [facility] Home Medications ergocalciferol (vitamin D2) 1,250 mcg (50,000 unit) capsule (Vitamin D2) 50,000 unit PO WE supplement 05/22/13 [History Last Taken Unknown] lorazepam 0.5 mg tablet 0.5 mg PO PRN PRN Anxiety 05/22/13 [History Last Taken Unknown] multivitamin with folic acid 400 mcg tablet (Thera) 1 tab PO DAILY supplement 05/22/13 [History Last Taken Unknown] omeprazole 20 mg capsule,delayed release 20 mg PO DAILY gerd 05/22/13 [History Last Taken 03/06/18 05:00 20 mg] lorazepam 0.5 mg tablet 0.5 mg PO BID ANXIETY 03/06/18 [History Last Taken Unknown] acetaminophen 500 mg tablet 1,000 mg (2 x 500 mg) PO Q8 #90 tabs 03/07/18 [Rx Last Taken Unknown] sennosides 8.6 mg-docusate sodium 50 mg tablet 2 tab PO BID #20 tabs 03/07/18 [Rx Last Taken Unknown] Allergy/AdvReac Type Severity Reaction Status Date / Time lansoprazole [From Prevacid] Allergy Chest Verified 02/22/18 10:15 tightness rabeprazole sodium Allergy Chest Verified 02/22/18 10:15 [From Aciphex] tightness clarithromycin AdvReac Nausea/Vom/ Verified 02/22/18 10:15 Diarrhea cyclobenzaprine HCl AdvReac Nausea/Vom/ Verified 02/22/18 10:15 [From Flexeril] Diarrhea hydrocodone bitartrate AdvReac Nausea Verified 02/22/18 10:15 [From Vicodin] morphine AdvReac Nausea/Vom/ Verified 02/22/18 10:15 Diarrhea Social History Smoking Status: Never smoker ROS <JUVE Bonner - Last Filed: 07/08/23 16:19> ROS ED Constitutional Constitutional ED: Denies chills or fever(s) Cardiovascular Cardiovascular: Denies chest pain Respiratory/Chest Respiratory/Chest: Denies cough or dyspnea Gastrointestinal Gastrointestinal: Reports diarrhea; Denies abdominal pain, constipation, nausea or vomiting Genitourinary Genitourinary ED: Denies dysuria, hematuria or urinary urgency Musculoskeletal Musculoskeletal: Denies arthralgias or myalgias Integumentary Denies rash Neurologic Neurologic: Denies weakness EXAM <JUVE Bonner - Last Filed: 07/08/23 16:19> Physical Exam Const Vital Signs: 07/08/23 11:52 Temperature 96.7 F L Temperature Source Temporal Pulse Rate 107 H Respiratory Rate 18 Blood Pressure 145/85 H Blood Pressure Mean 105 Pulse Ox 98 Oxygen Delivery Method Room Air Positive well nourished, well developed and no apparent distress General Appearance ED: well developed HEENT Reports normocephalic and head/scalp atraumatic Mouth ED: Yes moist mucous membranes normal Eyes PERRL and EOMs intact bilaterally Neck full ROM and supple Chest Wall inspection of chest normal Resp normal respiratory effort and clear to auscultation bilaterally Cardio regular rate and regular rhythm GI soft to palpation, non-tender, non-distended and no masses Back/Spine normal ROM and normal to inspection Extremity normal to inspection and full ROM Neuro oriented x3, CN's II-XII intact bilaterally, moves all extremities, no focal motor deficits and no sensory deficits noted Sensorium / Orientation: awake and alert Psych mental status grossly normal and thought process normal Skin no rashes or lesions noted and no wounds <Dr. Maryann Wheatley DO - Last Filed: 07/08/23 15:37> Physical Exam Const Vital Signs: 07/08/23 11:52 Temperature 96.7 F L Temperature Source Temporal Pulse Rate 107 H Respiratory Rate 18 Blood Pressure 145/85 H Blood Pressure Mean 105 Pulse Ox 98 Oxygen Delivery Method Room Air [facility] <JUVE Bonner - Last Filed: 07/08/23 16:19> [facility] Narrative Medical decision making narrative: Patient presenting due to diarrhea that she has had since . On she had several episodes of nausea and vomiting which did resolve. She is no longer nauseous. She does have a history of IBS but reports she does not usually have diarrhea that last this long. She is nontoxic-appearing and in no acute distress. Abdomen is soft and nontender. Basic labs to be obtained to rule out electrolyte abnormality and leukocytosis. She will be given IV fluids. Stool series will be obtained if patient is able to provide a sample to help rule out C. difficile and enteric pathogens. CBC unremarkable. Potassium 3.0, patient given potassium replacement. She was unable to provide a stool sample, we will give her an order to provide this as an outpatient. Do suspect that this is likely a viral diarrheal illness. She can take Imodium as needed and will be given return instructions. She will be discharged home in stable condition and is comfortable with plan. I have personally performed a face to face assessment of the patient and have reviewed the [facility] Note. I performed a substantive portion of the visit including all aspects of the following. My bullock findings include: History is [patient presents to the emergency department with complaint of diarrhea that started 4 days ago. She is having severe watery stools. After the diarrhea started she took an Imodium and then several hours later started vomiting but that was short-lived. She denies any abdominal pain. Patient states that she was on antibiotics that she took for a cold several weeks ago but only took about 4 tablets of amoxicillin that she had leftover. She denies sick contacts. Patient states that she did eat a soup that her did not eat prior to the illness and urgent care was worried that she may have E. coli. Patient does have history of IBS and thought initially when this started that it was related to her IBS.] Exam is [HEENT-PERRLA, EOMI. Cranial nerves II through XII grossly intact. TMs clear. Mucous membranes moist. No adenopathy. Cardiovascular-regular rate and rhythm without murmur or ectopy Lungs-clear to auscultation, chest wall stable without crepitus or subcu emphysema Abdomen-normoactive bowel sounds, soft, nontender, no rebound or rigidity, no peritoneal signs. Extremities-intact ?4, normal range of motion, normal pulses, atraumatic] Medical Decison Making [patient will have an IV line established. She will have basic labs ordered. She will have stool sent for enteric pathogen's as well as C. difficile. Clinically she looks well. Abdomen is benign.] Patient lab workup unremarkable. She was unable to give a stool sample here. Her abdomen is benign I do not feel she needs any imaging. Recommended she use Imodium as needed for diarrhea. Suspect likely a viral process. Will send home with prescription to bring a stool sample in for C. difficile as well as enteric pathogen's. Other additions or changes: [None] Lab Data Labs: Laboratory Results - last 24 hr 07/08/23 12:15 WBC 7.1 RBC 5.09 Hgb 15.2 H Hct 46.6 MCV 91.6 MCH 29.9 MCHC 32.6 RDW Std Deviation 43.7 RDW Coeff of Moustapha 13.0 Plt Count 261 MPV 10.1 Immature Gran % (Auto) 1.700 H Neut % (Auto) 59.0 Lymph % (Auto) 27.5 [place] % (Auto) 10.5 H Eos % (Auto) 0.7 Baso % (Auto) 0.6 Absolute Neuts (auto) 4.2 Absolute Lymphs (auto) 1.96 Nucleated RBC % 0 Sodium 140 Potassium 3.0 L Chloride 106 Carbon Dioxide 28.0 Anion Gap 6 BUN 12 Creatinine 0.72 Estim Creat Clear Calc 67.49 Est GFR (MDRD) Af Amer 104 Est GFR (MDRD) Non-Af 86 BUN/Creatinine Ratio 16.7 Glucose 113 H Calcium 9.2 <Dr. Maryann Wheatley, DO - Last Filed: 07/08/23 15:37> [facility] Narrative Medical decision making narrative: Patient presenting due to diarrhea that she has had since . On she had several episodes of nausea and vomiting which did resolve. She is no longer nauseous. She does have a history of IBS but reports she does not usually have diarrhea that last this long. She is nontoxic-appearing and in no acute distress. Abdomen is soft and nontender. Basic labs to be obtained to rule out electrolyte abnormality and leukocytosis. She will be given IV fluids. Stool series will be obtained if patient is able to provide a sample to help rule out C. difficile and enteric pathogens. I have personally performed a face to face assessment of the patient and have reviewed the [facility] Note. I performed a substantive portion of the visit including all aspects of the following. My bullock findings include: History is [patient presents to the emergency department with complaint of diarrhea that started 4 days ago. She is having severe watery stools. After the diarrhea started she took an Imodium and then several hours later started vomiting but that was short-lived. She denies any abdominal pain. Patient states that she was on antibiotics that she took for a cold several weeks ago but only took about 4 tablets of amoxicillin that she had leftover. She denies sick contacts. Patient states that she did eat a soup that her did not eat prior to the illness and urgent care was worried that she may have E. coli. Patient does have history of IBS and thought initially when this started that it was related to her IBS.] Exam is [HEENT-PERRLA, EOMI. Cranial nerves II through XII grossly intact. TMs clear. Mucous membranes moist. No adenopathy. Cardiovascular-regular rate and rhythm without murmur or ectopy Lungs-clear to auscultation, chest wall stable without crepitus or subcu emphysema Abdomen-normoactive bowel sounds, soft, nontender, no rebound or rigidity, no peritoneal signs. Extremities-intact ?4, normal range of motion, normal pulses, atraumatic] Medical Decison Making [patient will have an IV line established. She will have basic labs ordered. She will have stool sent for enteric pathogen's as well as C. difficile. Clinically she looks well. Abdomen is benign.] Patient lab workup unremarkable. She was unable to give a stool sample here. Her abdomen is benign I do not feel she needs any imaging. Recommended she use Imodium as needed for diarrhea. Suspect likely a viral process. Will send home with pres cription to bring a stool sample in for C. difficile as well as enteric pathogen's. Other additions or changes: [None] Lab Data Attestation: I reviewed the patient's lab results. Labs: Laboratory Results - last 24 hr 07/08/23 12:15 WBC 7.1 RBC 5.09 Hgb 15.2 H Hct 46.6 MCV 91.6 MCH 29.9 MCHC 32.6 RDW Std Deviation 43.7 RDW Coeff of Moustapha 13.0 Plt Count 261 MPV 10.1 Immature Gran % (Auto) 1.700 H Neut % (Auto) 59.0 Lymph % (Auto) 27.5 [place] % (Auto) 10.5 H Eos % (Auto) 0.7 Baso % (Auto) 0.6 Absolute Neuts (auto) 4.2 Absolute Lymphs (auto) 1.96 Nucleated RBC % 0 Sodium 140 Potassium 3.0 L Chloride 106 Carbon Dioxide 28.0 Anion Gap 6 BUN 12 Creatinine 0.72 Estim Creat Clear Calc 67.49 Est GFR (MDRD) Af Amer 104 Est GFR (MDRD) Non-Af 86 BUN/Creatinine Ratio 16.7 Glucose 113 H Calcium 9.2 Discharge Plan Triage Chief Complaint: Diarrhea ED Midlevel Provider: Aiyana Restrepo ED Provider: Maryann Wheatley Dx/Rx/DC Orders Clinical Impression: Diarrhea Primary Care Provider: Padmini Mason Disposition Disposition: Home, Self Care Discharge Date/Time: 07/08/23 14:21
[2023-07-08] MEDS: 0.9% Normal Saline (1000mL) 1,000 ML 1000 ML IV (12:13)
[2023-07-08 12:21] LABS: Absolute Lymphocyte Count 1.96 X10^3/uL (0.83-4.51); Absolute Neutrophil Count 4.2 X10^3/uL (2.0-7.7); Basophil# 0.04 X10^3/uL; Basophil% 0.6 % (0-1); Eosinophil# 0.05 X10^3/uL; Eosinophils% 0.7 % (0-5); Hematocrit 46.6 % (37-47); Hemoglobin 15.2 g/dL (12.0-15.0); Lymphocyte # 1.96 X10^3/ul (0.83-4.51); Lymphocyte % 27.5 % (19-41); Mean Corp Hgb Conc 32.6 g/dL (32-36); Mean Corpuscular Hgb 29.9 pg (27.0-32.0); Mean Corpuscular Volume 91.6 fL (81-99); Mean Platelet Vol. 10.1 fl (6.2-12.0); Monocyte# 0.75 X10^3/uL; Monocyte% 10.5 % (0-10); NRBC Flagged by Analyzer 0 % (0-5); Neutrophil # 4.22 X10^3/uL (2.7-7.7); Platelet Count 261 K/mm3 (150-450); RBC Distribution Width SD 43.7 fl (35.1-43.9); Red Blood Count 5.09 M/mm3 (4.2-5.4); White Blood Count 7.1 K/mm3 (4.4-11.0)
--- OUTSIDE RECORDS SUMMARY | 2023-07-08 12:27 | XMS RPT_ITS | CCD ---
Author Name Unknown Address [address] [place] [address] Organization [facility] Care Team Providers Care Nurse Chemical Dependency Name Role Phone Ciesa, Nallely Unavailable Physical Therapy, Ward Unavailable Chuckie Kenny Unavailable Unavailable April Moon Unavailable Unavailable Unavailable Unavailable Unavailable Unavailable Miladys Duarte Unavailable Unavailable Elizabeth Ramirez Unavailable Chuckie Kenny Unavailable Unavailable April Moon Unavailable Unavailable Chuckie Cummins Unavailable Unavailable Ciesa LORENE Nallely Unavailable Physical Therapy, Tarah Unavailable Chuckie Cummins LPN Unavailable Unavailable April Moon RN Unavailable Unavailable Unavailable Unavailable Estrella Dupree LPN Unavailable Unavailable Ciesa, Yaneth Unavailable Dr. Rayray Mary Unavailable [phone] CAM Macario LPN Unavailable Unavailable Beryl Whitmore CNP Unavailable Beryl Whitmore CNP Unavailable Ciesa, Yaneth Unavailable Clotilde Metcalf LPN Unavailable Unavailable Ciesa LORENE, Nallely Primary Care Provider Padmini Hinkle DO Unavailable Elena Nichole Unavailable fredrick Fuentes Unavailable Unavailable Beryl Whitmore Primary Care Provider [phone] Beryl Whitmore CNP Attending Unavailable Beryl Whitmore [...] Start: 05-21-2023 End: 05-21-2023 ambulatory BERYL WHITMORE Facility:[facility] Start: 03-28-2023 Review Beryl Whitmore [employer] Work Phone: [facility] Start: 02-23-2023 ambulatory Ashley Hinkle APRN.[employer] W[employer] WORKER Work Phone: OB/Gynecology Procedures Date Procedure Procedure Detail Performing Clinician Start: 05-22-2022 End: 05-22-2022 Inital Evaluation (1) - PT Procedure Note: See Note; NOTES: [facility] Physical [facility] [address] [place] [address] [address] [place] [address] / REHABILITATION SERVICES INITIAL EVALUATION MR#: [id number] Acct: [id number] Name: LYNSEY PINA Rep #: [id number] : 1955 66 From: Aminata Giles PT, Cert. MDT Referring Dr.: Dr. Elena Nichole MD Status: RE G RCR Insurance: [facility] [employer] SELF PAY INSURANCE Patient's [...] to be FAXED BACK to us at [phone] for Medicare purposes. For Medicare only, by signing this I certify the plan of care. Please let me know if there are questions or concerns regarding this plan of care. Physician Signature: _Date: <Electronically signed by Aminata Giles PT, Cert. T> 05/22/22 [id number] CC: CUCO Whitmore; Dr. Elena Nichole MD SOFI Signed Beryl Whitmore [employer] WORK[employer] Work Phone: Start: 05-05-2022 End: 05-05-2022 SCRN MAMM (CAD)W/ROSE BILAT Procedure Note: See Note; NOTES: [facility] Imaging Services [address] [place] [address] SCRN MAMM (CAD)W/ROSE BILAT MR#: [id number] Acct: [id number] Name: LYNSEY PINA Rep #: [id number] : 1955 F 66 From: Ernie alcala MD PCP: Yaneth Mcgregor CONTROL ELECTRICIAN-C Status: REG CLI Study: SCRN MAMM (CAD)W/ROSE BILAT Date of Exam: 04/18 02/06 Exam# [id number] Ordering Dr: Antonia Mattson NP N P-C [...] delay biopsy of a clinically suspicious abnormality. [id number] Electronically Signed: Ernie Fields MD at 8:51 EST , CC: ALFREDA Mattson; CUCO Mcgregor Hypnotherapist: Signed Beryl Whitmore [facility] Work Phone: Start: 04-16-2022 Urnls dip stick/tablet rgnt auto w/o microscopy Holly Berry APRN.[facility] Work Phone: Start: 01-24-2022 End: 01-25-2022 Dexa Bone Density Study Comments: See Note; NOTES: [facility] Imaging Services [address] [place] [address] Dexa Bone Density Study MR#: [id number] Acct: [id number] Name: LYNSEY PINA Rep #: [id number] : 1955 F 66 From: Ernie alcala MD PCP: CUCO Zambrano [facility] Study: Dexa Bone Density Study Date of Exam: 01/24/22 Exam# [id number] Ordering Dr: Beryl Whitmore STUDY: DUAL ENERGY [...] EDT , CC: CUCO Whitmore; CUCO Mcgregor Hypnotherapist: Signed Beryl Whitmore [employer] WORK[employer] Work Phone: Start: 05-04-2021 End: 05-04-2021 SCRN MAMM (CAD)W/ROSE BILAT Comments: See Note; NOTES: [facility] Imaging Services [address] [place] [address] SCRN MAMM (CAD)W/ROSE BILAT MR#: [id number] Acct: [id number] Name: LYNSEY PINA Rep #: [id number] : 1955 F 65 From: Ernie alcala MD PCP: CUCO Zambrano Status: REG CLI Study: SCRN MAMM (CAD)W/ROSE BILAT Date of Exam: 04/18 01/05 Exam# [id number] Ordering Dr: Antonia Mattson NP N P-C [...] delay biopsy of a clinically suspicious abnormality. [id number] Electronically Signed: Ernie Fields MD at 9:36 EST , Service support , CC: ALFREDA Mattson; CUCO Mcgergor Hypnotherapist: Signed Yaneth Mcgregor CNP Work Phone: Start: 05-03-2020 End: 05-03-2020 SCREEN MAMM (CAD) W/ROSE BILAT Comments: See Note; NOTES: [facility] Imaging Services [address] [place] [address] SCREEN MAMM (CAD) W/ROSE BILAT MR#: [id number] Acct: [id number] Name: LYNSEY PINA Rep #: [id number] : 1955 F 64 From: Ernie alcala MD PCP: CUCO Zambrano Status: [facility] Study: SCREEN MAMM (CAD) W/ROSE BILAT Date of Exam: 07/03/19 Exam# [id number] Ordering Dr: Antonia Mattson NP N P-C [...] delay biopsy of a clinically suspicious abnormality. [id number] Electronically Signed: Ernie Fields, at 10:02 EST , Service support , CC: ALFREDA Mattson; CUCO Mcgregor Hypnotherapist: Signed Yaneth Mcgregor [employer] WORK[employer] Work Phone: Start: 06-06-2019 End: 06-06-2019 Echo, Complete w/ Contrast Comments: See Note; NOTES: [facility] Cardiovascular Services [address] [place] [address] Echo Complete W/ Contrast 06/06/19 0900 MR#: [id number] Acct: [id number] Name: LYNSEY PINA Rep #: [id number] : 1955 64 From: Niko Osorio MD Attending Dr: CUCO Zambrano Status: REG CLI Ordering Dr: Yaneth Mcgregor Date: 06/06/19 Location: [facility] Sex: F C Admitted: Reason For Study: [...] 06/06/19 1047 Date Niko Osorio MD CC: CONTROL ELECTRICIAN-C Yaneth Mcgregor Date Dictated: 06/06/19 0900 Date Transcribed: 06/06/191046 Hypnotherapist: Signed Nallely Meche Work Phone: Start: 04-30-2019 End: 04-30-2019 SCREEN MAMM (CAD) W/ROSE BILAT Comments: See Note; NOTES: [facility] Imaging Services [address] [place] [address] SCREEN MAMM (CAD) W/ROSE BILAT MR#: [id number] Acct: [id number] Name: LYNSEY PINA Rep #: [id number] : 1955 F 63 From: Ernie Fields MD PCP: CUCO Zambrano Status: [facility] Study: SCREEN MAMM (CAD) W/ROSE BILAT Date of Exam: 04/30/19 Exam# [id number] Ordering Dr: Antonia Mattson MAMMOGRAPHY - BILATERAL [...] delay biopsy of a clinically suspicious abnormality. [id number] Electronically Signed: Ernie Fields, at 10:58 EST , Service support , CC: HUMA- Antonia Mattson; CUCO Mcgregor; Rosie Manning MD Hypnotherapist: Signed Yaneth Mcgregor Work Phone: Start: 08-20-2018 End: 08-21-2018 Dexa Bone Density Study Comments: See Note; NOTES: [facility] Imaging Services [address] [place] [address] Dexa Bone Density Study MR#: [id number] Acct: [id number] Name: LYNSEY PINA Rep #: [id number] : 1955 F 63 From: Ernie Fields MD PCP: Yaneth Mcgregor NP Status: REG CLI Study: Dexa Bone Density Study Date of Exam: 08/20/18 Exam# [id number] Ordering Dr: Yaneth Mcgregor STUDY: DUAL ENERGY [...] Service support , CC: Yaneth Mcgregor NP Hypnotherapist: Signed Yaneth Mcgregor Work Phone: Start: 04-25-2018 End: 04-25-2018 SCREENING MAMM (CAD), BILAT Comments: See Note; NOTES: [facility] Imaging Services [address] [place] [address] SCREENING MAMM (CAD), BILAT MR#: [id number] Acct: [id number] Name: LYNSEY PINA Rep #: [id number] : 1955 F 62 From: Ernie Fields MD PCP: Yaneth Mcgregor NP Status: REG CLI Study: SCREENING MAMM (CAD), BILAT Date of Exam: 04/25/18 Exam# [id number] Ordering Dr: Antonia Mattson CONTROL ELECTRICIAN-C MAMMOGRAPHY - BILATERAL SCREENING REASON FOR EXAM: [...] delay biopsy of a clinically suspicious abnormality. [id number] Electronically Signed: Ernie Fields MD at 11:28 EST Tel [phone], Service support , CC: Yaneth Mcgregor NP; HUMA- Antonia Mattson Hypnotherapist: Signed Yaneth Mcgregor Work Phone: Start: 03-01-2018 End: 03-01-2018 12 lead ECG Comments: See Note; NOTES: [facility] Cardiovascular Services [address] [place] [address] [place]KG [place] [facility] 02/22/18 0942 MR#: [id number] Acct: [id number] Name: LYNSEY PINA Rep #: [id number] : 1955 62 From: Niko Osorio MD Attending Dr: Mauricio Tapia MD Status: PRE IN Ordering Dr: Mauricio Tapia MD Date: 02/22/18 [place] [facility] Sex: F C Admitted: Test Reason : Blood Pressure : / mmHG Vent. Rate : 086 BPM Atrial Rate : 086 BPM P-R Int : 142 ms QRS Dur : 088 ms QT Int : 372 ms P-R-T Axes : 011 023 039 degrees QTc Int : 445 ms Normal sinus rhythm Normal ECG Confirmed by NIKO OSORIO MD ([id number]), medical transcription editor OLIMPIA WOO ([id number]) on 03/01/2018 1:11:35 PM Referred By: Mauricio Tapia Confirmed By:NIKO OSORIO MD 03/01/18 1311 Date Niko Osorio MD CC: Yaneth Mcgregor CONTROL ELECTRICIAN; Mauricio Tapia MD Date Dictated: 02/22/18941 Date Transcribed: 02/22/18941 Hypnotherapist: Signed Yaneth Mcgregor Start: 02-22-2018 End: 02-22-2018 History and Physical Exam Comments: See Note; NOTES: [facility] Medical Records Department [address] [place] [address] History and Physical 02/22/18 1231 MR#: [id number] Acct: [id number] Name: LYNSEY PINA Rep #: [id number] : 1955 62 From: Stepan Wilson PA-C PCP: Yaneth Mcgregor NP Status: PRE IN Y [place] [facility] [place] and Physical DATE OF SURGERY: 03/06/2018 [...] Long Finger Excision - (01/07/2009) JEY @ [facility] Lumpectomy - LT BREAST Anesthesia [...] Flexeril Clarithromycin Vicodin Morphine MEDICATIONS: Vitamin D 20903 Unit 1 times A week, Prilosec OTC [...] touch. IMAGING STUDIES: X-rays were obtained at [facility] on January 10, 2018 of bilateral knees [...] Signature: Date (if applicable) CC: Yaneth Mcgregor CONTROL ELECTRICIAN; Stepan AN Signed Yaneth Mcgregor Start: 02-22-2018 End: 02-22-2018 Chest PA and Lateral Comments: See Note; NOTES: [facility] Imaging Services [address] [place] [address] Chest PA and Lateral MR#: [id number] Acct: [id number] Name: LYNSEY PINA Rep #: [id number] : 1955 F 62 From: Ernie Fields MD PCP: Yaneth Mcgregor NP Status: PRE IN Study: Chest PA and Lateral Date of Exam: 02/22/18 Exam# [id number] Ordering Dr: Chris Bolanos MD STUDY: X-RAY [...] Ernie Fields MD at 11:24 EDT Tel [phone], Service support , CC: Yaneth Mcgregor NP; Chris Bolanos MD Hypnotherapist: Signed Yaneth Mcgregor Start: 08-27-2017 End: 08-27-2017 Venous Duplex Lower Extremity Comments: See Note; NOTES: [facility] Cardiovascular Services [address] [place] [address] Venous Duplex US, Unilateral 08/27/17 1350 MR#: [id number] Acct: [id number] Name: LYNSEY PINA Rep #: [id number] : 1955 62 From: Carmelo Ospina MD [...] Date Dictated: 08/27/17 1350 Date Transcribed: 08/27/172140 Hypnotherapist: Signed Yaneth Mcgregor Work Phone: Start: 04-24-2017 End: 04-24-2017 SCREENING MAMM (CAD), BILAT Comments: See Note; NOTES: [facility] Imaging Services [address] [place] [address] SCREENING MAMM (CAD), BILAT MR#: [id number] Acct: [id number] Name: LYNSEY PINA Rep #: [id number] : 1955 F 61 From: Ernie Fields MD PCP: Yaneth Mcgregor Status: REG CLI Study: SCREENING MAMM (CAD), BILAT Date of Exam: 04/24/17 Exam# [id number] Ordering Dr: Yaneth Mcgregor MAMMOGRAPHY - BILATERAL SCREENING REASON FOR EXAM: [...] delay biopsy of a clinically suspicious abnormality. [id number] Electronically Signed: Ernie Fields MD at 11:16 EST Tel [phone], Service support , CC: Yaneth Mcgregor Hypnotherapist: Signed Yaneth Mcgregor Work Phone: Start: 04-24-2017 Mammography Ashley Hinkle APRN.CNP Work Phone: Start: 04-02-2017 End: 04-03-2017 Hand Min 3 Views Comments: See Note; NOTES: [facility] Imaging Services [address] [place] [address] Hand Min 3 Views MR#: [id number] Acct: [id number] Name: LYNSEY PINA Rep #: [id number] : 1955 F 61 From: Ernie Fields MD PCP: Yaneth Mcgregor Status: REG CLI Study: Hand Min 3 Views Date of Exam: 04/02/17 Exam# [id number] Ordering Dr: Olive Schilling MD STUDY: X-RAY [...] Ernie Fields MD at 11:30 EDT Tel [phone], Service support , CC: Yaneth Mcgregor; Olive Schilling MD Hypnotherapist: Signed Yaneth Mcgregor Start: 03-01-2017 End: 03-01-2017 Lower Ext Joint Only (Routine) Comments: See Note; NOTES: [facility] Imaging Services [address] [place] [address] Lower Ext Joint Only (Routine) MR#: [id number] Acct: [id number] Name: LYNSEY PINA Rep #: [id number] : 1955 F 61 From: Osei Lowery MD PCP: Yaneth Mcgregor Status: REG CLI Study: Lower Ext Joint Only (Routine) Date of Exam: 03/01/17 Exam# [id number] Ordering Dr: Rashaad Pineda MD STUDY: MRI [...] , CC: Yaneth Mcgregor; Rashaad Pineda MD Hypnotherapist: Signed Yaneth Meche Start: 12-29-2016 End: 12-30-2016 Lower Ext Joint Only (Routine) Comments: See Note; NOTES: [facility] Imaging Services [address] [place] [address] Ver[place] 4d Lower Ext Joint Only (Routine) MR#: [id number] Acct: [id number] Name: LYNSEY PINA Rep #: [id number] : 1955 F 61 From: Mauricio Pack MD PCP: Yaneth Mcgregor Status: REG CLI Study: Lower Ext Joint Only (Routine) Date of Exam: 12/29/16 Exam# [id number] Ordering Dr: Rashaad Pineda MD STUDY: MRI [...] , CC: Yaneth Mcgregor; Rashaad Pineda MD Hypnotherapist: Signed Yaneth Mcgregor Start: 04-19-2016 Mammography Natalie Jay APRN.[employer] WORK[employer] Work Phone: Start: 10-01-2015 Colonoscopy Natalie Jay APRN.[employer] WORK[employer] Work Phone: Bone density scan Clotilde ching MITIGATION SUPERVISOR Plan of Treatment Date Care Activity Detail Author Start: 09-30-2025 Colonoscopy COLONOSCOPY [facility] Start: 09-30-2025 COLORECTAL CANCER SCREENING COLORECTAL CANCER SCREENING [facility] Start: 03-28-2023 25 hydroxy includes fractions if performed CALCIFEDIOL (99370) : prior next ov [facility]; [facility] Work Phone: Start: 03-28-2023 Assay of thyroid stimulating hormone tsh TSH (THYROID STIMULATING HORMONE) (14447) : prior next ov [facility]; [facility] Work Phone: Start: 03-28-2023 Blood count complete auto&auto difrntl wbc CBC, PLATELETS & AUT DIFF (85283) : prior to next OV [facility]; [facility] Work Phone: Start: 03-28-2023 Comprehensive metabolic panel METABOLIC PANEL, COMPREHENSIVE (09714) : prior next ov [facility]; [facility] Work Phone: Start: 03-28-2023 Lipid panel LIPID PANEL (39450) : prior next ov [facility]; [...] Start: 03-28-2023 Urinalysis qual/semiquant except immunoassays URINALYSIS (92150) : prior next ov [facility]; [facility] Work Phone: Start: 02-16-2023 Influenza vaccination INFLUENZA (#1) [facility] Start: 09-25-2022 25 hydroxy includes fractions if performed CALCIFEDIOL (68586) [facility]; [facility] Work Phone: Start: 09-25-2022 Assay of magnesium MAGNESIUM (67895) [facility]; [facility] Work Phone: Start: 09-25-2022 Assay of thyroid stimulating hormone tsh TSH (THYROID STIMULATING HORMONE) (32529) [facility]; [facility] Work Phone: Start: 09-25-2022 Blood count complete auto&auto difrntl wbc CBC, PLATELETS & AUT DIFF (09329) [facility]; [facility] Work Phone: Start: 09-25-2022 Comprehensive metabolic panel METABOLIC PANEL, COMPREHENSIVE (31958) [facility]; [facility] Work Phone: Start: 09-25-2022 Cyanocobalamin vitamin b-12 VITAMIN B12 AND FOLATES (29282) [facility]; [facility] Work Phone: Start: 09-25-2022 Lipid panel LIPID PANEL (17574) [facility]; [facility] Work Phone: [...] 06-18-2022 ADVANCE DIRECTIVE DISCUSSION ADVANCE DIRECTIVE DISCUSSION [facility] Start: 06-18-2022 DEPRESSION ASSESSMENT DEPRESSION ASSESSMENT [facility] Start: 05-23-2022 Patient Education [facility]; [facility] Work Phone: Start: 05-23-2022 Procedure Education Eprescribed prescriptions (G8553) [facility]; [facility] Work Phone: Start: 05-23-2022 Provider Instructions for Treatment [facility]; [facility] Work Phone: Start: 05-23-2022 Urnls dip stick/tablet rgnt non-auto w/o micrscp Urinalysis, Office (43102) [facility]; [facility] Work Phone: Start: 04-20-2022 Procedure Education Eprescribed prescriptions (G8553) [facility]; [facility] Work Phone: Start: 03-30-2022 Procedure Education Eprescribed prescriptions (G8553) [facility]; [facility] Work Phone: Start: 02-16-2022 Influenza vaccination INFLUENZA (#1) [facility] Start: 01-27-2022 25 hydroxy includes fractions if performed CALCIFEDIOL (81610) [facility]; [facility] Work Phone: Immunizations Immunization Date Immunization Notes Care Provider Domi mendoza 12-31-2015 zoster vaccine, live Natalie C allow STRIKE ON 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 Work Phone: [facility] Work Phone: 07-02-2007 tetanus toxoid, redu jean carlos diphtheria toxoid, and acellular pertussis vaccine, adsorbed Natalie Callskyler 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 ON 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 Work Phone: [facility] Work Phone: Payers Date Payer Category Payer Medicare [id number] 2020 Unknown 2019 Unknown [id number] 1955 Unknown [id number] Social History Date Type Detail Facility Alcohol use: Never smoker [facility] Work Phone: Start: 04-16-2022 End: 07-14-2022 Exercise [facility] Work Phone: Medical Equipment Procedure Code Equipment Code Equipment Origin al Text Equipment Identifier Dates Mrkr 8ga [facility] mrk [employer] - [id number] Start: 04-10-2013 Clinical Notes 10-01-2015 to 05-21-2023 Colette Tomas RN - 02/23/2023 12:54 PM EDTDatavares Mattson APRN.CNP - 05/15/2022 8:54 AM ESTTelephone Encounter - Bonita Gavi - 04/17/2022 4:45 PM EDT Note Date & Type Note Facility 05-21-2023 Note HNO ID: [id number] Author: Ashley Hinkle APRN.[employer] W[employer] WORKER Service: ? Author Type: Nurse Practitioner Type: Progress Notes Filed: 05/21/2023 1:43 PM Note Text: patient declined switcher Lynsey is a 67 year old who presents for an annual gynecologic exam without complaints. Inverse psoriasis Postmenopausal: Yes HRT use: Yes, OCP How long: few yrs. Last Pap: 2020 normal HPV:2020 negative History of abnormal pap: No Last mammogram: [address] [facility] History of abnormal mammogram: Yes Sexually active: sometimes OB History T0 L3 SAB0 IAB0 Ectopic0 Multiple0 Live Births0 Portfolio Strategist History LMP: Postmenopausal Age at Menarche: Age at First : Age at Menopause: Portfolio Strategist History Comments: Sexual Activity: Yes; Male Contraception: [...] external genitalia normal, normal Bartholin's glands, urethra, [place]'s glands, no vulvar lesions, no cervical lesions, [...] or sooner as needed Ashley Hinkle APRN.LORENE [facility] 02-23-2023 Note HNO ID: [id number] Author: Colette Tomas RN Service: ? Author Type: ? Type: Progress Notes Filed: 02/23/2023 12:54 PM Note Text: Received outside medical records from [place] [employer] AND COST ANALYST. Sent for scanning. Colette Tomas RN [facility] 02-23-2023 History of Present illness Narrative Received outside medical records from [place] [employer] AND COST ANALYST. Sent for scanning. Colette Tomas RN documented in this encounter [facility] 05-15-2022 History of Present illness Narrative Chief [...] developed and its performance characteristics determined by [facility]'s [facility] Medicine [place]. The U.S. Food and Drug Administration has [...] in accordance with guidelines published by the [place] Society of Clinical Oncology and the College of [place] [employer]ologists (J. Clin. Oncol. 25: 118-145, 2007). JJR/sondra/04/17/2013 Procedure Pathologist: Abraham Che M.D. Electronic Signature ESTROGEN/PROGESTERONE RECEPTOR (ER/NH) ANALYSIS Date Ordered: 04/15/2013 Date Reported: 04/16/2013 [...] V10.3, ICD10: Z85.3 pT1a (2mm) pN0 M0 ER/NH negative HER2 non-amplified (FISH) invasive ductal carcinoma of the left breast. - No concerning findings on exam. - Pt. now over 8 years out from radiation treatment. - BP lower at home per pt. - Reviewed mammogram with pt. Done at [facility]. - Mammogram due 2022. Pt. has this done at [facility]. - Follow up as needed. Pt. will follow up with PCP/CHIEF OF PARTY for yearly CBE/mammogram. - Pt. aware to call office with any questions/concerns. The patient indicates understanding of these issues and agrees with the plan. All documentation from previous visit of 05/11/21-Dr. James/myself was copied and pasted, documentation has been reviewed and edited as necessary for today's visit. Antonia Mattson APRN.CNP documented in this encounter [facility] 04-17-2022 Miscellaneous Notes Patient given results and verbalized understanding of instructions given. Bonita Gatica Please inform patient that urine culture did not show any growth of bacteria requiring treatment. I would recommend to stop antibiotic Advise due to blood in the urine that she follow up with urology or CHIEF OF PARTY for recheck of urine in 1-2 weeks, as well as discuss possible UTI symptom. documented in this encounter [facility] 04-16-2022 History of Present illness Narrative Subjective [...] Natalie Jay APRN.CNP documented in this encounter [facility] documented as of this encounter (statuses as of 04/16/2022) [facility]04-15-2016 History of Past illness Narrative* Problem Noted Date Resolved Date Colon cancer screening 10/01/2015 6 Abnormal mammogram, unspecified 04/10/2013 12/04/2013 Hyperlipidemia 08/04/2009 03/20/2013 Overview: Mild elevation. Diet recommended. Component Reference Range 07/14/2009 Triglyceride, [place] 30-200 mg/dL 142 Cholesterol, [place] 0-200 mg/dL 203 (H) HDL Chol, [place] 40-60 mg/dL 39 (L) VLDL Chol, [place] 5-40 mg/dL 28 LDL Chol, [place] 0-129 mg/dL 136 (H) TC HDL Risk, [place] 0.0-5.0 5.2 (H) Atopic rhinitis 03/12/2009 08/04/2009 Pain in joint, shoulder region 09/01/2008 0 10/13/2008 Neck Sprain and Strain 07/04/2007 3 Overview: 08/04/09 - Neck symptom stable, occaisional need for home exercises documented as of this encounter (statuses as of 04/17/2022) [facility] History of Past illness Narrative* Problem Noted Date Resolved Date Colon cancer screening 10/01/2015 6 Abnormal mammogram, unspecified 04/10/2013 12/04/2013 Hyperlipidemia 08/04/2009 03/20/2013 Overview: Mild elevation. Diet recommended. Component Reference Range 07/14/2009 Triglyceride, [place] 30-200 mg/dL 142 Cholesterol, [place] 0-200 mg/dL 203 (H) HDL Chol, [place] 40-60 mg/dL 39 (L) VLDL Chol, [place] 5-40 mg/dL 28 LDL Chol, [place] 0-129 mg/dL 136 (H) TC HDL Risk, [place] 0.0-5.0 5.2 (H) Atopic rhinitis 03/12/2009 08/04/2009 Pain in joint, shoulder region 09/01/2008 0 10/13/2008 Neck Sprain and Strain 07/04/2007 3 Overview: 08/04/09 - Neck symptom stable, occaisional need for home exercises documented as of this encounter (statuses as of 05/15/2022) [facility]2016 History of Past illness Narrative* Problem Noted Date Diagnosed Date Resolved Date Colon cancer screening 10/01/201505/05 Abnormal mammogram, unspecified 04/10/2013 12/04/2013 Hyperlipidemia 08/04/2009 03/20/2013 Overview: Mild elevation. Diet recommended. Component Reference Range 07/14/2009 Triglyceride, [place] 30-200 mg/dL 142 Cholesterol, [place] 0-200 mg/dL 203 (H) HDL Chol, [place] 40-60 mg/dL 39 (L) VLDL Chol, [place] 5-40 mg/dL 28 LDL Chol, [place] 0-129 mg/dL 136 (H) TC HDL Risk, [place] 0.0-5.0 5.2 (H) Atopic rhinitis 03/12/2009 08/04/2009 Pain in joint, shoulder region 09/01/2008 10/13/2008 Neck Sprain and Strain 07/04/200703/20 Overview: 08/04/09 - Neck symptom stable, occaisional need for home exercises documented as of this encounter (statuses as of 02/23/2023) [facility] Urinary frequency- Primary [facility] Diagnosis Personal history of breast cancer- Primary Personal history of malignant neoplasm of breast [facility] Name Dates Details How to access health rede[employer] online Indication:Non-smoker Start:24-Jun-2019 Instruction Type:Patient Education How to access health [employer] online - Detail Indication:Non-smoker Start:24-Jun-2019 Instruction Type:Patient Education Patient Instructions Indication:BMI 32.0-32.9,adult Start:24-Jun-2019 Instruction Type:Provider Instructions for Treatment How to access health informa tion online Indication:Non-smoker Start:13-Jun-2019 Instruction Type:Patient Education How to access health informa tion online - Detail Indication:Non-smoker Start:13-Jun-2019 Instruction Type:Patient Education Patient Instructions Indication:Non-smoker Start:13-Jun-2019 Instruction Type:Provider Instructions for Treatment How to access health informa [employer] online Indication:Non-smoker Start:23-May-2019 Instruction Type:Patient Education How [...] tion Online using Patient Portal and [employer] Indication:BMI 32.0-32.9,adult Start:02-Feb-2021 Instruction Type:Patient Education [...] tion Online using Patient Portal and [employer] Indication:Non-smoker Start:22-Jun-2021 Instruction Type:Patient Education Patient Instructions Indication:BMI 32.0-32.9,adult Start:02-Feb-2021 Instruction Type:Provider Instructions for Treatment How to Access Health Informa tion Online using Patient Portal and [employer] Indication:BMI 32.0-32.9,adult Start:02-Feb-2021 Instruction Type:Patient Education [...] tion Online using Patient Portal and [employer] Indication:Non-smoker Start:22-Jun-2021 Instruction Type:Patient Education Patient Instructions Indication:BMI 32.0-32.9,adult Start:02-Feb-2021 Instruction Type:Provider Instructions for Treatment How to Access Health Informa tion Online using Patient Portal and [employer] Apps Indication:BMI 32.0-32.9,adult Start:02-Feb-2021 Instruction Type:Patient Education [...] tion Online using Patient Portal and [employer] Indication:Non-smoker Start:21-Sep-2021 Instruction Type:Patient Education Patient Instructions Indication:BMI 32.0-32.9,adult Start:22-Aug-2021 Instruction Type:Provider Instructions for Treatment How to Access Health Informa tion Online using Patient Portal and [employer] Indication:BMI 32.0-32.9,adult Start:22-Aug-2021 Instruction Type:Patient Education Patient Instructions Indication:Non-smoker Start:22-Jun-2021 Instruction Type:Provider Instructions for Treatment How to Access Health Informa tion Online using Patient Portal and [employer] Indication:Non-smoker Start:22-Jun-2021 Instruction Type:Patient Education Patient Instructions Indication:BMI 32.0-32.9,adult Start:02-Feb-2021 Instruction Type:Provider Instructions for Treatment How to Access Health Informa tion Online using Patient Portal and [employer] Indication:BMI 32.0-32.9,adult Start:02-Feb-2021 Instruction Type:Patient Education [...] tion Online using Patient Portal and [employer] Indication:Non-smoker Start:04-Jan-2022 Instruction Type:Patient Education Patient Instructions Indication:Non-smoker Start:21-Sep-2021 Instruction Type:Provider Instructions for Treatment How to Access Health Informa tion Online using Patient Portal and [employer] Indication:Non-smoker Start:21-Sep-2021 Instruction Type:Patient Education Patient Instructions Indication:BMI 32.0-32.9,adult Start:22-Aug-2021 Instruction Type:Provider Instructions for Treatment How to Access Health Informa tion Online using Patient Portal and [employer] Indication:BMI 32.0-32.9,adult Start:22-Aug-2021 Instruction Type:Patient Education Patient Instructions Indication:Non-smoker Start:22-Jun-2021 Instruction Type:Provider Instructions for Treatment How to Access Health Informa tion Online using Patient Portal and [employer] Indication:Non-smoker Start:22-Jun-2021 Instruction Type:Patient Education Patient Instructions Indication:BMI 32.0-32.9,adult Start:02-Feb-2021 Instruction Type:Provider Instructions for Treatment How to Access Health Informa tion Online using Patient Portal and [employer] Indication:BMI 32.0-32.9,adult Start:02-Feb-2021 Instruction Type:Patient Education [...] tion Online using Patient Portal and [employer] Apps Indication:Non-smoker Start:04-Jan-2022 Instruction Type:Patient Education Patient Instructions Indication:Non-smoker Start:21-Sep-2021 Instruction Type:Provider Instructions for Treatment How to Access Health Informa tion Online using Patient Portal and [employer] Indication:Non-smoker Start:21-Sep-2021 Instruction Type:Patient Education Patient Instructions Indication:BMI 32.0-32.9,adult Start:22-Aug-2021 Instruction Type:Provider Instructions for Treatment How to Access Health Informa tion Online using Patient Portal and [employer] Indication:BMI 32.0-32.9,adult Start:22-Aug-2021 Instruction Type:Patient Education Patient Instructions Indication:Non-smoker Start:22-Jun-2021 Instruction Type:Provider Instructions for Treatment How to Access Health Informa tion Online using Patient Portal and [employer] Indication:Non-smoker Start:22-Jun-2021 Instruction Type:Patient Education Patient Instructions Indication:BMI 32.0-32.9,adult Start:02-Feb-2021 Instruction Type:Provider Instructions for Treatment How to Access Health Informa tion Online using Patient Portal and [employer] Indication:BMI 32.0-32.9,adult Start:02-Feb-2021 Instruction Type:Patient Education [...] tion Online using Patient Portal and [employer] Indication:Non-smoker Start:04-Jan-2022 Instruction Type:Patient Education Patient Instructions Indication:Non-smoker Start:21-Sep-2021 Instruction Type:Provider Instructions for Treatment How to Access Health Informa tion Online using Patient Portal and [employer] Indication:Non-smoker Start:21-Sep-2021 Instruction Type:Patient Education Patient Instructions Indication:BMI 32.0-32.9,adult Start:22-Aug-2021 Instruction Type:Provider Instructions for Treatment How to Access Health Informa tion Online using Patient Portal and [employer] Indication:BMI 32.0-32.9,adult Start:22-Aug-2021 Instruction Type:Patient Education Patient Instructions Indication:Non-smoker Start:22-Jun-2021 Instruction Type:Provider Instructions for Treatment How to Access Health Informa tion Online using Patient Portal and [employer] Indication:Non-smoker Start:22-Jun-2021 Instruction Type:Patient Education Patient Instructions Indication:BMI 32.0-32.9,adult Start:02-Feb-2021 Instruction Type:Provider Instructions for Treatment How to Access Health Informa tion Online using Patient Portal and [employer] Indication:BMI 32.0-32.9,adult Start:02-Feb-2021 Instruction Type:Patient Education [...] tion Online using Patient Portal and [employer] Indication:Non-smoker Start:04-Jan-2022 Instruction Type:Patient Education Patient Instructions Indication:Non-smoker Start:21-Sep-2021 Instruction Type:Provider Instructions for Treatment How to Access Health Informa tion Online using Patient Portal and [employer] Apps Indication:Non-smoker Start:21-Sep-2021 Instruction Type:Patient Education Patient Instructions Indication:BMI 32.0-32.9,adult Start:22-Aug-2021 Instruction Type:Provider Instructions for Treatment How to Access Health Informa tion Online using Patient Portal and [employer] Indication:BMI 32.0-32.9,adult Start:22-Aug-2021 Instruction Type:Patient Education Patient Instructions Indication:Non-smoker Start:22-Jun-2021 Instruction Type:Provider Instructions for Treatment How to Access Health Informa tion Online using Patient Portal and [employer] Apps Indication:Non-smoker Start:22-Jun-2021 Instruction Type:Patient Education Patient Instructions Indication:BMI 32.0-32.9,adult Start:02-Feb-2021 Instruction Type:Provider Instructions for Treatment How to Access Health Informa tion Online using Patient Portal and [employer] Indication:BMI 32.0-32.9,adult Start:02-Feb-2021 Instruction Type:Patient Education [...] Informa tion Online using Patient Portal and [employer] Apps Indication:Non-smoker Start:20-Apr-2022 Instruction Type:Patient Education Patient Instructions Indication:Painful urination Start:30-Mar-2022 Instruction Type:Provider Instructions for Treatment How to Access Health Informa tion Online using Patient Portal and [employer] Apps Indication:Painful urination Start:30-Mar-2022 Instruction Type:Patient Education Patient Instructions Indication:Non-smoker Start:04-Jan-2022 Instruction Type:Provider Instructions for Treatment How to Access Health Informa tion Online using Patient Portal and [employer] Apps Indication:Non-smoker Start:04-Jan-2022 Instruction Type:Patient Education Patient Instructions Indication:Non-smoker Start:21-Sep-2021 Instruction Type:Provider Instructions for Treatment How to Access Health Informa tion Online using Patient Portal and [employer] Apps Indication:Non-smoker Start:21-Sep-2021 Instruction Type:Patient Education Patient Instructions Indication:BMI 32.0-32.9,adult Start:22-Aug-2021 Instruction Type:Provider Instructions for Treatment How to Access Health Informa tion Online using Patient Portal and [employer] Apps Indication:BMI 32.0-32.9,adult Start:22-Aug-2021 Instruction Type:Patient Education Patient Instructions Indication:Non-smoker Start:22-Jun-2021 Instruction Type:Provider Instructions for Treatment How to Access Health Informa tion Online using Patient Portal and [employer] Apps Indication:Non-smoker Start:22-Jun-2021 Instruction Type:Patient Education Patient Instructions Indication:BMI 32.0-32.9,adult Start:02-Feb-2021 Instruction Type:Provider Instructions for Treatment How to Access Health Informa tion Online using Patient Portal and [employer] Apps Indication:BMI 32.0-32.9,adult Start:02-Feb-2021 Instruction Type:Patient Education [...] tion Online using Patient Portal and [employer] Indication:Non-smoker Start:20-Apr-2022 Instruction Type:Patient Education Patient Instructions Indication:Painful urination Start:30-Mar-2022 Instruction Type:Provider Instructions for Treatment How to Access Health Informa tion Online using Patient Portal and [employer] Indication:Painful urination Start:30-Mar-2022 Instruction Type:Patient Education Patient Instructions Indication:Non-smoker Start:04-Jan-2022 Instruction Type:Provider Instructions for Treatment How to Access Health Informa tion Online using Patient Portal and [employer] Indication:Non-smoker Start:04-Jan-2022 Instruction Type:Patient Education Patient Instructions Indication:Non-smoker Start:21-Sep-2021 Instruction Type:Provider Instructions for Treatment How to Access Health Informa tion Online using Patient Portal and [employer] Indication:Non-smoker Start:21-Sep-2021 Instruction Type:Patient Education Patient Instructions Indication:BMI 32.0-32.9,adult Start:22-Aug-2021 Instruction Type:Provider Instructions for Treatment How to Access Health Informa tion Online using Patient Portal and [employer] Indication:BMI 32.0-32.9,adult Start:22-Aug-2021 Instruction Type:Patient Education Patient Instructions Indication:Non-smoker Start:22-Jun-2021 Instruction Type:Provider Instructions for Treatment How to Access Health Informa tion Online using Patient Portal and [employer] Indication:Non-smoker Start:22-Jun-2021 Instruction Type:Patient Education Patient Instructions Indication:BMI 32.0-32.9,adult Start:02-Feb-2021 Instruction Type:Provider Instructions for Treatment How to Access Health Informa tion Online using Patient Portal and [employer] Indication:BMI 32.0-32.9,adult Start:02-Feb-2021 Instruction Type:Patient Education [...] Informa tion Online using Patient Portal and [employer] Apps Indication:Non-smoker Start:23-May-2022 Instruction Type:Patient Education Patient Instructions Indication:Non-smoker Start:23-May-2022 Instruction Type:Provider Instructions for Treatment Patient Instructions Indication:Non-smoker Start:20-Apr-2022 Instruction Type:Provider Instructions for Treatment How to Access Health Informa tion Online using Patient Portal and [employer] Indication:Non-smoker Start:20-Apr-2022 Instruction Type:Patient Education Patient Instructions Indication:Painful urination Start:30-Mar-2022 Instruction Type:Provider Instructions for Treatment How to Access Health Informa tion Online using Patient Portal and [employer] Indication:Painful urination Start:30-Mar-2022 Instruction Type:Patient Education Patient Instructions Indication:Non-smoker Start:04-Jan-2022 Instruction Type:Provider Instructions for Treatment How to Access Health Informa tion Online using Patient Portal and [employer] Indication:Non-smoker Start:04-Jan-2022 Instruction Type:Patient Education Patient Instructions Indication:Non-smoker Start:21-Sep-2021 Instruction Type:Provider Instructions for Treatment How to Access Health Informa tion Online using Patient Portal and [employer] Apps Indication:Non-smoker Start:21-Sep-2021 Instruction Type:Patient Education Patient Instructions Indication:BMI 32.0-32.9,adult Start:22-Aug-2021 Instruction Type:Provider Instructions for Treatment How to Access Health Informa tion Online using Patient Portal and [employer] Indication:BMI 32.0-32.9,adult Start:22-Aug-2021 Instruction Type:Patient Education Patient Instructions Indication:Non-smoker Start:22-Jun-2021 Instruction Type:Provider Instructions for Treatment How to Access Health Informa tion Online using Patient Portal and [employer] Indication:Non-smoker Start:22-Jun-2021 Instruction Type:Patient Education Patient Instructions Indication:BMI 32.0-32.9,adult Start:02-Feb-2021 Instruction Type:Provider Instructions for Treatment How to Access Health Informa tion Online using Patient Portal and [employer] Indication:BMI 32.0-32.9,adult Start:02-Feb-2021 Instruction Type:Patient Education [...] Informa tion Online using Patient Portal and [employer] Apps Indication:Non-smoker Start:23-May-2022 Instruction Type:Patient Education Patient Instructions Indication:Non-smoker Start:23-May-2022 Instruction Type:Provider Instructions for Treatment Patient Instructions Indication:Non-smoker Start:20-Apr-2022 Instruction Type:Provider Instructions for Treatment How to Access Health Informa tion Online using Patient Portal and [employer] Apps Indication:Non-smoker Start:20-Apr-2022 Instruction Type:Patient Education Patient Instructions Indication:Painful urination Start:30-Mar-2022 Instruction Type:Provider Instructions for Treatment How to Access Health Informa tion Online using Patient Portal and [employer] Apps Indication:Painful urination Start:30-Mar-2022 Instruction Type:Patient Education Patient Instructions Indication:Non-smoker Start:04-Jan-2022 Instruction Type:Provider Instructions for Treatment How to Access Health Informa tion Online using Patient Portal and [employer] Apps Indication:Non-smoker Start:04-Jan-2022 Instruction Type:Patient Education Patient Instructions Indication:Non-smoker Start:21-Sep-2021 Instruction Type:Provider Instructions for Treatment How to Access Health Informa tion Online using Patient Portal and [employer] Apps Indication:Non-smoker Start:21-Sep-2021 Instruction Type:Patient Education Patient Instructions Indication:BMI 32.0-32.9,adult Start:22-Aug-2021 Instruction Type:Provider Instructions for Treatment How to Access Health Informa tion Online using Patient Portal and [employer] Apps Indication:BMI 32.0-32.9,adult Start:22-Aug-2021 Instruction Type:Patient Education Patient Instructions Indication:Non-smoker Start:22-Jun-2021 Instruction Type:Provider Instructions for Treatment How to Access Health Informa tion Online using Patient Portal and [employer] Indication:Non-smoker Start:22-Jun-2021 Instruction Type:Patient Education Patient Instructions Indication:BMI 32.0-32.9,adult Start:02-Feb-2021 Instruction Type:Provider Instructions for Treatment How to Access Health Informa tion Online using Patient Portal and [employer] Indication:BMI 32.0-32.9,adult Start:02-Feb-2021 Instruction Type:Patient Education [...] tion Online using Patient Portal and [employer] Indication:Non-smoker Start:24-Jul-2022 Instruction Type:Patient Education How to Access Health Informa tion Online using Patient Portal and [employer] Indication:Non-smoker Start:23-May-2022 Instruction Type:Patient Education Patient Instructions Indication:Non-smoker Start:23-May-2022 Instruction Type:Provider Instructions for Treatment Patient Instructions Indication:Non-smoker Start:20-Apr-2022 Instruction Type:Provider Instructions for Treatment How to Access Health Informa tion Online using Patient Portal and [employer] Indication:Non-smoker Start:20-Apr-2022 Instruction Type:Patient Education Patient Instructions Indication:Painful urination Start:30-Mar-2022 Instruction Type:Provider Instructions for Treatment How to Access Health Informa tion Online using Patient Portal and [employer] Indication:Painful urination Start:30-Mar-2022 Instruction Type:Patient Education Patient Instructions Indication:Non-smoker Start:04-Jan-2022 Instruction Type:Provider Instructions for Treatment How to Access Health Informa tion Online using Patient Portal and [employer] Indication:Non-smoker Start:04-Jan-2022 Instruction Type:Patient Education Patient Instructions Indication:Non-smoker Start:21-Sep-2021 Instruction Type:Provider Instructions for Treatment How to Access Health Informa tion Online using Patient Portal and [employer] Indication:Non-smoker Start:21-Sep-2021 Instruction Type:Patient Education Patient Instructions Indication:BMI 32.0-32.9,adult Start:22-Aug-2021 Instruction Type:Provider Instructions for Treatment How to Access Health Informa tion Online using Patient Portal and [employer] Indication:BMI 32.0-32.9,adult Start:22-Aug-2021 Instruction Type:Patient Education Patient Instructions Indication:Non-smoker Start:22-Jun-2021 Instruction Type:Provider Instructions for Treatment How to Access Health Informa tion Online using Patient Portal and [employer] Indication:Non-smoker Start:22-Jun-2021 Instruction Type:Patient Education Patient Instructions Indication:BMI 32.0-32.9,adult Start:02-Feb-2021 Instruction Type:Provider Instructions for Treatment How to Access Health Informa tion Online using Patient Portal and [employer] Indication:BMI 32.0-32.9,adult Start:02-Feb-2021 Instruction Type:Patient Education [...] tion Online using Patient Portal and [employer] Indication:Non-smoker Start:24-Jul-2022 Instruction Type:Patient Education How to Access Health Informa tion Online using Patient Portal and [employer] Indication:Non-smoker Start:23-May-2022 Instruction Type:Patient Education Patient Instructions Indication:Non-smoker Start:23-May-2022 Instruction Type:Provider Instructions for Treatment Patient Instructions Indication:Non-smoker Start:20-Apr-2022 Instruction Type:Provider Instructions for Treatment How to Access Health Informa tion Online using Patient Portal and [employer] Indication:Non-smoker Start:20-Apr-2022 Instruction Type:Patient Education Patient Instructions Indication:Painful urination Start:30-Mar-2022 Instruction Type:Provider Instructions for Treatment How to Access Health Informa tion Online using Patient Portal and [employer] Indication:Painful urination Start:30-Mar-2022 Instruction Type:Patient Education Patient Instructions Indication:Non-smoker Start:04-Jan-2022 Instruction Type:Provider Instructions for Treatment How to Access Health Informa tion Online using Patient Portal and [employer] Indication:Non-smoker Start:04-Jan-2022 Instruction Type:Patient Education Patient Instructions Indication:Non-smoker Start:21-Sep-2021 Instruction Type:Provider Instructions for Treatment How to Access Health Informa tion Online using Patient Portal and [employer] Indication:Non-smoker Start:21-Sep-2021 Instruction Type:Patient Education Patient Instructions Indication:BMI 32.0-32.9,adult Start:22-Aug-2021 Instruction Type:Provider Instructions for Treatment How to Access Health Informa tion Online using Patient Portal and [employer] Indication:BMI 32.0-32.9,adult Start:22-Aug-2021 Instruction Type:Patient Education Patient Instructions Indication:Non-smoker Start:22-Jun-2021 Instruction Type:Provider Instructions for Treatment How to Access Health Informa tion Online using Patient Portal and [employer] Indication:Non-smoker Start:22-Jun-2021 Instruction Type:Patient Education Patient Instructions Indication:BMI 32.0-32.9,adult Start:02-Feb-2021 Instruction Type:Provider Instructions for Treatment How to Access Health Informa tion Online using Patient Portal and [employer] Indication:BMI 32.0-32.9,adult Start:02-Feb-2021 Instruction Type:Patient Education [...] tion Online using Patient Portal and [employer] Indication:Non-smoker Start:25-Sep-2022 Instruction Type:Patient Education Patient Instructions Indication:Non-smoker Start:24-Jul-2022 Instruction Type:Provider Instructions for Treatment How to Access Health Informa tion Online using Patient Portal and [employer] Indication:Non-smoker Start:24-Jul-2022 Instruction Type:Patient Education How to Access Health Informa tion Online using Patient Portal and [employer] Indication:Non-smoker Start:23-May-2022 Instruction Type:Patient Education Patient Instructions Indication:Non-smoker Start:23-May-2022 Instruction Type:Provider Instructions for Treatment Patient Instructions Indication:Non-smoker Start:20-Apr-2022 Instruction Type:Provider Instructions for Treatment How to Access Health Informa tion Online using Patient Portal and [employer] Indication:Non-smoker Start:20-Apr-2022 Instruction Type:Patient Education Patient Instructions Indication:Painful urination Start:30-Mar-2022 Instruction Type:Provider Instructions for Treatment How to Access Health Informa tion Online using Patient Portal and [employer] Indication:Painful urination Start:30-Mar-2022 Instruction Type:Patient Education Patient Instructions Indication:Non-smoker Start:04-Jan-2022 Instruction Type:Provider Instructions for Treatment How to Access Health Informa tion Online using Patient Portal and [employer] Indication:Non-smoker Start:04-Jan-2022 Instruction Type:Patient Education Patient Instructions Indication:Non-smoker Start:21-Sep-2021 Instruction Type:Provider Instructions for Treatment How to Access Health Informa tion Online using Patient Portal and [employer] Indication:Non-smoker Start:21-Sep-2021 Instruction Type:Patient Education Patient Instructions Indication:BMI 32.0-32.9,adult Start:22-Aug-2021 Instruction Type:Provider Instructions for Treatment How to Access Health Informa tion Online using Patient Portal and [employer] Indication:BMI 32.0-32.9,adult Start:22-Aug-2021 Instruction Type:Patient Education Patient Instructions Indication:Non-smoker Start:22-Jun-2021 Instruction Type:Provider Instructions for Treatment How to Access Health Informa tion Online using Patient Portal and [employer] Indication:Non-smoker Start:22-Jun-2021 Instruction Type:Patient Education Patient Instructions Indication:BMI 32.0-32.9,adult Start:02-Feb-2021 Instruction Type:Provider Instructions for Treatment How to Access Health Informa tion Online using Patient Portal and [employer] Apps Indication:BMI 32.0-32.9,adult Start:02-Feb-2021 Instruction Type:Patient Education [...] Informa tion Online using Patient Portal and [employer] Libertarian Apps Indication:Non-smoker Start:28-Mar-2023 Instruction Type:Patient Education Patient Instructions Indication:Non-smoker Start:28-Mar-2023 Instruction Type:Provider Instructions for Treatment Patient Instructions Indication:Non-smoker Start:25-Sep-2022 Instruction Type:Provider Instructions for Treatment How to Access Health Informa tion Online using Patient Portal and [employer] Apps Indication:Non-smoker Start:25-Sep-2022 Instruction Type:Patient Education Patient Instructions Indication:Non-smoker Start:24-Jul-2022 Instruction Type:Provider Instructions for Treatment How to Access Health Informa tion Online using Patient Portal and [employer] Apps Indication:Non-smoker Start:24-Jul-2022 Instruction Type:Patient Education How to Access Health Informa tion Online using Patient Portal and [employer] Libert[employer] Apps Indication:Non-smoker Start:23-May-2022 Instruction Type:Patient Education Patient Instructions Indication:Non-smoker Start:23-May-2022 Instruction Type:Provider Instructions for Treatment Patient Instructions Indication:Non-smoker Start:20-Apr-2022 Instruction Type:Provider Instructions for Treatment How to Access Health Informa tion Online using Patient Portal and [employer] Apps Indication:Non-smoker Start:20-Apr-2022 Instruction Type:Patient Education Patient Instructions Indication:Painful urination Start:30-Mar-2022 Instruction Type:Provider Instructions for Treatment How to Access Health Informa tion Online using Patient Portal and [employer] Indication:Painful urination Start:30-Mar-2022 Instruction Type:Patient Education Patient Instructions Indication:Non-smoker Start:04-Jan-2022 Instruction Type:Provider Instructions for Treatment How to Access Health Informa tion Online using Patient Portal and [employer] Indication:Non-smoker Start:04-Jan-2022 Instruction Type:Patient Education Patient Instructions Indication:Non-smoker Start:21-Sep-2021 Instruction Type:Provider Instructions for Treatment How to Access Health Informa tion Online using Patient Portal and [employer] Indication:Non-smoker Start:21-Sep-2021 Instruction Type:Patient Education Patient Instructions Indication:BMI 32.0-32.9,adult Start:22-Aug-2021 Instruction Type:Provider Instructions for Treatment How to Access Health Informa tion Online using Patient Portal and [employer] Indication:BMI 32.0-32.9,adult Start:22-Aug-2021 Instruction Type:Patient Education Patient Instructions Indication:Non-smoker Start:22-Jun-2021 Instruction Type:Provider Instructions for Treatment How to Access Health Informa tion Online using Patient Portal and [employer] Indication:Non-smoker Start:22-Jun-2021 Instruction Type:Patient Education Patient Instructions Indication:BMI 32.0-32.9,adult Start:02-Feb-2021 Instruction Type:Provider Instructions for Treatment How to Access Health Informa tion Online using Patient Portal and [employer] Apps Indication:BMI 32.0-32.9,adult Start:02-Feb-2021 Instruction Type:Patient Education [...] Start:24-Oct-2016 Instruction Type:Patient Education How to access [employer] online - Detail Indication:Sore throat Start:24-Oct-2016 Instruction [...] AUTHOR AUTHOR'S ORGANIZ ATION 09/25/2022 [facility] DATE CREATED AUTHOR AUTHOR'S ORGANIZ ATION 05/23/2023 [facility] Source Comments (unrecognize d section and content) In the event this informatio n is protected by the Federal Confidentiality of Alcohol and Drug Abuse Patient Records regulations: The Federal rules restrict any use of the information to criminally investigate or prosecute any alcohol or drug abuse patient.[facility] the event this information is protected by the Federal Confidentiality of Alcohol and Drug Abuse Patient Records regulations: The Federal rules restrict any use of the information to criminally investigate or prosecute any alcohol or drug abuse patient.[facility] Memorial[facility] the event this information is protected by the Federal Confidentiality of Alcohol and Drug Abuse Patient Records regulations: The Federal rules restrict any use of the information to criminally investigate or prosecute any alcohol or drug abuse patient.[facility] Memorial[facility] the event this information is protected by the Federal Confidentiality of Alcohol and Drug Abuse Patient Records regulations: The Federal rules restrict any use of the information to criminally investigate or prosecute any alcohol or drug abuse patient.[facility] Reason for Visit (unrecogniz ed section and content) Reason Comments Results Reason Comments Established Patient Specialty Diagnoses / Procedures Referred By Contac t Referred To Contact HEMATOLOGY/ONCOLOGY Diagnoses 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) Procedures office visit Antonia Mattson, KAYLEN.[employer] [address] [place] [address] [facility] [address] [place] [address] Referral ID Status Reason Start Date Expiration Date V isits Requested Visits Authorized [id number] Closed Financial Clearance Required - OON Payor Patient Cleared - Qualified 100% FAS Patient Cleared - INN Insurance Found 04/05/2021 07/04/2021 1 1 Reason Comments Received Outside Medical Records Care Teams (unrecognized sec tion and content) Nurse Chemical Dependency Relationship Specialty Start Date End Date Yaneth Mcgregor CNP [id number] [facility] [address] [place], [place] [id number] PCP - General Internal Medicine 05/07/17 Nurse Chemical Dependency Relationship Specialty Start Date End Date Beryl Whitmore [address] [facility] [address] [place], [place] [id number] PCP - General Family Medicine 05/15/22 Nurse Chemical Dependency Relationship Specialty Start Date End Date Beryl Whitmore [address] [facility] [address] [place] [address] PCP - General Family Medicine [...] BE BASED ON THE PRIMARY CLINICAL RECORDS. [employer] [facility]. provides no warranty or guarantee of the accuracy or completeness of information in this document.
[2023-07-08 12:32] LABS: Anion Gap 6 (5-15); BUN 12 mg/dL (7-18); BUN/Creat Ratio 16.7 RATIO (10-20); Calcium,Total 9.2 mg/dL (8.5-10.1); Chloride 106 mmol/L (98-107); Creatinine, Serum 0.72 mg/dL (0.55-1.02); EST Glomerular Filtration Rate 86 mL/min (>60); Est Glom Filt Rate - Afr Amer 104 mL/min (>60); Estimated Creatinine Clearance 67.49 ml/min; Glucose 113 mg/dL (74-106); Sodium Level 140 mmol/L (136-145)
[2023-07-08] MEDS: Potassium Chloride Oral Tablet 20 MEQ 40 MEQ PO (13:27)
--- OUTSIDE RECORDS SUMMARY | 2023-07-08 16:11 | XMS RPT_ITS | CCD ---
Author Name Unknown Address [address] [place] [address] Organization [facility] Care Team Providers Care Sponge Press Operator Name Role Phone Ciesa, Nallely Unavailable Physical Therapy, [place] Unavailable Chuckie Kenny Unavailable Unavailable April Moon [...] Ciesa, Yaneth Unavailable Dr. Rayray Mary Unavailable [phone] CAM Macario LPN Unavailable Unavailable Beryl Whitmore CNP Unavailable Beryl Whitmore CNP Unavailable Ciesa, Yaneth Unavailable Clotilde Metcalf LPN Unavailable Unavailable Ciesa LORENE, Nallely Primary Care Provider Padmini Hinkle DO Unavailable Elena Nichole Unavailable fredrick Fuentes Unavailable Unavailable Beryl Whitmore Primary Care Provider Beryl Whitmore CNP Attending Unavailable Beryl Whitmore [...] Start: 05-21-2023 End: 05-21-2023 ambulatory BERYL WHITMORE Facility:[facility] Start: 03-28-2023 Review Beryl Whitmore BIOMETRIC FINGERPRINTING TECHNICIAN Work Phone: [facility] Start: 02-23-2023 ambulatory Ashley Hinkle APRN.BIOMETRIC FINGERPRINTING TECHNICIAN Work Phone: OB/Gynecology Procedures Date Procedure Procedure Detail Performing Clinician Start: 05-22-2022 End: 05-22-2022 Inital Evaluation (1) - PT Procedure Note: See Note; NOTES: [facility] [address] [place] [address] [address] [place] [address] / REHABILITATION SERVICES INITIAL EVALUATION MR#: [id number] Acct: [id number] Name: LYNSEY PINA Rep #: [id number] : 1955 66 From: Aminata Giles PT, Cert. MDT Referring Dr.: Dr. Elena Nichole MD Status: RE G RCR Insurance: [facility] MEDICARE SENIOR [employer] SELF PAY INSURANCE Patient's [...] to be FAXED BACK to us at [phone] for Medicare purposes. For Medicare only, by signing this I certify the plan of care. Please let me know if there are questions or concerns regarding this plan of care. Physician Signature: _Date: <Electronically signed by Aminata Giles PT, Cert. T> 05/22/22 [id number] CC: CUCO Whitmore; Dr. Elena Nichole MD SOFI Signed Beryl Whitmore BIOMETRIC FINGERPRINTING TECHNICIAN Work Phone: Start: 05-05-2022 End: 05-05-2022 SCRN MAMM (CAD)W/ROSE BILAT Procedure Note: See Note; NOTES: [facility] Imaging Services [address] [place] [address] SCRN MAMM (CAD)W/ROSE BILAT MR#: [id number] Acct: [id number] Name: LYNSEY PINA Rep #: [id number] : 1955 F 66 From: Ernie alcala MD PCP: Yaneth Mcgregor SOCIAL CONTACT WORKER-C Status: REG CLI Study: SCRN MAMM (CAD)W/ROSE BILAT Date of Exam: 04/18 02/06 Exam# [id number] Ordering Dr: Antonia Mattson NP N P-C [...] delay biopsy of a clinically suspicious abnormality. [id number] Electronically Signed: Ernie Fields MD at 8:51 EST , CC: ALFREDA Mattson; CUCO Mcgregor Health Practice Manager: Signed Beryl Whitmore [facility] Work Phone: Start: 04-16-2022 Urnls dip stick/tablet rgnt auto w/o microscopy Holly Berry APRN.[facility] Work Phone: Start: 01-24-2022 End: 01-25-2022 Dexa Bone Density Study Comments: See Note; NOTES: [facility] Imaging Services [address] [place] [address] Dexa Bone Density Study MR#: [id number] Acct: [id number] Name: LYNSEY PINA Rep #: [id number] : 1955 F 66 From: Ernie alcala MD PCP: CUCO Zambrano [facility] Study: Dexa Bone Density Study Date of Exam: 01/24/22 Exam# [id number] Ordering Dr: Beryl Whitmore STUDY: DUAL ENERGY [...] EDT , CC: CUCO Whitmore; CUCO Mcgregor Health Practice Manager: Signed Beryl Whitmore BIOMETRIC FINGERPRINTING TECHNICIAN Work Phone: Start: 05-04-2021 End: 05-04-2021 SCRN MAMM (CAD)W/ROSE BILAT Comments: See Note; NOTES: [facility] Imaging Services [address] [place] [address] SCRN MAMM (CAD)W/ROSE BILAT MR#: [id number] Acct: [id number] Name: LYNSEY PINA Rep #: [id number] : 1955 F 65 From: Ernie alcala MD PCP: CUCO Zambrano Status: REG CLI Study: SCRN MAMM (CAD)W/ROSE BILAT Date of Exam: 04/18 01/05 Exam# [id number] Ordering Dr: Antonia Mattson NP N P-C [...] delay biopsy of a clinically suspicious abnormality. [id number] Electronically Signed: Ernie Fields MD at 9:36 EST , Service support , CC: ALFREDA Mattson; CUCO Mcgregor Health Practice Manager: Signed Yaneth Mcgregor CNP Work Phone: Start: 05-03-2020 End: 05-03-2020 SCREEN MAMM (CAD) W/ROSE BILAT Comments: See Note; NOTES: [facility] Imaging Services [address] [place] [address] SCREEN MAMM (CAD) W/ROSE BILAT MR#: [id number] Acct: [id number] Name: LYNSEY PINA Rep #: [id number] : 1955 F 64 From: Ernie alcala MD PCP: CUCO Zambrano Status: [facility] Study: SCREEN MAMM (CAD) W/ROSE BILAT Date of Exam: 07/03/19 Exam# [id number] Ordering Dr: Antonia Mattson NP N P-C [...] delay biopsy of a clinically suspicious abnormality. [id number] Electronically Signed: Ernie Fields, at 10:02 EST , Service support , CC: ALFREDA Mattson; CUCO Mcgregor Health Practice Manager: Signed Yaneth Mcgregor BIOMETRIC FINGERPRINTING TECHNICIAN Work Phone: Start: 06-06-2019 End: 06-06-2019 Echo, Complete w/ Contrast Comments: See Note; NOTES: [facility] Cardiovascular Services [address] [place] [address] Echo Complete W/ Contrast 06/06/19 0900 MR#: [id number] Acct: [id number] Name: LYNSEY PINA Rep #: [id number] : 1955 64 From: Niko Osorio MD Attending Dr: CUCO Zambrano Status: REG CLI Ordering Dr: Yaneth Mcgregor Date: 06/06/19 Location: [facility] Sex: F C Admitted: Reason For Study: [...] 06/06/19 1047 Date Niko Osorio MD CC: SOCIAL CONTACT WORKER-C Yaneth Mcgregor Date Dictated: 06/06/19 0900 Date Transcribed: 06/06/191046 Health Practice Manager: Signed Nallely Meche Work Phone: Start: 04-30-2019 End: 04-30-2019 SCREEN MAMM (CAD) W/ROSE BILAT Comments: See Note; NOTES: [facility] Imaging Services [address] [place] [address] SCREEN MAMM (CAD) W/ROSE BILAT MR#: [id number] Acct: [id number] Name: LYNSEY PINA Rep #: [id number] : 1955 F 63 From: Ernie Fields MD PCP: CUCO Zambrano Status: [facility] Study: SCREEN MAMM (CAD) W/ROSE BILAT Date of Exam: 04/30/19 Exam# [id number] Ordering Dr: Antonia Mattson MAMMOGRAPHY - BILATERAL [...] delay biopsy of a clinically suspicious abnormality. [id number] Electronically Signed: Ernie Fields, at 10:58 EST , Service support , CC: [facility]- Antonia Mattson; CUCO Mcgregor; Rosie Manning MD Health Practice Manager: Signed Yaneth Mcgregor Work Phone: Start: 08-20-2018 End: 08-21-2018 Dexa Bone Density Study Comments: See Note; NOTES: [facility] Imaging Services [address] [place] [address] Dexa Bone Density Study MR#: [id number] Acct: [id number] Name: LYNSEY PINA Rep #: [id number] : 1955 F 63 From: Ernie Fields MD PCP: Yaneth Mcgregor NP Status: REG CLI Study: Dexa Bone Density Study Date of Exam: 08/20/18 Exam# [id number] Ordering Dr: Yaneth Mcgregor STUDY: DUAL ENERGY [...] Service support , CC: Yaneth Mcgregor NP Health Practice Manager: Signed Yaneth Mcgregor Work Phone: Start: 04-25-2018 End: 04-25-2018 SCREENING MAMM (CAD), BILAT Comments: See Note; NOTES: [facility] Imaging Services [address] [place] [address] SCREENING MAMM (CAD), BILAT MR#: [id number] Acct: [id number] Name: LYNSEY PINA Rep #: [id number] : 1955 F 62 From: Ernie Fields MD PCP: Ynaeth Mcgregor NP Status: REG CLI Study: SCREENING MAMM (CAD), BILAT Date of Exam: 04/25/18 Exam# [id number] Ordering Dr: Antonia Mattson SOCIAL CONTACT WORKER-C MAMMOGRAPHY - BILATERAL SCREENING REASON FOR EXAM: [...] delay biopsy of a clinically suspicious abnormality. [id number] Electronically Signed: Ernie Fields MD at 11:28 EST Tel [phone], Service support , CC: Yaneth Mcgregor NP; [facility]MA- Antonia Mattson Health Practice Manager: Signed Yaneth Mcgregor Work Phone: Start: 03-01-2018 End: 03-01-2018 12 lead ECG Comments: See Note; NOTES: [facility] Cardiovascular Services [address] [place] [address] EKG - [facility] 02/22/18 0942 MR#: [id number] Acct: [id number] Name: LYNSEY PINA Rep #: [id number] : 1955 62 From: Niko Osorio MD Attending Dr: Mauricio Tapia MD Status: PRE IN Ordering Dr: Mauricio Tapia MD Date: 02/22/18 Location: [facility] Sex: F C Admitted: Test Reason : Blood Pressure : / mmHG Vent. Rate : 086 BPM Atrial Rate : 086 BPM P-R Int : 142 ms QRS Dur : 088 ms QT Int : 372 ms P-R-T Axes : 011 023 039 degrees QTc Int : 445 ms Normal sinus rhythm Normal ECG Confirmed by NIKO OSORIO MD ([id number]), newspaper editor OLIMPIA WOO ([id number]) on 03/01/2018 1:11:35 PM Referred By: Mauricio Tapia Confirmed By:NIKO OSORIO MD 03/01/18 1311 Date Niko Osorio MD CC: Yaneth Mcgregor SOCIAL CONTACT WORKER; Mauricio Tapia MD Date Dictated: 02/22/18941 Date Transcribed: 02/22/18941 Health Practice Manager: Signed Yaneth Mcgregor Start: 02-22-2018 End: 02-22-2018 History and Physical Exam Comments: See Note; NOTES: [facility] Medical Records Department [address] [place] [address] History and Physical 02/22/18 1231 MR#: [id number] Acct: [id number] Name: LYNSEY PINA Rep #: [id number] : 1955 62 From: Stepan Wilson PA-C PCP: Yaneth Mcgregor NP Status: PRE IN Y Location: [facility] History and Physical DATE OF SURGERY: 03/06/2018 [...] Long Finger Excision - (01/07/2009) JEY @ [facility] Lumpectomy - LT BREAST Anesthesia [...] Flexeril Clarithromycin Vicodin Morphine MEDICATIONS: Vitamin D 12090 Unit 1 times A week, Prilosec OTC [...] touch. IMAGING STUDIES: X-rays were obtained at [facility] on January 10, 2018 of bilateral knees [...] Signature: Date (if applicable) CC: Yaneth Mcgregor SOCIAL CONTACT WORKER; Stepan AN Signed Yaneth Mcgregor Start: 02-22-2018 End: 02-22-2018 Chest PA and Lateral Comments: See Note; NOTES: [facility] Imaging Services [address] [place] [address] Chest PA and Lateral MR#: [id number] Acct: [id number] Name: LYNSEY PINA Rep #: [id number] : 1955 F 62 From: Ernie Fields MD PCP: Yaneth Mcgregor NP Status: PRE IN Study: Chest PA and Lateral Date of Exam: 02/22/18 Exam# [id number] Ordering Dr: Chris Bolanos MD STUDY: X-RAY [...] Ernie Fields MD at 11:24 EDT Tel [phone], Service support , CC: Yaneth Mcgregor NP; Chris Bolanos MD Health Practice Manager: Signed Yaneth Mcgregor Start: 08-27-2017 End: 08-27-2017 Venous Duplex Lower Extremity Comments: See Note; NOTES: [facility] Cardiovascular Services [address] [place] [address] Venous Duplex US, Unilateral 08/27/17 1350 MR#: [id number] Acct: [id number] Name: LYNSEY PINA Rep #: [id number] : 1955 62 From: Carmelo Ospina MD [...] Date Dictated: 08/27/17 1350 Date Transcribed: 08/27/172140 Health Practice Manager: Signed Yaneth Mcgregor Work Phone: Start: 04-24-2017 End: 04-24-2017 SCREENING MAMM (CAD), BILAT Comments: See Note; NOTES: [facility] Imaging Services [address] [place] [address] SCREENING MAMM (CAD), BILAT MR#: [id number] Acct: [id number] Name: LYNSEY PINA Rep #: [id number] : 1955 F 61 From: Ernie Fields MD PCP: Yaneth Mcgregor Status: REG CLI Study: SCREENING MAMM (CAD), BILAT Date of Exam: 04/24/17 Exam# [id number] Ordering Dr: Yaneth Mcgregor MAMMOGRAPHY - BILATERAL [...] delay biopsy of a clinically suspicious abnormality. [id number] Electronically Signed: Ernie Fields MD at 11:16 EST Tel [phone], Service support , CC: Yaneth Mcgregor Health Practice Manager: Signed Yaneth Mcgregor Work Phone: Start: 04-24-2017 Mammography Ashley Hinkle APRN.CNP Work Phone: Start: 04-02-2017 End: 04-03-2017 Hand Min 3 Views Comments: See Note; NOTES: [facility] Imaging Services [address] [place] [address] Hand Min 3 Views MR#: [id number] Acct: [id number] Name: LYNSEY PINA Rep #: [id number] : 1955 F 61 From: Ernie Fields MD PCP: Yaneth Mcgregor Status: REG CLI Study: Hand Min 3 Views Date of Exam: 04/02/17 Exam# [id number] Ordering Dr: Olive Schilling MD STUDY: X-RAY [...] Ernie Fields MD at 11:30 EDT Tel [phone], Service support , CC: Yaneth Mcgregor; Olive Schilling MD Health Practice Manager: Signed Yaneth Mcgregor Start: 03-01-2017 End: 03-01-2017 Lower Ext Joint Only (Routine) Comments: See Note; NOTES: [facility] Imaging Services [address] [facility] [address] Lower Ext Joint Only (Routine) MR#: [id number] Acct: [id number] Name: LYNSEY PINA Rep #: [id number] : 1955 F 61 From: Osei Lowery MD PCP: Yaneth Mcgregor Status: REG CLI Study: Lower Ext Joint Only (Routine) Date of Exam: 03/01/17 Exam# [id number] Ordering Dr: Rashaad Pineda MD STUDY: MRI [...] effusion. Mild prepatellar bursitis. Electronically Signed: Osei Lwoery MD at 11:55 EDT Tel , Service support , CC: Yaneth Mcgregor; Rashaad Pineda MD Health Practice Manager: Signed Yaneth Meche Start: 12-29-2016 End: 12-30-2016 Lower Ext Joint Only (Routine) Comments: See Note; NOTES: [facility] Imaging Services [address] [place] [address] Verda 4d Lower Ext Joint Only (Routine) MR#: [id number] Acct: [id number] Name: LYNSEY PINA Rep #: [id number] : 1955 F 61 From: Mauricio Pack MD PCP: Yaneth Mcgregor Status: REG CLI Study: Lower Ext Joint Only (Routine) Date of Exam: 12/29/16 Exam# [id number] Ordering Dr: Rashaad Pineda MD STUDY: MRI [...] , CC: Yaneth Mcgregor; Rashaad Pineda MD Health Practice Manager: Signed Yaneth Mcgregor Start: 04-19-2016 Mammography Natalie Jay APRN.BIOMETRIC FINGERPRINTING TECHNICIAN Work Phone: Start: 10-01-2015 Colonoscopy Natalie Jay APRN.BIOMETRIC FINGERPRINTING TECHNICIAN Work Phone: Bone density scan Clotilde ching TOP LIFT SCOURER Plan of Treatment Date Care Activity Detail Author Start: 09-30-2025 Colonoscopy COLONOSCOPY [facility] Start: 09-30-2025 COLORECTAL CANCER SCREENING COLORECTAL CANCER SCREENING [facility] Start: 03-28-2023 25 hydroxy includes fractions if performed CALCIFEDIOL (14643) : prior next ov [facility]; [facility] Work Phone: Start: 03-28-2023 Assay of thyroid stimulating hormone tsh TSH (THYROID STIMULATING HORMONE) (16556) : prior next ov [facility]; [facility] Work Phone: Start: 03-28-2023 Blood count complete auto&auto difrntl wbc CBC, PLATELETS & AUT DIFF (22068) : prior to next OV [facility]; [facility] Work Phone: Start: 03-28-2023 Comprehensive metabolic panel METABOLIC PANEL, COMPREHENSIVE (94066) : prior next ov [facility]; [facility] Work Phone: Start: 03-28-2023 Lipid panel LIPID PANEL (82547) : prior next ov [facility]; [...] Start: 03-28-2023 Urinalysis qual/semiquant except immunoassays URINALYSIS (00613) : prior next ov [facility]; [facility] Work Phone: Start: 02-16-2023 Influenza vaccination INFLUENZA (#1) [facility] Start: 09-25-2022 25 hydroxy includes fractions if performed CALCIFEDIOL (05229) [facility]; [facility] Work Phone: Start: 09-25-2022 Assay of magnesium MAGNESIUM (66681) [facility]; [facility] Work Phone: Start: 09-25-2022 Assay of thyroid stimulating hormone tsh TSH (THYROID STIMULATING HORMONE) (46095) [facility]; [facility] Work Phone: Start: 09-25-2022 Blood count complete auto&auto difrntl wbc CBC, PLATELETS & AUT DIFF (00716) [facility]; [facility] Work Phone: Start: 09-25-2022 Comprehensive metabolic panel METABOLIC PANEL, COMPREHENSIVE (08191) [facility]; [facility] Work Phone: Start: 09-25-2022 Cyanocobalamin vitamin b-12 VITAMIN B12 AND FOLATES (43736) [facility]; [facility] Work Phone: Start: 09-25-2022 Lipid panel LIPID PANEL (00861) [facility]; [facility] Work Phone: [...] 06-18-2022 ADVANCE DIRECTIVE DISCUSSION ADVANCE DIRECTIVE DISCUSSION [facility] Start: 06-18-2022 DEPRESSION ASSESSMENT DEPRESSION ASSESSMENT [facility] Start: 05-23-2022 Patient Education [facility]; [facility] Work Phone: Start: 05-23-2022 Procedure Education Eprescribed prescriptions (G8553) [facility]; [facility] Work Phone: Start: 05-23-2022 Provider Instructions for Treatment [facility]; [facility] Work Phone: Start: 05-23-2022 Urnls dip stick/tablet rgnt non-auto w/o micrscp Urinalysis, Office (43586) [facility]; [facility] Work Phone: Start: 04-20-2022 Procedure Education Eprescribed prescriptions (G8553) [facility]; [facility] Work Phone: Start: 03-30-2022 Procedure Education Eprescribed prescriptions (G8553) [facility]; [facility] Work Phone: Start: 02-16-2022 Influenza vaccination INFLUENZA (#1) [facility] Start: 01-27-2022 25 hydroxy includes fractions if performed CALCIFEDIOL (39064) [facility]; [facility] Work Phone: Immunizations Immunization Date Immunization Notes Care Provider Domi mendoza 12-31-2015 zoster vaccine, live Natalie C allow FITTER PLACER.BIOMETRIC FINGERPRINTING TECHNICIAN Work Phone: [facility] Work Phone: 07-02-2007 tetanus toxoid, redu jean carlos diphtheria toxoid, and acellular pertussis vaccine, adsorbed Natalie Callskyler FITTER PLACER.BIOMETRIC FINGERPRINTING TECHNICIAN Work Phone: [facility] Work Phone: Payers Date Payer Category Payer Medicare [id number] 2020 Unknown 2019 Unknown [id number] 1955 Unknown [id number] Social History Date Type Detail Facility Alcohol use: Never smoker [facility] Work Phone: Start: 04-16-2022 End: 07-14-2022 Exercise [facility] Work Phone: Medical Equipment Procedure Code Equipment Code Equipment Origin al Text Equipment Identifier Dates Mrkr 8ga [facility] mrk [employer] - [id number] Start: 04-10-2013 Clinical Notes 10-01-2015 to 05-21-2023 Colette Tomas RN - 02/23/2023 12:54 PM EDTDatavares Mattson APRN.CNP - 05/15/2022 8:54 AM ESTTelephone Encounter - Bonita Gavi - 04/17/2022 4:45 PM EDT Note Date & Type Note Facility 05-21-2023 Note HNO ID: [id number] Author: Ashley Hinkle APRN.BIOMETRIC FINGERPRINTING TECHNICIAN Service: ? Author Type: Nurse Practitioner Type: Progress Notes Filed: 05/21/2023 1:43 PM Note Text: patient declined pediatric clinical dietician Lynsey is a 67 year old who presents for an annual gynecologic exam without complaints. Inverse psoriasis Postmenopausal: Yes HRT use: Yes, OCP How long: few yrs. Last Pap: 2020 normal HPV:2020 negative History of abnormal pap: No Last mammogram: 2021 normal @ [facility] History of abnormal mammogram: Yes Sexually active: sometimes OB History T0 L3 SAB0 IAB0 Ectopic0 Multiple0 Live Births0 Workforce Consultant History LMP: Postmenopausal Age at Menarche: Age at First : Age at Menopause: Workforce Consultant History Comments: Sexual Activity: Yes; Male Contraception: [...] external genitalia normal, normal Bartholin's glands, urethra, [place]'s glands, no vulvar lesions, no cervical lesions, [...] or sooner as needed Ashley Hinkle APRN.LORENE [facility] 02-23-2023 Note HNO ID: [id number] Author: Colette Tomas RN Service: ? Author Type: ? Type: Progress Notes Filed: 02/23/2023 12:54 PM Note Text: Received outside medical records from [place] [facility]. Sent for scanning. Colette Tomas RN [facility] 02-23-2023 History of Present illness Narrative Received outside medical records from [place] [facility]. Sent for scanning. Colette Tomas RN documented in this encounter [facility] 05-15-2022 History of Present illness Narrative Chief [...] developed and its performance characteristics determined by [facility] [place]. The U.S. Food and Drug Administration has [...] Abraham Che M.D. 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 - No concerning findings on exam. - Pt. now over 8 years out from radiation treatment. - BP lower at home per pt. - Reviewed mammogram with pt. Done at [facility]. - Mammogram due 2022. Pt. has this done at [facility]. - Follow up as needed. Pt. will follow up with PCP/[facility] M[facility]INE [facility]PER[facility] for yearly CBE/mammogram. - Pt. aware to call office with any questions/concerns. The patient indicates understanding of these issues and agrees with the plan. All documentation from previous visit of 05/11/21-Dr. James/myself was copied and pasted, documentation has been reviewed and edited as necessary for today's visit. Antonia Mattson APRN.CNP documented in this encounter [facility] 04-17-2022 Miscellaneous Notes Patient given results and verbalized understanding of instructions given. Bonita Gatica Please inform patient that urine culture did not show any growth of bacteria requiring treatment. I would recommend to stop antibiotic Advise due to blood in the urine that she follow up with urology or TURN MACHINE OPERATOR for recheck of urine in 1-2 weeks, as well as discuss possible UTI symptom. documented in this encounter [facility] 04-16-2022 History of Present illness Narrative Subjective [...] Natalie Jay APRN.CNP documented in this encounter [facility] documented as of this encounter (statuses as of 04/16/2022) [facility] History of Past illness Narrative* Problem Noted Date Resolved Date Colon cancer screening 10/01/2015 6 Abnormal mammogram, unspecified 04/10/2013 12/04/2013 Hyperlipidemia 08/04/2009 03/20/2013 Overview: Mild elevation. Diet recommended. Component Reference Range 07/14/2009 Triglyceride, [place] 30-200 mg/dL 142 Cholesterol, [place] 0-200 mg/dL 203 (H) HDL Chol, [place] 40-60 mg/dL 39 (L) VLDL Chol, [place] 5-40 mg/dL 28 LDL Chol, [place] 0-129 mg/dL 136 (H) TC HDL Risk, [place] 0.0-5.0 5.2 (H) Atopic rhinitis 03/12/2009 08/04/2009 Pain in joint, shoulder region 09/01/2008 0 10/13/2008 Neck Sprain and Strain 07/04/2007 3 Overview: 08/04/09 - Neck symptom stable, occaisional need for home exercises documented as of this encounter (statuses as of 04/17/2022) [facility] History of Past illness Narrative* Problem Noted Date Resolved Date Colon cancer screening 10/01/2015 6 Abnormal mammogram, unspecified 04/10/2013 12/04/2013 Hyperlipidemia 08/04/2009 03/20/2013 Overview: Mild elevation. Diet recommended. Component Reference Range 07/14/2009 Triglyceride, [place] 30-200 mg/dL 142 Cholesterol, [place] 0-200 mg/dL 203 (H) HDL Chol, [place] 40-60 mg/dL 39 (L) VLDL Chol, [place] 5-40 mg/dL 28 LDL Chol, [place] 0-129 mg/dL 136 (H) TC HDL Risk, [place] 0.0-5.0 5.2 (H) Atopic rhinitis 03/12/2009 08/04/2009 Pain in joint, shoulder region 09/01/2008 0 10/13/2008 Neck Sprain and Strain 07/04/2007 3 Overview: 08/04/09 - Neck symptom stable, occaisional need for home exercises documented as of this encounter (statuses as of 05/15/2022) [facility] History of Past illness Narrative* Problem Noted Date Diagnosed Date Resolved Date Colon cancer screening 10/01/201505/05 Abnormal mammogram, unspecified 04/10/2013 12/04/2013 Hyperlipidemia 08/04/2009 03/20/2013 Overview: Mild elevation. Diet recommended. Component Reference Range 07/14/2009 Triglyceride, [place] 30-200 mg/dL 142 Cholesterol, [place] 0-200 mg/dL 203 (H) HDL Chol, [place] 40-60 mg/dL 39 (L) VLDL Chol, [place] 5-40 mg/dL 28 LDL Chol, [place] 0-129 mg/dL 136 (H) TC HDL Risk, [place] 0.0-5.0 5.2 (H) Atopic rhinitis 03/12/2009 08/04/2009 Pain in joint, shoulder region 09/01/2008 10/13/2008 Neck Sprain and Strain 07/04/200703/20 Overview: 08/04/09 - Neck symptom stable, occaisional need for home exercises documented as of this encounter (statuses as of 02/23/2023) [facility] Urinary frequency- Primary [facility] Diagnosis Personal history of breast cancer- Primary Personal history of malignant neoplasm of breast [facility] Name Dates Details How to access health [employer] online Indication:Non-smoker Start:24-Jun-2019 Instruction Type:Patient Education How to access health [employer] online - Detail Indication:Non-smoker Start:24-Jun-2019 Instruction Type:Patient Education Patient Instructions Indication:BMI 32.0-32.9,adult Start:24-Jun-2019 Instruction Type:Provider Instructions for Treatment How to access health informa tion online Indication:Non-smoker Start:13-Jun-2019 Instruction Type:Patient Education How to access health informa tion online - Detail Indication:Non-smoker Start:13-Jun-2019 Instruction Type:Patient Education Patient Instructions Indication:Non-smoker Start:13-Jun-2019 Instruction Type:Provider Instructions for Treatment How to access health informa [employer] online Indication:Non-smoker Start:23-May-2019 Instruction Type:Patient Education How [...] tion Online using Patient Portal and [employer] Apps Indication:BMI 32.0-32.9,adult Start:02-Feb-2021 Instruction Type:Patient Education [...] tion Online using Patient Portal and [employer] Apps Indication:Non-smoker Start:22-Jun-2021 Instruction Type:Patient Education Patient Instructions Indication:BMI 32.0-32.9,adult Start:02-Feb-2021 Instruction Type:Provider Instructions for Treatment How to Access Health Informa tion Online using Patient Portal and [employer] Apps Indication:BMI 32.0-32.9,adult Start:02-Feb-2021 Instruction Type:Patient Education [...] tion Online using Patient Portal and [employer] Apps Indication:Non-smoker Start:22-Jun-2021 Instruction Type:Patient Education Patient Instructions Indication:BMI 32.0-32.9,adult Start:02-Feb-2021 Instruction Type:Provider Instructions for Treatment How to Access Health Informa tion Online using Patient Portal and [employer] Apps Indication:BMI 32.0-32.9,adult Start:02-Feb-2021 Instruction Type:Patient Education [...] tion Online using Patient Portal and [employer] Apps Indication:Non-smoker Start:21-Sep-2021 Instruction Type:Patient Education Patient Instructions Indication:BMI 32.0-32.9,adult Start:22-Aug-2021 Instruction Type:Provider Instructions for Treatment How to Access Health Informa tion Online using Patient Portal and [employer] Apps Indication:BMI 32.0-32.9,adult Start:22-Aug-2021 Instruction Type:Patient Education Patient Instructions Indication:Non-smoker Start:22-Jun-2021 Instruction Type:Provider Instructions for Treatment How to Access Health Informa tion Online using Patient Portal and [employer] Apps Indication:Non-smoker Start:22-Jun-2021 Instruction Type:Patient Education Patient Instructions Indication:BMI 32.0-32.9,adult Start:02-Feb-2021 Instruction Type:Provider Instructions for Treatment How to Access Health Informa tion Online using Patient Portal and [employer] Apps Indication:BMI 32.0-32.9,adult Start:02-Feb-2021 Instruction Type:Patient Education [...] tion Online using Patient Portal and [employer] Apps Indication:Non-smoker Start:04-Jan-2022 Instruction Type:Patient Education Patient Instructions Indication:Non-smoker Start:21-Sep-2021 Instruction Type:Provider Instructions for Treatment How to Access Health Informa tion Online using Patient Portal and [employer] Apps Indication:Non-smoker Start:21-Sep-2021 Instruction Type:Patient Education Patient Instructions Indication:BMI 32.0-32.9,adult Start:22-Aug-2021 Instruction Type:Provider Instructions for Treatment How to Access Health Informa tion Online using Patient Portal and [employer] Apps Indication:BMI 32.0-32.9,adult Start:22-Aug-2021 Instruction Type:Patient Education Patient Instructions Indication:Non-smoker Start:22-Jun-2021 Instruction Type:Provider Instructions for Treatment How to Access Health Informa tion Online using Patient Portal and [employer] Apps Indication:Non-smoker Start:22-Jun-2021 Instruction Type:Patient Education Patient Instructions Indication:BMI 32.0-32.9,adult Start:02-Feb-2021 Instruction Type:Provider Instructions for Treatment How to Access Health Informa tion Online using Patient Portal and [employer] Apps Indication:BMI 32.0-32.9,adult Start:02-Feb-2021 Instruction Type:Patient Education [...] tion Online using Patient Portal and [employer] Apps Indication:Non-smoker Start:04-Jan-2022 Instruction Type:Patient Education Patient Instructions Indication:Non-smoker Start:21-Sep-2021 Instruction Type:Provider Instructions for Treatment How to Access Health Informa tion Online using Patient Portal and [employer] Apps Indication:Non-smoker Start:21-Sep-2021 Instruction Type:Patient Education Patient Instructions Indication:BMI 32.0-32.9,adult Start:22-Aug-2021 Instruction Type:Provider Instructions for Treatment How to Access Health Informa tion Online using Patient Portal and [employer] Apps Indication:BMI 32.0-32.9,adult Start:22-Aug-2021 Instruction Type:Patient Education Patient Instructions Indication:Non-smoker Start:22-Jun-2021 Instruction Type:Provider Instructions for Treatment How to Access Health Informa tion Online using Patient Portal and [employer] Apps Indication:Non-smoker Start:22-Jun-2021 Instruction Type:Patient Education Patient Instructions Indication:BMI 32.0-32.9,adult Start:02-Feb-2021 Instruction Type:Provider Instructions for Treatment How to Access Health Informa tion Online using Patient Portal and [employer] Apps Indication:BMI 32.0-32.9,adult Start:02-Feb-2021 Instruction Type:Patient Education [...] tion Online using Patient Portal and [employer] Apps Indication:Non-smoker Start:04-Jan-2022 Instruction Type:Patient Education Patient Instructions Indication:Non-smoker Start:21-Sep-2021 Instruction Type:Provider Instructions for Treatment How to Access Health Informa tion Online using Patient Portal and [employer] Apps Indication:Non-smoker Start:21-Sep-2021 Instruction Type:Patient Education Patient Instructions Indication:BMI 32.0-32.9,adult Start:22-Aug-2021 Instruction Type:Provider Instructions for Treatment How to Access Health Informa tion Online using Patient Portal and [employer] Apps Indication:BMI 32.0-32.9,adult Start:22-Aug-2021 Instruction Type:Patient Education Patient Instructions Indication:Non-smoker Start:22-Jun-2021 Instruction Type:Provider Instructions for Treatment How to Access Health Informa tion Online using Patient Portal and [employer] Apps Indication:Non-smoker Start:22-Jun-2021 Instruction Type:Patient Education Patient Instructions Indication:BMI 32.0-32.9,adult Start:02-Feb-2021 Instruction Type:Provider Instructions for Treatment How to Access Health Informa tion Online using Patient Portal and [employer] Indication:BMI 32.0-32.9,adult Start:02-Feb-2021 Instruction Type:Patient Education [...] tion Online using Patient Portal and [employer] Apps Indication:Non-smoker Start:04-Jan-2022 Instruction Type:Patient Education Patient Instructions Indication:Non-smoker Start:21-Sep-2021 Instruction Type:Provider Instructions for Treatment How to Access Health Informa tion Online using Patient Portal and [employer] Apps Indication:Non-smoker Start:21-Sep-2021 Instruction Type:Patient Education Patient Instructions Indication:BMI 32.0-32.9,adult Start:22-Aug-2021 Instruction Type:Provider Instructions for Treatment How to Access Health Informa tion Online using Patient Portal and [employer] Indication:BMI 32.0-32.9,adult Start:22-Aug-2021 Instruction Type:Patient Education Patient Instructions Indication:Non-smoker Start:22-Jun-2021 Instruction Type:Provider Instructions for Treatment How to Access Health Informa tion Online using Patient Portal and [employer] Indication:Non-smoker Start:22-Jun-2021 Instruction Type:Patient Education Patient Instructions Indication:BMI 32.0-32.9,adult Start:02-Feb-2021 Instruction Type:Provider Instructions for Treatment How to Access Health Informa tion Online using Patient Portal and [employer] Indication:BMI 32.0-32.9,adult Start:02-Feb-2021 Instruction Type:Patient Education [...] Informa tion Online using Patient Portal and [employer] Apps Indication:Non-smoker Start:20-Apr-2022 Instruction Type:Patient Education Patient Instructions Indication:Painful urination Start:30-Mar-2022 Instruction Type:Provider Instructions for Treatment How to Access Health Informa tion Online using Patient Portal and [employer] Apps Indication:Painful urination Start:30-Mar-2022 Instruction Type:Patient Education Patient Instructions Indication:Non-smoker Start:04-Jan-2022 Instruction Type:Provider Instructions for Treatment How to Access Health Informa tion Online using Patient Portal and [employer] Apps Indication:Non-smoker Start:04-Jan-2022 Instruction Type:Patient Education Patient Instructions Indication:Non-smoker Start:21-Sep-2021 Instruction Type:Provider Instructions for Treatment How to Access Health Informa tion Online using Patient Portal and [employer] Indication:Non-smoker Start:21-Sep-2021 Instruction Type:Patient Education Patient Instructions Indication:BMI 32.0-32.9,adult Start:22-Aug-2021 Instruction Type:Provider Instructions for Treatment How to Access Health Informa tion Online using Patient Portal and [employer] Indication:BMI 32.0-32.9,adult Start:22-Aug-2021 Instruction Type:Patient Education Patient Instructions Indication:Non-smoker Start:22-Jun-2021 Instruction Type:Provider Instructions for Treatment How to Access Health Informa tion Online using Patient Portal and [employer] Indication:Non-smoker Start:22-Jun-2021 Instruction Type:Patient Education Patient Instructions Indication:BMI 32.0-32.9,adult Start:02-Feb-2021 Instruction Type:Provider Instructions for Treatment How to Access Health Informa tion Online using Patient Portal and [employer] Indication:BMI 32.0-32.9,adult Start:02-Feb-2021 Instruction Type:Patient Education [...] tion Online using Patient Portal and [employer] Apps Indication:Non-smoker Start:20-Apr-2022 Instruction Type:Patient Education Patient Instructions Indication:Painful urination Start:30-Mar-2022 Instruction Type:Provider Instructions for Treatment How to Access Health Informa tion Online using Patient Portal and [employer] Apps Indication:Painful urination Start:30-Mar-2022 Instruction Type:Patient Education Patient Instructions Indication:Non-smoker Start:04-Jan-2022 Instruction Type:Provider Instructions for Treatment How to Access Health Informa tion Online using Patient Portal and [employer] Apps Indication:Non-smoker Start:04-Jan-2022 Instruction Type:Patient Education Patient Instructions Indication:Non-smoker Start:21-Sep-2021 Instruction Type:Provider Instructions for Treatment How to Access Health Informa tion Online using Patient Portal and [employer] Apps Indication:Non-smoker Start:21-Sep-2021 Instruction Type:Patient Education Patient Instructions Indication:BMI 32.0-32.9,adult Start:22-Aug-2021 Instruction Type:Provider Instructions for Treatment How to Access Health Informa tion Online using Patient Portal and [employer] Indication:BMI 32.0-32.9,adult Start:22-Aug-2021 Instruction Type:Patient Education Patient Instructions Indication:Non-smoker Start:22-Jun-2021 Instruction Type:Provider Instructions for Treatment How to Access Health Informa tion Online using Patient Portal and [employer] Indication:Non-smoker Start:22-Jun-2021 Instruction Type:Patient Education Patient Instructions Indication:BMI 32.0-32.9,adult Start:02-Feb-2021 Instruction Type:Provider Instructions for Treatment How to Access Health Informa tion Online using Patient Portal and [employer] Indication:BMI 32.0-32.9,adult Start:02-Feb-2021 Instruction Type:Patient Education [...] Informa tion Online using Patient Portal and [employer] Apps Indication:Non-smoker Start:23-May-2022 Instruction Type:Patient Education Patient Instructions Indication:Non-smoker Start:23-May-2022 Instruction Type:Provider Instructions for Treatment Patient Instructions Indication:Non-smoker Start:20-Apr-2022 Instruction Type:Provider Instructions for Treatment How to Access Health Informa tion Online using Patient Portal and [employer] Indication:Non-smoker Start:20-Apr-2022 Instruction Type:Patient Education Patient Instructions Indication:Painful urination Start:30-Mar-2022 Instruction Type:Provider Instructions for Treatment How to Access Health Informa tion Online using Patient Portal and [employer] Apps Indication:Painful urination Start:30-Mar-2022 Instruction Type:Patient Education Patient Instructions Indication:Non-smoker Start:04-Jan-2022 Instruction Type:Provider Instructions for Treatment How to Access Health Informa tion Online using Patient Portal and [employer] Apps Indication:Non-smoker Start:04-Jan-2022 Instruction Type:Patient Education Patient Instructions Indication:Non-smoker Start:21-Sep-2021 Instruction Type:Provider Instructions for Treatment How to Access Health Informa tion Online using Patient Portal and [employer] Indication:Non-smoker Start:21-Sep-2021 Instruction Type:Patient Education Patient Instructions Indication:BMI 32.0-32.9,adult Start:22-Aug-2021 Instruction Type:Provider Instructions for Treatment How to Access Health Informa tion Online using Patient Portal and [employer] Indication:BMI 32.0-32.9,adult Start:22-Aug-2021 Instruction Type:Patient Education Patient Instructions Indication:Non-smoker Start:22-Jun-2021 Instruction Type:Provider Instructions for Treatment How to Access Health Informa tion Online using Patient Portal and [employer] Indication:Non-smoker Start:22-Jun-2021 Instruction Type:Patient Education Patient Instructions Indication:BMI 32.0-32.9,adult Start:02-Feb-2021 Instruction Type:Provider Instructions for Treatment How to Access Health Informa tion Online using Patient Portal and [employer] Indication:BMI 32.0-32.9,adult Start:02-Feb-2021 Instruction Type:Patient Education [...] Informa tion Online using Patient Portal and [employer] Apps Indication:Non-smoker Start:23-May-2022 Instruction Type:Patient Education Patient Instructions Indication:Non-smoker Start:23-May-2022 Instruction Type:Provider Instructions for Treatment Patient Instructions Indication:Non-smoker Start:20-Apr-2022 Instruction Type:Provider Instructions for Treatment How to Access Health Informa tion Online using Patient Portal and [employer] Apps Indication:Non-smoker Start:20-Apr-2022 Instruction Type:Patient Education Patient Instructions Indication:Painful urination Start:30-Mar-2022 Instruction Type:Provider Instructions for Treatment How to Access Health Informa tion Online using Patient Portal and [employer] Apps Indication:Painful urination Start:30-Mar-2022 Instruction Type:Patient Education Patient Instructions Indication:Non-smoker Start:04-Jan-2022 Instruction Type:Provider Instructions for Treatment How to Access Health Informa tion Online using Patient Portal and [employer] Apps Indication:Non-smoker Start:04-Jan-2022 Instruction Type:Patient Education Patient Instructions Indication:Non-smoker Start:21-Sep-2021 Instruction Type:Provider Instructions for Treatment How to Access Health Informa tion Online using Patient Portal and [employer] Apps Indication:Non-smoker Start:21-Sep-2021 Instruction Type:Patient Education Patient Instructions Indication:BMI 32.0-32.9,adult Start:22-Aug-2021 Instruction Type:Provider Instructions for Treatment How to Access Health Informa tion Online using Patient Portal and [employer] Apps Indication:BMI 32.0-32.9,adult Start:22-Aug-2021 Instruction Type:Patient Education Patient Instructions Indication:Non-smoker Start:22-Jun-2021 Instruction Type:Provider Instructions for Treatment How to Access Health Informa tion Online using Patient Portal and [employer] Indication:Non-smoker Start:22-Jun-2021 Instruction Type:Patient Education Patient Instructions Indication:BMI 32.0-32.9,adult Start:02-Feb-2021 Instruction Type:Provider Instructions for Treatment How to Access Health Informa tion Online using Patient Portal and [employer] Indication:BMI 32.0-32.9,adult Start:02-Feb-2021 Instruction Type:Patient Education [...] tion Online using Patient Portal and [employer] Indication:Non-smoker Start:24-Jul-2022 Instruction Type:Patient Education How to Access Health Informa tion Online using Patient Portal and [employer] Indication:Non-smoker Start:23-May-2022 Instruction Type:Patient Education Patient Instructions Indication:Non-smoker Start:23-May-2022 Instruction Type:Provider Instructions for Treatment Patient Instructions Indication:Non-smoker Start:20-Apr-2022 Instruction Type:Provider Instructions for Treatment How to Access Health Informa tion Online using Patient Portal and [employer] Indication:Non-smoker Start:20-Apr-2022 Instruction Type:Patient Education Patient Instructions Indication:Painful urination Start:30-Mar-2022 Instruction Type:Provider Instructions for Treatment How to Access Health Informa tion Online using Patient Portal and [employer] Indication:Painful urination Start:30-Mar-2022 Instruction Type:Patient Education Patient Instructions Indication:Non-smoker Start:04-Jan-2022 Instruction Type:Provider Instructions for Treatment How to Access Health Informa tion Online using Patient Portal and [employer] Apps Indication:Non-smoker Start:04-Jan-2022 Instruction Type:Patient Education Patient Instructions Indication:Non-smoker Start:21-Sep-2021 Instruction Type:Provider Instructions for Treatment How to Access Health Informa tion Online using Patient Portal and [employer] Indication:Non-smoker Start:21-Sep-2021 Instruction Type:Patient Education Patient Instructions Indication:BMI 32.0-32.9,adult Start:22-Aug-2021 Instruction Type:Provider Instructions for Treatment How to Access Health Informa tion Online using Patient Portal and [employer] Indication:BMI 32.0-32.9,adult Start:22-Aug-2021 Instruction Type:Patient Education Patient Instructions Indication:Non-smoker Start:22-Jun-2021 Instruction Type:Provider Instructions for Treatment How to Access Health Informa tion Online using Patient Portal and [employer] Indication:Non-smoker Start:22-Jun-2021 Instruction Type:Patient Education Patient Instructions Indication:BMI 32.0-32.9,adult Start:02-Feb-2021 Instruction Type:Provider Instructions for Treatment How to Access Health Informa tion Online using Patient Portal and [employer] Indication:BMI 32.0-32.9,adult Start:02-Feb-2021 Instruction Type:Patient Education [...] tion Online using Patient Portal and [employer] Indication:Non-smoker Start:24-Jul-2022 Instruction Type:Patient Education How to Access Health Informa tion Online using Patient Portal and [employer] Apps Indication:Non-smoker Start:23-May-2022 Instruction Type:Patient Education Patient Instructions Indication:Non-smoker Start:23-May-2022 Instruction Type:Provider Instructions for Treatment Patient Instructions Indication:Non-smoker Start:20-Apr-2022 Instruction Type:Provider Instructions for Treatment How to Access Health Informa tion Online using Patient Portal and [employer] Indication:Non-smoker Start:20-Apr-2022 Instruction Type:Patient Education Patient Instructions Indication:Painful urination Start:30-Mar-2022 Instruction Type:Provider Instructions for Treatment How to Access Health Informa tion Online using Patient Portal and [employer] Apps Indication:Painful urination Start:30-Mar-2022 Instruction Type:Patient Education Patient Instructions Indication:Non-smoker Start:04-Jan-2022 Instruction Type:Provider Instructions for Treatment How to Access Health Informa tion Online using Patient Portal and [employer] Indication:Non-smoker Start:04-Jan-2022 Instruction Type:Patient Education Patient Instructions Indication:Non-smoker Start:21-Sep-2021 Instruction Type:Provider Instructions for Treatment How to Access Health Informa tion Online using Patient Portal and [employer] Indication:Non-smoker Start:21-Sep-2021 Instruction Type:Patient Education Patient Instructions Indication:BMI 32.0-32.9,adult Start:22-Aug-2021 Instruction Type:Provider Instructions for Treatment How to Access Health Informa tion Online using Patient Portal and [employer] Indication:BMI 32.0-32.9,adult Start:22-Aug-2021 Instruction Type:Patient Education Patient Instructions Indication:Non-smoker Start:22-Jun-2021 Instruction Type:Provider Instructions for Treatment How to Access Health Informa tion Online using Patient Portal and [employer] Indication:Non-smoker Start:22-Jun-2021 Instruction Type:Patient Education Patient Instructions Indication:BMI 32.0-32.9,adult Start:02-Feb-2021 Instruction Type:Provider Instructions for Treatment How to Access Health Informa tion Online using Patient Portal and [employer] Indication:BMI 32.0-32.9,adult Start:02-Feb-2021 Instruction Type:Patient Education [...] tion Online using Patient Portal and [employer] Indication:Non-smoker Start:25-Sep-2022 Instruction Type:Patient Education Patient Instructions Indication:Non-smoker Start:24-Jul-2022 Instruction Type:Provider Instructions for Treatment How to Access Health Informa tion Online using Patient Portal and [employer] Indication:Non-smoker Start:24-Jul-2022 Instruction Type:Patient Education How to Access Health Informa tion Online using Patient Portal and [employer] Indication:Non-smoker Start:23-May-2022 Instruction Type:Patient Education Patient Instructions Indication:Non-smoker Start:23-May-2022 Instruction Type:Provider Instructions for Treatment Patient Instructions Indication:Non-smoker Start:20-Apr-2022 Instruction Type:Provider Instructions for Treatment How to Access Health Informa tion Online using Patient Portal and [employer] Indication:Non-smoker Start:20-Apr-2022 Instruction Type:Patient Education Patient Instructions Indication:Painful urination Start:30-Mar-2022 Instruction Type:Provider Instructions for Treatment How to Access Health Informa tion Online using Patient Portal and [employer] Indication:Painful urination Start:30-Mar-2022 Instruction Type:Patient Education Patient Instructions Indication:Non-smoker Start:04-Jan-2022 Instruction Type:Provider Instructions for Treatment How to Access Health Informa tion Online using Patient Portal and [employer] Indication:Non-smoker Start:04-Jan-2022 Instruction Type:Patient Education Patient Instructions Indication:Non-smoker Start:21-Sep-2021 Instruction Type:Provider Instructions for Treatment How to Access Health Informa tion Online using Patient Portal and [employer] Indication:Non-smoker Start:21-Sep-2021 Instruction Type:Patient Education Patient Instructions Indication:BMI 32.0-32.9,adult Start:22-Aug-2021 Instruction Type:Provider Instructions for Treatment How to Access Health Informa tion Online using Patient Portal and [employer] Indication:BMI 32.0-32.9,adult Start:22-Aug-2021 Instruction Type:Patient Education Patient Instructions Indication:Non-smoker Start:22-Jun-2021 Instruction Type:Provider Instructions for Treatment How to Access Health Informa tion Online using Patient Portal and [employer] Indication:Non-smoker Start:22-Jun-2021 Instruction Type:Patient Education Patient Instructions Indication:BMI 32.0-32.9,adult Start:02-Feb-2021 Instruction Type:Provider Instructions for Treatment How to Access Health Informa tion Online using Patient Portal and [employer] Apps Indication:BMI 32.0-32.9,adult Start:02-Feb-2021 Instruction Type:Patient Education [...] Informa tion Online using Patient Portal and [employer] Apps Indication:Non-smoker Start:28-Mar-2023 Instruction Type:Patient Education Patient Instructions Indication:Non-smoker Start:28-Mar-2023 Instruction Type:Provider Instructions for Treatment Patient Instructions Indication:Non-smoker Start:25-Sep-2022 Instruction Type:Provider Instructions for Treatment How to Access Health Informa tion Online using Patient Portal and [employer] Apps Indication:Non-smoker Start:25-Sep-2022 Instruction Type:Patient Education Patient Instructions Indication:Non-smoker Start:24-Jul-2022 Instruction Type:Provider Instructions for Treatment How to Access Health Informa tion Online using Patient Portal and [employer] Apps Indication:Non-smoker Start:24-Jul-2022 Instruction Type:Patient Education How to Access Health Informa tion Online using Patient Portal and [employer] Apps Indication:Non-smoker Start:23-May-2022 Instruction Type:Patient Education Patient Instructions Indication:Non-smoker Start:23-May-2022 Instruction Type:Provider Instructions for Treatment Patient Instructions Indication:Non-smoker Start:20-Apr-2022 Instruction Type:Provider Instructions for Treatment How to Access Health Informa tion Online using Patient Portal and [employer] Apps Indication:Non-smoker Start:20-Apr-2022 Instruction Type:Patient Education Patient Instructions Indication:Painful urination Start:30-Mar-2022 Instruction Type:Provider Instructions for Treatment How to Access Health Informa tion Online using Patient Portal and [employer] Apps Indication:Painful urination Start:30-Mar-2022 Instruction Type:Patient Education Patient Instructions Indication:Non-smoker Start:04-Jan-2022 Instruction Type:Provider Instructions for Treatment How to Access Health Informa tion Online using Patient Portal and [employer] Apps Indication:Non-smoker Start:04-Jan-2022 Instruction Type:Patient Education Patient Instructions Indication:Non-smoker Start:21-Sep-2021 Instruction Type:Provider Instructions for Treatment How to Access Health Informa tion Online using Patient Portal and [employer] Apps Indication:Non-smoker Start:21-Sep-2021 Instruction Type:Patient Education Patient Instructions Indication:BMI 32.0-32.9,adult Start:22-Aug-2021 Instruction Type:Provider Instructions for Treatment How to Access Health Informa tion Online using Patient Portal and [employer] Apps Indication:BMI 32.0-32.9,adult Start:22-Aug-2021 Instruction Type:Patient Education Patient Instructions Indication:Non-smoker Start:22-Jun-2021 Instruction Type:Provider Instructions for Treatment How to Access Health Informa tion Online using Patient Portal and [employer] Apps Indication:Non-smoker Start:22-Jun-2021 Instruction Type:Patient Education Patient Instructions Indication:BMI 32.0-32.9,adult Start:02-Feb-2021 Instruction Type:Provider Instructions for Treatment How to Access Health Informa tion Online using Patient Portal and [employer] Apps Indication:BMI 32.0-32.9,adult Start:02-Feb-2021 Instruction Type:Patient Education [...] Start:24-Oct-2016 Instruction Type:Patient Education How to access [employer] online - Detail Indication:Sore throat Start:24-Oct-2016 Instruction [...] AUTHOR AUTHOR'S ORGANIZ ATION 09/25/[address] [facility] DATE CREATED AUTHOR AUTHOR'S ORGANIZ ATION 05/23/2023 [facility] Source Comments (unrecognize d section and content) In the event this informatio n is protected by the Federal Confidentiality of Alcohol and Drug Abuse Patient Records regulations: The Federal rules restrict any use of the information to criminally investigate or prosecute any alcohol or drug abuse patient.[facility] Company[facility] the event this information is protected by the Federal Confidentiality of Alcohol and Drug Abuse Patient Records regulations: The Federal rules restrict any use of the information to criminally investigate or prosecute any alcohol or drug abuse patient.[facility] CompanyIn the event this information is protected by the Federal Confidentiality of Alcohol and Drug Abuse Patient Records regulations: The Federal rules restrict any use of the information to criminally investigate or prosecute any alcohol or drug abuse patient.[facility] CompanyIn the event this information is protected by the Federal Confidentiality of Alcohol and Drug Abuse Patient Records regulations: The Federal rules restrict any use of the information to criminally investigate or prosecute any alcohol or drug abuse patient.[facility] Reason for Visit (unrecogniz ed section and content) Reason Comments Results Reason Comments Established Patient Specialty Diagnoses / Procedures Referred By Contac t Referred To Contact HEMATOLOGY/ONCOLOGY Diagnoses 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) Procedures office visit Antonia Mattson, KAYLEN.BIOMETRIC FINGERPRINTING TECHNICIAN [address] [place] [address] [facility], [facility] [place] [address] Referral ID Status Reason Start Date Expiration Date V isits Requested Visits Authorized [id number] Closed Financial Clearance Required - OON Payor Patient Cleared - Qualified 100% FAS Patient Cleared - INN Insurance Found 04/05/2021 07/04/2021 1 1 Reason Comments Received Outside Medical Records Care Teams (unrecognized sec tion and content) 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 [employer] [facility]. provides no warranty or guarantee of the accuracy or completeness of information in this document.
== END | disposition home or self-care (01) ==
LOC: ED 14:09 → LABSPEC 16:05
PROVIDERS: Physician Assistant; Emergency Provider Emergency Medicine; PCP Internal Medicine; Visit Provider Emergency Medicine
DX: R19.7 Diarrhea, unspecified (principal)
CPT/HCPCS: 80048; 83630; 85025; 87493; 87506; 99283; J7030; J7120; A4216

== ENCOUNTER → 2023-09-26 | Outpatient (CLI) | payer MEDICARE, SELFPAY ==
[2023-09-26 09:43] LABS: Absolute Lymphocyte Count 3.37 X10^3/uL (0.83-4.51); Absolute Neutrophil Count 5.4 X10^3/uL (2.0-7.7); Basophil# 0.07 X10^3/uL; Basophil% 0.7 % (0-1); Eosinophil# 0.22 X10^3/uL; Eosinophils% 2.2 % (0-5); Hematocrit 44.3 % (37-47); Hemoglobin 14.3 g/dL (12.0-15.0); Lymphocyte # 3.37 X10^3/ul (0.83-4.51); Lymphocyte % 33.8 % (19-41); Mean Corp Hgb Conc 32.3 g/dL (32-36); Mean Corpuscular Volume 93.1 fL (81-99); Mean Platelet Vol. 10.9 fl (6.2-12.0); NRBC Flagged by Analyzer 0 % (0-5); Neutrophil # 5.35 X10^3/uL (2.7-7.7); Neutrophil % 53.8 % (47-70); Platelet Count 267 K/mm3 (150-450); RBC Distribution Width CV 13.4 % (11.6-14.6); RBC Distribution Width SD 46.2 fl (35.1-43.9); Red Blood Count 4.76 M/mm3 (4.2-5.4)
[2023-09-26 09:44] LABS: Color, Urine Yellow (Yellow); Glucose, Dipstick Normal (Normal); Ketone-Dipstick Negative (Negative); Leukocyte Esterase-Dipstick 100 /ul (Negative); Nitrite-Dipstick Negative (Negative); Occult Blood-Urine Negative /ul (Negative); Protein-Dipstick Negative (Negative); Urine Bilirubin Dipstick Negative (Negative); Urine Clarity Clear (Clear); Urine Urobilinogen Normal (Normal)
[2023-09-26 10:11] LABS: Vitamin D,25 Hydroxy 54.9 ng/mL
[2023-09-26 10:16] LABS: Cholesterol 173 mg/dL (200); High Density Lipoprotein 45 mg/dL; Thyroid Stim Hormone (TSH) 2.77 uIU/mL (0.358-3.74); Triglycerides 147 mg/dL; Very Low Density Lipoprotein 29 mg/dL (5-40)
[2023-09-27 11:47] LABS: ALB/GLOB Ratio 0.9 RATIO (0.9-2.4); AST(SGOT) 30 U/L (15-37); Alanine Aminotransfer ALT/SGPT 33 U/L (13-56); Albumin, Serum 3.7 g/dL (3.2-5.0); Alkaline Phosphatase 45 U/L (45-117); Anion Gap 4 (5-15); BUN 16 mg/dL (7-18); BUN/Creat Ratio 25.6 RATIO (10-20); Calcium,Total 9.2 mg/dL (8.5-10.1); Chloride 105 mmol/L (98-107); Creatinine, Serum 0.63 mg/dL (0.55-1.02); EST Glomerular Filtration Rate 101 mL/min (>60); Est Glom Filt Rate - Afr Amer 122 mL/min (>60); Globulin 3.9 g/dL (2.2-4.2); Glucose 91 mg/dL (74-106); Potassium 3.8 mmol/L (3.5-5.1); Protein, Total 7.6 g/dL (6.4-8.2); Sodium Level 139 mmol/L (136-145)
== END | disposition home or self-care (01) ==
LOC: LAB 08:39
PROVIDERS: PCP Internal Medicine; Referring Provider Nurse Practitioner Family; Visit Provider Nurse Practitioner Family
DX: E55.9 Vitamin D deficiency, unspecified (principal); I10 Essential (primary) hypertension; R17 Unspecified jaundice; F41.9 Anxiety disorder, unspecified
CPT/HCPCS: 36415; 80053; 80061; 81002; 82306; 84443; 85025

== ENCOUNTER → 2023-11-08 | Outpatient (CLI) | payer MEDICARE, SELFPAY ==
[2023-11-08 14:38] LABS: AST(SGOT) 30 U/L (15-37); Alanine Aminotransfer ALT/SGPT 37 U/L (13-56); Albumin, Serum 3.8 g/dL (3.2-5.0); Alkaline Phosphatase 53 U/L (45-117); Bilirubin, Direct 0.25 mg/dL (0.00-0.30); Globulin 4.1 g/dL (2.2-4.2); Protein, Total 7.9 g/dL (6.4-8.2)
== END | disposition home or self-care (01) ==
LOC: LAB 13:35
PROVIDERS: PCP Internal Medicine; Referring Provider Nurse Practitioner Family; Visit Provider Nurse Practitioner Family
DX: R17 Unspecified jaundice (principal)
CPT/HCPCS: 36415; 80076

== ENCOUNTER → 2024-01-29 | Outpatient (CLI) | payer MEDICARE, SELFPAY ==
--- NOTE | 2024-01-29 09:48 | BD_ITS ---
STUDY: DUAL ENERGY X-RAY ABSORPTIOMETRY / DXA REASON FOR EXAM: Female, 68 years old. 733.00OsteoporosisBONE DENSITY REASON FOR EXAM -- due in January TECHNIQUE: Bone Mineral Density (BMD) measurements of lumbar spine and bilateral hips were obtained. COMPARISON: Comparison is made with prior study January 24, 2022. FINDINGS: Lumbar Spine (L1-L4): g/cm2 (0.808) / T-score (-2.2) / Z-score (-0.2) Findings are suggestive of osteopenia with a high fracture risk. Left Femur Total: g/cm2 (0.714) / T-score (-1.9) / Z-score (-0.4) Left Femoral Neck: g/cm2 (0.495) / T-score (-3.2) / Z-score (-1.5) Right Femur Total: g/cm2 (0.744) / T-score (-1.6) / Z-score (-0.2) Right Femoral Neck: g/cm2 (0.615) / T-score (-2.1) / Z-score (-0.4) The T-Scores on the most recent prior examination were: Lumbar Spine (L1-L4): There has been worsening of bone density since the previous examination. Left Femur Total: which represents a worsening of 3.8%. Right Femur Total: which represents a worsening of 0.5%. BD/Dexa Bone Density Study IMPRESSION: The patient is considered osteoporotic as outlined below according to World Hal Organization (WHO) criteria with a high fracture risk. There has been worsening of bone density since the previous examination. Reference Information: The T-score is the number of standard deviations above or below the standard which is normal for young adults at their peak bone mineral density. The World Health Organization (WHO) interprets the T-scores as follows: Above -1 Normal bone density Between -1 and -2.5 Osteopenia Equal to / or below -2.5 Osteoporosis As a practical clinical guideline, osteopenia may be graded as follows: Mild -1 through -1.5 Moderate -1.6 through -2.0 Severe -2.1 through -2.4 The Z-score is the number of standard deviations above or below age-matched controls. A Z-score of less than -1.5 would be considered abnormal. References: 1. NIH Osteoporosis and Related Bone Diseases www osteo.org 2. International Society for Clinical Densitometry www iscd.org 3. National Osteoporosis Foundation www nof.org Electronically Signed: Ernie Fields MD at 8:29 EDT ,
== END | disposition home or self-care (01) ==
LOC: OPBD 09:37
PROVIDERS: PCP Internal Medicine; Referring Provider Nurse Practitioner Family; Visit Provider Nurse Practitioner Family
DX: M81.0 Age-related osteoporosis without current pathological fracture (principal)
CPT/HCPCS: 77080

== ENCOUNTER → 2024-03-26 | Outpatient (CLI) | payer MEDICARE, SELFPAY ==
[2024-03-26 10:19] LABS: AST(SGOT) 20 U/L (15-37); Alanine Aminotransfer ALT/SGPT 31 U/L (13-56); Albumin, Serum 3.7 g/dL (3.2-5.0); Alkaline Phosphatase 49 U/L (45-117); Bilirubin, Direct 0.24 mg/dL (0.00-0.30); Globulin 3.7 g/dL (2.2-4.2); Protein, Total 7.4 g/dL (6.4-8.2)
[2024-03-27 08:13] LABS: AFP, Tumor Marker < 1.8 ng/mL (0.0-9.2); GGTP 20 IU/L (0-60)
== END | disposition home or self-care (01) ==
LOC: LAB 08:29
PROVIDERS: PCP Internal Medicine; Referring Provider Nurse Practitioner Family; Visit Provider Nurse Practitioner Family
DX: R79.89 Other specified abnormal findings of blood chemistry (principal)
CPT/HCPCS: 36415; 80076; 82105; 82977

== ENCOUNTER → 2024-06-24 | Outpatient (CLI) | payer MEDICARE, SELFPAY ==
--- NOTE | 2024-06-24 08:44 | BI_ITS ---
MAMMOGRAPHY - BILATERAL SCREENING REASON FOR EXAM: Female, 69 years old. Routine annual screening examination. PERTINENT HISTORY: Personal history of breast cancer. History of prior lumpectomy with radiation treatment. TECHNIQUE: Digital bilateral breast rose (3D mammographic acquisition) in the CC and MLO projections. 2-D mediolateral oblique (MLO) and craniocaudad (CC) views of both breasts were obtained. CAD: Full Field Digital Mammography with Computer Added Detection was performed. COMPARISON: Comparison is made with prior study dated December 20, 2023 and May 05, 2022. FINDINGS: Breast Composition: There are scattered areas of fibroglandular density. There are no dominant masses or suspicious calcifications. Once again, the patient is status post lumpectomy in the deep upper central portion of left breast with resultant breast deformity and postoperative dystrophic calcifications. No other significant abnormalities are identified. There has been no significant change since the prior study. BI/SCRN MAMM (CAD)W/ROSE BILAT IMPRESSION: Stable bilateral screening mammogram. Yearly follow-up mammogram recommended. (A) ASSESSMENT CATEGORY: BIRADS Category 2: Benign. A letter regarding these results will be sent to the patient by the facility within 30 days. Approximately 10% of breast cancers are not detected by mammography. A normal mammogram should not delay biopsy of a clinically suspicious abnormality. [id number] Electronically Signed: Ernie Fields MD at 11:08 EST ,
== END | disposition home or self-care (01) ==
LOC: OPBI 08:43
PROVIDERS: PCP Internal Medicine; Referring Provider Nurse Practitioner Family; Visit Provider Nurse Practitioner Family
DX: Z12.31 Encounter for screening mammogram for malignant neoplasm of breast (principal)
CPT/HCPCS: 77063; 77067

== ENCOUNTER → 2024-08-26 | Outpatient (CLI) | payer MEDICARE, SELFPAY | END | disposition home or self-care (01) | LOC: LABSPEC 14:07 | PROVIDERS: PCP Internal Medicine; Visit Provider Physician Assistant | DX: R82.90 Unspecified abnormal findings in urine (principal) | CPT/HCPCS: 87086; 87088; 87186 ==

== ENCOUNTER → 2024-09-22 | Outpatient (CLI) | payer MEDICARE, SELFPAY ==
[2024-09-22 10:37] LABS: Absolute Lymphocyte Count 3.73 X10^3/uL (0.83-4.51); Basophil# 0.08 X10^3/uL; Basophil% 0.7 % (0-1); Eosinophil# 0.28 X10^3/uL; Eosinophils% 2.5 % (0-5); Hematocrit 44.6 % (37-47); Hemoglobin 14.7 g/dL (12.0-15.0); Lymphocyte # 3.73 X10^3/ul (0.83-4.51); Lymphocyte % 33.8 % (19-41); Mean Platelet Vol. 10.5 fl (6.2-12.0); Monocyte# 0.91 X10^3/uL; Monocyte% 8.2 % (0-10); NRBC Flagged by Analyzer 0 % (0-5); Neutrophil # 5.99 X10^3/uL (2.7-7.7); Neutrophil % 54.3 % (47-70); Platelet Count 312 K/mm3 (150-450); RBC Distribution Width CV 13.4 % (11.6-14.6); RBC Distribution Width SD 44.7 fl (35.1-43.9)
[2024-09-22 11:04] LABS: Microalbumin,Random Urine 15.3 mg/L (NO RANGE EST.); Microalbumin:Creatinine Ratio 120.5 mg/g CRE
[2024-09-22 11:20] LABS: ALB/GLOB Ratio 1.3 RATIO (0.9-2.4); AST(SGOT) 26 U/L (<=31); Alanine Aminotransfer ALT/SGPT 23 U/L (<=34); Albumin, Serum 4.3 g/dL (3.4-4.8); Alkaline Phosphatase 50 U/L (35-104); Anion Gap 13 (5-15); BUN 14 mg/dL (4-19); BUN/Creat Ratio 20.1 RATIO (10-20); Calcium,Total 9.2 mg/dL (7.6-11.0); Carbon Dioxide 25.4 mmol/L (21.0-32.0); Chloride 102 mmol/L (98-108); Cholesterol 192 mg/dL (<=200); Creatinine, Serum 0.67 mg/dL (0.70-1.20); EST Glomerular Filtration Rate 95 (>60); Globulin 3.3 g/dL (2.2-4.2); Glucose 92 mg/dL (70-99); High Density Lipoprotein 48 mg/dL; Low Density Lipoprotein Calc. 120 mg/dL; Potassium 3.7 mmol/L (3.3-5.1); Protein, Total 7.6 g/dL (5.9-8.4); Sodium Level 141 mmol/L (133-145); Total Bilirubin 1.02 mg/dL (0.00-1.30); Triglycerides 121 mg/dL; Very Low Density Lipoprotein 24 mg/dL (5-40); Vitamin B12 709 pg/mL (180-914)
[2024-09-25 12:09] LABS: Vitamin D 1,25-Dihydroxy 34.6 pg/mL (24.8-81.5)
== END | disposition home or self-care (01) ==
LOC: LAB 09:31
PROVIDERS: PCP Nurse Practitioner Family; Referring Provider Nurse Practitioner Family; Visit Provider Nurse Practitioner Family
DX: E55.9 Vitamin D deficiency, unspecified (principal); I10 Essential (primary) hypertension; Z13.220 Encounter for screening for lipoid disorders
CPT/HCPCS: 36415; 80053; 80061; 82043; 82570; 82607; 82652; 82746; 84443; 85025

== ENCOUNTER → 2025-03-11 | Outpatient (CLI) | payer MEDICARE, SELFPAY ==
--- NOTE | 2025-03-11 12:57 | ECHOD_ITS ---
Reason For Study Reason For Study: MURMUR Procedure This was a 2D Doppler, Color Flow transthoracic echocardiogram. Exam performed in department. Left Ventricle Normal LV size. Mild concentric left ventricular hypertrophy. Mild posterior basal hypokinesis. Estimated LVEF 60%. Stage I diastolic dysfunction. Right Ventricle Normal right ventricle. Atria The left and right atria are normal. Mitral Valve Trivial mitral valve insufficiency. Tricuspid Valve Trivial tricuspid valve insufficiency. Unable to estimate RV systolic pressure due to insufficient tricuspid regurgitant envelope. Aortic Valve Trileaflet aortic valve. Mild aortic valve calcification. Mild aortic valve stenosis. Mean peak gradient 15 mmHg. Pulmonic Valve The pulmonic valve is not well visualized. Great Vessels Normal sized aortic root. Pericardium/Pleural No pericardial effusion. MMode/2D Measurements & Calculations LVIDd: 5.2 cm IVSd: 1.2 cm LVOT diam: 1.8 cm LVIDs: 3.3 cm LVPWd: 1.0 cm LVOT area: 2.5 cm2 RVDd: 2.9 cm FS: 36.3 % LA dimension: 3.8 cm asc Aorta Diam: 3.2 cm LAV(MOD- bp): 27.3 ml LAV(MOD- bp) Indexed: 15.0 ml/m2 LAV(MOD- sp2): 22.5 ml LAV(MOD- sp4): 31.8 ml SV(MOD- sp4): 24.3 ml LVAd ap4: 17.7 cm2 LVAd ap2: 14.5 cm2 LVLd ap4: 6.6 cm LVLd ap2: 6.2 cm SI(MOD- sp4): 13.3 ml/m2 EDV(MOD-sp4): 39.6 ml EDV(MOD-sp2): 28.7 ml EDV(sp4-el): 40.2 ml EDV(sp2-el): 28.7 ml LVAs ap4: 10.0 cm2 LVAs ap2: 8.5 cm2 LVLs ap4: 5.7 cm LVLs ap2: 5.6 cm ESV(MOD-sp4): 15.3 ml ESV(MOD-sp2): 11.5 ml ESV(sp4-el): 14.8 ml ESV(sp2-el): 10.8 ml EF(MOD-sp4): 61.4 % EF(MOD-sp2): 60.0 % EF(sp4-el): 63.2 % SV(MOD-sp2): 17.2 ml SV(sp4-el): 25.4 ml Ao sinus diam: 2.8 cm SI(MOD-sp2): 9.4 ml/m2 Ao ST Junction: 2.2 cm LA dimension(2D): 3.4 cm LA A4 area: 14.4 cm2 TAPSE: 1.7 cm RA A4 area: 10.0 cm2 Time Measurements MV dec time: 0.17 sec Doppler Measurements & Calculations MV E max duncan: 65.8 cm/sec Lat Peak E' Duncan: 9.9 cm/sec Med Peak E' Duncan: 9.0 cm/sec MV A max duncan: 96.2 cm/sec E/E' lat: 6.7 E/E' med: 7.3 MV E/A: 0.68 MV dec slope: 384.3 cm/sec2 Ao V2 max: 256.8 cm/sec LV V1 max: 132.1 cm/sec Ao max P.5 mmHg LV V1 max P.0 mmHg Ao V2 mean: 179.9 cm/sec LV V1 mean P.9 mmHg Ao mean P.7 mmHg LV V1 mean: 93.9 cm/sec Ao V2 VTI: 44.5 cm LV V1 VTI: 26.3 cm AV (velocity ratio): 0.59 JOSELYN(I,D): 1.5 cm2 JOSELYN(V,D): 1.3 cm2 SV(LVOT): 65.3 ml PA V2 max: 115.3 cm/sec ECHO/Echo Complete Interpretation Summary Mild concentric left ventricular hypertrophy. Mild posterior basal hypokinesis. Estimated LVEF 60%. Stage I diastolic dysfunc tion. Trileaflet aortic valve. Mild aortic valve calcification. Mild aortic valve erica nosis. Mean peak gradient 15 mmHg. Ordering Physician: Vianey Zelaya Referring Physician: Vianey Zelaya Performed By: Patricia Burton RDCS
== END | disposition home or self-care (01) ==
PROVIDERS: PCP Nurse Practitioner Family; Referring Provider Nurse Practitioner Family; Visit Provider Nurse Practitioner Family
DX: R01.1 Cardiac murmur, unspecified (principal)
CPT/HCPCS: 93306

== ENCOUNTER 2025-04-20 06:40 | Outpatient (CLI) | payer MEDICARE, SELFPAY ==
--- OUTSIDE RECORDS SUMMARY | 2025-04-20 06:46 | XMS RPT_ITS | CCD ---
Author Organization [facility] Care Team Providers Care Center Administrator Name Role Phone Ciesa, Nallely Unavailable Physical [facility], [place] Unavailable Chuckie Kenny Unavailable Unavailable April Moon Unavailable Unavailable Unavailable Unavailable Unavailable Unavailable Miladys Duarte Unavailable Unavailable Elizabeth Ramirez Unavailable Chuckie Kenny Unavailable Unavailable April Moon Unavailable Unavailable Chuckie Cummins Unavailable Unavailable Ciesa LORENE Nallely Unavailable [facility], [place] Unavailable Chuckie Cummins LPN Unavailable Unavailable April Moon RN Unavailable Unavailable Unavailable Unavailable Estrella Dpuree LPN Unavailable Unavailable Ciesa, Yaneth Unavailable Dr. Rayray Mary Unavailable [phone] CAM Macario LPN Unavailable Unavailable Beryl Zelaya CNP Unavailable Berly Zelaya CNP Unavailable Ciesa, Yaneth Unavailable Clotilde Metcalf LPN Unavailable Unavailable Ciesa LORENE, Nallely Primary Care Provider Padmini Hinkle DO Unavailable Elena Nichole Unavailable fredrick Fuentes Unavailable Unavailable Beryl Zelaya Primary Care Provider Beryl Zelaya CNP Attending Unavailable Beryl Zelaya CNP Consulting Unavailable Beryl Zelaya CNP Referring Unavailable Beryl Zelaya CNP Primary Care Provider Dr. Padmini Hinkle DO Primary Care Provider [phone] Garcia KNITTER MACHINE-CBeryl Attending Provider [phone] Garcia KNITTER MACHINE-CBeryl Referring Provider Mauricio Mcdowell Attending Provider [phone] Dr. Padmini Hinkle DO Referring Provider [phone] Garcia KNITTER MACHINE-CBeryl Primary Care Provider [phone] BERYL ZELAYA Primary Care Unavailable GARY HOOPER Attending Unavailable ASHLEY OLSON Attending Unavailable GARCIABERYL FONSECA Primary Care Unavailable GarciaBeryl fonseca Primary Care Unavailable Beryl Zelaya Attending Unavailable Beryl Zelaya Referring Unavailable MarlonPadmini lerma Primary Care Unavailable Mauricio Mcdowell Attending Unavailable MarlonPadmini lerma Primary Care Unavailable Mauricio Mcdowell Attending Unavailable Padmini Hinkle Referring Unavailable Padmini Hinkle Primary Care Unavailable Mauricio Mcdowell Attending Unavailable Derrick Cotton Attending Unavailable GarciaBeryl fonseca Primary Care Unavailable Padmini Hinkle Primary Care Unavailable Beryl Zelaya Attending Unavailable Beryl Zelaya Referring Unavailable Beryl Zelaya Attending Unavailable GarciaBeryl fonseca Referring Unavailable Garcia Beryl Primary Care Unavailable Garcia, Beryl Primary Care Unavailable Beryl Zelaya Attending Unavailable Beryl Zelaya Referring Unavailable Allergies Allergy Classification Reported Allergen(s) Allergy [...] Internal [facility]; [facility] Work Phone: Comment on above: cardiac symptoms (20 sources) Acetaminophen / HYDROcodone; Translations: [Vicodin *ANALGESICS - OPIOID*] Drug Allergy [facility] Work Phone: (20 sources) Clarithromycin; Translations: [Clarithromycin *MACROLIDES*] Drug Allergy 04-17-20 11 Diarrhea, Vomiting [facility] Work Phone: (20 sources) cyclobenzaprine; Translations: [Flexeril *MUSCULOSKELETAL THERAPY AGENTS*] Drug Allergy Dizziness [facility] Work Phone: (20 sources) Dust; Translations: [Dust] allergy to substance [facility] Work Phone: (20 sources) lansoprazole; Translations: [Prevacid 24HR *ULCER DRUGS*] Drug Allergy 06-27-19 06 Other: See Comments, GI Upset [facility] Work Phone: Comment on above: cardiac symptoms (20 sources) Mold spore; Translations: [Mold Spores] allergy to substance [facility] Work Phone: (20 sources) Morphine; Translations: [Morphine Sulfate (PF) *ANALGESICS - OPIOID*] Drug Allergy 02-23-20 18 Vomiting [facility] Work Phone: (20 sources) RABEprazole; Translations: [Aciphex *ULCER DRUGS*] Drug Allergy [facility] Work Phone: (20 sources) Tree; Translations: [Trees] allergy to substance [facility] Work Phone: (17 sources) cyclobenzaprine; Translations: [CYCLOBENZAPRINE HCL] Drug Allergy 07-03-19 08 Intolerance [facility] (10 sources) HYDROcodone; Translations: [hydrocodone bitartrate] Drug Allergy 02-23-20 18 Nausea [facility] (17 sources) RABEprazole; Translations: [RABEPRAZOLE SODIUM] Drug Allergy 06-27-19 Other: See Comments, GI Upset [facility] (7 sources) Codeine; Translations: [CODEINE] Drug Allergy 05-06-20 Vomiting [facility] (7 sources) fluticasone; Translations: [FLUTICASONE PROPIONATE] Drug Allergy 09-16-19 15 Intolerance [facility] (2 sources) oxyCODONE Drug Allergy [facility]; [facility] Work Phone: Comment on above: Does tolerate with s colpolamine patch. (2 sources) Clarithromycin; Translations: [CLARITHROMYCIN] Drug Allergy 04-17-20 11 [facility] (2 sources) lansoprazole; Translations: [LANSOPRAZOLE] Drug Allergy 06-27-19 [facility] (2 sources) Morphine; Translations: [MORPHINE] Drug Allergy 05-06-20 [facility] Medications Current Medications Medication Drug Class(es) Dates Sig (Normalized) Sig (Original) acetaminophen 500 mg oral tablet (20 sources) Start: 03-07-2018 take 2 tablets by mouth every eight hours Acetaminophen 500 MG tablet Active 1000 mg PO EVERY 8 HOURS March 07, 2018 12:00am Start: 03-07-2018 take 1000 mg by mout h every eight hours Acetaminophen Active 1000 MG PO EVERY 8 HOURS March 07, 2018 12:00am Start: 02-22-2018 End: 03-07-2018 Acetaminophen (Tylenol Extra Strength) 500 MG tablet Discontinued 500 mg PO NEEDED as needed for Pain February 22, 2018 12:00am March 07, 2018 10:05am take 1 tablet by natalie th every eight hours as needed acetaminophen (TYLENOL) 500 mg tablet Take 500 mg by mouth every 8 hours as needed. Active Comment on above: Take 500 mg by mouth every 8 hours as needed. [id number] 200 actuat albuterol 0.09 mg/actuat metered dose inhaler (20 sources) beta2-Adrenergic Agonist Start: 08-01-2024 take 2 puff(s) by inhalation every six hours as needed for wheezing albuterol HFA (PROVENTIL HFA, VENTOLIN HFA) 90 mcg/actuation inhaler Inhale 2 puffs as instructed every 6 hours as needed for wheezing/shortness of breath. 08/01/2024 Active Start: 09-03-2018 End: 05-23-2019 ProAir HFA 108 (90 Base) MCG /ACT Inhalation Aerosol Solution 2 (two) Puff Puff tid or qid for 0 days Quantity: 1 {Inhaler} Refills: 0 Ordered: 23-May-2019 Yaneth Mcgregor Start : 03-Sep-2018 End : 23-May-2019 Inactive Start: 09-03-2018 End: 05-23-2019 ProAir HFA 108 (90 Base) MCG /ACT Inhalation Aerosol Solution 2 (two) Puff Puff tid or qid for 0 days Quantity: 1 {Inhaler} Refills: 0 Ordered: 23-May-2019 Yaneth Mcgregor CNP, CNP, Mary E Start : 03-Sep-2018 End : 23-May-2019 Inactive ascorbic acid 500 mg extende d release oral capsule (20 sources) Vitamin C Ascorbic Acid (V ITAMIN C) 500 mg cpER Take by mouth. Active take 1 mg by mouth once daily Vi tamin C 500 MG Oral Capsule daily (500 MG) Active End: 05-15-2022 take 1 tablet by mouth once daily ascorbic acid, vitamin C, (VITAMIN C) 500 mg tablet Take 500 mg by mouth once daily. 0 05/15/2022 Discontinued Comment on above: Take 500 mg by mouth once daily. Calcium Carbonate / vitamin D3 (6 sources) calcium carbonat e/vitamin D3 (CALCIUM 600 + D ORAL) Take by mouth. Active calcium carbonat e/vitamin D3 (CALCIUM 600 + D ORAL) Take by mouth. 0 Active Comment on above: Take by mouth. cholecalciferol 0.025 mg oral tablet (20 sources) Vitamin D take 1 tablet by mouth twice daily cholecalciferol (VITAMIN D) 1,000 unit tab tablet Take 1,000 Units by mouth two times a day. Active take 1 capsule by mouth twice da estephanie Vitamin D-3 25 MCG (1000 UT) Oral Capsule twice daily (25 MCG (1000 UT)) Active take 1 capsule by mouth once gardenia ly Vitamin D-3 25 MCG (1000 UT) Oral Capsule daily (25 MCG (1000 UT)) Active clobetasol propionate 0.0005 mg/mg topical ointment (2 sources) Corticosteroid clobetasol (MADDIE VATE) 0.05 % ointment Apply to affected area as needed (rash). Active docusate sodium 50 mg / sennosides, group home 8.6 mg oral tablet (9 sources) Start: 03-07-2018 Sennosides-Docusate Sodium 1 TABLET tablet Active 2 {tbl} PO TWICE A DAY March 07, 2018 12:00am Take until first bowel movement, then as needed Start: 03-07-2018 Sennosides-Doc usate Sodium Active 2 TABLET PO TWICE A DAY March 07, 2018 12:00am Take until first bowel movement, then as needed doxycycline hyclate 100 mg oral tablet (1 source) Tetracycline-class Drug Start: 10-03-2024 End: 10-08-2024 take 1 tablet by mouth twice daily doxycycline (VIBRA-TABS) 100 mg tablet Take 1 tablet by mouth two times a day for 5 days. 10 tablet 10/03/2024 10/08/2024 Active famotidine 20 mg oral tablet (2 sources) Histamine-2 Receptor Antagonist Start: 09-25-2022 End: 03-28-2023 take 1 tablet by mouth twice daily as needed famotidine 20 mg oral tablet 1 (one) tablet twice daily as needed for indigestion for 0 days Quantity: 30 {Tablet} Refills: 0 Ordered: 28-Mar-2023 Clotilde Metcalf LPN Start : 25-Sep-2022 End : 28-Mar-2023 Discontinued Comments: Medication taken as needed. Comment on above: Medication taken as needed. hydrOXYzine hydrochloride 25 mg oral tablet (1 source) Antihistamine Start: 09-30-2024 hydrOXYzine HCl (ATARAX) 25 mg tablet Take 25 mg by mouth as needed for anxiety. 09/30/2024 Active Lactobac no.41/Bifidobact no.7 (PROBIOTIC-10 ORAL) (2 sources) Lactobac no.41/Bifidobact no.7 (PROBIOTIC-10 ORAL) Take by mouth. Active LORazepam 0.5 mg oral tablet (20 sources) Benzodiazepine Start: 03-28-2023 take 1 tablet by mouth once daily at bedtime as needed Ativan 0.5 mg oral tablet 1 (one) Tablet qhs prn for 0 days Quantity: 30 {Tablet} Refills: 0 Ordered: 28-Mar-2023 Beryl Zelaya CNP Start : 28-Mar-2023 Active Comments: Rojelio bakerThirtyAnxiety F41.9 Start: 09-21-2021 take 1 tablet by natalie th once daily at bedtime as needed Ativan 0.5 MG Oral Tablet 1 (one) Tablet qhs prn for 0 days Quantity: 30 {Tablet} Refills: 0 Ordered: 21-Sep-2021 Yaneth Mcgregor Start : 21-Sep-2021 Active Comments: Oarrs runThirtyAnxiety F41.9 Start: 06-22-2021 take 1 tablet by natalie th once daily at bedtime as needed Ativan 0.5 MG Oral Tablet 1 (one) Tablet qhs prn for 0 days Quantity: 30 {Tablet} Refills: 0 Ordered: 22-Jun-2021 Abigaillilocoleman PAULSON Yaneth Hawkins CNP Start : 22-Jun-2021 Active Comments: Rojelio bakerThirtyAnxiety F41.9 Start: 06-15-2014 take 1 tablet by natalie th twice daily as needed LORazepam (ATIVAN) 0.5 mg tab Indications: Anxiety state, unspecified Take 1 tablet by mouth twice daily as needed. 60 tablet 5 06/15/2014 Active Start: 05-22-2013 Lorazepam 0.5 MG tablet Active 0.5 mg PO NEEDED as needed for Anxiety May 22, 2013 1:00am Comment on above: Rojelio StaplesrtKayodexie ty F41.9 Take 1 tablet by natalie th twice daily as needed. Multivitamin With Folic Acid (Thera) 1 TABLET tablet (9 sources) Start: 05-22-20 13 take 1 tablet by mouth once daily Multivitamin With Folic Acid (Thera) 1 TABLET tablet Active 1 {tbl} PO DAILY May 22, 2013 1:00am Start: 05-22-2013 take 1 tablet by natalie th once daily Multivitamin With Folic Acid (Thera) 1 TABLET tablet Active 1 TABLET PO DAILY May 22, 2013 12:00am Start: 05-22-2013 take 1 tablet by natalie th once daily Multivitamin With Folic Acid (Thera) 1 TABLET tablet Active 1 TABLET PO DAILY May 22, 2013 1:00am multivitamins w-minerals/lut(CENTRUM SILVER TAB) (6 sources) Start: 11-19-2007 multivitamins w-minerals/lut(CENTRUM SILVER TAB) Take one(1) tablet daily. 0 11/19/2007 Active Comment on above: Take one(1) tablet d aily. omeprazole 20 mg delayed release oral capsule (20 sources) Proton Pump Inhibitor Start: 05-22-2013 take 1 capsule by mouth once daily Omeprazole 20 MG capsule Active 20 mg PO DAILY May 22, 2013 1:00am Start: 2012 End: 09-25-2022 take 1 tablet by mouth once daily Omeprazole Magnesium (PRILOSEC OTC) 20 mg tablet Take 1 tablet by mouth once daily. 0 2012 Active Comment on above: Take 1 tablet by natalie once daily. Pseudoephedrine (20 sources) alpha-Adrenergic Agonist PSEUDOE PHEDRINE HCL (SUDAFED ORAL) Take by mouth. PRN for sinus infection Active Sudafed 12 Hour 120 MG Oral Tablet Extended Release 12 Hour (120 MG) Inactive PSEUDOEPHEDRINE HCL (SUDAFED ORAL) Take by mouth. PRN for sinus infection 0 Active Comment on above: Take by mouth. PRN f or sinus infection sulfamethoxazole 800 mg / trimethoprim 160 mg oral tablet (2 sources) Dihydrofolate Reductase Inhibitor Antibacterial, Sulfonamide Antimicrobial Start: 2 End: 2 take 1 tablet by mouth twice daily sulfamethoxazo le-trimethopri m (BACTRIM DS) 800-160 mg per tablet Take 1 tablet by mouth twice daily for 7 days. 14 tablet 0 04/16/2022 04/23/2022 Active Comment on above: Take 1 tablet by natalie th twice daily for 7 days. Zinc (14 sources) take 1 tablet by mouth once daily Zinc 50 mg tab Take 50 mg by mouth once daily. Active take 1 tablet by mouth once amber y Zinc 50 mg tab Take 50 mg by mouth once daily. 0 Active Zinc Active Comment on above: Take 50 mg by mouth once daily. Completed/Discontinued Medications Medication Drug Class(es) Dates Sig (Normalized) Sig (Original) amLODIPine 2.5 mg oral tablet (15 sources) Dihydropyridine Calcium Channel Joy Start: 02-06-2022 End: 05-23-2022 take 1 tablet by mouth once daily amLODIPine 2.5 mg oral tablet 1 Tablet daily for 30 days Quantity: 30 {Tablet} Refills: 3 Ordered: 23-May-2022 Beryl Zelaya CNP Start : 06-Feb-2022 End : 23-May-2022 Discontinued Start: 01-04-2022 take 1 tablet by natalie once daily amLODIPine Besylate 2.5 MG Oral Tablet 1 Tablet daily for 30 days Quantity: 30 {Tablet} Refills: 3 Ordered: 04-Jan-2022 Beryl Zelaya CNP Start : 04-Jan-2022 Active amoxicillin 875 mg / clavulanate 125 mg oral tablet (20 sources) Penicillin-class Antibacterial Start: 07-24-2022 End: 08-03-2022 take 1 tablet by mouth every twelve hours amoxicillin-pot clavulanate 875-125 mg oral tablet 1 Tablet every 12 hours for 10 days Quantity: 20 {Tablet} Refills: 0 Ordered: 24-Jul-2022 Beryl Zelaya CNP Start : 24-Jul-2022 End : 03-Aug-2022 Inactive Start: 06-24-2019 End: 07-04-2019 take 1 tablet by mouth twice daily Augmentin 500-125 MG Oral Tablet 1 (one) Tablet bid for 10 days Quantity: 20 {Tablet} Refills: 0 Ordered: 24-Jun-2019 Yaneth Mcgregor Start : 24-Jun-2019 End : 04-Jul-2019 Inactive Start: 04-06-2017 End: 04-20-2017 take 1 tablet by mouth twice daily Augmentin 875-125 MG Oral Tablet 1 (one) Tablet bid for 14 days Quantity: 28 {Tablet} Refills: 0 Ordered: 06-Apr-2017 Padmini Hinkle DO Start : 06-Apr-2017 End : 20-Apr-2017 Inactive aspirin 81 mg chewable tablet (9 sources) Platelet Aggregation Inhibitor, Nonsteroidal Anti-inflammatory Drug Start: 03-07-2018 End: 07-08-2023 take 1 tablet by mouth twice daily at mealtime Aspirin 81 MG tablet,chewable Discontinued 81 mg PO TWICE DAILY WITH MEALS 60 March 07, 2018 12:00am July 08, 2023 2:25pm azithromycin 250 mg oral tablet (20 sources) Macrolide Antimicrobial Start: 09-05-2018 End: 04-23-2019 Zithromax Z-Romeo 250 MG Oral Tablet 1 (one) Tablet UAD for 0 days Quantity: 1 {Package} Refills: 0 Ordered: 23-Apr-2019 Chuckie Cummins LPN Start : 05-Sep-2018 End : 23-Apr-2019 Inactive benzonatate 200 mg oral capsule (20 sources) Non-narcotic Antitussive Start: 09-05-2018 End: 05-23-2019 Benzonatate 200 MG Oral Capsule 1 (one) Capsule every 8 horus prn cough for 0 days Quantity: 10 {Capsule} Refills: 0 Ordered: 23-May-2019 Chuckie Cummins LPN Start : 05-Sep-2018 End : 23-May-2019 Inactive bifidobacterium infantis 4 mg oral capsule (20 sources) Start: 10-24-2016 End: 04-06-2017 take 1 capsule by mouth once daily Align 4 MG Oral Capsule 1 (one) Capsule daily for 0 days Quantity: 1 {Package} Refills: 0 Ordered: 06-Apr-2017 Steff Cummins Start : 24-Oct-2016 End : 06-Apr-2017 Discontinued Centrum Silver Oral Tablet (20 sources) take 1 tablet by mouth once daily Centrum Silver Oral Tablet daily Active 12 hr cetirizine hydrochloride 5 mg / pseudoephedrine hydrochloride 120 mg extended release oral tablet (20 sources) alpha-Adrenergic Agonist, Histamine-1 Receptor Antagonist take 5-120 mg by mouth every twelve hours ZyrTEC-D Allergy & Congestion 5-120 MG Oral Tablet Extended Release 12 Hour daily (5-120 MG) Inactive ergocalciferol 1.25 mg oral capsule (20 sources) Provitamin D2 Compound Start: 03-15-2020 End: 02-14-2021 take 1 capsule by mouth every week Vitamin D (Ergocalciferol) 1.25 MG (59369 UT) Oral Capsule 1 (one) Capsule weekly for 0 days Quantity: 8 {Capsule} Refills: 0 Ordered: 14-Feb-2021 Yaneth Mcgregor Start : 15-Mar-2020 End : 14-Feb-2021 Inactive Start: 01-17-2020 take 1 capsule by [facility] every week Vitamin D (Ergocalciferol) 1.25 MG (88545 UT) Oral Capsule 1 (one) Capsule weekly for 0 days Quantity: 8 {Capsule} Refills: 0 Ordered: 17-Jan-2020 Yaneth Mcgregor CNP, CNP, Mary E Start : 17-Jan-2020 Active Start: 04-18-2019 take 1 capsule by [facility] every week Vitamin D (Ergocalciferol) 94487 UNIT Oral Capsule 1 (one) Capsule weekly for 0 days Quantity: 8 {Capsule} Refills: 0 Ordered: 18-Apr-2019 Meche PAULSON, Yaneth Mcgregor CNP, Yaneth Hopkins Start : 18-Apr-2019 Active Start: 02-19-2019 take 1 capsule by mo ut every week Vitamin D (Ergocalciferol) 01942 UNIT Oral Capsule 1 (one) Capsule weekly for 0 days Quantity: 8 {Capsule} Refills: 0 Ordered: 19-Feb-2019 Meche PAULSON, Yaneth Mcgregor CNP, Yaneth Hopkins Start : 19-Feb-2019 Active Start: 11-21-2016 take 1 capsule by [facility] every week VITAMIN D 50,000 unit capsule TAKE 1 CAPSULE BY MOUTH ONCE PER WEEK 12 capsule 3 11/21/2016 Active Start: 05-22-2013 Ergocalciferol (Vitamin D2) (Vitamin D2) 50,000 UNIT capsule Active 04353 U PO WE May 22, 2013 1:00am Comment on above: TAKE 1 CAPSULE BY [facility] ONCE PER WEEK 24 hr etodolac 400 mg extended release oral tablet (20 sources) Nonsteroidal Anti-inflammatory Drug Start: 8 End: 8 take 1 tablet by mouth twice daily Etodolac 400 MG Tab.Er.24h Discontinued 400 mg PO TWICE A DAY February 22, 2018 12:00am March 07, 2018 10:05am Start: 02-16-2017 take 1 tablet by [facility] twice daily Etodolac 400 MG Oral Tablet 1 tab bid (400 MG) Start : 16-Feb-2017 Inactive Comments: Dr. Neves Comment on above: Dr. Neves fluconazole 150 mg oral tablet (6 sources) Azole Antifungal Start: 05-23-2022 End: 07-24-2022 take 1 tablet by mouth once daily Diflucan 150 mg oral tablet 1 (one) tablet daily for 0 days Quantity: 1 {Tablet} Refills: 0 Ordered: 24-Jul-2022 Slarb Clotilde PERALES Start : 23-May-2022 End : 24-Jul-2022 Inactive 12 hr guaiFENesin 600 mg extended release oral tablet (20 sources) Start: 10-24-2016 End: 08-22-2017 Mucinex 600 MG Oral Tablet Extended Release 12 Hour 1 (one) Tablet ER 12HR Tablet ER 12HR bid for 0 days Quantity: 30 {Tablet} Refills: 0 Ordered: 22-Aug-2017 Chuckie Cummins LPN Start : 24-Oct-2016 End : 22-Aug-2017 Discontinued End: 05-26-2024 guaiFENesin (MUCINEX) 600 mg 12 hr tablet Take 1,200 mg by mouth as needed. 05/26/2024 Discontinued Comment on above: Take 1,200 mg by natalie th as needed. hydroxychloroquine sulfate 200 mg oral tablet (20 sources) Antimalarial, Antirheumatic Agent Start: 2017 End: 2023 take 1 tablet by mouth twice daily Hydroxychloroquine (Plaquenil) 200 MG tablet Discontinued 200 mg PO TWICE A DAY February 22, 2018 12:00am July 08, 2023 2:25pm Comment on above: dr. young meloxicam 7.5 mg oral tablet (20 sources) Nonsteroidal Anti-inflammatory Drug Start: 2017 End: 2023 take 1 tablet by mouth twice daily Meloxicam 7.5 MG tablet Discontinued 7.5 mg PO TWICE A DAY March 07, 2018 12:00am July 08, 2023 2:25pm take 1 tablet by natalie th once daily as needed meloxicam 7.5 mg oral tablet 1 daily as needed (7.5 mg) Active Comments: Medication taken as needed. Comment on above: Take 7.5 mg by mouth twice daily. Medication taken as needed. naproxen sodium 220 mg oral tablet (20 sources) Nonsteroidal Anti-inflammatory Drug Start: 017 End: Aleve 220 MG Oral Tablet 1 (one) Tablet as needed for 0 days Quantity: 30 {Tablet} Refills: 0 Ordered: 22-Aug-2017 Chuckie Cummins LPN Start : 24-Oct-2016 End : 22-Aug-2017 Discontinued Comments: Medication taken as needed. Comment on above: Medication taken as needed. nitrofurantoin, macrocrystals 100 mg oral capsule (9 sources) Nitrofuran Antibacterial Start: End: take 1 capsule by mouth twice daily Nitrofurantoin Macrocrystal 100 MG Oral Capsule 1 (one) Capsule bid for 10 days Quantity: 20 {Capsule} Refills: 0 Ordered: 30-Mar-2022 Padmini Hinkle DO Start : 30-Mar-2022 End : 09-Apr-2022 Inactive nitrofurantoin, macrocrystals 25 mg / nitrofurantoin, monohydrate 75 mg oral capsule (2 sources) Nitrofuran Antibacterial Start: End: take 1 capsule by mouth every twelve hours at mealtime Nitrofurantoin Monohyd/M-Cryst (Macrobid) 100 mg capsule Discontinued 100 mg PO Q12H 10 August 26, 2024 12:00am August 30, 2024 12:00am August 31, 2024 12:15am must administer with a meal/food [place] 6-Flk-Cgi-Fish Oil (Fish Oil) 500 MG Capsule. (9 sources) Start: End: take 1 capsule by mouth every other day [place] 1-Rnq-Kls-Fish Oil (Fish Oil) [address] Discontinued 500 mg PO EVERY OTHER DAY February 22, 2018 12:00am March 07, 2018 10:05am Start: 02-22-2018 End: 03-07-2018 take 1 capsule by mouth every other day [place] 7-Poz-Eox-Fish Oil (Fish Oil) [address] Discontinued 500 MG PO EVERY OTHER DAY February 21, 2018 11:00pm March 07, 2018 9:05am Start: 02-22-2018 End: 03-07-2018 take 1 capsule by mouth every other day [place] 5-Yil-Ugr-Fish Oil (Fish Oil) [address]aps[address].Dr Discontinued 500 MG PO EVERY OTHER DAY February 22, 2018 12:00am March 07, 2018 10:05am oxyCODONE hydrochloride 5 mg oral tablet (9 sources) Opioid Agonist Start: 03-07-2018 End: 07-08-2023 take 5-10 mg by mouth every four hours as needed for pain Oxycodone 5 MG tablet Discontinued 5 - 10 mg PO EVERY 4 HOURS NEEDED as needed for Mod-Severe Pain (4-10/10) 80 6 March 07, 2018 12:00am July 08, 2023 2:25pm phenazopyridine hydrochloride 200 mg oral tablet (9 sources) Start: 04-20-2022 End: 07-24-2022 take 1 tablet by mouth twice daily as needed Pyridium 200 mg oral tablet 1 (one) Tablet BID PRN for 0 days Quantity: 30 {Tablet} Refills: 0 Ordered: 24-Jul-2022 Clotilde Metcalf LPN Start : 20-Apr-2022 End : 24-Jul-2022 Inactive predniSONE 10 mg oral tablet (20 sources) Start: 09-03-2018 End: 05-23-2019 predniSONE 10 MG Oral Tablet 1 (one) Tablet Tablet 3 daily x 3 days, 2 daily x 3 days, 1 daily x 3 days for 0 days Quantity: 18 {Tablet} Refills: 0 Ordered: 23-May-2019 Chuckie Cummins LPN Start : 03-Sep-2018 End : 23-May-2019 Inactive Comments: with food Comment on above: with food zinc gluconate 30 mg oral tablet (20 sources) Start: 10-24-2016 End: 08-22-2017 take 1 tablet by mouth once daily Zinc Gluconate 30 MG Oral Tablet 1 (one) Tablet daily for 0 days Quantity: 30 {Tablet} Refills: 0 Ordered: 22-Aug-2017 Chuckie Cummins LPN Start : 24-Oct-2016 End : 22-Aug-2017 Discontinued Problems Active Problems Problem Classification Problem Date Documented Date Episodic/Chronic Anxiety disorders (20 sources) Anxiety; Translations: [Anxiety] Onset: 06-03-20 07 08-22-2017 Chronic Comment on above: has used ativan in p ast now caring for dad in hospice at home situational and cont rolled situational and cont rolled ativan. Last filled Jun 2021, if needs she will call Cancer of breast (20 sources) Malignant tumor of breast ; Translations: [Primary malignant neoplasm of breast] Onset: 04-28-20 13 08-22-2017 Chronic Comment on above: Sees Antonia Mattson CNP, sees Jacob Cardona with lumpectomy and radiation in remission Sees Curtis Mattson CNP last seen Apr 2019 with Jacob 2013 with lumpectomy and radiation in remission Sees Curtis Mattson CLINICAL RESEARCHER last seen Apr 2020 with Jacob 2013 with lumpectomy and radiation stable.in remission Sees Dr. Jacob Resrtepo CNP -Brendan with lumpectomy and radiation Cancer of breast (1 source) History of malignant neoplasm of breast; Translations: [Personal history of malignant neoplasm of breast] Episodic Cardiac dysrhythmias (20 sources) Tachycardia; Translations: [Tachycardia] 08-22-2017 Episodic Comment on above: rate [address] ink more water rate 104-108 needs t o drink more water. Echo reviewed and holter. Chronic obstructive pulmonary disease and bronchiectasis (20 sources) Bronchitis; Translations: [Bronchitis] Onset: 10-04-19 25 Resolved : 05-23-20 19 09-05-2018 Episodic Coronary atherosclerosis and other heart disease (20 sources) Coronary atherosclerosis and other heart disease Esophageal disorders (20 sources) Gastroesophageal reflux disease; Translations: [GERD (gastroesophageal reflux disease)] Onset: 08-04-19 10 08-22-2017 Chronic Comment on above: on prilosec controlled on prilos ec controlled on prilos ec but wants to wean off d/t retirement SE. 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 weaned off, but not controlled now on prn pepcid Essential hypertension (20 sources) Hypertensive disorder; Translations: [Hypertension] 09-21-2021 Chronic Comment on above: BP 124/81 and 132/81 discussed walking, watching sodium, add greens and food high in potassium discussed walking, w atching sodium, add greens and food high in potassium (not really watching sugars, etc.)-wants to see stranding supervisor-check Bps at home, call us with readings in 2 weeks. -reviewed medication SE -Monitor BP at home periodically, call if elevated consistentlydiscussed walking, watching sodium, add greens and food high in potassium (not really watching sugars, etc.)-- stopped NSAIDs for most part and BP has been excellent, did not end up starting norvasc. -Monitor BP at home periodically, call if elevated consistently. borderline todaydiscussed walking, watching sodium, add greens and food high in potassium (not really watching sugars, etc.)-- stopped NSAIDs for most part, did not end up starting norvasc. -Monitor BP at home periodically, call if elevated consistently. borderline today-lifestyle modificationsdiscussed walking, watching sodium, add greens and food high in potassium (not really watching sugars, etc.)--NSAIDs- takes when she knows going to be doing something.- did not end up starting norvasc. Fluid and electrolyte disorders (20 sources) Hypokalemia; Translations: [Hypokalemia] Resolved : 09-22-19 22 06-23-2019 Episodic Comment on above: improved with better diet. Echo with stage 1 diastolic dysfunction, resolved Headache; including migraine (20 sources) Headache; Translations: [Headache] Resolved : 07-09-19 19 08-22-2017 Episodic Headache; including migraine (20 sources) Headache; including migraine Heart valve disorders (1 source) Cardiac murmur, unspecified; Translations: [Cardiac murmur, unspecified] Onset: 04-10-20 Episodic Joint disorders and dislocations; trauma-related (20 sources) Dislocation of temporomandibular joint; Translations: [Dislocation of jaw, bilateral, subsequent encounter] Resolved : 05-23-20 19 08-22-2017 Episodic Comment on above: initially seen by Dr Maxine flores, has bilteral temporal Jaw Disclocation needing physical therapy at specific place will refer Mycoses (12 sources) Candidiasis of vagina; Translations: [Vaginal johan] Resolved : 03-28-20 23 05-23-2022 Episodic Comment on above: mild, will treat wit h x1 diflucan. possibly some vaginosis as well (bacterial) mild, will treat wit h x1 diflucan. possibly some vaginosis as well (bacterial) with thick white and yellow discharge, did do Replens so maybe some left over Nutritional deficiencies (20 sources) Vitamin D deficiency; Translations: [Vitamin D deficiency] Onset: 07-01-19 08 08-22-2017 Chronic Comment on above: has been taking D2 q o week, stable, continue sup plementhas been taking D2 qo week-level 48 09/2022 Osteoarthritis (20 sources) Arthritis; Translations: [Osteoarthritis] 07-09-2018 Chronic Comment on above: on plaquenil per Marlon enki, uses meloxicam off o f plaquenil per self, to get left total knee OR Jul 08 uses meloxicam off o f plaquenil per self, -going to try and st op meloxicam since has been on for over 5 years and CV risk and elevated BP-try tylenol arthritis 650mg 1-3 times per day OR tylenol ES 500mg, 1-2 tabs up to 3 times per day.uses meloxicam off of plaquenil per self Osteoporosis (20 sources) Osteoporosis; Translations: [Osteoporosis] Onset: 05-21-20 23 01-25-2022 Chronic Comment on above: not on tx other than ca and D not on tx other than ca and D, discussed at length today and she is declining oral biphosphonates. -OP with high fx ris k-not on tx other than ca and D, discussed at length today and she is declining oral biphosphonates. Other and ill-defined heart disease (1 source) Other ill-defined heart diseases; Translations: [Other ill-defined heart diseases] Onset: 04-17-20 Chronic Other connective tissue disease (20 sources) Other specified soft tissue disorders; Translations: [Leg swelling symptom] Resolved : 07-09-19 19 08-22-2017 Episodic Other connective tissue disease (20 sources) Bursitis of knee; Translations: [Bursitis, knee] Resolved : 07-09-1908-22-2017 Episodic Comment on above: going [facility] for PT, Dr. Neves Other diseases of veins and lymphatics (6 sources) Lymphedema; Translations: [Lymphedema, not elsewhere classified] Onset: 01-09-20 15 10-22-2015 Chronic Other ear and sense organ disorders (20 sources) Impacted cerumen; Translations: [Cerumen impaction] Resolved : 01-05-20 22 09-21-2021 Episodic Other eye disorders (20 sources) Vitreous detachment; Translations: [Vitreous detachment] Resolved : 05-23-2008-22-2017 Chronic Other female genital disorders (12 sources) Vaginal irritation; Translations: [Vaginal irritation] Resolved : 03-28-20 23 05-23-2022 Episodic Comment on above: mild. Other gastrointestinal disorders (20 sources) Irritable bowel syndrome; Translations: [Irritable bowel] Onset: 08-04-19 10 08-22-2017 Chronic Comment on above: ok to take align controlled Other gastrointestinal disorders (4 sources) Diarrhea; Translations: [Diarrhea, unspecified] 07-08-2023 Episodic Other gastrointestinal disorders (2 sources) Diarrhea, unspecified; Translations: [Diarrhea] 07-08-2023 Episodic Other inflammatory condition of skin (2 sources) Seborrheic psoriasis; Translations: [Other psoriasis] Onset: 05-21-20 23 05-21-2023 Chronic Other liver diseases (2 sources) Elevated total bilirubin; Translations: [Total bilirubin, elevated] 03-28-2023 Episodic Other lower respiratory disease (20 sources) Postviral cough; Translations: [Post-viral cough syndrome] Resolved : 05-23-20 19 09-03-2018 Episodic Other nutritional; endocrine; and metabolic disorders (20 sources) Body mass index 30+ - obesity; Translations: [BMI 32.0-32.9,adult] Resolved : 09-26-19 23 07-09-2018 Chronic Other upper respiratory disease (8 sources) Allergic rhinitis; Translations: [Allergic rhinitis, unspecified] Onset: 03-12-20 Resolved : 08-04-1908-04-2009 Chronic Other upper respiratory disease (20 sources) Pain in throat Episodic Other upper respiratory infections (20 sources) Chronic sinusitis, unspecified; Translations: [Bacterial sinusitis] Onset: 10-04-19 Resolved : 07-09-1908-22-2017 Chronic Other upper respiratory infections (20 sources) Sore throat symptom; Translations: [Acute sinusitis] 08-22-2017 Episodic Comment on above: 2.5 weeks viral vs bacterial i s going for TLKR on Jul 08, will treat as if sinusitis Residual codes; unclassified (20 sources) Postmenopausal state; Translations: [Postmenopausal (Renamed from Postmenopausal status)] 07-09-2018 Episodic Comment on above: last bone density -reorder today BD 01/2022, osteoporo sis with high fx risk. declining oral biphosphonates Residual codes; unclassified (20 sources) Influenza vaccination declined; Translations: [Influenza vaccination declined (Renamed from Refused influenza vaccine)] 06-23-2019 Episodic Residual codes; unclassified (20 sources) Non-smoker; Translations: [Non-smoker] 06-23-2019 Episodic Unclassified (20 sources) Non-smoker; Translations: [Non-smoker] 07-09-2018 Unclassified (20 sources) Unclassified (20 sources) BMI 32.0-32.9,adult Unclassified (20 sources) Postmenopausal (Renamed from Postmenopausal status) Unclassified (20 sources) Encounter for screening for lipid disorder Unclassified (20 sources) BMI 33.0-33.9,adult Unclassified (8 sources) Cerumen impaction Urinary tract infections (18 sources) Bacterial urinary infection; Translations: [UTI (urinary tract infection), bacterial] 04-20-2022 Episodic Past or Other Problems Problem Classification Problem Date Documented Da te Episodic/Chronic Disorders of lipid metabolism (2 sources) Hyperlipidemia; Translations: [Hyperlipidemia, unspecified] Onset: 08-04-2009 Resolved: 03-20-2013 03-20-2013 Chronic Genitourinary symptoms and ill-defined conditions (20 sources) Increased frequency of urination; Translations: [Frequency of micturition] Onset: 08-26-2024 Resolved: 03-28-2023 Episodic Other bone disease and musculoskeletal deformities (6 sources) Osteopenia; Translations: [Other specified disorders of bone density and structure, unspecified site] Onset: 03-07-2013 06-13-2021 Episodic Other connective tissue disease (6 sources) Swelling of right lower limb; Translations: [Right leg swelling] Resolved: 07-09-2018 09-03-2018 Other non-traumatic joint disorders (2 sources) Shoulder joint pain; Translations: [Pain in unspecified shoulder] Onset: 09-01-2008 Resolved: 10-13-2008 10-13-2008 Episodic Other non-traumatic joint disorders (2 sources) Arthritis of left knee; Translations: [Arthritis of knee, left] 06-24-2019 Comment on above: OR Jul 08 Other screening for suspected conditions (not mental disorders or infectious disease) (20 sources) Patient encounter status; Translations: [Breast cancer screening] Onset: 04-10-2013 Resolved: 01-04-2022 06-23-2019 Episodic Sprains and strains (2 sources) Neck sprain; Translations: [Sprain of joints and ligaments of unspecified parts of neck, initial encounter] Onset: 07-04-2007 Resolved: 03-20-2013 03-20-2013 Episodic Unclassified (20 sources) Patient encounter status; Translations: [Breast cancer screening] Resolved: 05-23-2019 08-22-2017 Unclassified (20 sources) Bursitis, knee Unclassified (20 sources) Dislocation of jaw, bilateral, subsequent encounter Unclassified (20 sources) Sinusitis, bacterial Unclassified (20 sources) BMI 30.0-30.9,adult Unclassified (20 sources) Pregnancies 07-09-2018 Comment on above: 3 live births Unclassified (20 sources) Irritable bowel Unclassified (20 sources) Post-viral cough syndrome Unclassified (17 sources) Influenza vaccination declined; Translations: [Influenza vaccination declined (Renamed from Refused influenza vaccine)] 06-23-2019 Unclassified (17 sources) Preprocedural examination done; Translations: [Pre-op evaluation] 06-23-2019 Unclassified (15 sources) Arthritis of knee, left Unclassified (8 sources) Screening for colon cancer Results Test Name Value Interpretation Reference Range Facility Echo Completeon 03-11-2025 Echo Complete [facility] [address] [place] [address] Echo Complete 03/11/25 1301 MR#: [id number] Acct: [id number] Name: LYNSEY PINA Rep #: [id number] : 1955 69 From: Derrick Cotton MD Attending Dr: CUCO Lozano [facility]: Beryl Zelaya KNITTER MACHINE-C Date: 03/11/25 Location: [facility] Sex: F C Admitted: Reason For Study Reason For Study: MURMUR Procedure This was a 2D Doppler, Color Flow transthoracic echocardiogram. Exam performed in department. Left Ventricle Normal LV size. Mild concentric left ventricular hypertrophy. Mild posterior basal hypokinesis. Estimated LVEF 60%. Stage I diastolic dysfunction. Right Ventricle Normal right ventricle. Atria The left and right atria are normal. Mitral Valve Trivial mitral valve insufficiency. Tricuspid Valve Trivial tricuspid valve insufficiency. Unable to estimate RV systolic pressure due to insufficient tricuspid regurgitant envelope. Aortic Valve Trileaflet aortic valve. Mild aortic valve calcification. Mild aortic valve stenosis. Mean peak gradient 15 mmHg. Pulmonic Valve The pulmonic valve is not well visualized. Great Vessels Normal sized aortic root. Pericardium/Pleural No pericardial effusion. MMode/2D Measurements Calculations LVIDd: 5.2 cm IVSd: 1.2 cm LVOT diam: 1.8 cm LVIDs: 3.3 cm LVPWd: 1.0 cm LVOT area: 2.5 cm2 RVDd: 2.9 cm FS: 36.3 % LA dimension: 3.8 cm asc Aorta Diam: 3.2 cm LAV(MOD-bp): 27.3 ml LAV(MOD-bp) Indexed: 15.0 ml/m2 LAV(MOD-sp2): 22.5 ml LAV(MOD-sp4): 31.8 ml SV(MOD-sp4): 24.3 ml LVAd ap4: 17.7 cm2 LVAd ap2: 14.5 cm2 LVLd ap4: 6.6 cm LVLd ap2: 6.2 cm SI(MOD-sp4): 13.3 ml/m2 EDV(MOD-sp4): 39.6 ml EDV(MOD-sp2): 28.7 ml EDV(sp4-el): 40.2 ml EDV(sp2-el): 28.7 ml LVAs ap4: 10.0 cm2 LVAs ap2: 8.5 cm2 LVLs ap4: 5.7 cm LVLs ap2: 5.6 cm ESV(MOD-sp4): 15.3 ml ESV(MOD-sp2): 11.5 ml ESV(sp4-el): 14.8 ml ESV(sp2-el): 10.8 ml EF(MOD-sp4): 61.4 % EF(MOD-sp2): 60.0 % EF(sp4-el): 63.2 % SV(MOD-sp2): 17.2 ml SV(sp4-el): 25.4 ml Ao sinus diam: 2.8 cm SI(MOD-sp2): 9.4 ml/m2 Ao ST Junction: 2.2 cm LA dimension(2D): 3.4 cm LA A4 area: 14.4 cm2 TAPSE: 1.7 cm RA A4 area: 10.0 cm2 Time Measurements MV dec time: 0.17 sec Doppler Measurements Calculations MV E max marlon: 65.8 cm/sec Lat Peak E' Marlon: 9.9 cm/sec Med Peak E' Marlon: 9.0 cm/sec MV A max marlon: 96.2 cm/sec E/E' lat: 6.7 E/E' med: 7.3 MV E/A: 0.68 MV dec slope: 384.3 cm/sec2 Ao V2 max: 256.8 cm/sec LV V1 max: 132.1 cm/sec Ao max P.5 mmHg LV V1 max P.0 mmHg Ao V2 mean: 179.9 cm/sec LV V1 mean P.9 mmHg Ao mean P.7 mmHg LV V1 mean: 93.9 cm/sec Ao V2 VTI: 44.5 cm LV V1 VTI: 26.3 cm AV (velocity ratio): 0.59 JOSELYN(I,D): 1.5 cm2 JOSELYN(V,D): 1.3 cm2 SV(LVOT): 65.3 ml PA V2 max: 115.3 cm/sec ECHO/Echo Complete Interpretation Summary Mild concentric left ventricular hypertrophy. Mild posterior basal hypokinesis. Estimated LVEF 60%. Stage I diastolic dysfunction. Trileaflet aortic valve. Mild aortic valve calcification. Mild aortic valve stenosis. Mean peak gradient 15 mmHg. ___ Ordering Physician: Beryl Zelaya Referring Physician: Beryl Zelaya Performed By: Patricia Burton RDCS 03/11/25 1454 Date Derrick Cotton MD CC: KNITTER MACHINE-C Beryl Zelaya Date Dictated: 03/11/25 1301 Date Transcribed: 03/11/25 1454 Concrete Block Molder: Signed Normal [facility] Microalb:Creat Ratio,Random URon 12-04-2024 MALB:CREAT 12.0 mg/g CRE Normal [facility] Comment on above: Result Comment: AMENDED REPORT 12/04/24 0858 MALB:CREAT previously reported as: 120.5 mg/g CRE Performed By: #### L [id number], L3300.0960, L500.4100, L502.0250, L100.0100, L500.4050, L506.0200, L503.0106 #### [facility] [address] [place], [address] CNOVon 10-03-2024 CNOV Office Visit (UCWSTR ) ----- LYNSEY PINA ([id number]) 1955 F Date Time Provider Department 10/03/24 12:45 PM GARY HOOPER [facility] During your visit today, we recorded the following information about you: Temperature Pulse Respiration Blood pressure 98.2 degrees 99/minute 20/minute 132/85 Weight 78 kg Gary Hooper APRN.CLINICAL RESEARCHER 10/03/2024 1:13 PM Signed [facility] Subjective Lynsey Coleman Pina is a 69 year old female. Patient presents with: Pain, Sinus: Pressure and pain, nasal congestion, post nasal drainage, bilat ear pressure, headache cough x 6 days HPI Nontoxic-appearing 69-year-old female presents urgent care chief plaint sinus pressure cough headache bilateral ear pressure. Duration of symptoms 6 days. Associated symptoms listed above. Symptoms are worsening. Sinus pressure is worsening. OTC medications little to no success. Sick contacts unknown. No fevers. No cough chest pain or shortness of breath. Past medical history prescription medications allergies reviewed. BP 132/85 Pulse 99 Temp 36.8 ?C (98.2 ?F) Resp 20 Wt 78 kg (171 lb 15.3 oz) SpO2 96% BMI 31.13 kg/m? Review of Systems Constitutional: Negative for chills, diaphoresis, fatigue and fever. HENT: Positive for ear pain, sinus pressure and sinus pain. Negative for congestion, drooling, ear discharge, rhinorrhea, sneezing, sore throat and trouble swallowing. Eyes: Negative for pain, discharge, redness, itching and visual disturbance. Respiratory: Positive for cough. Negative for chest tightness, shortness of breath and wheezing. Cardiovascular: Negative for chest pain. Gastrointestinal: Negative for abdominal distention, abdominal pain, blood in stool, constipation, diarrhea, nausea and vomiting. Genitourinary: Negative for difficulty urinating and dysuria. Musculoskeletal: Negative for arthralgias, joint swelling, neck pain and neck stiffness. Skin: Negative for rash. Neurological: Positive for headaches. Negative for dizziness, weakness and numbness. Objective Physical Exam Constitutional: Appearance: Normal appearance. HENT: Head: Normocephalic. Jaw: No trismus, tenderness, swelling or pain on movement. Right Ear: Tympanic membrane, ear canal and external ear normal. Left Ear: Tympanic membrane, ear canal and external ear normal. Nose: Congestion present. Right Sinus: Maxillary sinus tenderness present. Left Sinus: Maxillary sinus tenderness present. Mouth/Throat: Mouth: Mucous membranes are moist. Pharynx: Oropharynx is clear. Uvula midline. No oropharyngeal exudate or posterior oropharyngeal erythema. Eyes: Conjunctiva/sclera: Conjunctivae normal. Cardiovascular: Rate and Rhythm: Normal rate. Pulmonary: Effort: Pulmonary effort is normal. Breath sounds: Normal breath sounds. No wheezing, rhonchi or rales. Abdominal: Palpations: Abdomen is soft. Tenderness: There is no abdominal tenderness. There is no guarding or rebound. Musculoskeletal: General: Normal range of motion. Cervical back: Normal range of motion and neck supple. No edema or erythema. No pain with movement. Normal range of motion. Lymphadenopathy: Cervical: No cervical adenopathy. Skin: General: Skin is warm. Findings: No rash. Neurological: General: No focal deficit present. Mental Status: She is alert and oriented to person, place, and time. Mental status is at baseline. {ASSESSMENT/PLAN: 1. Sinobronchitis - ICD9: 473.9, 490, ICD10: J32.9, J40 Diagnosis sinobronchitis. Suspicious viral etiologies point. Supportive therapies recommended. Safety net antibiotic sent to pharmacy. Patient was educated on supportive therapies. Patient will follow up with primary care provider as needed. Patient was instructed to immediately proceed to emergency room for any new, worsening, or symptoms lasting longer than anticipated. The patient's clinical presentation is otherwise unremarkable at this time. Based on exam and clinical finding, the patient is stable for discharge. Plan of care was discussed with patient. Patient verbalizes understanding and agrees to plan of care. This note was generated using [employer] software. It may contain errors in wording, punctuation, or spelling. Gary Hooper APRN.CLINICAL RESEARCHER History and Record Review Clinical information obtained from an independent historian. History obtained from or confirmed by: parent. External record(s) reviewed: prior outpatient record. Disposition The patient was discharged. OTC Medications were advised: Procedures Allergies As of Date: 10/03/2024 Noted Allergy Reaction CODEINE 05/06/2019 11 - Vomiting MORPHINE 05/06/2019 11 - Vomiting ACIPHEX (RABEPRAZOLE SODIUM) 06/27/2005 8 - GI Upset Comments: Chest pain CLARITHROMYCIN 04/17/2011 6 - Diarrhea 11 - Vomiting FLEXERIL (CYCLOBENZAPRINE HCL) 07/03/2007 5 - Intol (more content not included)... Normal [facility] Vitamin D 1,25-Dihydroxyon 0 09-25-2024 VIT D 1,25 DIHY 34.6 pg/mL Normal 24.8-81.5 [facility] Comment on above: Result Comment: Perf ormed at: - [facility] [address] [id number] Light Rail Signal Technician: Mak Gipson MD, Phone: [phone] Performed By: #### L 011.0067, L3300.0960, L500.4100, L502.0250, L100.0100, L500.4050, L506.0200, L503.0106 #### [facility] [address] [place], [address] 1,25-dihydroxyvitamin D3 [Ma ss/Vol]Ordered By: Beryl Zelaya on 09-22-2024 Vitamin D 1,25-Dihydroxy 34.6 pg/mL 24.8-81.5 [facility] Comment on above: Performed at: [address] [id number] Director: Mak Gipson MD, Phone: [phone] Absolute neutrophil countOrd ered By: Beryl Zelaya on 09-22-2024 Neutrophils (Bld) [#/Vol] 6.0 10*3/uL 2.0-7.7 [facility] Albumin DL <= 20 mg/L (U) [M ass/Vol]Ordered By: Beryl Zelaya on 09-22-2024 Urine Random Microalbumin 15.3 mg/L NO RANGE EST. [facility] Anion gap in Serum or Plasma Ordered By: Beryl Zelaya on 09-22-2024 Anion gap [Moles/Vol] 13 mmol/L 5-15 [facility] BUN/creatinine ratioOrdered By: Beryl Zelaya on 09-22-2024 Urea nitrogen/Creatinine [Mass ratio] 20.1 mg/mg High 10-20 [facility] Basophil percentageOrdered B y: Beryl Zelaya on 09-22-2024 Basophils/100 WBC (Bld) 0.7 % 0-1 [facility] Bilirubin, totalOrdered By: Beryl Zelaya on 09-22-2024 Bilirubin [Mass/Vol] 1.02 mg/dL 0.00-1.30 [facility] CBC W/Diff, Automatedon 040 Absolute Lymph 3.73 X10 3/uL Normal 0.83-4.51 [facility] Comment on above: Performed By: #### L [id number], L3300.0960, L500.4100, L502.0250, L100.0100, L500.4050, L506.0200, L503.0106 #### [facility] [address] [place], [address] Absolute Neut 6.0 X10 3/uL Normal 2.0-7.7 [facility] Comment on above: Performed By: #### L [id number], L3300.0960, L500.4100, L502.0250, L100.0100, L500.4050, L506.0200, L503.0106 #### [facility] [address] [place], [address] Basophils/100 WBC (Bld) 0.7 % Normal 0-1 [facility] Comment on above: Performed By: #### L [id number], L3300.0960, L500.4100, L502.0250, L100.0100, L500.4050, L506.0200, L503.0106 #### [facility] [address] [place], [address] Eosinophils/100 WBC (Bld) 2.5 % Normal 0-5 [facility] Comment on above: Performed By: #### L [id number], L3300.0960, L500.4100, L502.0250, L100.0100, L500.4050, L506.0200, L503.0106 #### [facility] [address] [place], [address] Erythrocyte distribution width (RBC) [Ratio] 13.4 % Normal 11.6-14.6 [facility] Comment on above: Performed By: #### L [id number], L3300.0960, L500.4100, L502.0250, L100.0100, L500.4050, L506.0200, L503.0106 #### [facility] [address] [place], [address] Hematocrit (Bld) [Volume fraction] 44.6 % Normal 37-47 [facility] Comment on above: Performed By: #### L [id number], L3300.0960, L500.4100, L502.0250, L100.0100, L500.4050, L506.0200, L503.0106 #### [facility] [address] [place], [address] Hemoglobin (Bld) [Mass/Vol] 14.7 g/dL Normal 12.0-15.0 [facility] Comment on above: Performed By: #### L [id number], L3300.0960, L500.4100, L502.0250, L100.0100, L500.4050, L506.0200, L503.0106 #### [facility] [address] [place], [address] IG% 0.500 Normal 0.0-0.9 [facility] Comment on above: Result Comment: IG% - Immature Granulocytes (promyelocytes, myelocytes and metamyelocytes) > 1% indicates that a LEFT SHIFT is Present. Performed By: #### L [id number], L3300.0960, L500.4100, L502.0250, L100.0100, L500.4050, L506.0200, L503.0106 #### [facility] [address] [place], [address] Lymphocytes/100 WBC (Bld) 33.8 % Normal 19-41 [facility] Comment on above: Performed By: #### L [id number], L3300.0960, L500.4100, L502.0250, L100.0100, L500.4050, L506.0200, L503.0106 #### [facility] [address] [place], [address] MCH (RBC) [Entitic mass] 30.0 pg Normal 27.0-32.0 [facility] Comment on above: Performed By: #### L [id number], L3300.0960, L500.4100, L502.0250, L100.0100, L500.4050, L506.0200, L503.0106 #### [facility] [address] [place], [address] MCHC (RBC) [Mass/Vol] 33.0 g/dL Normal 32-36 [facility] Comment on above: Performed By: #### L [id number], L3300.0960, L500.4100, L502.0250, L100.0100, L500.4050, L506.0200, L503.0106 #### [facility] [address] [place], [address] MCV (RBC) [Entitic vol] 91.0 fL Normal 81-99 [facility] Comment on above: Performed By: #### L 501.9520, L3300.0960, L500.4100, L502.0250, L100.0100, L500.4050, L506.0200, L503.0106 #### [facility] [address] [place], [address] Monocytes/100 WBC (Bld) 8.2 % Normal 0-10 [facility] Comment on above: Performed By: #### L 501.9520, L3300.0960, L500.4100, L502.0250, L100.0100, L500.4050, L506.0200, L503.0106 #### [facility] [address] [place], [address] Neutrophils/100 WBC (Bld) 54.3 % Normal 47-70 [facility] Comment on above: Performed By: #### L [id number], L3300.0960, L500.4100, L502.0250, L100.0100, L500.4050, L506.0200, L503.0106 #### [facility] [address] [place], [address] Nucleated RBC (Bld) [#/Vol] 0 10*3/uL Normal 0-5 [facility] Comment on above: Performed By: #### L 501.9520, L3300.0960, L500.4100, L502.0250, L100.0100, L500.4050, L506.0200, L503.0106 #### [facility] [address] [place], [address] Platelet mean volume (Bld) [Entitic vol] 10.5 fL Normal 6.2-12.0 [facility] Comment on above: Performed By: #### L 501.9520, L3300.0960, L500.4100, L502.0250, L100.0100, L500.4050, L506.0200, L503.0106 #### [facility] [address] [place], [address] Platelets (Bld) [#/Vol] 312 10*3/uL Normal 150-450 [facility] Comment on above: Performed By: #### L 501.9520, L3300.0960, L500.4100, L502.0250, L100.0100, L500.4050, L506.0200, L503.0106 #### [facility] [address] [place], [address] RBC (Bld) [#/Vol] 4.90 10*6/uL Normal 4.2-5.4 [facility] Comment on above: Performed By: #### L 501.9520, L3300.0960, L500.4100, L502.0250, L100.0100, L500.4050, L506.0200, L503.0106 #### [facility] [address] [place], [address] RDW SD 44.7 fl High 35.1-43.9 [facility] Comment on above: Performed By: #### L 501.9520, L3300.0960, L500.4100, L502.0250, L100.0100, L500.4050, L506.0200, L503.0106 #### [facility] [address] [place], [address] WBC (Bld) [#/Vol] 11.0 10*3/uL Normal 4.4-11.0 [facility] Comment on above: Performed By: #### L 501.9520, L3300.0960, L500.4100, L502.0250, L100.0100, L500.4050, L506.0200, L503.0106 #### [facility] [address] [facility] [place], [address] Calculated very low density lipoprotein (VLDL) cholesterol measurementOrdered By: Beryl Zelaya on 09-22-2024 VLDL Cholesterol 24 mg/dL 5-40 [facility] Carbon dioxide, total [Moles /volume] in Central venous bloodOrdered By: Beryl Zelaya on 09-22-2024 CO2 [Moles/Vol] 25.4 mmol/L 21.0-32.0 [facility] Chloride assayOrdered By: Shruti Zelaya on 09-22-2024 Chloride [Moles/Vol] 102 mmol/L 98-108 [facility] Comprehensive Metabolic Prof ilon 09-22-2024 Albumin [Mass/Vol] 4.3 g/dL Normal 3.4-4.8 [facility] Comment on above: Performed By: #### L 501.9520, L3300.0960, L500.4100, L502.0250, L100.0100, L500.4050, L506.0200, L503.0106 #### [facility] [address] [place], [address] Albumin/Globulin [Mass ratio] 1.3 {ratio} Normal 0.9-2.4 [facility] Comment on above: Performed By: #### L 501.9520, L3300.0960, L500.4100, L502.0250, L100.0100, L500.4050, L506.0200, L503.0106 #### [facility] [address] [place], [address] ALK PHOS 50 U/L Normal 35-104 [facility] Comment on above: Performed By: #### L 501.9520, L3300.0960, L500.4100, L502.0250, L100.0100, L500.4050, L506.0200, L503.0106 #### [facility] [address] [place], [address] ALT [Catalytic activity/Vol] 23 U/L Normal <=34 [facility] Comment on above: Performed By: #### L 501.9520, L3300.0960, L500.4100, L502.0250, L100.0100, L500.4050, L506.0200, L503.0106 #### [facility] [address] [place], [address] AST [Catalytic activity/Vol] 26 U/L Normal <=31 [facility] Comment on above: Performed By: #### L 501.9520, L3300.0960, L500.4100, L502.0250, L100.0100, L500.4050, L506.0200, L503.0106 #### [facility] [address] [place], [place], [id number] (777) Bilirubin [Mass/Vol] 1.02 mg/dL Normal 0.00-1.30 [facility] Comment on above: Performed By: #### L 501.9520, L3300.0960, L500.4100, L502.0250, L100.0100, L500.4050, L506.0200, L503.0106 #### [facility] [address] [place], [address] BUN/CRE 20.1 RATIO High 10-20 [facility] Comment on above: Performed By: #### L 501.9520, L3300.0960, L500.4100, L502.0250, L100.0100, L500.4050, L506.0200, L503.0106 #### [facility] [address] [place], [address] Calcium [Mass/Vol] 9.2 mg/dL Normal 7.6-11.0 [facility] Comment on above: Performed By: #### L 501.9520, L3300.0960, L500.4100, L502.0250, L100.0100, L500.4050, L506.0200, L503.0106 #### [facility] [address] [place], [address] Chloride [Moles/Vol] 102 mmol/L Normal 98-108 [facility] Comment on above: Performed By: #### L 501.9520, L3300.0960, L500.4100, L502.0250, L100.0100, L500.4050, L506.0200, L503.0106 #### [facility] [address] [place], [address] CO2 [Moles/Vol] 25.4 mmol/L Normal 21.0-32.0 [facility] Comment on above: Performed By: #### L 501.9520, L3300.0960, L500.4100, L502.0250, L100.0100, L500.4050, L506.0200, L503.0106 #### [facility] [address] [place], [address] Creatinine [Mass/Vol] 0.67 mg/dL Low 0.70-1.20 [facility] Comment on above: Performed By: #### L 501.9520, L3300.0960, L500.4100, L502.0250, L100.0100, L500.4050, L506.0200, L503.0106 #### [facility] [address] [place], [address] GAP 13 Normal 5-15 [facility] Comment on above: Performed By: #### L 501.9520, L3300.0960, L500.4100, L502.0250, L100.0100, L500.4050, L506.0200, L503.0106 #### [facility] [address] [place], [address] GFR/1.73 sq M.predicted among non-blacks MDRD (S/P/Bld) [Vol rate/Area] 95 mL/min/{1.73_m2} Normal >60 [facility] Comment on above: Result Comment: mL/m in/1.73m2 CKD-EPI Creatinine Equation (2020) Performed By: #### L 501.9520, L3300.0960, L500.4100, L502.0250, L100.0100, L500.4050, L506.0200, L503.0106 #### [facility] [address] [place], [address] Globulin (S) [Mass/Vol] 3.3 g/dL Normal 2.2-4.2 [facility] Comment on above: Performed By: #### L 501.9520, L3300.0960, L500.4100, L502.0250, L100.0100, L500.4050, L506.0200, L503.0106 #### [facility] [address] [place], [address] Glucose [Mass/Vol] 92 mg/dL Normal 70-99 [facility] Comment on above: Performed By: #### L 501.9520, L3300.0960, L500.4100, L502.0250, L100.0100, L500.4050, L506.0200, L503.0106 #### [facility] [address] [place], [address] Potassium [Moles/Vol] 3.7 mmol/L Normal 3.3-5.1 [facility] Comment on above: Performed By: #### L 501.9520, L3300.0960, L500.4100, L502.0250, L100.0100, L500.4050, L506.0200, L503.0106 #### [facility] [address] [place], [address] Sodium [Moles/Vol] 141 mmol/L Normal 133-145 [facility] Comment on above: Performed By: #### L 501.9520, L3300.0960, L500.4100, L502.0250, L100.0100, L500.4050, L506.0200, L503.0106 #### [facility] [address] [place], [address] T PROT 7.6 g/dL Normal 5.9-8.4 [facility] Comment on above: Performed By: #### L 501.9520, L3300.0960, L500.4100, L502.0250, L100.0100, L500.4050, L506.0200, L503.0106 #### [facility] [address] [place], [address] Urea nitrogen [Mass/Vol] 14 mg/dL Normal 4-19 [facility] Comment on above: Performed By: #### L 501.9520, L3300.0960, L500.4100, L502.0250, L100.0100, L500.4050, L506.0200, L503.0106 #### [facility] [address] [place], [address] Creatinine Unsp time (U) [Ma ss/Vol]Ordered By: Beryl Zelaya on 09-22-2024 Creatinine (U) [Mass/Vol] 127.00 mg/dL 28.00-217. 00 [facility] Eosinophil percentageOrdered By: Beryl Zelaya on 09-22-2024 Eosinophils/100 WBC (Bld) 2.5 % 0-5 [facility] Erythrocyte distribution wid th (RBC) [Ratio]Ordered By: Beryl Zelaya on 09-22-2024 Erythrocyte distribution width (RBC) [Entitic vol] 44.7 fL High 35.1-43.9 [facility] Erythrocyte distribution wid th ratioOrdered By: Beryl Zelaya on 09-22-2024 Erythrocyte distribution width (RBC) [Ratio] 13.4 % 11.6-14.6 [facility] Folate [Moles/Vol]Ordered By : Beryl Zelaya on 09-22-2024 Serum Folate 34.10 ng/mL 4.60-34.80 [facility] Folates,Serum (Folic Acid)on 09-22-2024 FOLATES,SERUM 34.10 ng/mL Normal 4.60-34.80 [facility] Comment on above: Order Comment: N Performed By: #### L 501.9520, L3300.0960, L500.4100, L502.0250, L100.0100, L500.4050, L506.0200, L503.0106 #### [facility] [address] [place], [address] GFR/1.73 sq M.predicted kymberly g non-blacks MDRD (S/P/Bld) [Vol rate/Area]Ordered By: Beryl Zelaya on 09-22-2024 Estimated GFR (MDRD) Non-Af Amer 95 >60 [facility] Comment on above: mL/min/1.73m2 CKD-EP I Creatinine Equation (2020) Hematocrit Auto (Bld) [Volum e fraction]Ordered By: Beryl Zelaya on 09-22-2024 Hematocrit (Bld) [Volume fraction] 44.6 % 37-47 [facility] Hemoglobin measurementOrdere d By: Beryl Zelaya on 09-22-2024 Hemoglobin (Bld) [Mass/Vol] 14.7 g/dL 12.0-15.0 [facility] Immature granulocytes/100 WB C Auto (Bld)Ordered By: Beryl Zelaya on 09-22-2024 Immature granulocytes/100 WBC (Bld) 0.500 % 0.0-0.9 [facility] Comment on above: IG% - Immature Granu locytes (promyelocytes, myelocytes and metamyelocytes) > 1% indicates that a LEFT SHIFT is Present. LDL calc ser/plasOrdered By: Beryl Zelaya on 09-22-2024 LDL Cholesterol, Calculated 120 mg/dL [facility] Comment on above: Mwuwdywkip=354-928 m g/dL & Higher Wuck=661 mg/dL or greater Laboratory - Chemistry and C hemistry - challengeOrdered By: Beryl Garcia on 09-22-2024 AST [Catalytic activity/Vol] 26 U/L <32 [facility] Lipid Profileon 09-22-2024 CHOL:HDL 4.00 Normal [facility] Comment on above: Performed By: #### L 501.9520, L3300.0960, L500.4100, L502.0250, L100.0100, L500.4050, L506.0200, L503.0106 #### [facility] [address] [place], [place], [id number] (328) Cholesterol [Mass/Vol] 192 mg/dL Normal <=200 [facility] Comment on above: Result Comment: Chol esterol level, Desirable <200 mg/dL Borderline high cholesterol 200-239 mg/dL High cholesterol >=240 mg/dL Recommendations of the NCEP Adult Treatment Panel for the following risk-cutoff thresholds for the [place] population. Performed By: #### L 501.9520, L3300.0960, L500.4100, L502.0250, L100.0100, L500.4050, L506.0200, L503.0106 #### [facility] [address] [place], [address] Cholesterol in HDL [Mass/Vol] 48 mg/dL Normal [facility] Comment on above: Result Comment: Ana onal Cholesterol Education Program (NCEP) guidelines: <40 mg/dL: Low HDL-cholesterol (major risk factor for CHD) >= 60 mg/dL: High HDL-cholesterol (negative risk factor for CHD) HDL-cholesterol is affected by a number of factors, e.g. smoking, exercise, hormones, sex and age. Performed By: #### L 501.9520, L3300.0960, L500.4100, L502.0250, L100.0100, L500.4050, L506.0200, L503.0106 #### [facility] [address] [place], [place], [phone] (139) Cholesterol in LDL [Mass/Vol] 120 mg/dL Normal [facility] Comment on above: Result Comment: Bord uqaues=905-000 mg/dL Higher Vuht=040 mg/dL or greater Performed By: #### L 501.9520, L3300.0960, L500.4100, L502.0250, L100.0100, L500.4050, L506.0200, L503.0106 #### [facility] [address] [place], [place], [phone] (064) Cholesterol in VLDL [Mass/Vol] 24 mg/dL Normal 5-40 [facility] Comment on above: Performed By: #### L 501.9520, L3300.0960, L500.4100, L502.0250, L100.0100, L500.4050, L506.0200, L503.0106 #### [facility] [address] [place], [place], [id number] (133) Triglyceride [Mass/Vol] 121 mg/dL Normal [facility] Comment on above: Result Comment: The drugs N-Acetylcysteine and Metamizole may falsely depress this assay. Normal range: <150 mg/dL Borderline High: 150-199 mg/dL High: 200-499 mg/dL Very High: >500 mg/dL Performed By: #### L 501.9520, L3300.0960, L500.4100, L502.0250, L100.0100, L500.4050, L506.0200, L503.0106 #### [facility] [address] [place], [address] Lymphocytes Auto (Unsp spec) [#/Vol]Ordered By: Beryl Zelaya on 09-22-2024 Lymphocytes (Bld) [#/Vol] 3.73 10*3/uL 0.83-4.51 [facility] Lymphocytes/100 WBC Auto (Un sp spec)Ordered By: Beryl Zelaya on 09-22-2024 Lymphocytes/100 WBC (Bld) 33.8 % 19-41 [facility] MCV (mean corpuscular volume ) determinationOrdered By: Beryl Zelaya on 09-22-2024 MCV (RBC) [Entitic vol] 91.0 fL 81-99 [facility] Mean corpuscular hemoglobin (MCH) determinationOrdered By: Beryl Zelaya on 09-22-2024 MCH (RBC) [Entitic mass] 30.0 pg 27.0-32.0 [facility] Mean corpuscular hemoglobin concentration (MCHC) determinationOrdered By: Beryl Zelaya on 09-22-2024 MCHC (RBC) [Mass/Vol] 33.0 g/dL 32-36 [facility] Mean platelet volume determi nationOrdered By: Beryl Zelaya on 09-22-2024 Platelet mean volume (Bld) [Entitic vol] 10.5 fL 6.2-12.0 [facility] Microalbumin/creat ratio urO rdered By: Beryl Zelaya on 09-22-2024 Urine Microalbumin/Creatini ne Ratio 120.5 mg/g CRE [facility] Monocyte percentageOrdered B y: Beryl Zelaya on 09-22-2024 Monocytes/100 WBC (Bld) 8.2 % 0-10 [facility] Neutrophil percentageOrdered By: Beryl Zelaya on 09-22-2024 Neutrophils/100 WBC (Bld) 54.3 % 47-70 [facility] Nucleated red blood cell per centageOrdered By: Beryl eZlaya on 09-22-2024 Nucleated RBC/100 WBC (Bld) [Ratio] 0 % 0-5 [facility] Platelet countOrdered By: Shruti Zelaya on 09-22-2024 Platelets (Bld) [#/Vol] 312 10*3/uL 150-450 [facility] Potassium (Unsp spec) [Mass/ Vol]Ordered By: Beryl Zelaya on 09-22-2024 Potassium [Moles/Vol] 3.7 mmol/L 3.3-5.1 [facility] RBC Auto (Bld) [#/Vol]Ordere d By: Beryl Zelaya on 09-22-2024 RBC (Bld) [#/Vol] 4.90 10*6/uL 4.2-5.4 [facility] Screening total cholesterol/ high density lipoprotein (HDL) cholesterol ratioOrdered By: Beryl Zelaya on 09-22-2024 Cholesterol.total/Cho lesterol in HDL [Mass ratio] 4.00 {ratio} [facility] Serum creatinine measurement (mass/volume)Ordered By: Beryl Zelaya on 09-22-2024 Creatinine [Mass/Vol] 0.67 mg/dL Low 0.70-1.20 [facility] Serum globulin measurementOr dered By: Beryl Zelaya on 09-22-2024 Globulin (S) [Mass/Vol] 3.3 g/dL 2.2-4.2 [facility] Serum glucose measurement (m ass/volume)Ordered By: Beryl Zelaya on 09-22-2024 Glucose [Mass/Vol] 92 mg/dL 70-99 [facility] Serum or plasma alanine leonard otransferase (ALT) measurementOrdered By: Beryl Zelaya on 09-22-2024 ALT [Catalytic activity/Vol] 23 U/L <35 [facility] Serum or plasma albumin mandy urement (mass/volume)Ordered By: Beryl Zelaya on 09-22-2024 Albumin [Mass/Vol] 4.3 g/dL 3.4-4.8 [facility] Serum or plasma albumin/glob ulin mass ratioOrdered By: Beryl Zelaya on 09-22-2024 Albumin/Globulin [Mass ratio] 1.3 {ratio} 0.9-2.4 [facility] Serum or plasma alkaline raffi sphatase measurementOrdered By: Beryl Zelaya on 09-22-2024 ALP [Catalytic activity/Vol] 50 U/L 35-104 [facility] Serum or plasma calcium mandy urement (mass/volume)Ordered By: Beryl Zelaya on 09-22-2024 Calcium [Mass/Vol] 9.2 mg/dL 7.6-11.0 [facility] Serum or plasma cholesterol in HDL measurement (mass/volume)Ordered By: Beryl Zelaya on 09-22-2024 Cholesterol in HDL [Mass/Vol] 48 mg/dL >40 [facility] Comment on above: National Cholesterol Education Program (NCEP) guidelines:<40 mg/dL: Low HDL-cholesterol (major risk factor for CHD)>= 60 mg/dL: High HDL-cholesterol (negative risk factor for CHD)HDL-cholesterol is affected by a number of factors, e.g. smoking, exercise, hormones, sex and age. Serum or plasma cholesterol measurement (mass/volume)Ordered By: Beryl Zelaya on 09-22-2024 Cholesterol [Mass/Vol] 192 mg/dL <201 [facility] Comment on above: Cholesterol level, D esirable <200 mg/dLBorderline high cholesterol 200-239 mg/dLHigh cholesterol >=240 mg/dLRecommendations of the NCEP Adult Treatment Panel for the following risk-cutoff thresholds for the [place] population. Serum or plasma urea nitroge n measurement (mass/volume)Ordered By: Beryl Zelaya on 09-22-2024 Urea nitrogen [Mass/Vol] 14 mg/dL 4-19 [facility] Sodium levelOrdered By: Grace Zelaya on 09-22-2024 Sodium [Moles/Vol] 141 mmol/L 133-145 [facility] TSH DL <= 0.005 mIU/L QnOrde red By: Beryl Zelaya on 09-22-2024 Thyroid Stimulating Hormone (TSH) 2.290 uIU/mL 0.300-4.20 0 [facility] Thyroid Stim Hormone (TSH)on 09-22-2024 TSH 2.290 uIU/mL Normal 0.300-4.20 0 [facility] Comment on above: Performed By: #### L 501.9520, L3300.0960, L500.4100, L502.0250, L100.0100, L500.4050, L506.0200, L503.0106 #### [facility] [place], [address] Total proteinOrdered By: Robson Zelaya on 09-22-2024 Protein [Mass/Vol] 7.6 g/dL 5.9-8.4 [facility] Triglycerides measurementOrd ered By: Beryl Zelaya on 09-22-2024 Triglyceride [Mass/Vol] 121 mg/dL <199 [facility] Comment on above: The drugs N-Acetylcy steine and Metamizole may falsely depress this assay. Normal range: <150 mg/dLBorderline High: 150-199 mg/dLHigh: 200-499 mg/dLVery High: >500 mg/dL Vitamin B12on 09-22-2024 Cobalamin (Vitamin B12) [Mass/Vol] 709 pg/mL Normal 180-914 [facility] Comment on above: Performed By: #### L 501.9520, L3300.0960, L500.4100, L502.0250, L100.0100, L500.4050, L506.0200, L503.0106 #### [facility] [place], [address] Vitamin B12 ser/plasOrdered By: Beryl Zelaya on 09-22-2024 Cobalamin (Vitamin B12) [Mass/Vol] 709 pg/mL 180-914 [facility] White blood cell (WBC) count Ordered By: Beryl Zelaya on 09-22-2024 WBC (Bld) [#/Vol] 11.0 10*3/uL 4.4-11.0 [facility] Urine Cultureon 08-28-2024 [facility] Presumptive E. coli Jenkins Count >100,000 Presumptive E. coli: REACTION Ampicillin Islt WANDER 4 Ampicillin+Sulbac Islt WANDER <=2 S Cefepime Islt WANDER <=0.12 S cefTRIAXone Islt WANDER <=0.25 S Ciprofloxacin Islt WANDER <=0.06 S B-Lactamase Extended Susc Islt NEG Gentamicin Islt WANDER <=1 S levoFLOXacin Islt WANDER <=0.12 S Meropenem Islt WANDER <=0.25 S Nitrofurantoin Islt WANDER <=16 S Pip+Tazo Islt WANDER <=4 S TMP SMX Islt WANDER <=20 S Normal [facility] Comment on above: Performed By: #### L 501.9520, L3300.0960, L500.4100, L502.0250, L100.0100, L500.4050, L506.0200, L503.0106 #### [facility] [address] [place], [address] Laboratory - Chemistry and C hemistry - challengeOrdered By: Mauricio Rock on 08-26-2024 Bilirubin Ql (U) Negative [facility] Glucose Ql (U) Negative [facility] Ketones Ql (U) Negative [facility] pH (U) 5.0 [pH] [facility] Specific gravity (U) [Rel density] 1.030 [facility] Urobilinogen (U) [Mass/Vol] Negative [facility] - Hematology and Cell countsOrdered By: Mauricio Rock on 08-26-2024 Hemoglobin Ql (U) Large [facility] - Specimen inform ationOrdered By: Mauricio Rock on 08-26-2024 Clarity (U) Cloudy [facility] Color (U) Dk Yellow [facility] - UrinalysisOrder ed By: Mauricio Rock on 08-26-2024 Nitrite Ql (U) Positive [facility] Protein Ql (U) Trace [facility] No Panel InformationOrdered By: Mauricio Rock on 08-26-2024 Urine Leukocytes Positive [facility] Urine Non-Hemolyzed Blood Large [facility] Urgent Care Visit Reporton 0 08-26-2024 Urgent Care Visit Report [facility] [address], [address] [place] [address] OFFICE VISIT Date of Service: 08/26/24 MR#: [id number] Acct: [id number] Name: LYNSEY PINA Rep #: [id number] : 1955 Provider: JUVE Alfaro Age/Sex: 69/F [place] [facility] [place]: Signed Intake Vital Signs 07/08/23 11:52 08/26/24 13:09 Height 5 ft 3 in BP 156/78 H Blood Pressure Location Rt brachial Position Sitting Respiration 16 Pulse 122 H Pulse Source NIBP Temp 98.8 F Temp Source Oral Pulse Oximetry (%) 97 Oxygen Delivery Method room air Intake Visit Reasons: CONCERN FOR UTI Chief Complaint: dysuria, frequency Ship Unloader Required: No Is patient in pain?: No Allergies lansoprazole (From Prevacid) Allergy (Verified 08/26/24 13:09) Chest tightness rabeprazole sodium (From Aciphex) Allergy (Verified 08/26/24 13:09) Chest tightness clarithromycin Adverse Reaction (Verified 08/26/24 13:09) Nausea/Vom/Diarrhea cyclobenzaprine HCl (From Flexeril) Adverse Reaction (Verified 08/26/24 13:09) Nausea/Vom/Diarrhea hydrocodone bitartrate (From Vicodin) Adverse Reaction (Verified 08/26/24 13:09) Nausea morphine Adverse Reaction (Verified 08/26/24 13:09) Nausea/Vom/Diarrhea Is last menstrual period known: No Post menopausal: Yes Patient : No Have you fallen in the past year?: No Nurse's Note: dysuria, frequency since this morning. denies abd pain, back pain, fever. concern for UTI PFSH Social History Smoking Status: Never smoker HPI HPI Chief Complaint: dysuria, frequency Details: LYNSEY PINA, is a 69 F who presents to the office today for initial evaluation at the [facility] for new onset dysuria and urinary frequency with suprapubic pressure noticed this morning upon kimber kening. No complaints of fever, chills, sweats, lightheadedness/dizziness , nausea/vomiting, or chest pain/shortness of breath/dyspnea on exertion/back pain. No changes in color/ character of urine or stool; no urethral/ vaginal discharge. No yyrc-rek-lcbitzy products taken to assist. No other associated symptoms and no alleviating/aggravating factors. ROS Const Constitutional: No other (As above) Exam Const General: cooperative, healthy appearing and no acute distress Orientation: alert, awake and oriented x3 Chest Chest palpation inspection: normal inspection of the chest Resp Effort Inspection: normal respiratory effort and able to speak in complete sentences Auscultation: Bilateral: Clear to Auscultation Cardio Palpation: normal PMI Rate: regular rate Rhythm: regular rhythm Heart Sounds: S1 normal, S2 normal, no gallops, no murmurs and no rubs Pulses: radial pulses present GI Inspection: normal to inspection Palpation: soft and tender suprapubic (Patient describes upon self-palpation) General: No CVA tenderness Skin General: no rashes or lesions noted Neuro General: patient alert, patient awake and patient oriented x3 Cognition: normal cognition Speech: speech normal Psych Appearance: grossly normal Mental Status: mental status grossly normal Mood: congruent mood Affect: normal affect Speech and Movement: speech and movement normal Attitude: cooperative Diagnoses Urinary tract infection N39.0 Assessment and Plan Assessment and Plan (1) Urinary tract infection: Status: Acute Plan: See POC results; urine sent to lab for UA and C/S. Macrobid as prescribed today. Supportive measures as instructed today. Follow-up with PCP in 3 to 5 days should symptoms not improve, sooner should symptoms only worsen or any other concerns develop. Patient states acknowledging understanding all the above. Coding Level of Care Code Off vis,new,level 3 Assessment and Plan Assessment and Plan Orders: Orders POC Urinalysis Dip (Clinic) Today R30.0 - Dysuria Medications: New nitrofurantoin monohyd/m-cryst 100 mg (Macrobid) must administer with a meal/food 100 mg PO Q12H 5 days 10 caps 0RF Clinical Quality Measures Falls Risk Screening/Assistive Devices Have you fallen in the past year?: No 08/26/24 1312 Date Mauricio Santillan Signature: Date (if applicable) CC: Normal [facility] Urine cultureOrdered By: Basil Rock on 08-26-2024 Bacteria identified Cx Nom (U) Presumptive E. coli Abnormal [facility] SCRN MAMM (CAD)W/ROSE Gonzalez n 06-24-2024 [facility]CRN [facility] [address] [place] [address] SCRN MAMM (CAD)W/ROSE BILAT MR#: [id number] Acct: [id number] Name: LYNSEY PINA Rep #: [id number] : 1955 F 69 From: Ernie alcala MD PCP: Dr. Padmini Hinkle, DO Status: [facility] Study: SCRN MAMM (CAD)W/ROSE BILAT Date of Exam: 01/09 Exam# [id number] Ordering Dr: Beryl Zelaya KNITTER MACHINE-C [id number] MAMMOGRAPHY - BILATERAL SCREENING REASON FOR EXAM: Female, 69 years old. Routine annual screening examination. PERTINENT HISTORY: Personal history of breast cancer. History of prior lumpectomy with radiation treatment. TECHNIQUE: Digital bilateral breast rose (3D mammographic acquisition) in the CC and MLO projections. 2-D mediolateral oblique (MLO) and craniocaudad (CC) views of both breasts were obtained. CAD: Full Field Digital Mammography with Computer Added Detection was performed. COMPARISON: Comparison is made with prior study dated December 20, 2023 and May 05, 2022. FINDINGS: Breast Composition: There are scattered areas of fibroglandular density. There are no dominant masses or suspicious calcifications. Once again, the patient is status post lumpectomy in the deep upper central portion of left breast with resultant breast deformity and postoperative dystrophic calcifications. No other significant abnormalities are identified. There [...] delay biopsy of a clinically suspicious abnormality. [id number] Electronically Signed: Ernie Fields MD at 11:08 EST , CC: CUCO Zelaya; Dr. Padmini Hinkle DO Concrete Block Molder: Signed Normal [facility] CNOVon 05-26-2024 CNOV Office Visit (OBGYWM ) ----- LYNSEY PINA ([id number]) 1955 F Date Time Provider Department 05/26/24 9:30 AM ASHLEY OLSON OBGYWM During your visit today, we recorded the following information about you: Blood pressure Weight Height 122/64 80.2 kg 1.583 m Ashley Olson APRN.CNP 05/26/2024 10:03 AM Signed Patient declined psychodramatistMaxine Menon is a 68 year old who presents for an annual gynecologic exam without complaints. Postmenopausal: Yes since age 50's HRT use: Yes, OCP How long: few yrs. Last Pap: 2020 negative (located under scanned documents) HPV: 2020 negative negative History of abnormal pap: No Last mammogram: [address] 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 No bloating, early satiety, indigestion, or increased flatulence. Bladder: No dysuria, gross hematuria, urinary frequency, urinary urgency, or incontinence Breast: No breast lumps, nipple d/c, overlying skin changes, redness or skin retraction Allergies and current medication updated:Yes SENSITIVE EXAM: The sensitive examination was discussed with the Patient or Patient's Authorized Conversion Worker. As applicable, any other physician, advance practice provider, medical student, or other health professional student that will be observing or involved in the sensitive examination for educational or training purposes was discussed with the Patient or Authorized Conversion Worker. The Patient or Authorized Conversion Worker has agreed to proceed with the sensitive examination. (Sensitive examination includes inspection and/or palpation of the breasts, pelvis, prostate and anorectal regions). EXAM: There were no vitals taken for this visit. GENERAL: pleasant, female in no apparent distress [...] external genitalia normal, normal Bartholin's glands, urethra, [place]'s glands, no vulvar lesions, no cervical lesions, good vaginal support, physiologic discharge present, normal appearing perineal body and perianal region BIMANUAL: uterus normal size, shape and consistency, no adnexal masses, and non-tender RECTOVAGINAL: deferred. NEURO: alert and oriented x3,exam grossly non-focal EXTREMITIES: normal ASSESSMENT/PLAN: 1) Health maintenance: Pap/HPV screening no longer needed Mammogram due June 2024 2) Follow up one year or sooner as needed Ashley Olson APRN.CLINICAL RESEARCHER Allergies As of Date: 05/26/2024 Noted Allergy Reaction CODEINE 05/06/2019 11 - Vomiting MORPHIN (more content not included)... Normal [facility] Absolute lymphocyte countOrd ered By: Beryl Zelaya on 09-26-2023 Lymphocytes Auto (Unsp spec) [#/Vol] 3.37 10*3/uL 0.83-4.51 [facility] Automated lymphocyte count a s percentage of total leukocytesOrdered By: Beryl Zelaya on 09-26-2023 Lymphocytes/100 WBC Auto (Unsp spec) 33.8 % 19-41 [facility] Basophil percentageOrdered B y: Beryl Zelaya on 09-26-2023 Basophils/100 WBC (Bld) 0.7 % 0-1 [facility] Bilirubin [Mass/Vol] 1.30 mg/dL 0.20-1.00 [facility] Comment on above: For patients on eltr ombopag therapy, use of Dimension [place] TBIL is not recommended. Chloride [Moles/Vol] 105 mmol/L 98-107 [facility] Cholesterol [Mass/Vol] 173 mg/dL <200 [facility] Comment on above: <200 mg/dL Desirable 200-240 mg/dL Borderline >240 mg/dL High Risk Eosinophils/100 WBC (Bld) 2.2 % 0-5 [facility] Glucose [Mass/Vol] 91 mg/dL 74-106 [facility] Hemoglobin (Bld) [Mass/Vol] 14.3 g/dL 12.0-15.0 [facility] Monocytes/100 WBC (Bld) 9.0 % 0-10 [facility] Neutrophils (Bld) [#/Vol] 5.4 10*3/uL 2.0-7.7 [facility] Neutrophils/100 WBC (Bld) 53.8 % 47-70 [facility] Potassium [Moles/Vol] 3.8 mmol/L 3.5-5.1 [facility] Comment on above: Slight Hemolysis, Re sult may be falsely increased. Protein [Mass/Vol] 7.6 g/dL 6.4-8.2 [facility] Sodium [Moles/Vol] 139 mmol/L 136-145 [facility] Triglyceride [Mass/Vol] 147 mg/dL <199 [facility] Comment on above: The drugs N-Acetylcy steine and Metamizole may falsely depress this assay.Serum Triglycerides Reference Interval Normal <150 mg/dL Borderline high 150 - 199 mg/dL High 200 - 499 mg/dL Very High > or = 500 mg/dL WBC (Bld) [#/Vol] 10.0 10*3/uL 4.4-11.0 [facility] Bilirubin Test strip Ql (U)O rdered By: Beryl Zelaya on 09-26-2023 Bilirubin Ql (U) Negative Negative [facility] Determination of erythrocyte mean corpuscular volume (MCV)Ordered By: Beryl Zelaya on 09-26-2023 MCV (RBC) [Entitic vol] 93.1 fL 81-99 [facility] Erythrocyte distribution wid th ratioOrdered By: Beryl Zelaya on 09-26-2023 Erythrocyte distribution width (RBC) [Ratio] 13.4 % 11.6-14.6 [facility] Erythrocyte distribution wid th standard deviationOrdered By: Beryl Zelaya on 09-26-2023 Erythrocyte distribution width (RBC) [Entitic vol] 46.2 fL 35.1-43.9 [facility] Hematocrit Auto (Bld) [Volum e fraction]Ordered By: Beryl Zelaya on 09-26-2023 Hematocrit (Bld) [Volume fraction] 44.3 % 37-47 [facility] Immature granulocytes/100 WB C Auto (Bld)Ordered By: Beryl Zelaya on 09-26-2023 Immature granulocytes/100 WBC (Bld) 0.500 % 0.0-0.9 [facility] Comment on above: IG% - Immature Granu locytes (promyelocytes, myelocytes and metamyelocytes) > 1% indicates that a LEFT SHIFT is Present. Ketones Test strip Ql (U)Ord ered By: Beryl Zelaya on 09-26-2023 Ketones Ql (U) Negative Negative [facility] Laboratory - Chemistry and C hemistry - challengeOrdered By: Beryl Zelaya on 09-26-2023 Albumin/Globulin [Mass ratio] 0.9 {ratio} 0.9-2.4 [facility] ALP [Catalytic activity/Vol] 45 U/L 45-117 [facility] ALT [Catalytic activity/Vol] 33 U/L 13-56 [facility] Cholesterol in HDL [Mass/Vol] 45 mg/dL >40 [facility] Comment on above: The drugs N-Acetylcy steine and Metamizole may falsely depress this assay. Reference Range HDL <40 mg/dL Low HDL Cholesterol HDL >or= 60 mg/dL High HDL Cholesterol Cholesterol in LDL [Mass/Vol] 99 mg/dL 0-130 [facility] CO2 [Moles/Vol] 30.0 mmol/L 21.0-32.0 [facility] Globulin (S) [Mass/Vol] 3.9 g/dL 2.2-4.2 [facility] Urea nitrogen/Creatinine [Mass ratio] 25.6 mg/mg 10-20 [facility] Laboratory - Hematology and Cell countsOrdered By: Beryl Zelaya on 09-26-2023 MCH (RBC) [Entitic mass] 30.0 pg 27.0-32.0 [facility] MCHC (RBC) [Mass/Vol] 32.3 g/dL 32-36 [facility] Nucleated RBC/100 WBC (Bld) [Ratio] 0 % 0-5 [facility] Platelet mean volume (Bld) [Entitic vol] 10.9 fL 6.2-12.0 [facility] Platelets (Bld) [#/Vol] 267 10*3/uL 150-450 [facility] Nitrite Test strip Ql (U)Ord ered By: Beryl Zelaya on 09-26-2023 Nitrite Ql (U) Negative Negative [facility] No Panel InformationOrdered By: Beryl Zelaya on 09-26-2023 Estimated GFR (MDRD) Amer 122 mL/min >60 [facility] Comment on above: GFR Calc Estimated GFR (MDRD) Non-Af Amer 101 mL/min >60 [facility] Comment on above: Non- GFR Calc Vitamin D 25-Hydroxy 54.9 ng/mL [facility] Comment on above: Vitamin D 25(OH) Sta tus Range Deficiency <20 ng/mL (50nmol/L) Insufficiency 20 - 30 ng/mL (50 - 75 nmol/L) Sufficiency 30 - 100 ng/mL (75 - 250 nmol/L) Toxicity >100 ng/mL (>250 nmol/L) VLDL Cholesterol 29 mg/dL 5-40 [facility] Protein Test strip Ql (U)Ord ered By: Beryl Zelaya on 09-26-2023 Protein Ql (U) Negative Negative [facility] RBC Auto (Bld) [#/Vol]Ordere d By: Beryl Zelaya on 09-26-2023 RBC (Bld) [#/Vol] 4.76 10*6/uL 4.2-5.4 [facility] Serum or plasma calcium mandy urement (mass/volume)Ordered By: Beryl Zelaya on 09-26-2023 Calcium [Mass/Vol] 9.2 mg/dL 8.5-10.1 [facility] Serum or plasma creatinine m easurement (mass/volume)Ordered By: Beryl Zelaya on 09-26-2023 Creatinine [Mass/Vol] 0.63 mg/dL 0.55-1.02 [facility] Comment on above: The validity of the calculated GFR & GFRAA in patients over 70 years has not been determined. Clinical correlation is essential. Serum or plasma thyroid stim ulating hormone (TSH) measurement (units/volume)Ordered By: Beryl Zelaya on 09-26-2023 TSH Qn 2.77 uIU/mL 0.358-3.74 [facility] Serum or plasma urea nitroge n measurement (mass/volume)Ordered By: Beryl Zelaya on 09-26-2023 Urea nitrogen [Mass/Vol] 16 mg/dL 7-18 [facility] Thin prep Papanicolaou smear with manual screeningOrdered By: Beryl Zelaya on 09-26-2023 Thin prep Papanicolaou smear with manual screening 3.7 g/dL 3.2-5.0 [facility] Thin prep Papanicolaou smear with manual screening 30 U/L 15-37 [facility] Comment on above: Slight Hemolysis, Re sult may be falsely increased. Thin prep Papanicolaou smear with manual screening 4 5-15 [facility] Urine blood detectionOrdered By: Beryl Zelaya on 09-26-2023 RBC Ql (U) Negative Negative [facility] Urine clarityOrdered By: Robson Zelaya on 09-26-2023 Clarity (U) Clear Clear [facility] Urine color determinationOrd ered By: Beryl Zelaya on 09-26-2023 Color (U) Yellow Yellow [facility] Urine glucose detectionOrder ed By: Beryl Zelaya on 09-26-2023 Glucose Ql (U) Normal mg/dl Normal [facility] Urine leukocyte esterase det ection by dipstickOrdered By: Beryl Zelaya on 09-26-2023 Leukocyte esterase Test strip Ql (U) 100 /ul Negative [facility] Urine pHOrdered By: Beryl Zelaya on 09-26-2023 pH (U) 5.0 [pH] 5.0 - 8.0 [facility] Urine specific gravity measu rementOrdered By: Beryl Zelaya on 09-26-2023 Specific gravity (U) [Rel density] 1.020 1.002-1.03 0 [facility] Urine urobilinogen measureme ntOrdered By: Beryl Zelaya on 09-26-2023 Urobilinogen Ql (U) Normal mg/dl Normal [facility] Absolute lymphocyte countOrd ered By: Aiyana Restrepo on 07-08-2023 Lymphocytes Auto (Unsp spec) [#/Vol] 1.96 10*3/uL 0.83-4.51 [facility] Automated lymphocyte count a s percentage of total leukocytesOrdered By: Aiyana Restrepo on 07-08-2023 Lymphocytes/100 WBC Auto (Unsp spec) 27.5 % 19-41 [facility] Basophil percentageOrdered B y: Aiyana Restrepo on 07-08-2023 Basophils/100 WBC (Bld) 0.6 % 0-1 [facility] Chloride [Moles/Vol] 106 mmol/L 98-107 [facility] Eosinophils/100 WBC (Bld) 0.7 % 0-5 [facility] Glucose [Mass/Vol] 113 mg/dL 74-106 [facility] Comment on above: Fasting Glucose resu lt from 100 to 125 mg/dL suggests IMPAIRED HOMEOSTASIS per A.D.A. criteria. Hemoglobin (Bld) [Mass/Vol] 15.2 g/dL 12.0-15.0 [facility] Monocytes/100 WBC (Bld) 10.5 % 0-10 [facility] Neutrophils (Bld) [#/Vol] 4.2 10*3/uL 2.0-7.7 [facility] Neutrophils/100 WBC (Bld) 59.0 % 47-70 [facility] Potassium [Moles/Vol] 3.0 mmol/L 3.5-5.1 [facility] Sodium [Moles/Vol] 140 mmol/L 136-145 [facility] WBC (Bld) [#/Vol] 7.1 10*3/uL 4.4-11.0 [facility] Clostridioides difficile nuc leic acid assay by PCROrdered By: Aiyana Restrepo on 07-08-2023 C. difficile DNA IRVIN+probe Ql (Unsp spec) [facility] C. difficile DNA IRVIN+probe Ql (Unsp spec) [facility] Determination of erythrocyte mean corpuscular volume (MCV)Ordered By: Aiyana Restrepo on 07-08-2023 MCV (RBC) [Entitic vol] 91.6 fL 81-99 [facility] Erythrocyte distribution wid th ratioOrdered By: Aiyana Restrepo on 07-08-2023 Erythrocyte distribution width (RBC) [Ratio] 13.0 % 11.6-14.6 [facility] Erythrocyte distribution wid th standard deviationOrdered By: Aiyana Restrepo on 07-08-2023 Erythrocyte distribution width (RBC) [Entitic vol] 43.7 fL 35.1-43.9 [facility] Hematocrit Auto (Bld) [Volum e fraction]Ordered By: Aiyana Restrepo on 07-08-2023 Hematocrit (Bld) [Volume fraction] 46.6 % 37-47 [facility] Immature granulocytes/100 WB C Auto (Bld)Ordered By: Aiyana Restrepo on 07-08-2023 Immature granulocytes/100 WBC (Bld) 1.700 % 0.0-0.9 [facility] Comment on above: IG% - Immature Granu locytes (promyelocytes, myelocytes and metamyelocytes) > 1% indicates that a LEFT SHIFT is Present. Laboratory - Chemistry and C hemistry - challengeOrdered By: Aiyana Restrepo on 07-08-2023 CO2 [Moles/Vol] 28.0 mmol/L 21.0-32.0 [facility] Urea nitrogen/Creatinine [Mass ratio] 16.7 mg/mg 10-20 [facility] Laboratory - Hematology and Cell countsOrdered By: Aiyana Restrepo on 07-08-2023 MCH (RBC) [Entitic mass] 29.9 pg 27.0-32.0 [facility] MCHC (RBC) [Mass/Vol] 32.6 g/dL 32-36 [facility] Nucleated RBC/100 WBC (Bld) [Ratio] 0 % 0-5 [facility] Platelets (Bld) [#/Vol] 261 10*3/uL 150-450 [facility] No Panel InformationOrdered By: Aiyana Restrepo on 07-08-2023 Estimated Creatinine Clearance Calc 67.49 ml/min [facility] Estimated GFR (MDRD) Amer 104 mL/min >60 [facility] Comment on above: GFR Calc Estimated GFR (MDRD) Non-Af Amer 86 mL/min >60 [facility] Comment on above: Non- GFR Calc Platelet mean volume Herbie-Ec ker (Bld) [Entitic vol]Ordered By: Aiyana Restrepo on 07-08-2023 Platelet mean volume (Bld) [Entitic vol] 10.1 fL 6.2-12.0 [facility] RBC Auto (Bld) [#/Vol]Ordere d By: Aiyana Restrepo on 07-08-2023 RBC (Bld) [#/Vol] 5.09 10*6/uL 4.2-5.4 [facility] Serum or plasma calcium mandy urement (mass/volume)Ordered By: Aiyana Restrepo on 07-08-2023 Calcium [Mass/Vol] 9.2 mg/dL 8.5-10.1 [facility] Serum or plasma creatinine m easurement (mass/volume)Ordered By: Aiyana Restrepo on 07-08-2023 Creatinine [Mass/Vol] 0.72 mg/dL 0.55-1.02 [facility] Comment on above: The validity of the calculated GFR & GFRAA in patients over 70 years has not been determined. Clinical correlation is essential. Serum or plasma urea nitroge n measurement (mass/volume)Ordered By: Aiyana Restrepo on 07-08-2023 Urea nitrogen [Mass/Vol] 12 mg/dL 7-18 [facility] Stool enteric pathogen panel by probe and target amplification methodOrdered By: Aiyana Restrepo on 07-08-2023 Gastrointestinal pathogens panel IRVIN+probe (Stl) [facility] Gastrointestinal pathogens panel IRVIN+probe (Stl) [facility] Stool lactoferrin detection by immunoassayOrdered By: Aiyana Restrepo on 07-08-2023 Lactoferrin IA Ql (Stl) [facility] Lactoferrin IA Ql (Stl) [facility] Thin prep Papanicolaou smear with manual screeningOrdered By: Aiyana Restrepo on 07-08-2023 Thin prep Papanicolaou smear with manual screening 6 5-15 [facility] Absolute lymphocyte countOrd ered By: Beryl Zelaya on 10-04-2022 Lymphocytes Auto (Unsp spec) [#/Vol] 3.86 10*3/uL 0.83-4.51 [facility] Basophil percentageOrdered B y: Beryl Zelaya on 10-04-2022 Basophils/100 WBC (Bld) 0.7 % 0-1 [facility] Bilirubin [Mass/Vol] 1.10 mg/dL 0.20-1.00 [facility] Comment on above: For patients on eltr ombopag therapy, use of Dimension [place] TBIL is not recommended. Chloride [Moles/Vol] 105 mmol/L 98-107 [facility] Cholesterol [Mass/Vol] 194 mg/dL <200 [facility] Comment on above: <200 mg/dL Desirable 200-240 mg/dL Borderline >240 mg/dL High Risk Eosinophils/100 WBC (Bld) 1.5 % 0-5 [facility] Glucose [Mass/Vol] 92 mg/dL 74-106 [facility] Neutrophils (Bld) [#/Vol] 6.8 10*3/uL 2.0-7.7 [facility] Neutrophils/100 WBC (Bld) 56.1 % 47-70 [facility] Potassium [Moles/Vol] 3.7 mmol/L 3.5-5.1 [facility] Protein [Mass/Vol] 7.7 g/dL 6.4-8.2 [facility] Sodium [Moles/Vol] 137 mmol/L 136-145 [facility] Triglyceride [Mass/Vol] 183 mg/dL <199 [facility] Comment on above: The drugs N-Acetylcy steine and Metamizole may falsely depress this assay.Serum Triglycerides Reference Interval Normal <150 mg/dL Borderline high 150 - 199 mg/dL High 200 - 499 mg/dL Very High > or = 500 mg/dL WBC (Bld) [#/Vol] 12.1 10*3/uL 4.4-11.0 [facility] Blood erythrocytes count (nu mber/volume)Ordered By: Beryl Zelaya on 10-04-2022 RBC (Bld) [#/Vol] 4.88 10*6/uL 4.2-5.4 [facility] Blood hemoglobin measurement (mass/volume)Ordered By: Beryl Zelaya on 10-04-2022 Hemoglobin (Bld) [Mass/Vol] 14.6 g/dL 12.0-15.0 [facility] Blood lymphocytes/100 leukoc ytesOrdered By: Beryl Zelaya on 10-04-2022 Lymphocytes/100 WBC (Bld) 32.0 % 19-41 [facility] Blood monocytes/100 leukocyt esOrdered By: Beryl Zelaya on 10-04-2022 Monocytes/100 WBC (Bld) 9.2 % 0-10 [facility] Blood platelet mean volumeOr dered By: Beryl Zelaya on 10-04-2022 Platelet mean volume (Bld) [Entitic vol] 10.0 fL 6.2-12.0 [facility] Determination of erythrocyte mean corpuscular volume (MCV)Ordered By: Beryl Zelaya on 10-04-2022 MCV (RBC) [Entitic vol] 93.0 fL 81-99 [facility] Hematocrit Auto (Bld) [Volum e fraction]Ordered By: Beryl Zelaya on 10-04-2022 Hematocrit (Bld) [Volume fraction] 45.4 % 37-47 [facility] Laboratory - Chemistry and C hemistry - challengeOrdered By: Berylisabella Zelaya on 10-04-2022 ALP [Catalytic activity/Vol] 49 U/L 45-117 [facility] ALT [Catalytic activity/Vol] 29 U/L 13-56 [facility] CO2 [Moles/Vol] 29.0 mmol/L 21.0-32.0 [facility] Cobalamin (Vitamin B12) [Mass/Vol] 669 pg/mL 211-911 [facility] Globulin (S) [Mass/Vol] 3.9 g/dL 2.2-4.2 [facility] Magnesium [Mass/Vol] 2.3 mg/dL 1.6-2.6 [facility] Urea nitrogen/Creatinine [Mass ratio] 22.3 mg/mg 10-20 [facility] Laboratory - Hematology and Cell countsOrdered By: Beryl Zelaya on 10-04-2022 Erythrocyte distribution width (RBC) [Entitic vol] 46.9 fL 35.1-43.9 [facility] Erythrocyte distribution width (RBC) [Ratio] 13.6 % 11.6-14.6 [facility] Immature granulocytes/100 WBC (Bld) 0.500 % 0.0-0.9 [facility] Comment on above: IG% - Immature Granu locytes (promyelocytes, myelocytes and metamyelocytes) > 1% indicates that a LEFT SHIFT is Present. MCH (RBC) [Entitic mass] 29.9 pg 27.0-32.0 [facility] Nucleated RBC/100 WBC (Bld) [Ratio] 0 % 0-5 [facility] MCHC Auto (RBC) [Mass/Vol]Or dered By: Beryl Zelaya on 10-04-2022 MCHC (RBC) [Mass/Vol] 32.2 g/dL 32-36 [facility] No Panel InformationOrdered By: Beryl Zelaya on 10-04-2022 Estimated GFR (MDRD) Amer 112 mL/min >60 [facility] Comment on above: GFR Calc Estimated GFR (MDRD) Non-Af Amer 93 mL/min >60 [facility] Comment on above: Non- GFR Calc Thyroid Stimulating Hormone (TSH) 2.67 uIU/mL 0.358-3.74 [facility] Vitamin D 25-Hydroxy 48.3 ng/mL [facility] Comment on above: Vitamin D 25(OH) Sta tus Range Deficiency <20 ng/mL (50nmol/L) Insufficiency 20 - 30 ng/mL (50 - 75 nmol/L) Sufficiency 30 - 100 ng/mL (75 - 250 nmol/L) Toxicity >100 ng/mL (>250 nmol/L) Platelets bldOrdered By: Robson Zelaya on 10-04-2022 Platelets (Bld) [#/Vol] 283 10*3/uL 150-450 [facility] Serum or plasma albumin mandy urement (mass/volume)Ordered By: Beryl Zelaya on 10-04-2022 Albumin [Mass/Vol] 3.8 g/dL 3.2-5.0 [facility] Serum or plasma albumin/glob ulin mass ratioOrdered By: Beryl Zelaya on 10-04-2022 Albumin/Globulin [Mass ratio] 1.0 {ratio} 0.9-2.4 [facility] Serum or plasma calcium mandy urement (mass/volume)Ordered By: Beryl Zelaya on 10-04-2022 Calcium [Mass/Vol] 8.7 mg/dL 8.5-10.1 [facility] Serum or plasma cholesterol in HDL measurement (mass/volume)Ordered By: Beryl Zelaya on 10-04-2022 Cholesterol in HDL [Mass/Vol] 45 mg/dL >40 [facility] Comment on above: The drugs N-Acetylcy steine and Metamizole may falsely depress this assay. Reference Range HDL <40 mg/dL Low HDL Cholesterol HDL >or= 60 mg/dL High HDL Cholesterol Serum or plasma cholesterol in VLDL measurement (mass/volume)Ordered By: Beryl Zelaya on 10-04-2022 Cholesterol in VLDL [Mass/Vol] 37 mg/dL 5-40 [facility] Serum or plasma creatinine m easurement (mass/volume)Ordered By: Beryl Zelaya on 10-04-2022 Creatinine [Mass/Vol] 0.67 mg/dL 0.55-1.02 [facility] Comment on above: The validity of the calculated GFR & GFRAA in patients over 70 years has not been determined. Clinical correlation is essential. Serum or plasma folate measu rement (mass/volume)Ordered By: Beryl Zelaya on 10-04-2022 Folate [Mass/Vol] 39.80 ng/mL 3.1-55.4 [facility] Serum or plasma low density lipoprotein (LDL) cholesterol measurement (mass/volume)Ordered By: Beryl Zelaya on 10-04-2022 Cholesterol in LDL [Mass/Vol] 112 mg/dL 0-130 [facility] Serum or plasma urea nitroge n measurement (mass/volume)Ordered By: Beryl Zelaya on 10-04-2022 Urea nitrogen [Mass/Vol] 15 mg/dL 7-18 [facility] Thin prep Papanicolaou smear with manual screeningOrdered By: Beryl Zelaya on 10-04-2022 Thin prep Papanicolaou smear with manual screening 16 U/L 15-37 [facility] Thin prep Papanicolaou smear with manual screening 3 5-15 [facility] Urinalysis, Office ([id number])Or dered By: Clotilde Metcalf on 05-23-2022 Bilirubin Ql (U) Negative [facility]; [facility] Work Phone: Glucose Test strip (U) [Mass/Vol] Negative Normal [facility]; [facility] Work Phone: Hemoglobin Ql (U) Non Hemolyzed Trace Normal [facility]; [facility] Work Phone: Ketones Ql (U) Negative Normal [facility]; [facility] Work Phone: Leukocyte esterase Test strip Ql (U) Negative Normal [facility]; [facility] Work Phone: Nitrite Ql (U) Negative Normal [facility]; [facility] Work Phone: pH (U) 6 [pH] Abnormal [facility]; [facility] Work Phone: Protein Ql (U) Negative Normal [facility]; [facility] Work Phone: Specific gravity (U) [Rel density] 1.015 1 Normal [facility]; [facility] Work Phone: Urobilinogen (24H U) [Mass/Time] Normal Normal [facility]; [facility] Work Phone: Urinalysis, Office ([id number])Or dered By: Chuckie Cummins on 04-20-2022 Bilirubin Ql (U) Negative Normal [facility]; [facility] Work Phone: Glucose Test strip (U) [Mass/Vol] Negative Normal [facility]; [facility] Work Phone: Hemoglobin Ql (U) Negative Normal [facility]; [facility] Work Phone: Ketones Ql (U) Negative Normal [facility]; [facility] Work Phone: Leukocyte esterase Test strip Ql (U) Negative Normal [facility]; [facility] Work Phone: Nitrite Ql (U) Negative Normal [facility]; [facility] Work Phone: pH (U) 6 [pH] Abnormal [facility]; [facility] Work Phone: Protein Ql (U) Negative Normal [facility]; [facility] Work Phone: Specific gravity (U) [Rel density] 1.010 1 Normal [facility]; [facility] Work Phone: Urobilinogen (24H U) [Mass/Time] Normal Normal [facility]; [facility] Work Phone: UA DIP, URINE (POC)on 2021 BILIRUBIN UA (POCT) Negative Negative [facility] CLARITY UA (POCT) Clear [facility] COLOR UA (POCT) Yellow [facility] GLUCOSE UA (POCT) Negative Negative mg/dL [facility] HEMOGLOBIN/BLOOD UA (POCT) Trace-intact Abnormal Negative [facility] KETONE UA (POCT) Negative Negative mg/dL [facility] LEUKOCYTES UA (POCT) Negative Negative [facility] NITRITE UA (POCT) Negative Negative [facility] PH UA (POCT) 5.0 4.5 - 8.0 [facility] Protein Ql (U) Negative Negative mg/dL [facility] SPECIFIC GRAVITY UA (POCT) 1.025 1.005 - 1.030 [facility] UROBILINOGEN UA (POCT) 0.2 E.U./dL Normal E.U./dL [facility] URINE [place] ([id number])Ordered By: Last Cleaner on 03-30-2022 Bacteria identified Cx Nom (U) Final report Abnormal [facility]; [facility] Work Phone: Comment on above: PATIENT NOT FASTINGP ERFORMED BY: LOREE [employer] [place] [id number] Information: SRC:UC Bacteria identified Cx Nom (U) Escherichia coli Abnormal [facility]; [facility] Work Phone: Comment on above: Cefazolin <=4 ug/mLC efazolin with an WANDER <=16 predicts susceptibility to the oral agentscefaclor, cefdinir, cefpodoxime, cefprozil, cefuroxime, cephalexin,and loracarbef when used for therapy of uncomplicated urinary tractinfections due to E. coli, Klebsiella pneumoniae, and Proteusmirabilis.Greater than 100,000 colony forming units per mL PATIENT NOT FASTINGP ERFORMED BY: [employer] [place] [id number] Information: SRC: Other Antibiotic [Susc] MIHEAD Normal [facility]; [facility] Work Phone: Comment on above: S = Susceptible; I = Intermediate; R = Resistant P = Positive; N = Negative MICS are expressed in micrograms per mL Antibiotic RSLT#1 RSLT#2 RSLT#3 RSLT#4Amoxicillin/Clavulanic Acid SAmpicillin RCefepime SCeftriaxone SCefuroxime SCiprofloxacin SErtapenem SGentamicin SImipenem SLevofloxacin SMeropenem SNitrofurantoin SPiperacillin/Tazobactam STetracycline STobramycin STrimethoprim/Sulfa S PATIENT NOT FASTINGP ERFORMED BY: LOREE [facility] [id number] Lowery RoadDublin [place] [id number] Information: SRC:ELROY Urinalysis, Office ([id number])Or dered By: Chuckie Cummins on 03-30-2022 Bilirubin Ql (U) Negative Normal [facility]; [facility] Work Phone: Glucose Test strip (U) [Mass/Vol] Negative Normal [facility]; [facility] Work Phone: Hemoglobin Ql (U) + Abnormal [facility]; [facility] Work Phone: Ketones Ql (U) Negative Normal [facility]; [facility] Work Phone: Leukocyte esterase Test strip Ql (U) Large Normal [facility]; [facility] Work Phone: Nitrite Ql (U) Negative Normal [facility]; [facility] Work Phone: pH (U) 6 [pH] Abnormal [facility]; [facility] Work Phone: Protein Ql (U) Negative Normal [facility]; [facility] Work Phone: Specific gravity (U) [Rel density] 1.015 1 Normal [facility]; [facility] Work Phone: Urobilinogen (24H U) [Mass/Time] Normal Normal [facility]; [facility] Work Phone: .Auto Diffon 07-09-2019 Ammonia (P) [Mass/Vol] 1.50 10 3/mcL High 0.15-1.00 [facility] ([place]) Comment on above: Performed By: #### B MP, GFR #### [place] [address] #### CBC, ADIFF, ANEU #### [address] [address] Basophils (Bld) [#/Vol] 0.10 10 3/mcL Normal 0.00-0.19 [facility] ([place]) Comment on above: Performed By: #### Merlin MP, GFR #### [place] [address] #### CBC, ADIFF, ANEU #### [address] [address] Basophils/100 WBC (Bld) 0.4 % Normal 0.0-2.5 [facility] ([place]) Comment on above: Performed By: #### Merlin MP, GFR #### [place] [address] #### CBC, ADIFF, ANEU #### [address] [address] Eosinophils (Bld) [#/Vol] 0.20 10 3/mcL Normal 0.00-0.40 [facility] ([place]) Comment on above: Performed By: #### B MP, GFR #### [place] [address] #### CBC, ADIFF, ANEU #### [address] [address] Eosinophils/100 WBC (Bld) 1.2 % Normal 0.0-7.0 [facility] ([place]) Comment on above: Performed By: #### B MP, GFR #### [place] [address] #### CBC, ADIFF, ANEU #### [address] [address] Lymphocytes (Bld) [#/Vol] 3.00 10 3/mcL Normal 0.77-3.85 [facility] ([place]) Comment on above: Performed By: #### B MP, GFR #### [place] [address] #### CBC, ADIFF, ANEU #### [address] [address] Lymphocytes/100 WBC (Bld) 22.3 % Normal 10.0-50.0 [facility] ([place]) Comment on above: Performed By: #### B MP, GFR #### [place] [address] #### CBC, ADIFF, ANEU #### [address] [address] Monocytes/100 WBC (Bld) 10.9 % Normal 1.7-13.0 [facility] ([place]) Comment on above: Performed By: #### B MP, GFR #### [place] [address] #### CBC, ADIFF, ANEU #### [address] [address] Neutrophils/100 WBC (Bld) 65.2 % Normal 37.0-80.0 [facility] ([place]) Comment on above: Performed By: #### B MP, GFR #### [place] [address] #### CBC, ADIFF, ANEU #### [address] [address] .GFRon 07-09-2019 GFR 74 ml/min/1.73sqm Normal [facility] ([place]) Comment on above: Result Comment: GFR Population mean for , Non- Americans Ages 20-29 = 116 mL/min/1.73 sq.m. Ages 30-39 = 107 mL/min/1.73 sq.m. Ages 40-49 = 99 mL/min/1.73 sq.m. Ages 50-59 = 93 mL/min/1.73 sq.m. Ages 60-69 = 85 mL/min/1.73 sq.m. Ages 70+ = 75 mL/min/1.73 sq.m. Chronic Kidney Disease: Less than 60 mL/min/1.73 square meters End Stage Renal Disease: Less than 15 mL/min/1.73 square meters Performed By: #### B MP, GFR #### [place] [address] #### CBC, ADIFF, ANEU #### [address] [address] GFR Non- 61 ml/min/1.73sqm Normal [facility] ([place]) Comment on above: Result Comment: GFR Population mean for , Non- Americans Ages 20-29 = 116 mL/min/1.73 sq.m. Ages 30-39 = 107 mL/min/1.73 sq.m. Ages 40-49 = 99 mL/min/1.73 sq.m. Ages 50-59 = 93 mL/min/1.73 sq.m. Ages 60-69 = 85 mL/min/1.73 sq.m. Ages 70+ = 75 mL/min/1.73 sq.m. Chronic Kidney Disease: Less than 60 mL/min/1.73 square meters End Stage Renal Disease: Less than 15 mL/min/1.73 square meters Performed By: #### B MP, GFR #### [place] [address] #### CBC, ADIFF, ANEU #### [address] [address] .NEUABSon 07-09-2019 Neutrophils (Bld) [#/Vol] 8.70 10 3/mcL High 2.85-6.16 [facility] ([place]) Comment on above: Performed By: #### B MP, GFR #### [place] [address] #### CBC, ADIFF, ANEU #### [address] [address] BMPon 07-09-2019 Calcium [Mass/Vol] 8.3 mg/dL Low 8.4-10.2 [facility] ([place]) Comment on above: Performed By: #### B MP, GFR #### [address] [address] #### CBC, ADIFF, ANEU #### [address] [address] Chloride [Moles/Vol] 105 mmol/L Normal 98-107 [facility] ([place]) Comment on above: Performed By: #### B MP, GFR #### [place] [address] #### CBC, ADIFF, ANEU #### [address] [address] CO2 [Moles/Vol] 30 mmol/L Normal 23-31 [facility] ([place]) Comment on above: Performed By: #### B MP, GFR #### [place] [address] #### CBC, ADIFF, ANEU #### [address] [address] Creatinine [Mass/Vol] 0.93 mg/dL Normal 0.55-1.02 [facility] ([place]) Comment on above: Performed By: #### B MP, GFR #### [place] [address] #### CBC, ADIFF, ANEU #### [address] [address] Electrolyte Balance 9.0 mEq/L Normal [facility] ([place]) Comment on above: Performed By: #### B MP, GFR #### [address] [address] #### CBC, ADIFF, ANEU #### [address] [address] Glucose [Mass/Vol] 107 mg/dL Normal 80-115 [facility] ([place]) Comment on above: Performed By: #### B MP, GFR #### [place] [id number] #### CBC, ADIFF, ANEU #### [address] [address] Potassium [Moles/Vol] 3.5 mmol/L Normal 3.5-5.1 [facility] ([place]) Comment on above: Performed By: #### B MP, GFR #### [address] [address] #### CBC, ADIFF, ANEU #### [address] [address] Sodium [Moles/Vol] 144 mmol/L Normal 136-145 [facility] ([place]) Comment on above: Performed By: #### B MP, GFR #### [place] [address] #### CBC, ADIFF, ANEU #### [address] [address] Urea nitrogen [Mass/Vol] 15 mg/dL Normal 7-18 [facility] ([place]) Comment on above: Performed By: #### B MP, GFR #### [place] [address] #### CBC, ADIFF, ANEU #### [address] [address] Urea nitrogen/Creatinine [Mass ratio] 16 ratio Normal 7-27 [facility] ([place]) Comment on above: Performed By: #### B MP, GFR #### [place] [address] #### CBC, ADIFF, ANEU #### [address] [address] CBCon 07-09-2019 Erythrocyte distribution width (RBC) [Ratio] 13.5 % Normal 11.5-14.5 [facility] ([place]) Comment on above: Performed By: #### B MP, GFR #### [place] [address] #### CBC, ADIFF, ANEU #### [address] [address] Hematocrit (Bld) [Volume fraction] 36.6 % Low 37.0-47.0 [facility] ([place]) Comment on above: Performed By: #### B MP, GFR #### [place] [address] #### CBC, ADIFF, ANEU #### [address] [address] Hemoglobin (Bld) [Mass/Vol] 12.0 G/dL Normal 12.0-16.0 [facility] ([place]) Comment on above: Performed By: #### B MP, GFR #### [place] [address] #### CBC, ADIFF, ANEU #### [address] [address] MCH (RBC) [Entitic mass] 30.0 pg Normal 27.0-31.2 [facility] ([place]) Comment on above: Performed By: #### B MP, GFR #### [place] [address] #### CBC, ADIFF, ANEU #### [address] [address] MCHC (RBC) [Mass/Vol] 32.9 G/dL Low 33.0-37.0 [facility] ([place]) Comment on above: Performed By: #### B MP, GFR #### [place] [address] #### CBC, ADIFF, ANEU #### [address] [address] MCV (RBC) [Entitic vol] 91.2 fL Normal 80.0-94.0 [facility] ([place]) Comment on above: Performed By: #### B MP, GFR #### [place] [address] #### CBC, ADIFF, ANEU #### [address] [address] Platelet mean volume (Bld) [Entitic vol] 8.4 fL Normal 7.4-10.4 [facility] ([place]) Comment on above: Performed By: #### B MP, GFR #### [place] [address] #### CBC, ADIFF, ANEU #### [address] [address] Platelets (Bld) [#/Vol] 217 10 3/mcL Normal 130-400 [facility] ([place]) Comment on above: Performed By: #### B MP, GFR #### [place] [address] #### CBC, ADIFF, ANEU #### [address] [address] RBC (Bld) [#/Vol] 4.01 10 6/mcL Low 4.20-5.40 [facility] ([place]) Comment on above: Performed By: #### B MP, GFR #### [place] [address] #### CBC, ADIFF, ANEU #### [address] [address] WBC (Bld) [#/Vol] 13.40 10 3/mcL High 4.60-10.80 [facility] ([place]) Comment on above: Performed By: #### B MP, GFR #### [place] [address] #### CBC, ADIFF, ANEU #### [address] [address] XR KNEE 1 OR 2 VIEWS LEFTon 07-08-2019 XR KNEE 1 OR 2 VIEWS LEFT ORIGINAL XR KNEE 2 VIEWS LEFT CLINICAL STATEMENT: Status Post Arthroplasty. COMPARISON: CT LEFT knee 06/23/2019 FINDINGS: No acute fracture or dislocation is identified. A small joint effusion is seen. There is air within the joint space and subcutaneous tissues overlying the joint. IMPRESSION: No perihardware fracture. The hardware is in anatomical alignment. I have personally reviewed the images of this examination and agree with the resident's findings and interpretation. Interpreted By: Rashaad Gilbert MD Preliminary Report By: Vivi Brumfield DO Electronically Signed By: Rashaad Gilbert MD Dictated Date: 07/08/2019 2:10:00 PM Prelim Date: 07/08/2019 2:49:22 PM Sign Date: 07/08/2019 3:39:22 PM Ordering Provider:Mauricio [facility] ([place]) CT KNEE W/O CONTRAST LEFTon 06-23-2019 CT KNEE W/O CONTRAST LEFT ORIGINAL \H\CT of the LEFT knee without contrast Technique:\N\ Axial images of the knee are obtained with sagittal and coronal reconstructions. Limited axial imaging is also performed through the ipsilateral hip and ankle joints. This exam was performed according to our departmental dose-optimization program which includes automated exposure control, adjustment of the mA and/or kVp according to patient size and/or use of iterative reconstruction technique where applicable. COMPARISON: None Indication: VARUS DEFORMITY NOT ELSEWHERE CLASSIFIED LEFT KNEE, \H\Findings:\N\ Medial compartment: Severe narrowing with marginal spurring, vacuum phenomenon, subchondral sclerosis and cystic changes in the weightbearing portions of the medial femoral and tibial condyles. There may be a meniscal ossicle within a medially extruded meniscus. Lateral compartment: Marginal spurring and subchondral sclerosis without significant compartment narrowing. Patellofemoral compartment: Large patellofemoral marginal osteophytes and joint space narrowing more prominent laterally. No patellar subluxation. Other: There is minimal joint effusion. No significant popliteal cyst. There is a 6 mm ossific loose body in the lateral intercondylar joint space near the cruciate ligaments. Hip: Limited axial images through the hip joint. Ankle: Limited axial images of the ankle are also obtained. \H\\N\\H\IMPRESSION:\N\ 1. Severe tricompartment degenerative arthritis as described. 2. No significant joint effusion. Small intra-articular ossific loose body. Interpreted By: Willem Bosch MD Preliminary Report By: Willem Bosch MD Electronically Signed By: Willem Bosch MD Dictated Date: 06/23/2019 2:27:33 PM Prelim Date: 06/23/2019 2:27:33 PM Sign Date: 06/23/2019 2:37:53 PM Ordering Provider:Mauricio [facility] ([place]) Urinalysis, Office ([id number])Or dered By: Chuckie Kenny on 05-23-2019 Bilirubin Ql (U) Negative Normal [facility] Work Phone: Glucose Test strip (U) [Mass/Vol] Negative Normal [facility] Work Phone: Hemoglobin Ql (U) Negative Normal [facility] Work Phone: Ketones Ql (U) Negative Normal [facility] Work Phone: Leukocyte esterase Test strip Ql (U) Negative Normal [facility] Work Phone: Nitrite Ql (U) Negative Normal [facility] Work Phone: pH (U) 6 [pH] Abnormal [facility] Work Phone: Protein Ql (U) Negative Normal [facility] Work Phone: Specific gravity (U) [Rel density] 1.015 1 Normal [facility] Work Phone: Urobilinogen (24H U) [Mass/Time] Normal Normal [facility] Work Phone: Urinalysis, Office ([phone])Or dered By: Chuckie Cummins on 05-23-2019 Bilirubin Ql (U) Negative Normal [facility]; [facility] Work Phone: Glucose Test strip (U) [Mass/Vol] Negative Normal [facility]; [facility] Work Phone: Hemoglobin Ql (U) Negative Normal [facility]; [facility] Work Phone: Ketones Ql (U) Negative Normal [facility]; [facility] Work Phone: Leukocyte esterase Test strip Ql (U) Negative Normal [facility]; [facility] Work Phone: Nitrite Ql (U) Negative Normal [facility]; [facility] Work Phone: Protein Ql (U) Negative Normal [facility]; [facility] Work Phone: Sputum Cultureon 09-03-2018 Bacteria identified Cx Nom (Sput) RRF Normal [facility] Work Phone: Comment on above: Routine respiratory suresh PATIENT NOT FASTINGP ERFORMED BY: LOREE [facility]6[address] [facility] [id number] Bacteria identified Cx Nom (Sput) Final report Normal [facility] Work Phone: Comment on above: PATIENT NOT FASTINGP ERFORMED BY: LOREE [facility] [id number] [facility] [id number] Sputum Culture ([id number])on Epithelial cells.squamous LM Ql (Sput) None seen Normal [facility] Work Phone: Comment on above: PATIENT NOT FASTINGP ERFORMED BY: CB [facility] [id number] [facility] [id number] Information: SRC:SP Microscopic observation Gram stain Nom (Sput) GSACC Normal [facility] Work Phone: Comment on above: This specimen is of good quality and is acceptable for routinebacterial culture. PATIENT NOT FASTINGP ERFORMED BY: [facility] [id number] [facility] [id number] Information: SRC:SP Microscopic observation Gram stain Nom (Sput) PCF Normal [facility] Work Phone: Comment on above: Few gram positive co cci PATIENT NOT FASTINGP ERFORMED BY: [facility] [id number] [facility] [id number] Information: SRC:SP WBC LM Ql (Sput) None seen Normal [facility] Work Phone: Comment on above: PATIENT NOT FASTINGP ERFORMED BY: [facility] [id number] [facility] [id number] Information: SRC:SP CBC W/Diff, Automatedon 02-0 Absolute Neut 4.0 {X10_3/uL} Normal 2.0-7.7 [facility] Work Phone: Comment on above: [facility] [id number] [place], [address] Basophils/100 WBC (Bld) 0.5 % Normal 0-1 [facility] Work Phone: Comment on above: [facility] [id number] [place], [address] Eosinophils/100 WBC (Bld) 2.3 % Normal 0-5 [facility] Work Phone: Comment on above: [facility] [id number] [place], [address] Erythrocyte distribution width Ratio (RBC) 13.4 % Normal 11.6-14.6 [facility] Work Phone: Comment on above: [place] [address] [place], [place], [id number] Hematocrit Volume Fraction (Bld) 41.8 % Normal 37-47 [facility] Work Phone: Comment on above: [place] [address] [place], [place], [phone] Hemoglobin mass conc (Bld) 13.7 g/dL Normal 12.0-15.0 [facility] Work Phone: Comment on above: [place] [address] [place], [place], [phone] IM GRAN % 0.500 % Normal 0.0-0.9 [facility] Work Phone: Comment on above: IG% - Immature Granu locytes (promyelocytes, myelocytes andmetamyelocytes) > 1% indicates that a LEFT SHIFT is Present. [place] [address] [place], [place], [phone] Lymphocytes #/vol (Bld) 2.74 {X10_3/ul} Normal 0.83-4.51 [facility] Work Phone: Comment on above: [place] [address] [place], [address] Lymphocytes/100 WBC (Bld) 35.8 % Normal 19-41 [facility] Work Phone: Comment on above: [place] [address] [place], [address] MCH Entitic mass (RBC) 29.8 pg Normal 27.0-32.0 [facility] Work Phone: Comment on above: [facility] [id number] [place], [address] MCHC mass conc (RBC) 32.8 {g/gl} Normal 32-36 [facility] Work Phone: Comment on above: [facility] [id number] [place], [address] MCV Entitic volume (RBC) 91.1 fL Normal 81-99 [facility] Work Phone: Comment on above: [facility] [address] [place], [address] Monocytes/100 WBC (Bld) 8.7 % Normal 0-10 [facility] Work Phone: Comment on above: [facility] [facility] [address] [place], [address] Neutrophils/100 WBC (Bld) 52.2 % Normal 47-70 [facility] Work Phone: Comment on above: [facility] [address] [place], [address] Platelet mean volume Entitic volume (Bld) 10.4 fL Normal 6.2-12.0 Comprehensi Internal Medicine Work Phone: Comment on above: [facility] [address] [place], [address] Platelets #/vol (Bld) 270 10*3/uL Normal 150-450 [facility] Internal Medicine Work Phone: Comment on above: [facility] [address] [place], [address] RBC #/vol (Bld) 4.59 {M/mm3} Normal 4.2-5.4 Compreh ensive Internal Medicine Work Phone: Comment on above: [facility] [address] [place], [place], [phone] RDW SD 44.0 fL Abnormal 35.1-43.9 [facility] Work Phone: Comment on above: [facility] [address] [place], [place], [phone] WBC #/vol (Bld) 7.7 10*3/uL Normal 4.4-11.0 Comprehe nsive Internal Medicine Work Phone: Comment on above: [facility] [address] [place], [place], [phone] Comprehensive Metabolic Prof ilon 07-22-2018 Comprehensive metabolic 2000 panel 19 U/L Normal 15-37 Comprehensi ve Internal Medicine Work Phone: Comment on above: [facility] [address] [place], [place], [id number] Comprehensive metabolic 2000 panel 7.3 g/dL Normal 6.4-8.2 Comprehensi ve Internal Medicine Work Phone: Comment on above: [facility] [address] [place], [place], [phone] Comprehensive metabolic 2000 panel 112 mL/min Normal Comprehensi ve Internal Medicine Work Phone: Comment on above: GFR Calc [facility] [address] [place], [place], [id number] Comprehensive metabolic 2000 panel 30.0 mmol/L Normal 21.0-32.0 Comprehensi ve Internal Medicine Work Phone: Comment on above: [facility] [address] [place], [place], [id number] Comprehensive metabolic 2000 panel 0.68 mg/dL Normal 0.55-1.02 Comprehensi ve Internal Medicine Work Phone: Comment on above: The validity of the calculated GFR AND GFRAA in patients over70 years has not been determined. Clinical correlation isessential. [facility] [address] [place], [place], [address] Comprehensive metabolic 2000 panel 16 mg/dL Normal 7-18 Comprehensi ve Internal Medicine Work Phone: Comment on above: [facility] [address] [place], [place], [address] Comprehensive metabolic 2000 panel 3.8 g/dL Normal 3.2-5.0 Comprehensi ve Internal Medicine Work Phone: Comment on above: [facility] [address] [place], [place], [id number] Comprehensive metabolic 2000 panel 3.5 g/dL Normal 2.2-4.2 Comprehensi ve Internal Medicine Work Phone: Comment on above: [facility] [address] [place], [place], [id number] Comprehensive metabolic 2000 panel 1.1 {RATIO} Normal 0.9-2.4 Comprehensi ve Internal Medicine Work Phone: Comment on above: [facility] [address] [place], [place], [phone] Comprehensive metabolic 2000 panel 8.7 mg/dL Normal 8.5-10.1 Comprehensi ve Internal Medicine Work Phone: Comment on above: [facility] [address] [place], [place], [phone] Comprehensive metabolic 2000 panel 23.5 {RATIO} Abnormal 10-20 Comprehensi ve Internal Medicine Work Phone: Comment on above: [facility] [address] [place], [place], [phone] Comprehensive metabolic 2000 panel 54 U/L Normal 45-117 Comprehensi ve Internal Medicine Work Phone: Comment on above: [facility] [address] [place], [place], [phone] Comprehensive metabolic 2000 panel 10 1 Normal 5-15 Comprehensi ve Internal Medicine Work Phone: Comment on above: [facility] [address] [place], [place], [address] Comprehensive metabolic 2000 panel 32 U/L Normal 13-56 Comprehensi ve Internal Medicine Work Phone: Comment on above: [facility] [address] [place], [place], [address] Comprehensive metabolic 2000 panel 0.80 mg/dL Normal 0.20-1.00 Comprehensi ve Internal Medicine Work Phone: Comment on above: [facility] [address] [place], [place], [address] Comprehensive metabolic 2000 panel 145 mmol/L Normal 136-145 Comprehensi ve Internal Medicine Work Phone: Comment on above: [facility] [address] [place], [place], [address] Comprehensive metabolic 2000 panel 3.5 mmol/L Normal 3.5-5.1 Comprehensi ve Internal Medicine Work Phone: Comment on above: [facility] [address] [place], [place], [address] Comprehensive metabolic 2000 panel 105 mmol/L Normal 98-107 Comprehensi ve Internal Medicine Work Phone: Comment on above: [facility] [address] [place], [place], [address] Comprehensive metabolic 2000 panel 119 mg/dL Abnormal 74-106 Comprehensi ve Internal Medicine Work Phone: Comment on above: Fasting Glucose resu lt from 100 to 125 mg/dLsuggests IMPAIRED HOMEOSTASIS per A.D.A. criteria.Please note revised GLUCOSE reference range [id number]/02/2018. [facility] [address] [place], [place], [address] Comprehensive metabolic 2000 panel 93 mL/min Normal Comprehensi ve Internal Medicine Work Phone: Comment on above: Non- GFR Calc [facility] [address] [place], [place], [phone] Comprehensive Metabolic Prof ilon 07-12-2018 Comprehensive metabolic 2000 panel 27.0 {RATIO} Abnormal 10-20 Comprehensi ve Internal Medicine Work Phone: Comment on above: [facility] [address] [place], [place], [phone] Comprehensive metabolic 2000 panel 115 mL/min Normal Comprehensi ve Internal Medicine Work Phone: Comment on above: GFR Calc [facility] [address] [place], [place], [address] Comprehensive metabolic 2000 panel 10 1 Normal 5-15 Comprehensi ve Internal Medicine Work Phone: Comment on above: [facility] [address] [place], [address] Comprehensive metabolic 2000 panel 3.7 mmol/L Normal 3.5-5.1 Comprehensi ve Internal Medicine Work Phone: Comment on above: [facility] [address] [place], [place], [address] Comprehensive metabolic 2000 panel 95 mL/min Normal Comprehensi ve Internal Medicine Work Phone: Comment on above: Non- GFR Calc [facility] [address] [place], [place], [phone] Comprehensive metabolic 2000 panel 0.67 mg/dL Normal 0.55-1.02 Comprehensi ve Internal Medicine Work Phone: Comment on above: The validity of the calculated GFR AND GFRAA in patients over70 years has not been determined. Clinical correlation isessential. [facility] [address] [place], [place], [phone] Comprehensive metabolic 2000 panel 18 mg/dL Normal 7-18 Comprehensi ve Internal Medicine Work Phone: Comment on above: [facility] [address] [place], [address] Comprehensive metabolic 2000 panel 87 mg/dL Normal 74-106 Comprehensi ve Internal Medicine Work Phone: Comment on above: Please note revised GLUCOSE reference range [id number]/02/2018. [facility] [address] [place], [place], [address] Comprehensive metabolic 2000 panel 142 mmol/L Normal 136-145 Comprehensi ve Internal Medicine Work Phone: Comment on above: [facility] [address] [place], [place], [address] Comprehensive metabolic 2000 panel 0.90 mg/dL Normal 0.20-1.00 Comprehensi ve Internal Medicine Work Phone: Comment on above: [facility] [address] [place], [address] Comprehensive metabolic 2000 panel 32 U/L Normal 13-56 Comprehensi ve Internal Medicine Work Phone: Comment on above: [facility] [address] [place], [place], [address] Comprehensive metabolic 2000 panel 53 U/L Normal 45-117 Comprehensi ve Internal Medicine Work Phone: Comment on above: [facility] [address] [place], [address] Comprehensive metabolic 2000 panel 28.0 mmol/L Normal 21.0-32.0 Comprehensi ve Internal Medicine Work Phone: Comment on above: [facility] [address] [place], [place], [phone] Comprehensive metabolic 2000 panel 104 mmol/L Normal 98-107 Comprehensi ve Internal Medicine Work Phone: Comment on above: [facility] [address] [place], [place], [address] Comprehensive metabolic 2000 panel 20 U/L Normal 15-37 Comprehensi ve Internal Medicine Work Phone: Comment on above: [facility] [address] [place], [place], [address] Comprehensive metabolic 2000 panel 9.0 mg/dL Normal 8.5-10.1 Comprehensi ve Internal Medicine Work Phone: Comment on above: [facility] [address] [place], [place], [address] Comprehensive metabolic 2000 panel 1.1 {RATIO} Normal 0.9-2.4 Comprehensi ve Internal Medicine Work Phone: Comment on above: [facility] [address] [place], [place], [address] Comprehensive metabolic 2000 panel 3.8 g/dL Normal 2.2-4.2 Comprehensi ve Internal Medicine Work Phone: Comment on above: [facility] [address] [place], [place], [address] Comprehensive metabolic 2000 panel 4.0 g/dL Normal 3.2-5.0 Comprehensi ve Internal Medicine Work Phone: Comment on above: [facility] [address] [place], [place], [address] Comprehensive metabolic 2000 panel 7.8 g/dL Normal 6.4-8.2 Comprehensi ve Internal Medicine Work Phone: Comment on above: [facility] [address] [place], [place], [address] Lipid Profileon 07-12-2018 Cholesterol in HDL mass conc 48 mg/dL Normal [facility] Work Phone: Comment on above: The drugs N-Acetylcy steine and Metamizole may falselydepress this assay. Reference Range HDL <40 mg/dL Low HDL Cholesterol HDL >or= 60 mg/dL High HDL Cholesterol [facility] [address] [place], [place], [phone] Cholesterol in LDL mass conc 109 mg/dL Normal 0-130 [facility] Work Phone: Comment on above: [facility] [address] [place], [place], [address] Cholesterol in VLDL mass conc 29 mg/dL Normal 5-40 [facility] Work Phone: Comment on above: [facility] [address] [place], [place], [address] Cholesterol mass conc 186 mg/dL Normal Com prehensive Internal Medicine Work Phone: Comment on above: <200 mg/dL Desirable 200-240 mg/dL Borderline >240 mg/dL High Risk [facility] [address] [place], [place], [address] Triglyceride mass conc 144 mg/dL Normal [facility] Work Phone: Comment on above: The drugs N-Acetylcy steine and Metamizole may falselydepress this assay.Serum Triglycerides Reference Interval Normal <150 mg/dL Borderline high 150 - 199 mg/dL High 200 - 499 mg/dL Very High > or = 500 mg/dL [facility] [address] [place], [place], [address] Lipid Profile 29 mg/dL Normal 5-40 Comprehensi Internal Medicine Work Phone: Comment on above: [facility] [address] [place], [place], [address] Vitamin D,25 Hydroxyon 07-12 Vitamin D,25 Hydroxy 74.6 ng/mL Normal 29.95-1 00. 01 [facility] Work Phone: Comment on above: Vitamin D 25(OH) Sta tus Range Deficiency <20 ng/mL (50nmol/L) Insuffciency 20 - 30 ng/mL (50 - 75 nmol/L) Sufficiency 30 - 100 ng/mL (75 - 250 nmol/L) Toxicity >100 ng/mL (>250 nmol/L) [facility] [address] [place], [address] Blood Glucose , Office ([phone])Ordered By: Chuckie Kenny on 07-09-2018 Glucose Glucometer molar conc (BldC) 84 1 Normal [facility] Work Phone: Urinalysis, Office ([phone])Or dered By: Chuckie Kenny on 07-09-2018 Bilirubin Ql (U) Negative Normal Comprehe nsive Internal Medicine Work Phone: Glucose Test strip mass conc (U) Negative Normal [facility] Work Phone: Hemoglobin Ql (U) Negative Normal Compreh ensive Internal Medicine Work Phone: Ketones Ql (U) Negative Normal Comprehens ericka Internal Medicine Work Phone: Leukocyte esterase Test strip Ql (U) Negative Normal [facility] Work Phone: Nitrite Ql (U) Negative Normal Comprehens ericka Internal Medicine Work Phone: pH (U) 5 [pH] Abnormal [facility] Work Phone: Protein Ql (U) Negative Normal Comprehens ericka Internal Medicine Work Phone: Specific gravity Relative Density (U) 1.015 1 Normal Comprehensi ve Internal Medicine Work Phone: Urobilinogen mass/time (24H U) Normal Normal [facility] Work Phone: Urinalysis, Office ([phone])Or dered By: Chuckie Cummins on 07-09-2018 Bilirubin Ql (U) Negative Normal Comprehe nsive Internal Medicine; [facility] Work Phone: Glucose Test strip (U) [Mass/Vol] Negative Normal [facility]; [facility] Work Phone: Hemoglobin Ql (U) Negative Normal Compreh ensive Internal Medicine; [facility] Work Phone: Ketones Ql (U) Negative Normal Comprehens ericka Internal Medicine; [facility] Work Phone: Leukocyte esterase Test strip Ql (U) Negative Normal [facility]; [facility] Work Phone: Nitrite Ql (U) Negative Normal Comprehens ericka Internal Medicine; [facility] Work Phone: Protein Ql (U) Negative Normal Comprehens ericka Internal Medicine; [facility] Work Phone: Basic Metabolic Profile (BMP )on 02-22-2018 Basic metabolic 2000 panel 30.0 mmol/L Normal 21.0-32.0 [facility] Work Phone: Comment on above: [facility] [address] [place], [place], [address] Basic metabolic 2000 panel 7 1 Normal 5-15 [facility] Work Phone: Comment on above: [facility] [address] [place], [place], [address]456[address] Basic metabolic 2000 panel 142 mmol/L Normal 136-145 [facility] Work Phone: Comment on above: [facility] [address] [place], [address] Basic metabolic 2000 panel 9.0 mg/dL Normal 8.5-10.1 [facility] Work Phone: Comment on above: [facility] [address] [place], [place], [address] Basic metabolic 2000 panel 26.5 {RATIO} Abnormal 10-20 [facility] Work Phone: Comment on above: [facility] [address] [place], [address] Basic metabolic 2000 panel 70.96 ml/min Normal [facility] Work Phone: Comment on above: [facility] [address] [place], [place], [address] Basic metabolic 2000 panel 4.2 mmol/L Normal 3.5-5.1 [facility] Work Phone: Comment on above: [facility] [address] [place], [place], [address] Basic metabolic 2000 panel 113 mL/min Normal [facility] Work Phone: Comment on above: GFR Calc [facility] [address] [place], [place], [address] Basic metabolic 2000 panel 93 mL/min Normal [facility] Work Phone: Comment on above: Non- GFR Calc [facility] [address] [place], [place], [address] Basic metabolic 2000 panel 0.68 mg/dL Normal 0.55-1.02 [facility] Work Phone: Comment on above: The validity of the calculated GFR AND GFRAA in patients over70 years has not been determined. Clinical correlation isessential. [facility] [address] [place], [place], [address] Basic metabolic 2000 panel 18 mg/dL Normal 7-18 [facility] Work Phone: Comment on above: [facility] [address] [place], [place], [address] Basic metabolic 2000 panel 84 mg/dL Normal 74-106 [facility] Work Phone: Comment on above: Please note revised GLUCOSE reference range [id number]/02/2018. [facility] [address] [place], [place], [phone] Basic metabolic 2000 panel 105 mmol/L Normal 98-107 [facility] Work Phone: Comment on above: [facility] [address] [place], [place], [address] CBC W/Diff, Automatedon 09-0 Absolute Neut 4.6 {X10_3/uL} Normal 2.0-7.7 Compreh [facility] Internal Medicine Work Phone: Comment on above: [facility] [address] [place], [place], [address] Basophils/100 WBC (Bld) 0.5 % Normal 0-1 [facility] Work Phone: Comment on above: [facility] [address] [place], [address] Eosinophils/100 WBC (Bld) 1.8 % Normal 0-5 [facility] Work Phone: Comment on above: [facility] [address] [place], [place], [phone] Erythrocyte distribution width Ratio (RBC) 13.1 % Normal 11.6-14.6 [facility] Work Phone: Comment on above: [facility] [address] [place], [place], [address] Hematocrit Volume Fraction (Bld) 43.6 % Normal 37-47 [facility] Work Phone: Comment on above: [facility] [address] [place], [place], [address] Hemoglobin mass conc (Bld) 14.5 g/dL Normal 12.0-15.0 [facility] Work Phone: Comment on above: [facility] [address] [place], [address] IM GRAN % 0.400 % Normal 0.0-0.9 [facility] Work Phone: Comment on above: IG% - Immature Granu locytes (promyelocytes, myelocytes andmetamyelocytes) > 1% indicates that a LEFT SHIFT is Present. [facility] [address] [place], [place], [phone] Lymphocytes #/vol (Bld) 2.38 {X10_3/ul} Normal 0.83-4.51 [facility] Work Phone: Comment on above: [facility] [address] [place], [address] Lymphocytes/100 WBC (Bld) 28.5 % Normal 19-41 [facility] Work Phone: Comment on above: [facility] [address] [place], [address] MCH Entitic mass (RBC) 30.1 pg Normal 27.0-32.0 [facility] Internal Medicine Work Phone: Comment on above: [facility] [address] [place], [address] MCHC mass conc (RBC) 33.3 {g/gl} Normal 32-36 Com [facility] Work Phone: Comment on above: [facility] [address] [place], [address] MCV Entitic volume (RBC) 90.5 fL Normal 81-99 [facility] Internal Medicine Work Phone: Comment on above: [facility] [address] [place], [address] Monocytes/100 WBC (Bld) 13.8 % Abnormal 0-10 [facility] Internal Medicine Work Phone: Comment on above: [facility] [address] [place], [address] Neutrophils/100 WBC (Bld) 55.0 % Normal 47-70 [facility] Internal Medicine Work Phone: Comment on above: [facility] [address] [place], [address] Platelet mean volume Entitic volume (Bld) 9.8 fL Normal 6.2-12.0 [facility] Internal Medicine Work Phone: Comment on above: [facility] [address] [place], [address] Platelets #/vol (Bld) 278 10*3/uL Normal 150-450 [facility] Internal Medicine Work Phone: Comment on above: [facility] [address] [place], [address] RBC #/vol (Bld) 4.82 {M/mm3} Normal 4.2-5.4 Compreh ensive Internal Medicine Work Phone: Comment on above: [facility] [address] [place], [address] RDW SD 42.8 fL Normal 35.1-43.9 [facility] Work Phone: Comment on above: [facility] [address] [place], [address] WBC #/vol (Bld) 8.4 10*3/uL Normal 4.4-11.0 Comprehe nsive Internal Medicine Work Phone: Comment on above: [facility] [address] [place], [address] MRSA/SAID SCREENon 8 MRSA+SAID SCRN See Note Normal Comprehens ericka Internal Medicine Work Phone: Comment on above: MRSA/SAID SCRNS. AUR EUS S. aureus NegativeMRSA MRSA Negative [facility] [address] [place], [place], [id number] CBC W/Diff, Automatedon 02-2 Absolute Neut 5.9 {X10_3/uL} Normal 2.0-7.7 Compreh ensive Internal Medicine Work Phone: Comment on above: [facility] [address] [place], [address] Basophils/100 WBC (Bld) 0.5 % Normal 0-1 [facility] Work Phone: Comment on above: [facility] [address] [place], [address] Eosinophils/100 WBC (Bld) 2.3 % Normal 0-5 [facility] Work Phone: Comment on above: [facility] [address] [place], [place], [address] Erythrocyte distribution width Ratio (RBC) 13.7 % Normal 11.6-14.6 [facility] Work Phone: Comment on above: [facility] [address] [place], [address] Hematocrit Volume Fraction (Bld) 41.8 % Normal 37-47 [facility] Work Phone: Comment on above: [facility] [address] [place], [address] Hemoglobin mass conc (Bld) 13.8 g/dL Normal 12.0-15.0 [facility] Work Phone: Comment on above: [facility] [address] [place], [address] IM GRAN % 0.300 % Normal 0.0-0.9 [facility] Work Phone: Comment on above: IG% - Immature Granu locytes (promyelocytes, myelocytes andmetamyelocytes) > 1% indicates that a LEFT SHIFT is Present. [facility] [address] [place], [address] Lymphocytes #/vol (Bld) 3.14 {X10_3/ul} Normal 0.83-4.51 [facility] Work Phone: Comment on above: [facility] [address] [place], [address] Lymphocytes/100 WBC (Bld) 30.7 % Normal 19-41 [facility] Work Phone: Comment on above: [facility] [address] [place], [address] MCH Entitic mass (RBC) 29.9 pg Normal 27.0-32.0 [facility] Work Phone: Comment on above: [facility] [address] [place], [address] MCHC mass conc (RBC) 33.0 {g/gl} Normal 32-36 Com prehensive Internal Medicine Work Phone: Comment on above: [facility] [address] [place], [address] MCV Entitic volume (RBC) 90.5 fL Normal 81-99 [facility] Work Phone: Comment on above: [facility] [address] [place], [address] Monocytes/100 WBC (Bld) 8.9 % Normal 0-10 [facility] Work Phone: Comment on above: [facility] [address] [place], [address] Neutrophils/100 WBC (Bld) 57.3 % Normal 47-70 [facility] Work Phone: Comment on above: [facility] [address] [place], [address] Platelet mean volume Entitic volume (Bld) 10.5 fL Normal 6.2-12.0 Comprehensi ve Internal Medicine Work Phone: Comment on above: [facility] [address] [place], [address] Platelets #/vol (Bld) 285 10*3/uL Normal 150-450 [facility] Work Phone: Comment on above: [facility] [address] [place], [address] RBC #/vol (Bld) 4.62 {M/mm3} Normal 4.2-5.4 Compreh ensive Internal Medicine Work Phone: Comment on above: [facility] [address] [place], [address] RDW SD 44.9 fL Abnormal 35.1-43.9 [facility] Work Phone: Comment on above: [facility] [address] [place], [place], [address] WBC #/vol (Bld) 10.2 10*3/uL Normal 4.4-11.0 Compreh ensive Internal Medicine Work Phone: Comment on above: [facility] [address] [place], [place], [id number] Comprehensive Metabolic Prof ilon 08-10-2017 Comprehensive metabolic 2000 panel 96 mL/min Normal Comprehensi ve Internal Medicine Work Phone: Comment on above: Non- GFR Calc [facility] [address] [place], [place], [phone] Comprehensive metabolic 2000 panel 3.2 mmol/L Abnormal 3.5-5.1 Comprehensi ve Internal Medicine Work Phone: Comment on above: [facility] [address] [place], [place], [address] Comprehensive metabolic 2000 panel 143 mmol/L Normal 136-145 Comprehensi ve Internal Medicine Work Phone: Comment on above: [facility] [address] [place], [place], [address] Comprehensive metabolic 2000 panel 14 mg/dL Normal 7-18 Comprehensi ve Internal Medicine Work Phone: Comment on above: [facility] [address] [place], [place], [phone] Comprehensive metabolic 2000 panel 98 mg/dL Normal 74-106 Comprehensi ve Internal Medicine Work Phone: Comment on above: Please note revised GLUCOSE reference range [id number]/02/2018. [facility] [address] [place], [place], [address] Comprehensive metabolic 2000 panel 7 1 Normal 5-15 Comprehensi ve Internal Medicine Work Phone: Comment on above: [facility] [address] [place], [place], [address] Comprehensive metabolic 2000 panel 116 mL/min Normal Comprehensi ve Internal Medicine Work Phone: Comment on above: GFR Calc [facility] [address] [place], [place], [address] Comprehensive metabolic 2000 panel 32.0 mmol/L Normal 21.0-32.0 Comprehensi ve Internal Medicine Work Phone: Comment on above: [facility] [address] [place], [place], [phone] Comprehensive metabolic 2000 panel 104 mmol/L Normal 98-107 Comprehensi ve Internal Medicine Work Phone: Comment on above: [facility] [address] [place], [place], [address] Comprehensive metabolic 2000 panel 1.0 {RATIO} Normal 0.9-2.4 Comprehensi ve Internal Medicine Work Phone: Comment on above: [facility] [address] [place], [place], [phone] Comprehensive metabolic 2000 panel 21.1 {RATIO} Abnormal 10-20 Comprehensi ve Internal Medicine Work Phone: Comment on above: [facility] [address] [place], [place], [address] Comprehensive metabolic 2000 panel 1.00 mg/dL Normal 0.20-1.00 Comprehensi ve Internal Medicine Work Phone: Comment on above: [facility] [address] [place], [place], [address] Comprehensive metabolic 2000 panel 31 U/L Normal 13-56 Comprehensi ve Internal Medicine Work Phone: Comment on above: Please note revised ALT reference range [id number]/28/2018. [facility] [address] [place], [place], [phone] Comprehensive metabolic 2000 panel 7.4 g/dL Normal 6.4-8.2 Comprehensi ve Internal Medicine Work Phone: Comment on above: [facility] [address] [place], [place], [address] Comprehensive metabolic 2000 panel 3.7 g/dL Normal 2.2-4.2 Comprehensi ve Internal Medicine Work Phone: Comment on above: [facility] [address] [place], [place], [address] Comprehensive metabolic 2000 panel 9.0 mg/dL Normal 8.5-10.1 Comprehensi ve Internal Medicine Work Phone: Comment on above: [facility] [address] [place], [place], [address] Comprehensive metabolic 2000 panel 51 U/L Normal 45-117 Comprehensi ve Internal Medicine Work Phone: Comment on above: [facility] [address] [place], [place], [address] Comprehensive metabolic 2000 panel 21 U/L Normal 15-37 Comprehensi ve Internal Medicine Work Phone: Comment on above: [facility] [address] [place], [place], [address] Comprehensive metabolic 2000 panel 0.66 mg/dL Normal 0.55-1.02 Comprehensi ve Internal Medicine Work Phone: Comment on above: The validity of the calculated GFR AND GFRAA in patients over70 years has not been determined. Clinical correlation isessential. [facility] [address] [place], [place], [phone] Crystals, Body Fluidon 06-26 Crystals LM Nom (Body fld) Reviewed Normal Comprehensive Internal Medicine Work Phone: Comment on above: Negative for maligna nt cells and crystals.Dave Adame M.D. 06/27/17 AMENDED REPORT 06/27/17 1046 PATH REV previously reported as: Will follow [facility] [address] [place], [address] Crystals LM Nom (Body fld) SYNOVIAL Normal Comprehensive Internal Medicine Work Phone: Comment on above: [facility] [address] [place], [address] Crystals LM Nom (Body fld) Other, see comment Normal [facility] Medicine Work Phone: Comment on above: NONE SEEN [facility] [address] [place], [place], [phone] Culture, Body Fluidon 2017 Bacteria identified Cx Nom (Body fld) See Note Normal Comprehensive Internal Medicine Work Phone: Comment on above: List Antibiotics Las t 48 Hours? .List Antibiotics to be Started? .Comments: SYNOVIAL FLUID RIGHT KNEEGram StainCentrifuged Specimen? Culture performed on centrifuged specimen Gram Stain 3+ Red Blood Cells No organisms seen Body Fluid CultNO GROWTH IN 14 DAYS Cult, AnaerobicNo growth in 5 days.; ADDENDA: another doc [facility] [address] [place], [place], [phone] ; dr de los santos Synovial Fluid RBC, WBC AND Diffon 06-26-2017 Monocytes/100 WBC (Bld) 5 % Normal Comprehensive [facility] Medicine Work Phone: Comment on above: [facility] [address] [place], [place], [phone] RBC #/vol (Bld) 0.006 {10_6/uL} Abnormal Comp rehensive Internal Medicine Work Phone: Comment on above: [facility] [address] [place], [place], [address] WBC #/vol (Bld) 0.591 {10_3/ul} Normal Comp rehensive Internal Medicine Work Phone: Comment on above: [facility] [address] [place], [place], [address] Synovial Fluid RBC, WBC AND Diff 7.0 ml Abnormal 0.1-3.5 Comprehensive Internal Medicine Work Phone: Comment on above: [facility] [address] [place], [address] Synovial Fluid RBC, WBC AND Diff 41.7 % Normal Comprehensive Internal Medicine Work Phone: Comment on above: [facility] [address] [place], [address] Synovial Fluid RBC, WBC AND Diff May follow Normal Comprehensive Internal Medicine Work Phone: Comment on above: [facility] [address] [place], [address] Synovial Fluid RBC, WBC AND Diff 56 % Normal Comprehensive Internal Medicine Work Phone: Comment on above: MACROPHAGES [facility] [address] [place], [address] Synovial Fluid RBC, WBC AND Diff 39 % Abnormal 0-25 Comprehensive Internal Medicine Work Phone: Comment on above: [facility] [address] [place], [address] Synovial Fluid RBC, WBC AND Diff RT KNEE Normal Comprehensive Internal Medicine Work Phone: Comment on above: [facility] [address] [place], [address] Synovial Fluid RBC, WBC AND Diff 58.3 % Normal Comprehensive Internal Medicine Work Phone: Comment on above: [facility] [address] [place], [address] Synovial Fluid RBC, WBC AND Diff 1.0130 {10_3uL} Abnormal 0.000-0.00 2 Comprehensive Internal Medicine Work Phone: Comment on above: [facility] [address] [place], [address] Synovial Fluid RBC, WBC AND Diff 1.0300 {10_3_uL} Abnormal 0.000-0.00 0 Comprehensive Internal Medicine Work Phone: Comment on above: This is the Total Nu mber of Nucleated Cell Types in the BodyFluid. [facility] [address] [place], [place], [phone] Synovial Fluid RBC, WBC AND Diff Hazy Normal Comprehensive Internal Medicine Work Phone: Comment on above: [facility] [address] [place], [place], [address] Synovial Fluid RBC, WBC AND Diff Yellow Normal Comprehensive Internal Medicine Work Phone: Comment on above: [facility] [address] [place], [place], [phone] Synovial Fluid RBC, WBC AND Diff Mod. Viscous Normal Comprehensive Internal Medicine Work Phone: Comment on above: [facility] [address] [place], [place], [phone] Culture, Body Fluidon 2016 Bacteria identified Cx Nom (Body fld) See Note Normal Comprehensive Internal Medicine Work Phone: Comment on above: RIGHT KNEE, GRAM STA IN,CULTURE,CRYSTALS,COUNT List Antibiotics Last 48 Hours? NList Antibiotics to be Started? NComments: RIGHT KNEEGram StainAcceptable Specimen? Acceptable Specimen(Evaluation not needed)Centrifuged Specimen? Culture performed on centrifuged specimen Gram Stain 4+ Red Blood Cells No organisms seen Body Fluid CultNO GROWTH IN 14 DAYS Cult, AnaerobicNo growth in 5 days.; ADDENDA: dr de los santos [facility] [address] [place], [place], [phone] ; Dr. De Los Santos Synovial Fluid RBC, WBC AND Diffon 05-25-2017 Monocytes/100 WBC (Bld) 5 % Normal Comprehensive Internal Medicine Work Phone: Comment on above: RIGHT KNEE, GRAM STA IN,CULTURE,CRYSTALS,[facility]WCl[facility] [address] [place], [place], [address] RBC #/vol (Bld) 0.003 {10_6/uL} Abnormal Comp rehensive Internal Medicine Work Phone: Comment on above: RIGHT KNEE, GRAM STA IN,CULTURE,CRYSTALS,COUNTWster [facility] [address] [place], [address] WBC #/vol (Bld) 0.035 {10_3/ul} Normal Comp rehensive Internal Medicine Work Phone: Comment on above: RIGHT KNEE, GRAM STA IN,CULTURE,CRYSTALS,[facility]Prom[facility] [address] [place], [address] Synovial Fluid RBC, WBC AND Diff May follow Normal Comprehensive Internal Medicine Work Phone: Comment on above: RIGHT KNEE, GRAM STA IN,CULTURE,CRYSTALS,COUNTProm[facility] [address] [place], [address] Synovial Fluid RBC, WBC AND Diff 7.5 % Normal Comprehensive Internal Medicine Work Phone: Comment on above: RIGHT KNEE, GRAM STA IN,CULTURE,CRYSTALS,COUNTProm[facility] [address] [place], [address] Synovial Fluid RBC, WBC AND Diff Hazy Normal Comprehensive Internal Medicine Work Phone: Comment on above: RIGHT KNEE, GRAM STA IN,CULTURE,CRYSTALS,COUNTProm[facility] [address] [place], [address] Synovial Fluid RBC, WBC AND Diff RT KNEE Normal Comprehensive Internal Medicine Work Phone: Comment on above: RIGHT KNEE, GRAM STA IN,CULTURE,CRYSTALS,COUNTPromed[facility] [address] [place], [address] Synovial Fluid RBC, WBC AND Diff 15.0 ml Abnormal 0.1-3.5 Comprehensive Internal Medicine Work Phone: Comment on above: RIGHT KNEE, GRAM STA IN,CULTURE,CRYSTALS,COUNTPromed[facility] [address] [place], [address] Synovial Fluid RBC, WBC AND Diff 7 % Normal 0-25 Comprehensive Internal Medicine Work Phone: Comment on above: RIGHT KNEE, GRAM STA IN,CULTURE,CRYSTALS,COUNTPromed[facility] [address] [place], [address] Synovial Fluid RBC, WBC AND Diff Mod. Viscous Normal [facility] Medicine Work Phone: Comment on above: RIGHT KNEE, GRAM STA IN,CULTURE,CRYSTALS,COUNTPromed[facility] [address] [place], [address] Synovial Fluid RBC, WBC AND Diff 88 % Normal Comprehensive Internal Medicine Work Phone: Comment on above: 84 MACROPHAGES4 LINI NG CELLS RIGHT KNEE, GRAM STA IN,CULTURE,CRYSTALS,COUNTPromedica [facility] [address] [place], [address] Synovial Fluid RBC, WBC AND Diff Yellow Normal [facility] Internal Medicine Work Phone: Comment on above: RIGHT KNEE, GRAM STA IN,CULTURE,CRYSTALS,COUNTPromed[facility] [address] [place], [address] Synovial Fluid RBC, WBC AND Diff 92.5 % Normal [facility] Internal Medicine Work Phone: Comment on above: RIGHT KNEE, GRAM STA IN,CULTURE,CRYSTALS,COUNTPromedica [facility] [address] [place], [address] Synovial Fluid RBC, WBC AND Diff 0.4770 {10_3_uL} Abnormal 0.000-0.00 0 Comprehensive Internal Medicine Work Phone: Comment on above: This is the Total Nu mber of Nucleated Cell Types in the BodyFluid. RIGHT KNEE, GRAM STA IN,CULTURE,CRYSTALS,COUNTPromedica F[facility] Hospital [address] [place], [address] Synovial Fluid RBC, WBC AND Diff 0.4640 {10_3uL} Abnormal 0.000-0.00 2 Comprehensive Internal Medicine Work Phone: Comment on above: RIGHT KNEE, GRAM STA IN,CULTURE,CRYSTALS,COUNTPromedica [facility] [address] [place], [place], [phone] Culture, Body Fluidon 2016 Bacteria identified Cx Nom (Body fld) See Note Normal Comprehensive Internal Medicine Work Phone: Comment on above: LEFT KNEE List Antib iotics Last 48 Hours? UNKList Antibiotics to be Started? UNKGram StainCentrifuged Specimen? Culture performed on centrifuged specimen Gram Stain 1+ Red Cell Stroma 1+ Red Blood Cells No organisms seen Body Fluid CultNO GROWTH IN 14 DAYS Cult, AnaerobicNo growth in 5 days. [facility] [address] [place], [address] Synovial Fluid RBC, WBC AND Diffon 05-04-2017 Lymphocytes/100 WBC (Bld) 45 % Normal Comprehensive Internal Medicine Work Phone: Comment on above: LEFT KNEEWooster [facility] [address] [place], [address] Monocytes/100 WBC (Bld) 34 % Normal Comprehensive Internal Medicine Work Phone: Comment on above: LEFT KNEEWooster [facility] [address] [place], [address] RBC #/vol (Bld) 0.007 {10_6/uL} Abnormal Comp rehensive Internal Medicine Work Phone: Comment on above: LEFT KNEEWooster [facility] [address] [place], [address] WBC #/vol (Bld) 0.112 {10_3/ul} Normal Comp rehensive Internal Medicine Work Phone: Comment on above: LEFT KNEEWooster [facility] [address] [place], [address] Synovial Fluid RBC, WBC AND Diff LEFT KNEE Normal Comprehensive Internal Medicine Work Phone: Comment on above: LEFT KNEEWooster [facility] [address] [place], [address] Synovial Fluid RBC, WBC AND Diff 9 % Normal 0-25 Comprehensive Internal Medicine Work Phone: Comment on above: LEFT KNEEWster [facility] [address] [place], [address] Synovial Fluid RBC, WBC AND Diff 12 % Normal Comprehensive Internal Medicine Work Phone: Comment on above: LEFT [facility]EEWUniversity [facility] [address] [place], [address] Synovial Fluid RBC, WBC AND Diff May follow Normal Comprehensive Internal Medicine Work Phone: Comment on above: LEFT [facility] [address] [place], [address] Synovial Fluid RBC, WBC AND Diff 85.5 % Normal Comprehensive Internal Medicine Work Phone: Comment on above: LEFT [facility] [address] [place], [address] Synovial Fluid RBC, WBC AND Diff Sl Cl Normal Comprehensive Internal Medicine Work Phone: Comment on above: LEFT [facility] [address] [place], [address] Synovial Fluid RBC, WBC AND Diff Yellow Normal Comprehensive Internal Medicine Work Phone: Comment on above: LEFT [facility] [address] [place], [address] Synovial Fluid RBC, WBC AND Diff 14.5 % Normal Comprehensive Internal Medicine Work Phone: Comment on above: LEFT [facility] [address] [place], [address] Synovial Fluid RBC, WBC AND Diff 0.7730 {10_3uL} Abnormal 0.000-0.00 2 [facility] Internal Medicine Work Phone: Comment on above: LEFT [facility] [address] [place], [place], [address] Synovial Fluid RBC, WBC AND Diff 0.8000 {10_3_uL} Abnormal 0.000-0.00 0 [facility] Internal Medicine Work Phone: Comment on above: This is the Total Nu mber of Nucleated Cell Types in the BodyFluid. LEFT KNEEWooster Com [facility] [address] [place], [address] PAP I-G w/rfx hrHPVon 2016 PAP I-G w/rfx hrHPV Comment Normal Compr [facility] Internal Medicine Work Phone: Comment on above: Satisfactory for nakia luation. Endocervical component may not bedistinguished in cases of atrophy. CYTOLOGY INFORMATION :- CLINICAL INFORMATION:- DATE LMP/MENOPAUSE: MENOPAUSE- COLLECTION VIAL: Thin Prep Vial- MEDICAID BUSINESS ANALYST SOURCE: CERVICAL/ENDOCERVICAL- COLLECTION TECHNIQUE: BRUSH/SPATULASpecimen Comment: [id number] Comment: No. of containers..01 ThinPrep VialLabCorp (refer to report for specific site)refer to report for address and phone number Monique Hobbs Cyto technologist (ASCP) The Pap smear is a s creening test designed to aid in thedetection of premalignant and malignant conditions of theuterine cervix. It is not a diagnostic procedure andshould not be used as the sole means of detecting cervicalcancer. Both false-positive and false-negative reports dooccur. The HPV DNA reflex c rosy were not met with this specimenresult therefore, no HPV testing was performed.Performed at: - [facility] [id number] Director: Annamaria Pulido MD, Phone: [phone] NEGATIVE FOR INTRAEP ITHELIAL LESION AND MALIGNANCY.CELLULAR CHANGES ASSOCIATED WITH ATROPHY ARE PRESENT. This liquid based Th inPrep(R) pap test was screened withthe use of an image guided system. PAP I-G w/rfx hrHPV . Normal Compr [facility] Internal Medicine Work Phone: Comment on above: CYTOLOGY INFORMATION :- CLINICAL INFORMATION:- DATE LMP/MENOPAUSE: MENOPAUSE- COLLECTION VIAL: Thin Prep Vial- MEDICAID BUSINESS ANALYST SOURCE: CERVICAL/ENDOCERVICAL- COLLECTION TECHNIQUE: BRUSH/SPATULASpecimen Comment: [id number] Comment: No. of containers..01 ThinPrep VialLabCorp (refer to report for specific site)refer to report for address and phone number Rapid Strep Test, Office ([phone])Ordered By: Steff Cummins on 04-06-2017 S. pyogenes Ag EIA Ql (Throat) Negative Normal [facility]; [facility] Work Phone: S. pyogenes Ag IA Ql (Unsp spec) Negative Normal [facility] Work Phone: THROAT CULTURE ([phone])on Bacteria identified Respiratory culture Nom (Unsp spec) RRF Normal [facility] Work Phone: Comment on above: Routine respiratory suresh PATIENT NOT FASTINGP ERFORMED BY: groSolar [facility] [address] [id number] Information: SRC:TH Bacteria identified Respiratory culture Nom (Unsp spec) Final report Normal [facility] Medicine Work Phone: Comment on above: PATIENT NOT FASTINGP ERFORMED BY: groSolar [facility] [id number] [facility] [id number] Information: SRC:TH ANTINUCLEAR ANTIBODIES DIREC Ton 04-02-2017 Nuclear Ab Ql (S) Negative Normal Compreh ensive Internal Medicine Work Phone: Comment on above: Performed at: - [address] [id number] Director: Rayray Deleon PhD, Phone: [phone] [facility] (refer to re port for specific site)refer to report for address and phone number CBC W/Diff, Automatedon 03-18 Absolute Neut 6.4 {X10_3/uL} Normal 2.0-7.7 Compreh ensive Internal Medicine Work Phone: Comment on above: [facility] [address] [place], [address] Basophils/100 WBC (Bld) 0.4 % Normal 0-1 [facility] Medicine Work Phone: Comment on above: [facility] [address] [place], [address] Eosinophils/100 WBC (Bld) 1.5 % Normal 0-5 [facility] Work Phone: Comment on above: [facility] [address] [place], [place], [phone] Erythrocyte distribution width Ratio (RBC) 13.4 % Normal 11.6-14.6 [facility] Work Phone: Comment on above: [facility] [address] [place], [address] Hematocrit Volume Fraction (Bld) 43.2 % Normal 37-47 [facility] Medicine Work Phone: Comment on above: [facility] [address] [place], [address] Hemoglobin mass conc (Bld) 14.0 g/dL Normal 12.0-15.0 [facility] Work Phone: Comment on above: [facility] [address] [place], [address] IM GRAN % 0.300 % Normal 0.0-0.9 [facility] Work Phone: Comment on above: IG% - Immature Granu locytes (promyelocytes, myelocytes andmetamyelocytes) > 1% indicates that a LEFT SHIFT is Present. [facility] [address] [place], [place], [phone] Lymphocytes #/vol (Bld) 2.94 {X10_3/ul} Normal 0.83-4.51 [facility] Work Phone: Comment on above: [facility] [address] [place], [address] Lymphocytes/100 WBC (Bld) 27.2 % Normal 19-41 [facility] Work Phone: Comment on above: [facility] [address] [place], [address] MCH Entitic mass (RBC) 30.0 pg Normal 27.0-32.0 [facility] Internal Medicine Work Phone: Comment on above: [facility] [address] [place], [address] MCHC mass conc (RBC) 32.4 {g/gl} Normal 32-36 [facility] Internal Medicine Work Phone: Comment on above: [facility] [address] [place], [address] MCV Entitic volume (RBC) 92.5 fL Normal 81-99 [facility] Internal Medicine Work Phone: Comment on above: [facility] [address] [place], [address] Monocytes/100 WBC (Bld) 11.2 % Abnormal 0-10 [facility] Internal Medicine Work Phone: Comment on above: [facility] [address] [place], [address] Neutrophils/100 WBC (Bld) 59.4 % Normal 47-70 [facility] Internal Medicine Work Phone: Comment on above: [facility] [address] [place], [address] Platelet mean volume Entitic volume (Bld) 10.4 fL Normal 6.2-12.0 [facility] Internal Medicine Work Phone: Comment on above: [facility] [address] [place], [address] Platelets #/vol (Bld) 378 10*3/uL Normal 150-450 [facility] Internal Medicine Work Phone: Comment on above: [facility] [address] [place], [address] RBC #/vol (Bld) 4.67 {M/mm3} Normal 4.2-5.4 Compreh ensive Internal Medicine Work Phone: Comment on above: [facility] [address] [place], [place], [phone] RDW SD 45.3 fL Abnormal 35.1-43.9 [facility] Work Phone: Comment on above: [facility] [address] [place], [place], [phone] WBC #/vol (Bld) 10.8 10*3/uL Normal 4.4-11.0 Compreh ensive Internal Medicine Work Phone: Comment on above: [facility] [address] [place], [address] CCP IgG Antibodieson 017 Cyclic citrullinated peptide IgG Qn 11 {units} Normal 0-19 [facility] Work Phone: Comment on above: Negative <20 Weak po sitive 20 - 39 Moderate positive 40 - 59 Strong positive >59 [facility] (refer to re port for specific site)refer to report for address and phone number Comprehensive Metabolic Prof ilon 04-02-2017 Comprehensive metabolic 2000 panel 95 mL/min Normal Comprehensi ve Internal Medicine Work Phone: Comment on above: Non- GFR Calc [facility] [address] [place], [place], [id number] Comprehensive metabolic 2000 panel 3.7 g/dL Normal 3.4-5.0 Comprehensi ve Internal Medicine Work Phone: Comment on above: Please note revised Albumin AND Globulin reference rangeeffective 2017. [facility] [address] [place], [place], [id number] Comprehensive metabolic 2000 panel 26.8 {RATIO} Abnormal 10-20 Comprehensi ve Internal Medicine Work Phone: Comment on above: [facility] [address] [place], [address] Comprehensive metabolic 2000 panel 8.1 g/dL Normal 6.4-8.2 Comprehensi ve Internal Medicine Work Phone: Comment on above: [facility] [address] [place], [place], [address] Comprehensive metabolic 2000 panel 0.67 mg/dL Normal 0.55-1.02 Comprehensi ve Internal Medicine Work Phone: Comment on above: The validity of the calculated GFR AND GFRAA in patients over70 years has not been determined. Clinical correlation isessential. [facility] [address] [place], [place], [id number] Comprehensive metabolic 2000 panel 4.4 g/dL Abnormal 2.2-4.2 Comprehensi ve Internal Medicine Work Phone: Comment on above: [facility] [address] [place], [place], [address] Comprehensive metabolic 2000 panel 0.8 {RATIO} Abnormal 0.9-2.4 Comprehensi ve Internal Medicine Work Phone: Comment on above: [facility] [address] [place], [place], [address] Comprehensive metabolic 2000 panel 9.0 mg/dL Normal 8.5-10.1 Comprehensi ve Internal Medicine Work Phone: Comment on above: [facility] [address] [place], [place], [address] Comprehensive metabolic 2000 panel 17 U/L Normal 15-37 Comprehensi ve Internal Medicine Work Phone: Comment on above: [facility] [address] [place], [place], [id number] Comprehensive metabolic 2000 panel 61 U/L Normal 45-117 Comprehensi ve Internal Medicine Work Phone: Comment on above: [facility] [address] [place], [place], [address] Comprehensive metabolic 2000 panel 24 U/L Normal 12-78 Comprehensi ve Internal Medicine Work Phone: Comment on above: [facility] [address] [place], [place], [address] Comprehensive metabolic 2000 panel 0.90 mg/dL Normal 0.20-1.00 Comprehensi ve Internal Medicine Work Phone: Comment on above: [facility] [address] [place], [place], [address] Comprehensive metabolic 2000 panel 140 mmol/L Normal 136-145 Comprehensi ve Internal Medicine Work Phone: Comment on above: [facility] [address] [place], [place], [address] Comprehensive metabolic 2000 panel 3.5 mmol/L Normal 3.5-5.1 Comprehensi ve Internal Medicine Work Phone: Comment on above: [facility] [address] [place], [place], [address] Comprehensive metabolic 2000 panel 104 mmol/L Normal 98-107 Comprehensi ve Internal Medicine Work Phone: Comment on above: [facility] [address] [place], [place], [address] Comprehensive metabolic 2000 panel 27.0 mmol/L Normal 21.0-32.0 Comprehensi ve Internal Medicine Work Phone: Comment on above: [facility] [address] [place], [place], [address] Comprehensive metabolic 2000 panel 9 1 Normal 5-15 Comprehensi ve Internal Medicine Work Phone: Comment on above: [facility] [address] [place], [place], [phone] Comprehensive metabolic 2000 panel 18 mg/dL Normal 7-18 Comprehensi ve Internal Medicine Work Phone: Comment on above: [facility] [address] [place], [place], [id number] Comprehensive metabolic 2000 panel 81 mg/dL Normal 70-110 Comprehensi ve Internal Medicine Work Phone: Comment on above: [facility] [address] [place], [place], [phone] Comprehensive metabolic 2000 panel 115 mL/min Normal Comprehensi ve Internal Medicine Work Phone: Comment on above: GFR Calc [facility] [address] [place], [place], [id number] Hep B Surface Antibodieson 1 HBV surface Ab Qn (S) Non Reactive Normal C omprehensive Internal Medicine Work Phone: Comment on above: Non Reactive: Incons istent with immunity, less than 10 mIU/mL Reactive: Consistent with immunity, greater than 9.9 mIU/mL [facility] (refer to re port for specific site)refer to report for address and phone number Hepatitis B Surface Agon Hepatitis B Surface Ag Negative Normal Comprehensive [facility] Work Phone: Comment on above: [facility] (refer to re port for specific site)refer to report for address and phone number HLA-B*27 AvcyubljT90 allele interpretation for all loci based on IMGT/HLAdatabase version 3.25This test was developed and its performance characteristicsdetermined by [facility]. It has not been cleared or approvedby the Food and Drug Administration.[facility] CLIA ID Number [id number] test was performed using PCR (Polymerase ChainReaction)/SSOP (Sequence Specific Oligonucleotide Probes)technique. SBT (Sequence Based Typing) and/or SSP(Sequence Specific Primers) may be used as supplementalmethods when necessary. Please contact [facility] CustomerService at if you have any questions. Director of HLA Laboratory Dr Baron Hemphill, PhD Hepatitis B Core Ab Totalon 04-02-2017 HBV core Ab Ql (S) Negative Normal Compre [facility] Internal Medicine Work Phone: Comment on above: Performed at: [address] [place] [address] [id number] Director: Rayray Deleon PhD, Phone: [phone] at: 2Q - [facility], [place] [id number] Director: Baron Hemphill PhD, Phone: [phone] at: BN - [facility] [address] [id number] Director: Nba Duff MD, Phone: [phone] [facility] (refer to re port for specific site)refer to report for address and phone number Hepatitis C Antibodieson Hepatitis C Antibodies <0.1 Normal 0.0-0.9 [facility] Work Phone: Comment on above: Negative: < 0.8 Inde terminate: 0.8 - 0.9 Positive: > 0.9 The CDC recommends that a positive HCV antibody result be followed up with a HCV Nucleic Acid Amplification test (258729). [facility] (refer to re port for specific site)refer to report for address and phone number Rheumatoid Factoron 04-02-20 17 Rheumatoid factor Qn [IU]/mL Normal Comp rehensive Internal Medicine Work Phone: Comment on above: [facility] [address] [place] [address], [id number] Sjogren's Antibodies A/Bon 1 Sjogren's Antibodies A/B < 0.2 Normal 0.0-0.9 [facility] Work Phone: Comment on above: [facility] (refer to re port for specific site)refer to report for address and phone number ANTINUCLEAR ANTIBODIES DIREC Ton 03-07-2017 Nuclear Ab Ql (S) Negative Normal Compreh ensive Internal Medicine Work Phone: Comment on above: Performed at: [address] [id number] Director: Rayray Deleon PhD, Phone: [phone] [facility] (refer to re port for specific site)refer to report for address and phone number CBC W/Diff, Automatedon 02-17 Absolute Neut 5.0 {X10_3/uL} Normal 2.0-7.7 Compreh ensive Internal Medicine Work Phone: Comment on above: [facility] [address] [place], [address] Basophils/100 WBC (Bld) 0.7 % Normal 0-1 [facility] Work Phone: Comment on above: [facility] [address] [place], [address] Eosinophils/100 WBC (Bld) 2.1 % Normal 0-5 [facility] Work Phone: Comment on above: [facility] [address] [place], [address] Erythrocyte distribution width Ratio (RBC) 13.4 % Normal 11.6-14.6 [facility] Work Phone: Comment on above: [facility] [address] [place], [place], [id number] Hematocrit Volume Fraction (Bld) 42.7 % Normal 37-47 [facility] Work Phone: Comment on above: [facility] [address] [place], [address] Hemoglobin mass conc (Bld) 14.5 g/dL Normal 12.0-15.0 [facility] Work Phone: Comment on above: [facility] [address] [place], [address] IM GRAN % 0.500 % Normal 0.0-0.9 [facility] Work Phone: Comment on above: IG% - Immature Granu locytes (promyelocytes, myelocytes andmetamyelocytes) > 1% indicates that a LEFT SHIFT is Present. [facility] [address] [place], [place], [phone] Lymphocytes #/vol (Bld) 2.01 {X10_3/ul} Normal 0.83-4.51 [facility] Work Phone: Comment on above: [facility] [address] [place], [address] Lymphocytes/100 WBC (Bld) 25.0 % Normal 19-41 [facility] Work Phone: Comment on above: [facility] [address] [place], [address] MCH Entitic mass (RBC) 30.5 pg Normal 27.0-32.0 [facility] Work Phone: Comment on above: [facility] [address] [place], [address] MCHC mass conc (RBC) 34.0 {g/gl} Normal 32-36 [facility] prehensive Internal Medicine Work Phone: Comment on above: [facility] [address] [place], [address] MCV Entitic volume (RBC) 89.9 fL Normal 81-99 [facility] Work Phone: Comment on above: [facility] [address] [place], [address] Monocytes/100 WBC (Bld) 9.6 % Normal 0-10 [facility] Work Phone: Comment on above: [facility] [address] [place], [address] Neutrophils/100 WBC (Bld) 62.1 % Normal 47-70 [facility] Work Phone: Comment on above: [facility] [address] [place], [address] Platelet mean volume Entitic volume (Bld) 10.3 fL Normal 6.2-12.0 Comprehensi Internal Medicine Work Phone: Comment on above: [facility] [address] [place], [address] Platelets #/vol (Bld) 333 10*3/uL Normal 150-450 Co mprehensive Internal Medicine Work Phone: Comment on above: [facility] [address] [place], [place], [phone] RBC #/vol (Bld) 4.75 {M/mm3} Normal 4.2-5.4 Compreh ensive Internal Medicine Work Phone: Comment on above: [facility] [address] [place], [place], [phone] RDW SD 43.7 fL Normal 35.1-43.9 [facility] Work Phone: Comment on above: [facility] [address] [place], [place], [phone] WBC #/vol (Bld) 8.0 10*3/uL Normal 4.4-11.0 Comprehe nsive Internal Medicine Work Phone: Comment on above: [facility] [address] [place], [place], [id number] CRPon 03-07-2017 CRP High sensitivity method mass conc 7.23 mg/L Abnormal 0.0-3.0 [facility] Work Phone: Comment on above: C-Reactive Protein ( CRP) provides useful information for thediagnosis, therapy and monitoring of inflammatory processesand associated diseases. For the evaluation of Relative Riskfor Cardiovascular Disease, a High Sensitivity CRP (HSCRP)should be ordered. [facility] [address] [place], [place], [id number] Erythrocyte Sed Rateon 03-07 Erythrocyte Sed Rate 12 mm/h Normal 0-30 Comp rehensive Internal Medicine Work Phone: Comment on above: [facility] [address] [place], [place], [phone] Rheumatoid Factoron 03-07-20 17 Rheumatoid factor Qn [IU]/mL Normal Comp rehensive Internal Medicine Work Phone: Comment on above: [facility] [address] [place], [place], [id number] Uric Acidon 03-07-2017 Urate mass conc 4.3 mg/dL Normal 2.6-6.0 Esme chauhan Internal Medicine Work Phone: Comment on above: The drugs N-Acetylcy steine and Metamizole may falselydepress this assay. [facility] [address] [place], [place], [phone] Vital Signs Date Time Vital Sign Value Performing Clinician Facility 10-03-2024 12:56-0400 Body mass index (BMI) [Ratio] 31.13 kg/m2 Gary Hooper HEAT CURER.CLINICAL RESEARCHER Work Phone: [facility] 10-03-2024 12:56-0400 Body temperature 98.2 [degF] Gary Hooper HEAT CURER.CLINICAL RESEARCHER Work Phone: [facility] 10-03-2024 12:56-0400 Body weight 78 kg Gary Hooper HEAT CURER.CLINICAL RESEARCHER Work Phone: [facility] 10-03-2024 12:56-0400 Diastolic blood pressure 85 mm[Hg] Gary Hooper HEAT CURER.CLINICAL RESEARCHER Work Phone: [facility] 10-03-2024 12:56-0400 Heart rate 99 /min Gary Hooper HEAT CURER.CLINICAL RESEARCHER Work Phone: [facility] 10-03-2024 12:56-0400 Respiratory rate 20 /min Gary Hooper HEAT CURER.CLINICAL RESEARCHER Work Phone: [facility] 10-03-2024 12:56-0400 SaO2% (BldA) [Mass fraction] 96 % Gary Hooper HEAT CURER.CLINICAL RESEARCHER Work Phone: [facility] 10-03-2024 12:56-0400 Systolic blood pressure 132 mm[Hg] Gary Hooper HEAT CURER.CLINICAL RESEARCHER Work Phone: [facility] 08-26-2024 13:09-0400 Body temperature 98.8 [degF] Dr. Padmini Hinkle DO Work Phone: [facility] 08-26-2024 13:09-0400 Diastolic blood pressure 78 mm[Hg] Dr. Padmini Hinkle DO Work Phone: [facility] 08-26-2024 13:09-0400 Heart rate 122 /min Dr. Padmini Hinkle DO Work Phone: [facility] 08-26-2024 13:09-0400 Respiratory rate 16 /min Dr. Padmini Hinkle DO Work Phone: [facility] 08-26-2024 13:09-0400 SaO2% (BldA) [Mass fraction] 97 % Dr. Padmini Hinkle DO Work Phone: [facility] 08-26-2024 13:09-0400 Systolic blood pressure 156 mm[Hg] Dr. Padmini Hinkle DO Work Phone: [facility] 05-26-2024 09:27-0500 Body height 158.3 cm Ashley Whitney HEAT CURER.CLINICAL RESEARCHER Work Phone: [facility] 05-26-2024 09:27-0500 Body mass index (BMI) [Ratio] 32 kg/m2 Ashley Whitney HEAT CURER.CLINICAL RESEARCHER Work Phone: [facility] 05-26-2024 09:27-0500 Body weight 80.2 kg Ashley Lismore HEAT CURER.CLINICAL RESEARCHER Work Phone: [facility] 05-26-2024 09:27-0500 Diastolic blood pressure 64 mm[Hg] Ashley Lismore HEAT CURER.CLINICAL RESEARCHER Work Phone: [facility] 05-26-2024 09:27-0500 Systolic blood pressure 122 mm[Hg] Ashley Whitney HEAT CURER.CLINICAL RESEARCHER Work Phone: [facility] 07-08-2023 11:52-0500 Body height 160.02 cm [facility] 07-08-2023 11:52-0500 Body mass index (BMI) [Ratio] 31.3 kg/m2 [facility] 07-08-2023 11:52-0500 Body temperature 96.7 [degF] [facility] 07-08-2023 11:52-0500 Body weight 80.2 kg [facility] 07-08-2023 11:52-0500 Diastolic blood pressure 85 mm[Hg] [facility] 07-08-2023 11:52-0500 Heart rate 107 /min [facility] 07-08-2023 11:52-0500 Respiratory rate 18 /min [facility] 07-08-2023 11:52-0500 SaO2% (BldA) [Mass fraction] 98 % [facility] 07-08-2023 11:52-0500 Systolic blood pressure 145 mm[Hg] [facility] 03-28-2023 09:11-0400 Body height 158.75 cm Clotilde Slarb COMBINING MACHINE OPERATOR [facility]; [facility] Work Phone: 03-28-2023 09:11-0400 Body mass index (BMI) [Ratio] 32.4 kg/m2 Clotilde Slarb COMBINING MACHINE OPERATOR [facility]; [facility] Work Phone: 03-28-2023 09:11-0400 Body surface area Derived from formula 1.84 m2 Clotilde Slarb COMBINING MACHINE OPERATOR [facility]; [facility] Work Phone: 03-28-2023 09:11-0400 Body temperature 97.2 [degF] Clotilde Slarb COMBINING MACHINE OPERATOR [facility]; [facility] Work Phone: Comment on above: Method: Temporal 03-28-2023 09:[id number] Body weight 81.65 kg Clotilde Slarb COMBINING MACHINE OPERATOR [facility]; [facility] Work Phone: 03-28-2023 09:11-0400 Diastolic blood pressure 78 mm[Hg] Clotilde Slarb COMBINING MACHINE OPERATOR [facility]; [facility] Work Phone: Comment on above: Patient Position: Sitting; Cuff Location : Left Arm; Cuff Size: Standard 03-28-2023 09:11-0400 Heart rate 95 /min Clotilde Slarb COMBINING MACHINE OPERATOR [facility]; [facility] Work Phone: Comment on above: Pattern: Regular 03-28-2023 09:[id number] Respiratory rate 15 /min Clotilde Oscarrb COMBINING MACHINE OPERATOR [facility]; [facility] Work Phone: Comment on above: Pattern: Unlabored 03-28-2023 09:11-0400 SaO2% (BldA) [Mass fraction] 95 % Clotilde Daynerb COMBINING MACHINE OPERATOR [facility]; [facility] Work Phone: Comment on above: Room air 03-28-2023 09:110400 Systolic blood pressure 132 mm[Hg] Clotilde Slarb COMBINING MACHINE OPERATOR [facility]; [facility] Work Phone: Comment on above: Patient Position: Sitting; Cuff Location : Left Arm; Cuff Size: Standard 09-25-2022 09:07-0400 Body height 158.75 cm Clotilde Slarb COMBINING MACHINE OPERATOR [facility]; [facility] Work Phone: 09-25-2022 09:07-0400 Body mass index (BMI) [Ratio] 32.22 kg/m2 Clotilde Slarb COMBINING MACHINE OPERATOR [facility]; [facility] Work Phone: 09-25-2022 09:07-0400 Body surface area Derived from formula 1.83 m2 Clotilde Slarb COMBINING MACHINE OPERATOR [facility]; [facility] Work Phone: 09-25-2022 09:07-0400 Body temperature 97.5 [degF] Clotilde Slarb COMBINING MACHINE OPERATOR [facility]; [facility] Work Phone: Comment on above: Method: Temporal 09-25-2022 09:07-0400 Body weight 81.19 kg Clotilde Slarb COMBINING MACHINE OPERATOR [facility]; [facility] Work Phone: 09-25-2022 09:07-0400 Diastolic blood pressure 80 mm[Hg] Clotilde Slarb COMBINING MACHINE OPERATOR [facility]; [facility] Work Phone: Comment on above: Patient Position: Sitting; Cuff Location : Left Arm; Cuff Size: Standard 09-25-2022 09:07-0400 Heart rate 100 /min Clotilde Metcalf LPN [facility]; [facility] Work Phone: Comment on above: Pattern: Regular 09-25-2022 09:07-0400 Respiratory rate 16 /min Clotilde Metcalf COMBINING MACHINE OPERATOR [facility]; [facility] Work Phone: Comment on above: Pattern: Unlabored 09-25-2022 09:07-0400 SaO2% (BldA) [Mass fraction] 99 % Clotilde Metcalf COMBINING MACHINE OPERATOR [facility]; [facility] Work Phone: Comment on above: Room air 09-25-2022 09:07-0400 Systolic blood pressure 130 mm[Hg] Clotilde Oscarrb COMBINING MACHINE OPERATOR [facility]; [facility] Work Phone: Comment on above: Patient Position: Sitting; Cuff Location : Left Arm; Cuff Size: Standard 07-24-2022 09:49-0500 Body height 158.75 cm Clotilde Metcalf COMBINING MACHINE OPERATOR [facility]; [facility] Work Phone: 07-24-2022 09:49-0500 Body mass index (BMI) [Ratio] 31.92 kg/m2 Clotilde Slarb COMBINING MACHINE OPERATOR [facility]; [facility] Work Phone: 07-24-2022 09:49-0500 Body surface area Derived from formula 1.83 m2 Clotilde Oscarrb COMBINING MACHINE OPERATOR [facility]; [facility] Work Phone: 07-24-2022 09:49-0500 Body temperature 98.3 [degF] Clotilde Oscarrb COMBINING MACHINE OPERATOR [facility]; [facility] Work Phone: Comment on above: Method: Temporal 07-24-2022 09:49-0500 Body weight 80.46 kg Clotilde Oscarrb COMBINING MACHINE OPERATOR [facility]; [facility] Work Phone: 07-24-2022 09:49-0500 Diastolic blood pressure 82 mm[Hg] Clotilde Slarb COMBINING MACHINE OPERATOR [facility]; [facility] Work Phone: Comment on above: Patient Position: Sitting; Cuff Location : Left Arm; Cuff Size: Standard 07-24-2022 09:49-0500 Heart rate 116 /min Clotilde Slarb COMBINING MACHINE OPERATOR [facility]; [facility] Work Phone: Comment on above: Pattern: Regular 07-24-2022 09:49-0500 Respiratory rate 17 /min Clotilde Daynerb COMBINING MACHINE OPERATOR [facility]; [facility] Work Phone: Comment on above: Pattern: Unlabored 07-24-2022 09:49-0500 SaO2% (BldA) [Mass fraction] 97 % Clotilde Slarb COMBINING MACHINE OPERATOR [facility]; [facility] Work Phone: Comment on above: Room air 07-24-2022 09:49-0500 Systolic blood pressure 122 mm[Hg] Clotilde Slarb COMBINING MACHINE OPERATOR [facility]; [facility] Work Phone: Comment on above: Patient Position: Sitting; Cuff Location : Left Arm; Cuff Size: Standard 05-23-2022 09:13-0500 Body height 158.75 cm Clotilde Slarb COMBINING MACHINE OPERATOR [facility]; [facility] Work Phone: 05-23-2022 09:13-0500 Body mass index (BMI) [Ratio] 31.92 kg/m2 Clotilde Slarb COMBINING MACHINE OPERATOR [facility]; [facility] Work Phone: 05-23-2022 09:13-0500 Body surface area Derived from formula 1.83 m2 Clotilde Slarb COMBINING MACHINE OPERATOR [facility]; [facility] Work Phone: 05-23-2022 09:13-0500 Body temperature 98.2 [degF] Clotilde Slarb COMBINING MACHINE OPERATOR [facility]; [facility] Work Phone: 05-23-2022 09:13-0500 Body weight 80.46 kg Clotilde Slarb COMBINING MACHINE OPERATOR [facility]; [facility] Work Phone: 05-23-2022 09:13-0500 Diastolic blood pressure 82 mm[Hg] Clotilde Slarb COMBINING MACHINE OPERATOR [facility]; [facility] Work Phone: Comment on above: Patient Position: Sitting; Cuff Location : Left Arm; Cuff Size: Standard 05-23-2022 09:13-0500 Heart rate 103 /min Clotilde Metcalf LPN [facility]; [facility] Work Phone: Comment on above: Pattern: Regular 05-23-2022 09:13-0500 Respiratory rate 17 /min Clotilde Metcalf LPN [facility]; [facility] Work Phone: Comment on above: Pattern: Unlabored 05-23-2022 09:13-0500 SaO2% (BldA) [Mass fraction] 97 % Clotilde Oscarrb COMBINING MACHINE OPERATOR [facility]; [facility] Work Phone: Comment on above: Room air 05-23-2022 09:13-0500 Systolic blood pressure 124 mm[Hg] Clotilde Metcalf COMBINING MACHINE OPERATOR [facility]; [facility] Work Phone: Comment on above: Patient Position: Sitting; Cuff Location : Left Arm; Cuff Size: Standard 05-15-2022 09:01-0500 Body height 160 cm Anotnia Mattson HEAT CURER.CLINICAL RESEARCHER Work Phone: [facility] 05-15-2022 09:01-0500 Body temperature 98.2 [degF] Antonia Mattson HEAT CURER.CLINICAL RESEARCHER Work Phone: [facility] 05-15-2022 09:01-0500 Body weight 81.65 kg Antonia Mattson HEAT CURER.CLINICAL RESEARCHER Work Phone: [facility] 05-15-2022 09:01-0500 Diastolic blood pressure 92 mm[Hg] Antonia Mattson HEAT CURER.CLINICAL RESEARCHER Work Phone: [facility] 05-15-2022 09:01-0500 Heart rate 111 /min Antonia Mattson HEAT CURER.CLINICAL RESEARCHER Work Phone: [facility] 05-15-2022 09:01-0500 Systolic blood pressure 157 mm[Hg] Antonia Mattson HEAT CURER.CLINICAL RESEARCHER Work Phone: [facility] 04-20-2022 14:18-0400 Body height 158.75 cm Chuckie Cummins COMBINING MACHINE OPERATOR [facility] Work Phone: 04-20-2022 14:18-0400 Body mass index (BMI) [Ratio] 33.18 kg/m2 Chuckie Cummins LPN [facility]; [facility] Work Phone: 04-20-2022 14:18-0400 Body surface area Derived from formula 1.86 m2 Chuckie Cummins LPN [facility]; [facility] Work Phone: 04-20-2022 14:18-040 Body weight 83.63 kg Chuckie Cummins LPN [facility]; [facility] Work Phone: 04-20-2022 14:18-0400 Diastolic blood pressure 70 mm[Hg] Chuckie Cummins LPN [facility]; [facility] Work Phone: Comment on above: Patient Position: Sitting; Cuff Location : Left Arm; Cuff Size: Standard 04-20-2022 14:18-0400 Heart rate 113 /min Chuckie Cummins LPN [facility]; [facility] Work Phone: Comment on above: Pattern: Regular 04-20-2022 14:18-0400 Respiratory rate 16 /min Chuckie Cummins LPN [facility]; [facility] Work Phone: Comment on above: Pattern: Unlabored 04-20-2022 14:18-0400 SaO2% (BldA) [Mass fraction] 99 % Chuckie Cummins LPN [facility]; [facility] Work Phone: Comment on above: Room air 04-20-2022 14:18-0400 Systolic blood pressure 132 mm[Hg] Chuckie Cummins LPN [facility]; [facility] Work Phone: Comment on above: Patient Position: Sitting; Cuff Location : Left Arm; Cuff Size: Standard 04-16-2022 13:11-0400 Body temperature 98.49 [degF] Natalie Jay APRN.CLINICAL RESEARCHER Work Phone: [facility] 04-16-2022 13:11-0400 Body weight 84.01 kg Natalie Jay APRN.CLINICAL RESEARCHER Work Phone: [facility] 04-16-2022 13:11-0400 Diastolic blood pressure 84 mm[Hg] Natalie Callow HEAT CURER.CLINICAL RESEARCHER Work Phone: [facility] 04-16-2022 13:11-0400 Heart rate 104 /min ow HEAT CURER.CLINICAL RESEARCHER Work Phone: [facility] 04-16-2022 13:11-0400 Respiratory rate 18 /min ow HEAT CURER.CLINICAL RESEARCHER Work Phone: [facility] 04-16-2022 13:11-0400 SaO2% (BldA) [Mass fraction] 99 % HEAT CURER.CLINICAL RESEARCHER Work Phone: [facility] 04-16-2022 13:11-0400 Systolic blood pressure 148 mm[Hg] HEAT CURER.CLINICAL RESEARCHER Work Phone: [facility] 03-30-2022 09:17-0400 Body height 158.75 cm Chuckie Cummins LPN [facility]; [facility] Work Phone: 03-30-2022 09:17-0400 Body mass index (BMI) [Ratio] 33.18 kg/m2 Chuckie Cummins LPN [facility]; [facility] Work Phone: 03-30-2022 09:17-0400 Body surface area Derived from formula 1.86 m2 Chuckie Cummins LPN [facility]; [facility] Work Phone: 03-30-2022 09:17-0400 Body temperature 97.4 [degF] Chuckie Cummins LPN [facility]; [facility] Work Phone: Comment on above: Method: Infrared 03-30-2022 09:17-0400 Body weight 83.63 kg Chuckie Cummins LPN [facility]; [facility] Work Phone: 03-30-2022 09:17-0400 Diastolic blood pressure 88 mm[Hg] Chuckie Cummins LPN [facility]; [facility] Work Phone: Comment on above: Patient Position: Sitting; Cuff Location : Left Arm; Cuff Size: Standard 03-30-2022 09:17-0400 Heart rate 114 /min Chuckie Cummins LPN [facility]; [facility] Work Phone: Comment on above: Pattern: Regular 03-30-2022 09:17-0400 Respiratory rate 16 /min Chuckie Cummins LPN [facility]; [facility] Work Phone: Comment on above: Pattern: Unlabored 03-30-2022 09:17-0400 SaO2% (BldA) [Mass fraction] 99 % Chuckie Cummins LPN [facility]; [facility] Work Phone: Comment on above: Room air 03-30-2022 09:17-0400 Systolic blood pressure 150 mm[Hg] Chuckie Cummins LPN [facility]; [facility] Work Phone: Comment on above: Patient Position: Sitting; Cuff Location : Left Arm; Cuff Size: Standard 01-24-2022 08:59-0400 Body height 157.48 cm [facility] Work Phone: 01-04-2022 09:45-0400 Body height 158.75 cm Clotilde Metcalf LPN [facility]; [facility] Work Phone: 01-04-2022 09:45-0400 Body mass index (BMI) [Ratio] 33.18 kg/m2 Clotilde Metcalf LPN [facility]; [facility] Work Phone: 01-04-2022 09:45-0400 Body surface area Derived from formula 1.86 m2 Clotilde Metcalf LPN [facility]; [facility] Work Phone: 01-04-2022 09:45-0400 Body temperature 97.1 [degF] Clotilde Metcalf LPN [facility]; [facility] Work Phone: 01-04-2022 09:45-0400 Body weight 83.63 kg Clotilde Metcalf LPN [facility]; [facility] Work Phone: 01-04-2022 09:45-0400 Diastolic blood pressure 82 mm[Hg] Clotilde Metcalf LPN [facility]; [facility] Work Phone: Comment on above: Patient Position: Sitting; Cuff Location : Left Arm; Cuff Size: Standard 01-04-2022 09:45-0400 Heart rate 91 /min Clotilde Metcalf LPN [facility]; [facility] Work Phone: Comment on above: Pattern: Regular 01-04-2022 09:45-0400 Respiratory rate 16 /min Clotilde Metcalf LPN [facility]; [facility] Work Phone: Comment on above: Pattern: Unlabored 01-04-2022 09:45-0400 SaO2% (BldA) [Mass fraction] 95 % Clotilde Metcalf [facility]; [facility] Work Phone: Comment on above: Room air 01-04-2022 09:45-0400 Systolic blood pressure 126 mm[Hg] Clotilde Dixon PERALES [facility]; [facility] Work Phone: Comment on above: Patient Position: Sitting; Cuff Location : Left Arm; Cuff Size: Standard 09-21-2021 09:29-0400 Body height 158.75 cm Chuckie Cummins LPN [facility]; [facility] Work Phone: 09-21-2021 09:29-0400 Body mass index (BMI) [Ratio] 33.26 kg/m2 Chucike Cummins LPN [facility]; [facility] Work Phone: 09-21-2021 09:29-0400 Body surface area Derived from formula 1.86 m2 Chuckie Cummins LPN [facility]; [facility] Work Phone: 09-21-2021 09:29-0400 Body temperature 97.6 [degF] Chuckie Cummins LPN [facility]; [facility] Work Phone: Comment on above: Method: Infrared 09-21-2021 09:29-0400 Body weight 83.83 kg Chuckie Cummins LPN [facility]; [facility] Work Phone: 09-21-2021 09:29-0400 Diastolic blood pressure 78 mm[Hg] Chuckie Cummins LPN [facility]; [facility] Work Phone: Comment on above: Patient Position: Sitting; Cuff Location : Right Arm; Cuff Size: Standard 09-21-2021 09:29-0400 Heart rate 111 /min Chuckie Cummins LPN [facility]; [facility] Work Phone: Comment on above: Pattern: Regular 09-21-2021 09:29-0400 Respiratory rate 16 /min Chuckie Cummins LPN [facility]; [facility] Work Phone: Comment on above: Pattern: Unlabored 09-21-2021 09:29-0400 SaO2% (BldA) [Mass fraction] 95 % Chuckie Cummins LPN [facility]; [facility] Work Phone: Comment on above: Room air 09-21-2021 09:29-0400 Systolic blood pressure 116 mm[Hg] Chuckie Cummins LPN [facility]; [facility] Work Phone: Comment on above: Patient Position: Sitting; Cuff Location : Right Arm; Cuff Size: Standard 08-22-2021 09:33-0500 Body height 158.75 cm Estrella Dupree LPN [facility]; [facility] Work Phone: 08-22-2021 09:33-0500 Body mass index (BMI) [Ratio] 33.39 kg/m2 Estrella Dupree LPN [facility]; [facility] Work Phone: 08-22-2021 09:33-0500 Body surface area Derived from formula 1.86 m2 Estrella Dupree LPN [facility]; [facility] Work Phone: 08-22-2021 09:33-0500 Body temperature 97.3 [degF] Estrella Dupree LPN [facility]; [facility] Work Phone: Comment on above: Method: Temporal 08-22-2021 09:33-0500 Body weight 84.14 kg Estrella Dupree LPN [facility]; [facility] Work Phone: 08-22-2021 09:33-0500 Diastolic blood pressure 82 mm[Hg] Estrella Dupree LPN [facility]; [facility] Work Phone: Comment on above: Patient Position: Sitting; Cuff Location : Left Arm; Cuff Size: Standard 08-22-2021 09:33-0500 Heart rate 103 /min Estrella Dupree LPN [facility]; [facility] Work Phone: Comment on above: Pattern: Regular 08-22-2021 09:33-0500 Respiratory rate 16 /min Estrella Dupree COMBINING MACHINE OPERATOR [facility]; [facility] Work Phone: Comment on above: Pattern: Unlabored 08-22-2021 09:33-0500 SaO2% (BldA) [Mass fraction] 97 % Estrella Dupree [facility]; [facility] Work Phone: Comment on above: Room air 08-22-2021 09:33-0500 Systolic blood pressure 140 mm[Hg] Estrella Dupree LPN [facility]; [facility] Work Phone: Comment on above: Patient Position: Sitting; Cuff Location : Left Arm; Cuff Size: Standard 06-22-2021 07:59-0500 Body height 158.75 cm Chuckie Cummins LPN [facility]; [facility] Work Phone: 06-22-2021 07:59-0500 Body mass index (BMI) [Ratio] 32.96 kg/m2 Chuckie Cummins LPN [facility]; [facility] Work Phone: 06-22-2021 07:59-0500 Body surface area Derived from formula 1.85 m2 Chuckie Cummins LPN [facility]; [facility] Work Phone: 06-22-2021 07:59-0500 Body weight 83.07 kg Chuckie Cummins LPN [facility]; [facility] Work Phone: 02-02-2021 10:31-0400 Body height 158.75 cm Estrella Dupree COMBINING MACHINE OPERATOR [facility]; [facility] Work Phone: 02-02-2021 10:31-0400 Body mass index (BMI) [Ratio] 32.96 kg/m2 Estrella Dupree COMBINING MACHINE OPERATOR [facility]; [facility] Work Phone: 02-02-2021 10:31-0400 Body surface area Derived from formula 1.85 m2 Estrella Dupree ANGELLA [facility]; [facility] Work Phone: 02-02-2021 10:31-0400 Body temperature 97.3 [degF] Estrella Dupree LPN [facility]; [facility] Work Phone: Comment on above: Method: Temporal 02-02-2021 10:31-0400 Body weight 83.07 kg Estrella Dupree COMBINING MACHINE OPERATOR [facility]; [facility] Work Phone: 02-02-2021 10:31-0400 Diastolic blood pressure 84 mm[Hg] Estrella Dupree COMBINING MACHINE OPERATOR [facility]; [facility] Work Phone: Comment on above: Patient Position: Sitting; Cuff Location : Left Arm; Cuff Size: Standard 02-02-2021 10:31-0400 Heart rate 105 /min Estrella Dupree ANGELLA [facility]; [facility] Work Phone: Comment on above: Pattern: Regular 02-02-2021 10:31-0400 Respiratory rate 16 /min Estrella Dupree LPN [facility]; [facility] Work Phone: Comment on above: Pattern: Unlabored 02-02-2021 10:31-0400 SaO2% (BldA) [Mass fraction] 97 % Estrella Dupree COMBINING MACHINE OPERATOR [facility]; [facility] Work Phone: Comment on above: Room air 02-02-2021 10:31-0400 Systolic blood pressure 130 mm[Hg] Estrella Dupree ANGELLA [facility]; [facility] Work Phone: Comment on above: Patient Position: Sitting; Cuff Location : Left Arm; Cuff Size: Standard 06-23-2019 16:15-0500 BMI (Body Mass Index) 32.59 kg/m2 Chuckie Cummins LPN [facility] Work Phone: 06-23-2019 16:15-0500 Body Temperature 97.3 [degF] Chuckie Cummins LPN [facility] Work Phone: Comment on above: Method: Temporal 06-23-2019 16:15-0500 Body weight 82.12 kg Chuckie Cummins LPN [facility] Work Phone: 06-23-2019 16:15-0500 BP Diastolic 74 mm[Hg] Chuckie Cummins LPN [facility] Work Phone: Comment on above: Patient Position: Sitting; Cuff Location : Left Arm; Cuff Size: Standard 06-23-2019 16:15-0500 BP Systolic 130 mm[Hg] Chuckie Cummins LPN [facility] Work Phone: Comment on above: Patient Position: Sitting; Cuff Location : Left Arm; Cuff Size: Standard 06-23-2019 16:15-0500 BSA (Body Surface Area) 1.84 m2 Chuckie Cummins LPN [facility] Work Phone: 06-23-2019 16:15-0500 Height 158.75 cm Chuckie Cummins LPN [facility] Work Phone: 06-23-2019 16:15-0500 Pulse (Heart Rate) 116 /min Chuckie Cummins LPN [facility] Work Phone: Comment on above: Pattern: Regular 06-23-2019 16:15-0500 Pulse Oximetry 96 % Yaneth Mcgregor [facility] Work Phone: Comment on above: Room air 06-23-2019 16:15-0500 Respiratory Rate 16 /min Chuckie Cummins LPN [facility] Work Phone: Comment on above: Pattern: Unlabored 06-23-2019 16:15-0500 SaO2% (BldA) [Mass fraction] 96 % Chuckie Cummins LPN [facility]; [facility] Work Phone: Comment on above: Room air 06-13-2019 07:06-0500 BMI (Body Mass Index) 33.3 kg/m2 Chuckie Cummins LPN [facility] Work Phone: 06-13-2019 07:06-0500 Body Temperature 97.9 [degF] Chuckie Cummins LPN [facility] Work Phone: Comment on above: Method: Temporal 06-13-2019 07:06-0500 Body weight 83.92 kg Chuckie Cummins LPN [facility] Work Phone: 06-13-2019 07:06-0500 BP Diastolic 80 mm[Hg] Chuckie Cummins LPN [facility] Work Phone: Comment on above: Patient Position: Sitting; Cuff Location : Left Arm; Cuff Size: Standard 06-13-2019 07:06-0500 BP Systolic 130 mm[Hg] Chuckie Cummins LPN [facility] Work Phone: Comment on above: Patient Position: Sitting; Cuff Location : Left Arm; Cuff Size: Standard 06-13-2019 07:06-0500 BSA (Body Surface Area) 1.86 m2 Chuckie Cummins LPN [facility] Work Phone: 06-13-2019 07:06-0500 Height 158.75 cm Chuckie Cummins LPN [facility] Work Phone: 06-13-2019 07:06-0500 Pulse (Heart Rate) 116 /min Chuckie Cummins LPN [facility] Work Phone: Comment on above: Pattern: Regular 06-13-2019 07:06-0500 Pulse Oximetry 96 % Yaneth Mcgregor [facility] Work Phone: Comment on above: Room air 06-13-2019 07:06-0500 Respiratory Rate 18 /min Chuckie Cummins LPN [facility] Work Phone: Comment on above: Pattern: Unlabored 06-13-2019 07:06-0500 SaO2% (BldA) [Mass fraction] 96 % Chuckie Cummins LPN [facility]; [facility] Work Phone: Comment on above: Room air 05-23-2019 07:22-0500 BMI (Body Mass Index) 32.94 kg/m2 Chuckie Cummins LPN [facility] Work Phone: 05-23-2019 07:22-0500 Body Temperature 98 [degF] Chuckie Cummins LPN [facility] Work Phone: Comment on above: Method: Temporal 05-23-2019 07:22-0500 Body weight 83.01 kg Chuckie Cummins LPN [facility] Work Phone: 05-23-2019 07:22-0500 BP Diastolic 72 mm[Hg] Chuckie Cummins LPN [facility] Work Phone: Comment on above: Patient Position: Sitting; Cuff Location : Left Arm; Cuff Size: Standard 05-23-2019 07:22-0500 BP Systolic 118 mm[Hg] Chuckie Cummins LPN [facility] Work Phone: Comment on above: Patient Position: Sitting; Cuff Location : Left Arm; Cuff Size: Standard 05-23-2019 07:22-0500 BSA (Body Surface Area) 1.85 m2 Chuckie Cummins LPN [facility] Work Phone: 05-23-2019 07:22-0500 Height 158.75 cm Chuckie Cummins LPN [facility] Work Phone: 05-23-2019 07:22-0500 Pulse (Heart Rate) 105 /min Chuckie Cummins LPN [facility] Work Phone: Comment on above: Pattern: Regular 05-23-2019 07:22-0500 Pulse Oximetry 96 % Yaneth Mcgregor [facility] Work Phone: Comment on above: Room air 05-23-2019 07:22-0500 Respiratory Rate 17 /min Chuckie Cummins LPN [facility] Work Phone: Comment on above: Pattern: Unlabored 05-23-2019 07:22-0500 SaO2% (BldA) [Mass fraction] 96 % Chuckie Cummins LPN [facility]; [facility] Work Phone: Comment on above: Room air 09-05-2018 08:27-0400 BMI (Body Mass Index) 32.4 kg/m2 Chuckie Cummins LPN [facility] Work Phone: 09-05-2018 08:27-0400 Body Temperature 98.3 [degF] Chuckie Cummins LPN [facility] Work Phone: Comment on above: Method: Temporal 09-05-2018 08:27-0400 Body weight 81.65 kg Chuckie Cummins LPN [facility] Work Phone: 09-05-2018 08:27-0400 BP Diastolic 78 mm[Hg] Chuckie Cummins LPN [facility] Work Phone: Comment on above: Patient Position: Sitting; Cuff Location : Left Arm; Cuff Size: Standard 09-05-2018 08:27-0400 BP Systolic 122 mm[Hg] Chuckie Cummins LPN [facility] Work Phone: Comment on above: Patient Position: Sitting; Cuff Location : Left Arm; Cuff Size: Standard 09-05-2018 08:27-0400 BSA (Body Surface Area) 1.84 m2 Chuckie Cummins LPN [facility] Work Phone: 09-05-2018 08:27-0400 Height 158.75 cm Chuckie Cummins LPN [facility] Work Phone: 09-05-2018 08:27-0400 Pulse (Heart Rate) 103 /min Chuckie Cummins LPN [facility] Work Phone: Comment on above: Pattern: Regular 09-05-2018 08:27-0400 Pulse Oximetry 95 % Yaneth Meche [facility] Work Phone: Comment on above: Room air 09-05-2018 08:27-0400 Respiratory Rate 18 /min Chuckie Cummins LPN [facility] Work Phone: Comment on above: Pattern: Unlabored 09-05-2018 08:27-0400 SaO2% (BldA) [Mass fraction] 95 % Chuckie Cummins LPN [facility]; [facility] Work Phone: Comment on above: Room air 09-05-2018 08:27-0400 Weight 81.65 kg Yaneth Meche [facility] Work Phone: 09-03-2018 09:29-0400 BMI (Body Mass Index) 32.4 kg/m2 Chuckie Cummins LPN [facility] Work Phone: 09-03-2018 09:29-0400 Body Temperature 98.7 [degF] Chuckie Cummins LPN [facility] Work Phone: Comment on above: Method: Temporal 09-03-2018 09:29-0400 Body weight 81.65 kg Chuckie Cummins LPN [facility] Work Phone: 09-03-2018 09:29-0400 BP Diastolic 72 mm[Hg] Chuckie Cummins LPN [facility] Work Phone: Comment on above: Patient Position: Sitting; Cuff Location : Left Arm; Cuff Size: Standard 09-03-2018 09:29-0400 BP Systolic 118 mm[Hg] Chuckie Cummins LPN [facility] Work Phone: Comment on above: Patient Position: Sitting; Cuff Location : Left Arm; Cuff Size: Standard 09-03-2018 09:29-0400 BSA (Body Surface Area) 1.84 m2 Chuckie Cummins LPN [facility] Work Phone: 09-03-2018 09:29-0400 Height 158.75 cm Chuckie Cummins LPN [facility] Work Phone: 09-03-2018 09:29-0400 Pulse (Heart Rate) 117 /min Chuckie Cummins LPN [facility] Work Phone: Comment on above: Pattern: Regular 09-03-2018 09:29-0400 Pulse Oximetry 94 % Yaneth Meche [facility] Work Phone: Comment on above: Room air 09-03-2018 09:29-0400 Respiratory Rate 18 /min Chuckie Cummins LPN [facility] Work Phone: Comment on above: Pattern: Unlabored 09-03-2018 09:29-0400 SaO2% (BldA) [Mass fraction] 94 % Chuckie Cummins LPN [facility]; [facility] Work Phone: Comment on above: Room air 09-03-2018 09:29-0400 Weight 81.65 kg Yaneth Meche [facility] Work Phone: 07-09-2018 09:37-0500 BMI (Body Mass Index) 32.4 kg/m2 April Moon RN [facility] Work Phone: 07-09-2018 09:37-0500 Body Temperature 97.4 [degF] April Moon RN [facility] Work Phone: Comment on above: Method: Temporal 07-09-2018 09:37-0500 Body weight 81.65 kg April Moon RN [facility] Work Phone: 07-09-2018 09:37-0500 BP Diastolic 74 mm[Hg] April Moon RN [facility] Work Phone: Comment on above: Patient Position: Sitting; Cuff Location : Left Arm; Cuff Size: Standard 07-09-2018 09:37-0500 BP Systolic 132 mm[Hg] April Moon RN [facility] Work Phone: Comment on above: Patient Position: Sitting; Cuff Location : Left Arm; Cuff Size: Standard 07-09-2018 09:37-0500 BSA (Body Surface Area) 1.84 m2 April Moon RN [facility] Work Phone: 07-09-2018 09:37-0500 Height 158.75 cm April Moon RN [facility] Work Phone: 07-09-2018 09:37-0500 Pulse (Heart Rate) 104 /min April Moon RN [facility] Work Phone: Comment on above: Pattern: Regular 07-09-2018 09:37-0500 Pulse Oximetry 97 % Yaneth Meche [facility] Work Phone: Comment on above: Room air 07-09-2018 09:37-0500 Respiratory Rate 16 /min April Moon RN [facility] Work Phone: Comment on above: Pattern: Unlabored 07-09-2018 09:37-0500 SaO2% (BldA) [Mass fraction] 97 % April Moon RN [facility]; [facility] Work Phone: Comment on above: Room air 07-09-2018 09:37-0500 Weight 81.65 kg Yaneth Pickardcoleman [facility] Work Phone: 08-22-2017 13:37-0500 BMI (Body Mass Index) 30.87 kg/m2 Chuckie Cummins LPN [facility] Work Phone: 08-22-2017 13:37-0500 Body weight 77.79 kg Chuckie Cummins LPN [facility] Work Phone: 08-22-2017 13:37-0500 BP Diastolic 74 mm[Hg] Chuckie Cummins LPN [facility] Work Phone: Comment on above: Patient Position: Sitting; Cuff Location : Left Arm; Cuff Size: Standard 08-22-2017 13:37-0500 BP Systolic 126 mm[Hg] Chuckie Cummins LPN [facility] Work Phone: Comment on above: Patient Position: Sitting; Cuff Location : Left Arm; Cuff Size: Standard 08-22-2017 13:37-0500 BSA (Body Surface Area) 1.8 m2 Chuckie Cummins LPN [facility] [facility] Work Phone: 08-22-2017 13:37-0500 Height 158.75 cm Chuckie Cummins LPN [facility] Internal Medicine Work Phone: 08-22-2017 13:37-0500 Pulse (Heart Rate) 113 /min Chuckie Cummins LPN [facility] Internal Medicine Work Phone: Comment on above: Pattern: Regular 08-22-2017 13:37-0500 Pulse Oximetry 96 % Yaneth Mcgregor [facility] Internal Medicine Work Phone: Comment on above: Room air 08-22-2017 13:37-0500 Respiratory Rate 18 /min Chuckie Cummins LPN [facility] Internal Medicine Work Phone: Comment on above: Pattern: Unlabored 08-22-2017 13:37-0500 SaO2% (BldA) [Mass fraction] 96 % Chuckie Cummins LPN [facility] Internal Medicine; [facility] Work Phone: Comment on above: Room air 08-22-2017 13:37-0500 Weight 77.79 kg Yaneth Meche [facility] Internal Medicine Work Phone: 04-06-2017 08:50-0400 BMI (Body Mass Index) 30.63 kg/m2 Steff Cummins [facility] Internal Medicine Work Phone: 04-06-2017 08:50-0400 Body Temperature 97.6 [degF] Steff Cummins [facility] Internal Medicine Work Phone: 04-06-2017 08:50-0400 Body weight 77.2 kg Steff [facility] Internal Medicine Work Phone: 04-06-2017 08:50-0400 BP Diastolic 70 mm[Hg] Steff [facility] Internal Medicine Work Phone: Comment on above: Patient Position: Sitting; Cuff Location : Left Arm; Cuff Size: Standard 04-06-2017 08:50-0400 BP Systolic 124 mm[Hg] Steff [facility] Internal Medicine Work Phone: Comment on above: Patient Position: Sitting; Cuff Location : Left Arm; Cuff Size: Standard 04-06-2017 08:50-0400 BSA (Body Surface Area) 1.8 m2 Steff [facility] Internal Medicine Work Phone: 04-06-2017 08:50-0400 [facility] Work Phone[facility] 04-06-2017 08:50-0400 Pulse (Heart Rate) 118 /min Steff [facility] Internal Medicine Work Phone: Comment on above: Pattern: Regular 04-06-2017 08:50-0400 Pulse Oximetry 97 % [facility] Work Phone: Comment on above: Room air 04-06-2017 08:50-0400 Respiratory Rate 18 /min Steff [facility] Internal Medicine Work Phone: Comment on above: Pattern: Unlabored 04-06-2017 08:50-0400 SaO2% (BldA) [Mass fraction] 97 % Steff [facility] Internal Medicine; [facility] Work Phone: Comment on above: Room air 04-06-2017 08:50-0400 Weight 77.2 kg Yaneth Mcgregor [facility] Internal Medicine Work Phone: Encounters Encounter Date Encounter Type Care Provider Facility Start: 04-20-2025 ambulatory Beryl Zelaya Facility :[facility] Start: 03-11-2025 ambulatory Derrick Cotton Facility:[facility] [place] Start: 03-11-2025 End: 03-11-2025 ambulatory Beryl Zelaya Facility:[facility] Start: 10-03-2024 End: 10-03-2024 Office outpatient visit 25 minutes Gary Hooper APRN.CLINICAL RESEARCHER Work Phone: [facility] Comment on above: Sinobronchitis (Prim tom Dx) Start: 10-03-2024 End: 10-03-2024 ambulatory BERYL ZELAYA Facility:[facility] Start: 09-22-2024 End: 09-22-[address] Padmini Hinkle DO Work Phone: [facility] Work Phone: Start: 09-22-2024 End: 09-22-2024 Patient encounter procedure Beryl Zelaya [facility] -Laboratory Work Phone: Start: 09-22-2024 End: 09-22-2024 ambulatory Beryl Zelaya Facility:[facility] Start: 08-26-2024 End: 08-26-2024 [facility] Start: 08-26-2024 End: 08-26-[address] Padmini Hinkle DO Work Phone: [facility] Work Phone: Start: 08-26-2024 Non-patient / Non-visit Mauricio nagy PA -[facility] Start: 08-26-2024 End: 08-26-2024 ambulatory Padmini Hinkle Facility:[facility] Start: 06-24-2024 End: 06-24-2024 Patient encounter procedure Beryl GANTC -Outpatient Breast Imaging Work Phone: Start: 06-24-2024 End: 06-24-2024 ambulatory Padmini Hinkle Facility:[facility] Start: 05-26-2024 End: 05-26-2024 ambulatory ASHLEYDIONNA GRACEWHITNEY Facility:[facility] Start: 05-26-2024 End: 05-26-2024 Patient encounter procedure Ashley Olson HEAT CURER.CLINICAL RESEARCHER Work Phone: OB/Gynecology Comment on above: Encounter for gyneco logical examination (general) (routine) without abnormal findings (Primary Dx) Start: 05-26-2024 End: 05-26-2024 Patient encounter status Ashley Olson HEAT CURER.CLINICAL RESEARCHER Work Phone: [facility] Start: 09-26-2023 End: 09-26-2023 ambulatory [facility] Work Phone: Start: 09-26-2023 End: 09-26-2023 Patient encounter procedure [facility]-Laboratory Work Phone: Start: 07-08-2023 End: 07-08-2023 ambulatory [facility] Work Phone: Start: 07-08-2023 End: 07-08-2023 Patient encounter procedure [facility]-Laboratory, Specimen Work Phone: Start: 06-21-2023 End: 06-21-2023 ambulatory [facility] Work Phone: Start: 06-21-2023 End: 06-21-2023 Patient encounter procedure [facility]-Outpatient Breast Imaging Work Phone: Start: 03-28-2023 Review Beryl Zelaya CNP Work Phone: [facility] Start: 02-23-2023 ambulatory Ashley Olson HEAT CURER.CLINICAL RESEARCHER Work Phone: OB/Gynecology Comment on above: Received Outside Med ical Records Start: 10-04-2022 End: 10-04-2022 ambulatory [facility] Work Phone: Start: 10-04-2022 End: 10-04-2022 Patient encounter procedure [facility]-Laboratory Start: 09-25-2022 ambulatory Beryl Zelaya CNP Comp rehensive Internal Med Start: 09-25-2022 End: 10-04-2022 Office outpatient visit 15 minutes Beryl Zelaya CNP Work Phone: [facility] Start: 07-24-2022 Review Beryl Zelaya CNP Work Phone: [facility] Start: 07-24-2022 End: 07-24-2022 Office outpatient visit 15 minutes Beryl Zelaya CNP Work Phone: [facility] Start: 05-23-2022 End: 05-23-2022 Office outpatient visit 15 minutes Beryl Zelaya CNP Work Phone: [facility] Start: 05-23-2022 Review Beryl Zelaya CNP Work Phone: [facility] Start: 05-22-2022 End: 05-22-2022 ambulatory [facility] Work Phone: Start: 05-22-2022 End: 05-22-2022 Discharged Recurring [facility]-Physical Therapy Start: 05-15-2022 End: 05-15-2022 ambulatory Antonia Mattson APRN.CLINICAL RESEARCHER Work Phone: Hematology/Oncology Comment on above: Personal history of breast cancer (Primary Dx) Start: 05-15-2022 End: 05-15-2022 Patient encounter procedure Antonia Mattson APRN.CLINICAL RESEARCHER Work Phone: [facility] Start: 05-05-2022 End: 05-05-2022 ambulatory [facility] Work Phone: Start: 05-05-2022 End: 05-05-2022 Patient encounter procedure [facility]-Outpatient Breast Imaging Start: 04-25-2022 End: 04-25-2022 Annotation/Addendum Beryl Zelaya CNP Work Phone: [facility] Start: 04-20-2022 End: 04-20-2022 Office outpatient visit 15 minutes Beryl Zelaya CNP Work Phone: [facility] Start: 04-17-2022 Telephone encounter Marine Bahena APRN.CLINICAL RESEARCHER Work Phone: [facility] Comment on above: Results Start: 04-16-2022 End: 04-16-2022 Patient encounter procedure Natalie Jay APRN.CLINICAL RESEARCHER Work Phone: [facility] Comment on above: Urinary frequency (P rimary Dx) Start: 03-30-2022 End: 03-30-2022 Office outpatient visit 10 minutes Beryl Zelaya CNP Work Phone: [facility] Start: 01-27-2022 End: 01-27-2022 Annotation/Addendum Beryl Zelaya CNP Work Phone: [facility] Start: 01-25-2022 End: 01-25-2022 Patient encounter procedure Beryl Zelaya CNP Work Phone: [facility] Start: 01-24-2022 End: 01-24-2022 Patient encounter procedure [facility]-Outpatient Bone Densitometry Start: 01-04-2022 End: 01-05-2022 Office outpatient visit 25 minutes Beryl Zelaya CLINICAL RESEARCHER Work Phone: [facility] Start: 01-04-2022 Review Beryl Zelaya CNP Work Phone: [facility] Start: 10-16-2021 End: 10-16-2021 Phone Encounter Yaneth Mcgregor Work Phone: [facility] Start: 09-21-2021 End: 09-21-2021 Office outpatient visit 25 minutes Yaneth Mcgregor Work Phone: [facility] Start: 08-22-2021 End: 08-22-2021 Office outpatient visit 15 minutes Yaneth Pickarda Work Phone: [facility] Start: 06-22-2021 End: 06-22-2021 Office outpatient visit 25 minutes Yaneth Pickarda CLINICAL RESEARCHER Work Phone: [facility] Start: 06-22-2021 Review Yaneth Pickarda CLINICAL RESEARCHER Work Phone: [facility] Start: 02-14-2021 End: 02-14-2021 Phone Encounter Yaneth Mcgregor CLINICAL RESEARCHER Work Phone: [facility] Start: 02-02-2021 End: 02-02-2021 Office outpatient visit 25 minutes Yaneth Pickarda CLINICAL RESEARCHER Work Phone: [facility] Start: 09-05-2019 End: 09-05-2019 Phone Encounter Yaneth Mcgregor [facility] Start: 06-24-2019 End: 06-24-2019 Office outpatient visit 15 minutes Yaneth Mcgregor [facility] Start: 06-13-2019 End: 06-13-2019 Office outpatient visit 25 minutes Yaneth Mcgregor [facility] Start: 06-02-2019 End: 06-02-2019 Phone Encounter Yaneth Vela [facility] Start: 05-23-2019 End: 05-23-2019 Office outpatient visit 25 minutes Yaneth Vela Internal Medicine Start: 05-23-2019 End: 05-23-2019 Preprocedural examination done Beryl Zelaya [facility] Work Phone: [facility] Start: 09-05-2018 End: 09-05-2018 Office outpatient visit 40 minutes Yaneth Vela Internal Medicine Start: 09-04-2018 End: 09-04-2018 Annotation/Addendum Yaneth Vela [facility] Start: 09-03-2018 End: 09-03-2018 Office outpatient visit 15 minutes Yaneth Vela Internal Medicine Start: 07-09-2018 End: 07-09-2018 Office outpatient visit 25 minutes Yaneth Vela Internal Medicine Start: 07-09-2018 Review Yaneth Potter [facility] Internal Medicine Start: 08-22-2017 End: 08-22-2017 Office outpatient visit 15 minutes Yaneth Vela Internal Medicine Start: 04-06-2017 End: 04-06-2017 Office outpatient visit 15 minutes Yaneth Vela Internal Medicine Start: 02-21-2017 End: 02-21-2017 Annotation/Addendum Yaneth Vela [facility] Start: 10-24-2016 End: 10-24-2016 Office consultation new/estab patient 40 min Yaneth Vela Internal Medicine Preprocedural examination done Chuckie Cummins [facility] Comprehensive Internal Medicine; [facility] Work Phone: Preprocedural examination done Estrella Dupree [facility] Internal Medicine; [facility] Work Phone: Preprocedural examination done Chuckie Cummins [facility] Internal Medicine; [facility] Work Phone: Preprocedural examination done Chuckie Cummins [facility] Internal [facility]; [facility] Work Phone: Preprocedural examination done Clotilde Metcalf [facility]; [facility] Work Phone: Preprocedural examination done Chuckie Cummins [facility]; [facility] Work Phone: Preprocedural examination done Clotilde Metcalf [facility]; [facility] Work Phone: Procedures Date Procedure Procedure Detail Performing Clinician Start: 08-26-[address] Padmini Hinkle DO Work Phone: Start: 06-24-[address] Padmini Hinkle DO Work Phone: Start: 07-08-2023 Clostridium difficile detection Start: 07-08-2023 Lactoferrin measurement Start: 07-08-2023 Nucleic acid assay Start: 06-21-2023 Screening mammography Start: 05-22-2022 End: 05-22-2022 Inital Evaluation (1) - PT Procedure Note: See Note; NOTES: [facility] Physical Therapy [facility] [address] [place] [address] / REHABILITATION SERVICES INITIAL EVALUATION MR#: [id number] Acct: [id number] Name: LYNSEY PINA Rep #: [id number] : 1955 66 From: Aminata Giles PT, Cert. MDT Referring Dr.: Dr. Elena Nichole MD Status: RE G R Insurance: [facility] Patient's Visit Information LYNSEY [...] to be FAXED BACK to us at [phone] for Medicare purposes. For Medicare only, by signing this I certify the plan of care. Please let me know if there are questions or concerns regarding this plan of care. Physician Signature: ___Date: <Electronically signed by Aminata Giles PT, Cert. MDT> 05/22/22 1642 CC: KNITTER MACHINE-C Beryl Zelaya; Dr. Elena Nichole MD SOFI Signed Beryl Zelaya CLINICAL RESEARCHER Work Phone: Start: 05-05-2022 Screening mammography Start: 05-05-2022 End: 05-05-2022 SCRN MAMM (CAD)W/ROSE BILAT Procedure Note: See Note; NOTES: [facility] Imaging Services [address] [place] [address] SCRN MAMM (CAD)W/ROSE BILAT MR#: [id number] Acct: [id number] Name: LYNSEY PINA Rep #: [id number] : 1955 F 66 From: Ernie alcala MD PCP: Yaneth Mcgregor NP-C Status: REG [facility] Study: SCRN MAMM (CAD)W/ROSE BILAT Date of Exam: 04/18 02/06 Exam# [id number] Ordering Dr: Antonia Mattson KNITTER MACHINE N P-C MAMMOGRAPHY - BILATERAL SCREENING REASON [...] delay biopsy of a clinically suspicious abnormality. [id number] Electronically Signed: Ernie Fields MD at 8:51 EST Reading Location ID and State: [address] [place] [address] , Service support , CC: ALFREDA Mattson; CUCO Mcgregor Concrete Block Molder: Signed Beryl Zelaya [facility] Work Phone: Start: 04-16-2022 Urnls dip stick/tablet rgnt auto w/o microscopy Holly Berry APRN.CNP Work Phone: Start: 01-24-2022 End: 01-25-2022 Dexa Bone Density Study Comments: See Note; NOTES: [facility] Imaging Services [address] [place] [address] Dexa Bone Density Study MR#: [id number] Acct: [id number] Name: LYNSEY PINA Rep #: [id number] : 1955 F 66 From: Ernie alcala MD PCP: CUCO Zambrano Status: REG CLI Study: Dexa Bone Density Study Date of Exam: 01/24/22 Exam# [id number] Ordering Dr: Beryl Zelaya STUDY: DUAL ENERGY X-RAY ABSORPTIOMETRY / DXA [...] Signed: Ernie Fields MD at 15:23 EDT Reading Location ID and State: [address] [place] [address] , Service support , CC: CUCO Zelaya; CUCO Mcgregor Concrete Block Molder: Signed Beryl Zelaya [facility] Work Phone: Start: 01-24-2022 Dual energy X-ray absorptiometry Start: 05-04-2021 End: 05-04-2021 SCRN MAMM (CAD)W/ROSE BILAT Comments: See Note; NOTES: [facility] Imaging Services [address] [place] [address] SCRN MAMM (CAD)W/ROSE BILAT MR#: [id number] Acct: [id number] Name: LYNSEY PINA Rep #: [id number] : 1955 F 65 From: Ernie alcala MD PCP: CUCO Zambrano Status: REG CL Study: SCRN MAMM (CAD)W/ROSE BILAT Date of Exam: 04/18 01/05 Exam# [id number] Ordering Dr: Antonia Mattson NP N P-C [...] delay biopsy of a clinically suspicious abnormality. [id number] Electronically Signed: Ernie Fields MD at 9:36 EST , Service support , CC: ALFREDA Mattson; CUCO Mcgregor Concrete Block Molder: Signed Yaneth Mcgregor CLINICAL RESEARCHER Work Phone: Start: 05-03-2020 End: 05-03-2020 SCREEN MAMM (CAD) W/ROSE BILAT Comments: See Note; NOTES: [facility] Imaging Services [address] [place] [address] SCREEN MAMM (CAD) W/ROSE BILAT MR#: [id number] Acct: [id number] Name: LYNSEY PINA Rep #: [id number] : 1955 F 64 From: Ernie alcala MD PCP: Yaneth Mcgregor KNITTER MACHINE-C Status: [facility] Study: SCREEN MAMM (CAD) W/ROSE BILAT Date of Exam: 1 07/03/19 Exam# [id number] Ordering Dr: Antonia Mattson NP N P-C [...] delay biopsy of a clinically suspicious abnormality. [id number] Electronically Signed: Ernie Fields, at 10:02 EST , Service support , CC: ALFREDA Mattson; CUCO Mcgregor Concrete Block Molder: Signed Yaneth Mcgregor CNP Work Phone: Start: 06-06-2019 End: 06-06-2019 Echo, Complete w/ Contrast Comments: See Note; NOTES: [facility] Cardiovascular Services [address] [place] [address] Echo Complete W/ Contrast 06/06/19 0900 MR#: [id number] Acct: [id number] Name: LYNSEY PINA Rep #: [id number] : 1955 64 From: Niko Osorio MD Attending Dr: CUCO Zambrano Status: REG CLI Ordering Dr: Yaneth Mcgregor Date: 06/06/19 Location: [facility] Sex: F C Admitted: Reason For Study: [...] Doppler Measurements AND Calculations MV E max marlon: 79.3 cm/sec Lat Peak E' Marlon: 6.6 cm/sec Med Peak E' Marlon: 5.9 cm/sec MV A max marlon: 102.5 cm/sec E/E' lat: 11.9 E/E' med: 13.5 MV E/A: 0.77 MV V2 max: 109.8 cm/sec MV P1/2t max marlon: 92.5 cm/sec Ao V2 max: 160.8 cm/sec [...] Yaneth Mcgregor Performed By: Brian Sánchez RCS 06/06/191046 Date Niko Osorio MD CC: KNITTER MACHINE-C Yaneth Mcgregor Date Dictated: 06/06/19899 Date Transcribed: 06/06/191046 Concrete Block Molder: Signed Yaneth Mcgregor Work Phone: Start: 04-30-2019 End: 04-30-2019 SCREEN MAMM (CAD) W/ROSE BILAT Comments: See Note; NOTES: [facility] Imaging Services [address] [place] [address] SCREEN MAMM (CAD) W/ROSE BILAT MR#: [id number] Acct: [id number] Name: YOVANILYNSEYSILVESTRE CORRALES Rep #: [id number] : 1955 F 63 From: Ernie Fields MD PCP: Yaneth Mcgregor KNITTER MACHINE-C Status: REG CLI Study: SCREEN MAMM (CAD) W/ROSE BILAT Date of Exam: 04/30/19 Exam# [id number] Ordering Dr: Antonia Mattson KNITTER MACHINE-C MAMMOGRAPHY - BILATERAL SCREENING REASON FOR EXAM: [...] delay biopsy of a clinically suspicious abnormality. [id number] Electronically Signed: Ernie Fields, at 10:58 EST , Service support , CC: ALFREDA Mattson; KNITTER MACHINE-C Yaneth Mcgregor; Rosie Manning MD Concrete Block Molder: Signed Nallely Meche Work Phone: Start: 08-20-2018 End: 08-21-2018 Dexa Bone Density Study Comments: See Note; NOTES: [facility] Imaging Services [address] [place] [address] Dexa Bone Density Study MR#: [id number] Acct: [id number] Name: LYNSEY PINA Rep #: [id number] : 1955 F 63 From: Ernie Fields MD PCP: Yaneth Mcgregor NP Status: REG CLI Study: Dexa Bone Density Study Date of Exam: 08/20/18 Exam# [id number] Ordering Dr: Yaneth Mcgregor KNITTER MACHINE-C STUDY: DUAL ENERGY X-RAY ABSORPTIOMETRY / DXA [...] Service support , CC: Yaneth Mcgregor NP Concrete Block Molder: Signed Yaneth Mcgregor Work Phone: Start: 04-25-2018 End: 04-25-2018 SCREENING MAMM (CAD), BILAT Comments: See Note; NOTES: [facility] Imaging Services [address] [place] [address] SCREENING MAMM (CAD), BILAT MR#: [id number] Acct: [id number] Name: LYNSEY IPNA Rep #: [id number] : 1955 F 62 From: Ernie Fields MD PCP: Yaneth Mcgregor NP Status: REG CLI Study: SCREENING MAMM (CAD), BILAT Date of Exam: 04/25/18 Exam# [id number] Ordering Dr: Antonia Mattson MAMMOGRAPHY - BILATERAL [...] delay biopsy of a clinically suspicious abnormality. [id number] Electronically Signed: Ernie Fields MD at 11:28 EST Tel [phone], Service support , CC: Yaneth Mcgregor KNITTER MACHINE; HUMA- Antonia Mattson Concrete Block Molder: Signed Yaneth Mcgregor Work Phone: Start: 03-01-2018 End: 03-01-2018 12 lead ECG Comments: See Note; NOTES: [facility] Cardiovascular Services [address] [place] [address] EKG - [facility] 02/22/18 0942 MR#: [id number] Acct: [id number] Name: LYNSEY PINA Rep #: [id number] : 1955 62 From: Niko Osorio MD Attending Dr: Mauricio Tapia MD Status: PRE IN Ordering Dr: Mauricio Tapia MD Date: 02/22/18 Location: [facility] Sex: F C Admitted: Test Reason : Blood Pressure : / mmHG Vent. Rate : 086 BPM Atrial Rate : 086 BPM P-R Int : 142 ms QRS Dur : 088 ms QT Int : 372 ms P-R-T Axes : 011 023 039 degrees QTc Int : 445 ms Normal sinus rhythm Normal ECG Confirmed by LIZBETH VILLALBA, NIKO ([id number]), editor trade journal [employer] WOO ([id number]) on 03/01/2018 1:11:35 PM Referred By: Mauricio Tapia Confirmed By:NIKO OSORIO MD 03/01/18 1311 Date Niko Osorio MD CC: Yaneth Mcgregor NP; Mauricio Tapia MD Date Dictated: 02/22/18941 Date Transcribed: 02/22/18941 Concrete Block Molder: Signed Yaneth Mcgregor Start: 02-22-2018 End: 02-22-2018 History and Physical Exam Comments: See Note; NOTES: [facility] Medical Records Department [address] [place] [address] History and Physical 02/22/18 1231 MR#: [id number] Acct: [id number] Name: LYNSEY PINA Rep #: [id number] : 1955 62 From: Stepan Wilson PA-C PCP: Yaneth Mcgregor NP Status: PRE IN Y Location: [facility] History and Physical DATE OF [...] Long Finger Excision - (01/07/2009) JEY @ [facility] Lumpectomy - LT BREAST Anesthesia Complications: None [...] Flexeril Clarithromycin Vicodin Morphine MEDICATIONS: Vitamin D 83302 Unit 1 times A week, Prilosec OTC [...] touch. IMAGING STUDIES: X-rays were obtained at [facility] [place] on January 10, 2018 of bilateral knees [...] Signature: Date (if applicable) CC: Yaneth Mcgregor KNITTER MACHINE; Stepan AN Signed Yaneth Mcgregor Start: 02-22-2018 End: 02-22-2018 Chest PA and Lateral Comments: See Note; NOTES: [facility] Imaging Services [address] [place] [address] Chest PA and Lateral MR#: [id number] Acct: [id number] Name: LYNSEY PINA Rep #: [id number] : 1955 F 62 From: Ernie Fields MD PCP: Yaneth Mcgregor NP Status: PRE IN Study: Chest PA and Lateral Date of Exam: 02/22/18 Exam# [id number] Ordering Dr: Chris Bolanos MD STUDY: X-RAY [...] Ernie Fields MD at 11:24 EDT Tel [phone], Service support , CC: Yaneth Mcgregor NP; Chris Bolanos MD Concrete Block Molder: Signed Yaneth Mcgregor Start: 08-27-2017 End: 08-27-2017 Venous Duplex Lower Extremity Comments: See Note; NOTES: [facility] Cardiovascular Services [address] [place] [address] Venous Duplex US, Unilateral 08/27/17 1350 MR#: [id number] Acct: [id number] Name: LYNSEY PINA Rep #: [id number] : 1955 62 From: Carmelo Ospina MD [...] Date Carmelo Ospina MD CC: Yaneth Mcgregor KNITTER MACHINE Date Dictated: 08/27/17 1350 Date Transcribed: 08/27/172140 Concrete Block Molder: Signed Yaneth Mcgregor Work Phone: Start: 04-24-2017 End: 04-24-2017 SCREENING MAMM (CAD), BILAT Comments: See Note; NOTES: [facility] Imaging Services [address] [place] [address] SCREENING MAMM (CAD), BILAT MR#: [id number] Acct: [id number] Name: LYNSEY PINA Rep #: [id number] : 1955 F 61 From: Ernie Fields MD PCP: Yaneth Mcgregor Status: REG CLI Study: SCREENING MAMM (CAD), BILAT Date of Exam: 04/24/17 Exam# [id number] Ordering Dr: Yaneth Mcgregor MAMMOGRAPHY - BILATERAL [...] delay biopsy of a clinically suspicious abnormality. [id number] Electronically Signed: Ernie Fields MD at 11:16 EST Tel [phone], Service support , CC: Yaneth Mcgregor Concrete Block Molder: Signed Yaneth Mcgregor Work Phone: Start: 04-24-2017 Mammography Ashley Olson APRN.CLINICAL RESEARCHER Work Phone: Start: 04-02-2017 End: 04-03-2017 Hand Min 3 Views Comments: See Note; NOTES: [facility] Imaging Services [address] [place] [address] Hand Min 3 Views MR#: [id number] Acct: [id number] Name: LYNSEY PINA Rep #: [id number] : 1955 F 61 From: Ernie Fields MD PCP: Yaneth Mcgregor Status: REG CLI Study: Hand Min 3 Views Date of Exam: 04/02/17 Exam# [id number] Ordering Dr: Olive Schilling MD STUDY: X-RAY [...] Ernie Fields MD at 11:30 EDT Tel [phone], Service support , CC: Yaneth Mcgregor; Olive Schilling MD Concrete Block Molder: Signed Yaneth Mcgregor Start: 03-01-2017 End: 03-01-2017 Lower Ext Joint Only (Routine) Comments: See Note; NOTES: [facility] Imaging Services [address] [place] [address] Lower Ext Joint Only (Routine) MR#: [id number] Acct: [id number] Name: LYNSEY PINA Coleman Rep #: [id number] : 1955 F 61 From: Osei Lowery MD PCP: Yaneth Mcgregor Status: REG CLI Study: Lower Ext Joint Only (Routine) Date of Exam: 03/01/17 Exam# [id number] Ordering Dr: Rashaad Pineda MD STUDY: MRI [...] Normal proximal tibiofibular articulation. Normal lateral collateral (fibular) ligament. Normal popliteus tendon. Normal biceps femoris [...] , CC: Yaneth Mcgregor; Rashaad Pineda MD Concrete Block Molder: Signed Yaneth Mcgregor Start: 12-29-2016 End: 12-30-2016 Lower Ext Joint Only (Routine) Comments: See Note; NOTES: [facility] Imaging Services [address] [place] [address] Verdana 4d Lower Ext Joint Only (Routine) MR#: [id number] Acct: [id number] Name: LYNSEY PINA Rep #: [id number] : 1955 F 61 From: Mauricio Pack MD PCP: Yaneth Mcgregor Status: REG CLI Study: Lower Ext Joint Only (Routine) Date of Exam: 12/29/16 Exam# [id number] Ordering Dr: Rashaad Pineda MD STUDY: MRI [...] Normal proximal tibiofibular articulation. Normal lateral collateral (fibular) ligament. Normal popliteus tendon. Normal biceps femoris [...] Tel , Service support , CC: Yaneth Meche; Rashaad Pineda MD Concrete Block Molder: Signed Yaneth Mcgregor Start: 04-19-2016 Mammography Natalie Jay HEAT CURER.CLINICAL RESEARCHER Work Phone: Start: 10-01-2015 Colonoscopy Natalie Jay HEAT CURER.CLINICAL RESEARCHER Work Phone: Start: 08-28-2015 Lipid 1996 panel - Serum or Plasma Ashley Whitney HEAT CURER.CLINICAL RESEARCHER Work Phone: Bone density scan Clotilde Sla rb COMBINING MACHINE OPERATOR Comment on above: 01/2022 Bone density scan Clotilde Sla rb COMBINING MACHINE OPERATOR Comment on above: 01/2022 Bone density scan Clotilde Sla rb COMBINING MACHINE OPERATOR Comment on above: 01/2022 Colonoscopy April Moon Comment on above: 2015 Colonoscopy Chuckie Kenny Comment on above: 2015 Colonoscopy Chuckie Kenny Comment on above: 2015 Colonoscopy Chuckie Kenny Comment on above: 2015 Colonoscopy Estrella Gallo PN Comment on above: 2015 Colonoscopy Chuckie Cummins LP N Comment on above: 2015 Colonoscopy Chuckie Placido LP N Comment on above: 2015 Colonoscopy Clotilde Slarb LP N Comment on above: 2015 Colonoscopy Chuckie Placido LP N Comment on above: 2015 Colonoscopy Clotilde Slarb LP N Comment on above: Within Normal Limits. 2016-repeat in 10 years Colonoscopy Clotilde Slarb LP N Comment on above: Within Normal Limits. 2016-repeat in 10 years Colonoscopy Clotilde Slarb LP N Comment on above: Within Normal Limits. 2016-repeat in 10 years Lumpectomy of breast April Moon Comment on above: Left. 2012 Lumpectomy of breast Chuckie Kenny Comment on above: Left. 2012 Lumpectomy of breast Chuckie Kenny Comment on above: Left. 2012 Lumpectomy of breast Chuckie Kenny Comment on above: Left. 2012 Lumpectomy of breast Estrella escobar COMBINING MACHINE OPERATOR Comment on above: Left. 2012 Lumpectomy of breast Chuckie Cummins COMBINING MACHINE OPERATOR Comment on above: Left. 2012 Lumpectomy of breast Chuckie Cummins COMBINING MACHINE OPERATOR Comment on above: Left. 2012 Lumpectomy of breast Clotilde Metcalf COMBINING MACHINE OPERATOR Comment on above: Left. 2012 Lumpectomy of breast Chuckie Placido COMBINING MACHINE OPERATOR Comment on above: Left. 2012 Lumpectomy of breast Clotilde Slarb COMBINING MACHINE OPERATOR Comment on above: Left. 2012 Lumpectomy of breast Clotilde Slarb COMBINING MACHINE OPERATOR Comment on above: Left. 2012 Mammography April Moon Comment on above: mar 2016 Mammography Chuckie Kenny Comment on above: mar 2016 Mammography Chuckie Kenny Comment on above: mar 2016 Mammography Chuckie Kenny Comment on above: mar 2016 Mammography Estrella Deeman L PN Comment on above: mar 2016 Mammography Chuckie Placido LP N Comment on above: mar 2016 Mammography Chuckie Placido LP N Comment on above: mar 2016 Mammography Clotilde Slarb LP N Comment on above: mar 2016 Mammography Chuckie Cummins LP N Comment on above: mar 2016 Mammography Clotilde Slarb LP N Comment on above: 2021 Mammography Clotilde Slarb LP N Comment on above: 2021 Mammography Clotilde Slarb LP N Comment on above: 2021 Microscopic examinat ion of cervical Papanicolaou smear April Moon Comment on above: 2015 Microscopic examinat ion of cervical Papanicolaou smear Chuckie Kenny Comment on above: 2015 Microscopic examinat ion of cervical Papanicolaou smear Chuckie Kenny Comment on above: 2015 Microscopic examinat ion of cervical Papanicolaou smear Chuckie Kenny Comment on above: 2015 Microscopic examinat ion of cervical Papanicolaou smear Estrella Dupree COMBINING MACHINE OPERATOR Comment on above: 2015 Microscopic examinat ion of cervical Papanicolaou smear Chuckie Cummins COMBINING MACHINE OPERATOR Comment on above: 2015 Microscopic examinat ion of cervical Papanicolaou smear Chuckie Cummins COMBINING MACHINE OPERATOR Comment on above: 2016 Microscopic examinat ion of cervical Papanicolaou smear Clotilde Slarb COMBINING MACHINE OPERATOR Comment on above: 2016 Microscopic examinat ion of cervical Papanicolaou smear Chuckie Placido COMBINING MACHINE OPERATOR Comment on above: 2016 Microscopic examinat ion of cervical Papanicolaou smear Clotilde Slarb COMBINING MACHINE OPERATOR Comment on above: 2016 Microscopic examinat ion of cervical Papanicolaou smear Clotilde Slarb COMBINING MACHINE OPERATOR Comment on above: 2015 Right eye cataract Clotilde Sl arb COMBINING MACHINE OPERATOR Comment on above: Dr. Saba Right eye cataract Clotilde Sl arb COMBINING MACHINE OPERATOR Comment on above: Dr. Saba Right eye cataract Clotilde Sl arb COMBINING MACHINE OPERATOR Comment on above: Dr. Saba Plan of Treatment Date Care Activity Detail Author Start: 2030 RSV Vaccine (1 - 1-d ose 75+ series) RSV Vaccine (1 - 1-dose 75+ series) [facility] Start: 09-30-2025 Colonoscopy COLONOSCOPY [facility] Start: 09-30-2025 COLORECTAL CANCER SCREENING COLORECTAL CANCER SCREENING [facility] Start: 09-30-2025 Screening for malign ant neoplasm of colon [facility] Start: 06-26-2025 End: 06-26-2025 Patient encounter procedure 06/26/2025 9:00 AM EST Office Visit OB/Gynecology [address] [place] [address] Ashley Olson, KAYLEN.CLINICAL RESEARCHER [address] [place] [address] Annual OB/Gynecology Comment on above: Annual Start: 06-18-2024 Advance Directive Discussion Advance Directive Discussion [facility] Start: 02-17-2024 Covid-19 Vaccine () Covid-19 Vaccine () [facility] Start: 02-17-2024 Influenza vaccination Influenza Vacc ine (#1) [facility] Start: 07-08-2023 [facility] Start: 07-08-2023 Enteric precautions [facility] Start: 06-18-2023 Advance Directive Discussion Advance Directive Discussion [facility] Start: 03-28-2023 25 hydroxy includes fractions if performed CALCIFEDIOL (08666) : prior next ov [facility] Work Phone: Start: 03-28-2023 Assay of thyroid stimulating hormone tsh TSH (THYROID STIMULATING HORMONE) (97418) : prior next ov [facility]; [facility] Work Phone: Start: 03-28-2023 Blood count complete auto&auto difrntl wbc CBC, PLATELETS & AUT DIFF (26341) : prior to next OV [facility]; [facility] Work Phone: Start: 03-28-2023 Comprehensive metabo lic panel METABOLIC PANEL, COMPREHENSIVE (10408) : prior next ov [facility]; [facility] Work Phone: Start: 03-28-2023 Lipid panel LIPID PANEL (7 3884) : prior next ov [facility]; [facility] Work Phone: Start: 03-28-2023 Patient Education Osteoporosis in Women *: aging [facility]; [facility] Work Phone: Start: 03-28-2023 Procedure Education Eprescribe d prescriptions (G8553) [facility]; [facility] Work Phone: Start: 03-28-2023 Provider Instruction s for Treatment Follow up in 6 months [facility]; [facility] Work Phone: Start: 03-28-2023 Urinalysis qual/semiquant except immunoassays URINALYSIS (51895) : prior next ov [facility]; [facility] Work Phone: Start: 02-16-2023 Influenza vaccination INFLUENZA (#1) [facility] Start: 09-25-2022 25 hydroxy includes fractions if performed CALCIFEDIOL (55660) [facility]; [facility] Work Phone: Start: 09-25-2022 Assay of magnesium MAGNESIUM (33373) [facility]; [facility] Work Phone: Start: 09-25-2022 Assay of thyroid stimulating hormone tsh TSH (THYROID STIMULATING HORMONE) (96139) [facility]; [facility] Work Phone: Start: 09-25-2022 Blood count complete auto&auto difrntl wbc CBC, PLATELETS & AUT DIFF (48008) [facility]; [facility] Work Phone: Start: 09-25-2022 Comprehensive metabo lic panel METABOLIC PANEL, COMPREHENSIVE (18649) [facility]; [facility] Work Phone: Start: 09-25-2022 Cyanocobalamin vitam in b-12 VITAMIN B12 AND FOLATES (66789) [facility]; [facility] Work Phone: Start: 09-25-2022 Lipid panel LIPID PANEL (56868) [facility]; [facility] Work Phone: Start: 09-25-2022 Procedure Education Eprescribe d prescriptions (G8553) [facility]; [facility] Work Phone: Start: 09-25-2022 Provider Instruction s for Treatment Follow up in 6 months [facility]; [facility] Work Phone: Start: 07-24-2022 Procedure Education Eprescribe d prescriptions (G8553) [facility]; [facility] Work Phone: Start: 07-24-2022 Provider Instruction s for Treatment Follow up if no improvement or if symptoms worsen [facility]; [facility] Work Phone: Start: 06-18-2022 ADVANCE DIRECTIVE DISCUSSION ADVANCE DIRECTIVE DISCUSSION [facility] Start: 06-18-2022 DEPRESSION ASSESSMENT DEPRESSION ASS ESSMENT [facility] Start: 05-23-2022 Patient Education Com[facility]; [facility] Work Phone: Start: 05-23-2022 Procedure Education Eprescribe d prescriptions (G8553) [facility]; [facility] Work Phone: Start: 05-23-2022 Provider Instruction s for Treatment [facility]; [facility] Work Phone: Start: 05-23-2022 Urnls dip stick/tabl et rgnt non-auto w/o micrscp Urinalysis, Office (64858) [facility]; [facility] Work Phone: Start: 04-20-2022 Procedure Education Eprescribe d prescriptions (G8553) [facility]; [facility] Work Phone: Start: 03-30-2022 Procedure Education Eprescribe d prescriptions (G8553) [facility]; [facility] Work Phone: Start: 02-16-2022 Influenza vaccination INFLUENZA (#1) [facility] Start: 01-27-2022 25 hydroxy includes fractions if performed CALCIFEDIOL (49417) [facility]; [facility] Work Phone: Comment on above: get prior to next ap pt Start: 01-05-2022 Patient Education High Blood P ressure Medicines: medication [facility]; [facility] Work Phone: Start: 01-05-2022 Provider Instruction s for Treatment [facility]; [facility] Work Phone: Start: 01-04-2022 Procedure Education Eprescribe d prescriptions (G8553) [facility]; [facility] Work Phone: Start: 01-04-2022 Provider Instruction s for Treatment Follow up in 4 months [facility]; [facility] Work Phone: Start: 12-07-2021 COVID-19 VACCINE (4 - Booster for Pfizer series) COVID-19 VACCINE (4 - Booster for Pfizer series) [facility] Start: 12-07-2021 COVID-19 VACCINE (4 - Pfizer series) COVID-19 VACCINE (4 - Pfizer series) [facility] Start: 09-21-2021 Procedure Education Eprescribe d prescriptions (G8553) [facility]; [facility] Work Phone: Start: 09-21-2021 Provider Instruction s for Treatment Follow up in 3 months put on waiting list for [facility] new provider. [facility]; [facility] Work Phone: Start: 08-22-2021 Procedure Education Eprescribe d prescriptions (G8553) [facility]; [facility] Work Phone: Start: 08-22-2021 Provider Instruction s for Treatment Follow up if no improvement or if symptoms worsen [facility]; [facility] Work Phone: Start: 06-22-2021 Procedure Education Eprescribe d prescriptions (G8553) [facility]; [facility] Work Phone: Start: 06-22-2021 Provider Instruction s for Treatment Follow up in 3 months 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 to be done in August [facility]; [facility] Work Phone: Start: 06-22-2021 Assay of thyroid stimulating hormone tsh TSH (THYROID STIMULATING HORMONE) (19678) [facility]; [facility] Work Phone: Comment on above: August 2021 Start: 06-22-2021 Lipid panel Lipid Panel (54707) [facility]; [facility] Work Phone: Comment on above: August 2021 Start: 06-22-2021 25 hydroxy includes fractions if performed CALCIFEDIOL (34648) [facility]; [facility] Work Phone: Comment on above: august 2021 Start: 06-22-2021 Blood count complete auto&auto difrntl wbc CBC, Platelets & Auto Diff (12455) [facility]; [facility] Work Phone: Comment on above: august 2021- Start: 06-22-2021 Comprehensive metabo lic panel Metabolic Panel, Comprehensive (87662) [facility]; [facility] Work Phone: Comment on above: August 2021 [facility] Start: 06-18-2021 ADVANCE DIRECTIVE DISCUSSION ADVANCE DIRECTIVE DISCUSSION [facility] Start: 06-18-2021 DEPRESSION ASSESSMENT DEPRESSION ASS ESSMENT [facility] Start: 02-02-2021 Procedure Education Eprescribe d prescriptions (G8553) [facility]; [facility] Work Phone: Start: 02-02-2021 Provider Instruction s for Treatment Follow up in 4 months [facility]; [facility] Work Phone: Start: 02-02-2021 Lipid panel LIPID PANEL (95989) [facility]; [facility] Work Phone: Start: 02-02-2021 Assay of thyroid stimulating hormone tsh TSH (THYROID STIMULATING HORMONE) (92468) [facility]; [facility] Work Phone: Start: 02-02-2021 Blood count complete auto&auto difrntl wbc CBC, Platelets & Auto Diff (72664) [facility]; [facility] Work Phone: Start: 02-02-2021 Comprehensive metabo lic panel Metabolic Panel, Comprehensive (04717) [facility]; [facility] Work Phone: Start: 02-02-2021 25 hydroxy includes fractions if performed CALCIFEDIOL (87451) [facility]; [facility] Work Phone: Start: 08-27-2020 Lipid panel Lipid Screening [facility] Start: 08-27-2020 LIPID SCREEN LIPID SCREEN [facility] Start: 2020 BONE DENSITY BONE DENSITY [facility] Start: 2020 Pneumococcal Vaccine : 65+ (1 of 1 - PCV) Pneumococcal Vaccine: 65+ (1 of 1 - PCV) [facility] Start: 2020 PNEUMOCOCCAL: 65+ (1 - PCV) PNEUMOCOCCAL: 65+ (1 - PCV) [facility] Start: 2020 Screening for osteoporosis Bone Density Screening [facility] Start: 09-05-2019 C-reactive protein C-REACTIVE PROTEIN (79955) [facility]; [facility] Work Phone: Start: 09-05-2019 CRP [Mass/Vol] C-REACTIVE PRO TEIN (63860) [facility] Work Phone: Start: 09-05-2019 Lipid panel LIPID PANEL (41326) [facility] Work Phone: Start: 09-05-2019 Assay of thyroid stimulating hormone tsh TSH (THYROID STIMULATING HORMONE) (22297) [facility]; [facility] Work Phone: Start: 09-05-2019 TSH Qn TSH (THYROID STIMULATING HORMONE) (60050) [facility] Work Phone: Start: 06-24-2019 Procedure Education Eprescribe d prescriptions (G8553) [facility] Work Phone: Start: 06-24-2019 Provider Instruction s for Treatment Follow up if no improvement or if symptoms worsen [facility] Work Phone: Start: 06-13-2019 Procedure Education Eprescribe d prescriptions (G8553) [facility] Work Phone: Start: 06-13-2019 Provider Instruction s for Treatment [facility] Work Phone: Start: 06-02-2019 Potassium [Moles/Vol] POTASSIU M SERUM (99123) [facility] Work Phone: Comment on above: stat Start: 06-02-2019 Potassium serum plasma/whole blood POTASSIUM SERUM (87806) [facility]; [facility] Work Phone: Comment on above: stat Start: 05-23-2019 Procedure Education Eprescribe d prescriptions (G8553) [facility] Work Phone: Start: 05-23-2019 Provider Instruction s for Treatment [facility] Work Phone: Start: 05-23-2019 Prothrombin time PT (PROTHROMB IN TIME) (73045) [facility]; [facility] Work Phone: Start: 05-23-2019 PT Coag (PPP) [Time] PT (PROTH ROMBIN TIME) (63557) [facility] Work Phone: Start: 05-23-2019 Blood count complete auto&auto difrntl wbc CBC, Platelets & Auto Diff (26809) [facility] Work Phone: Start: 05-23-2019 Comprehensive metabo lic panel Metabolic Panel, Comprehensive (53739) [facility] Work Phone: Start: 09-05-2018 Procedure Education Eprescribe d prescriptions (G8553) [facility] Work Phone: Start: 09-03-2018 Procedure Education Eprescribe d prescriptions (G8553) [facility] Work Phone: Start: 09-03-2018 Provider Instruction s for Treatment Follow up if no improvement or if symptoms worsen [facility] Work Phone: Start: 09-03-2018 Bacteria identified Respiratory culture Nom (Sput) Sputum Culture (15024) [facility] Work Phone: Start: 08-27-2018 DIABETES SCREEN DIABETES SCREEN [facility] Start: 08-27-2018 Diabetes Screening Diabetes Screenin g [facility] Start: 07-09-2018 Procedure Education Eprescribe d prescriptions (G8553) [facility] Work Phone: Start: 07-09-2018 Provider Instruction s for Treatment Follow up in 6 months [facility] Work Phone: Start: 07-09-2018 Comprehensive metabo lic panel Metabolic Panel, Comprehensive (13269) [facility] Work Phone: Start: 07-09-2018 Lipid panel LIPID PANEL (12880) [facility] Work Phone: Start: 07-09-2018 25 hydroxy includes fractions if performed CALCIFEDIOL (25341) [facility] Work Phone: Start: 04-24-2018 Mammography MAMMOGRAM [facility] Start: 04-24-2018 Screening for malign ant neoplasm of breast Mammogram Screening [facility] Start: 08-22-2017 Procedure Education Eprescribe d prescriptions (G8553) [facility] Work Phone: Start: 08-22-2017 Provider Instruction s for Treatment Follow up if no improvement or if symptoms worsen [facility] Work Phone: Start: 07-02-2017 Urine microalbumin profile [facility] Start: 04-19-2017 Mammography MAMMOGRAM [facility] Start: 04-06-2017 Procedure Education Eprescribe d prescriptions (G8553) [facility] Work Phone: Start: 04-06-2017 Provider Instruction s for Treatment *Antibiotic Usage Education - Female [facility] Work Phone: Start: 10-24-2016 Procedure Education Eprescribe d prescriptions (G8553) [facility] Work Phone: Start: 10-24-2016 Provider Instruction s for Treatment [facility] Work Phone: Start: 02-25-2016 SHINGRIX VACCINE (2 of 3) SHINGRIX VACCINE (2 of 3) [facility] Start: 10-02-2015 FECAL OCCULT BLOOD FECAL OCCULT BLOO D [facility] Start: 10-02-2015 Screening for malign ant neoplasm of colon Fecal Occult Blood [facility] Start: 2005 Pneumococcal Vaccine : 50+ (1 of 1 - PCV) Pneumococcal Vaccine: 50+ (1 of 1 - PCV) [facility] Start: 2000 COLOGUARD (FIT-DNA) COLOGUARD (FIT-D NA) [facility] Start: [address] COLONOGRAPHY [facility] Start: 2000 Screening for malign ant neoplasm of colon [facility] Start: 2000 SIGMOIDOSCOPY SIGMOIDOSCOPY [facility] Start: 1973 Depression Screening Depression [facility] Start: 1973 HEPATITIS C SCREENING HEPATITIS C [facility] Start: 1973 Hepatitis C screening Hepatitis C [facility] Bacteria identified in Urine by Culture URINE CULTURE Microbiology Routine Urinary frequency Ordered: 04/16/2022 [facility] Work Phone: Comment on above: Ordered: 04/16/2022 Patient Education ED Diarrhea, U nknown Cause [facility] Work Phone: Patient referral [facility] Work Phone: [facility] Work Phone: [facility] Work Phone: [facility] Work Phone[facility] Work Phone[facility] Work Phone[facility] Work Phone[facility] Work Phone[facility] Work Phone[facility] Work Phone[facility] Work Phone: [facility] Work Phone: [facility] Work Phone: [facility] Work Phone: [facility] Work Phone: [facility] Work Phone: Immunizations Immunization Date Immunization Notes Care Provider Domi mendoza 09-16-2020 Covid (Pfizer) [facility] 08-26-2020 Covid (Pfizer) [facility] 09-05-2016 influenza virus vaccine, unspecified formulation Ashley Lismore HEAT CURER.CLINICAL RESEARCHER Work Phone: [facility] 12-31-2015 zoster vaccine, live Natalie vo HEAT CURER.CLINICAL RESEARCHER Work Phone: [facility] Work Phone: 07-02-2007 tetanus toxoid, redu jean carlos diphtheria toxoid, and acellular pertussis vaccine, adsorbed Natalie Jay HEAT CURER.CLINICAL RESEARCHER Work Phone: [facility] Work Phone: Payers Date Payer Category Payer Self-pay [id number] 2020 Medicare (Managed Care) [employer] [employer] [employer] [facility] [id number] 2020 Unknown 2020 Unknown [id number] 2016 Unknown [id number] 1955 Unknown [id number] Medicare [id number] Medicare [id number] Unknown [facility] [id number] Unknown [id number] 462 Unknown [id number] 462 Unknown [id number] 462 Unknown [id number] 462 Unknown [id number] 462 Unknown [id number] 462 Unknown [id number] 462 Unknown [id number] 462 Social History Date Type Detail Facility Alcohol use: Never smoker [facility] Work Phone: Start: 04-16-2022 End: 05-21-2023 Exercise [facility] Work Phone: Comment on above: 2 days weekly 30 min utes, light exercise Living Situation: Lives with spouse. [facility] Work Phone: Tobacco use: Never smoker. [facility] Work Phone: Alcohol use: Alcohol use: [facility]; [facility] Work Phone: [facility] Work Phone: Tobacco use: Tobacco use: [facility]; [facility] Work Phone: Start: 03-07-2018 End: 07-08-2023 Tobacco smoking status NHIS Unknown if ever smoked [facility] Start: 1955 Sex Assigned At Female [facility] Start: 2012 End: 05-21-2023 Tobacco smoking status NHIS Never smoked tobacco [facility] Work Phone: Start: 2012 End: 05-21-2023 Tobacco use and exposure Smokeless tobacco non-user [facility] Work Phone: Start: 04-16-2022 End: 10-03-2024 Alcohol intake Current non-drinker of alcohol (finding) [facility] Start: 1955 Sex Assigned At Not on file [facility] Start: 05-05-2022 End: 05-15-2022 Exposure to SARS-CoV-2 (event) Not sure [facility] Start: 04-16-2022 End: 05-21-2023 Tobacco use panel [facility] Adult Depression Screening Assessment 0 [facility] Start: 09-04-2024 End: 09-26-2024 Sex Female (finding) [facility] NEGATED: Highlighted rowStart: NINF History of tobacco use Passive smoker [facility] Medical Equipment Procedure Code Equipment Code Equipment Origin al Text Equipment Identifier Dates Total replacement of knee joint DOUGH,CEMENT 6191-1-010 FDA Start: 03-06-2018 Total replacement of knee joint TRIATHLON CRUC RET FEM COMP FDA Start: 03-06-2018 Total replacement of knee joint TRIATHLON UNIV TIBIAL BASEPLAT FDA Start: 03-06-2018 Total replacement of knee joint TRIATHLON X3 ASYMMETRIC PATELA FDA Start: 03-06-2018 Total replacement of knee joint TRIATHLON X3 TIBIAL INSERT-CS FDA Start: 03-06-2018 Total replacement of knee joint DOUGH,CEMENT 6191-1-010 FDA Start: 03-06-2018 Total replacement of knee joint TRIATHLON CRUC RET FEM COMP FDA Start: 03-06-2018 Total replacement of knee joint TRIATHLON UNIV TIBIAL BASEPLAT FDA Start: 03-06-2018 Total replacement of knee joint TRIATHLON X3 ASYMMETRIC PATELA FDA Start: 03-06-2018 Total replacement of knee joint TRIATHLON X3 TIBIAL INSERT-CS FDA Start: 03-06-2018 Total replacement of knee joint DOUGH,CEMENT 6191-1-010 FDA Start: 03-06-2018 Total replacement of knee joint TRIATHLON CRUC RET FEM COMP FDA Start: 03-06-2018 Total replacement of knee joint TRIATHLON UNIV TIBIAL BASEPLAT FDA Start: 03-06-2018 Total replacement of knee joint TRIATHLON X3 ASYMMETRIC PATELA FDA Start: 03-06-2018 Total replacement of knee joint TRIATHLON X3 TIBIAL INSERT-CS FDA Start: 03-06-2018 Total replacement of knee joint DOUGH,CEMENT 6191-1-010 FDA Start: 03-06-2018 Total replacement of knee joint TRIATHLON CRUC RET FEM COMP FDA Start: 03-06-2018 Total replacement of knee joint TRIATHLON UNIV TIBIAL BASEPLAT FDA Start: 03-06-2018 Total replacement of knee joint TRIATHLON X3 ASYMMETRIC PATELA FDA Start: 03-06-2018 Total replacement of knee joint TRIATHLON X3 TIBIAL INSERT-CS FDA Start: 03-06-2018 Total replacement of knee joint DOUGH,CEMENT 6191-1-010 FDA Start: 03-06-2018 Total replacement of knee joint TRIATHLON CRUC RET FEM COMP FDA Start: 03-06-2018 Total replacement of knee joint TRIATHLON UNIV TIBIAL BASEPLAT FDA Start: 03-06-2018 Total replacement of knee joint TRIATHLON X3 ASYMMETRIC PATELA FDA Start: 03-06-2018 Total replacement of knee joint TRIATHLON X3 TIBIAL INSERT-CS FDA Start: 03-06-2018 Total replacement of knee joint DOUGH,CEMENT 6191-1-010 FDA Start: 03-06-2018 Total replacement of knee joint TRIATHLON CRUC RET FEM COMP FDA Start: 03-06-2018 Total replacement of knee joint TRIATHLON UNIV TIBIAL BASEPLAT FDA Start: 03-06-2018 Total replacement of knee joint TRIATHLON X3 ASYMMETRIC PATELA FDA Start: 03-06-2018 Total replacement of knee joint TRIATHLON X3 TIBIAL INSERT-CS FDA Start: 03-06-2018 Total replacement of knee joint DOUGH,CEMENT 6191-1-010 FDA Start: 03-06-2018 Total replacement of knee joint TRIATHLON CRUC RET FEM COMP FDA Start: 03-06-2018 Total replacement of knee joint TRIATHLON UNIV TIBIAL BASEPLAT FDA Start: 03-06-2018 Total replacement of knee joint TRIATHLON X3 ASYMMETRIC PATELA FDA Start: 03-06-2018 Total replacement of knee joint TRIATHLON X3 TIBIAL INSERT-CS FDA Start: 03-06-2018 Total replacement of knee joint DOUGH,CEMENT 6191-1-010 FDA Start: 03-06-2018 Total replacement of knee joint TRIATHLON CRUC RET FEM COMP FDA Start: 03-06-2018 Total replacement of knee joint TRIATHLON UNIV TIBIAL BASEPLAT FDA Start: 03-06-2018 Total replacement of knee joint TRIATHLON X3 ASYMMETRIC PATELA FDA Start: 03-06-2018 Total replacement of knee joint TRIATHLON X3 TIBIAL INSERT-CS FDA Start: 03-06-2018 Total replacement of knee joint GAEL,CEMENT 6191-1-010 FDA Start: 03-06-2018 Total replacement of knee joint TRIATHLON CRUC RET FEM COMP FDA Start: 03-06-2018 Total replacement of knee joint TRIATHLON UNIV TIBIAL BASEPLAT FDA Start: 03-06-2018 Total replacement of knee joint TRIATHLON X3 ASYMMETRIC PATELA FDA Start: 03-06-2018 Total replacement of knee joint TRIATHLON X3 TIBIAL INSERT-CS FDA Start: 03-06-2018 [facility] [id number] Start: 04-10-2013 Functional Status Date Assessment Result Facility 12-16-2014 Are you deaf, or do you have serious difficulty hearing No 12/16/2014 2:25 PM EDT Tayla Koch Ma, [place] No [facility] 12-16-2014 Are you blind, or do you have serious difficulty seeing, even when wearing glasses No 12/16/2014 2:25 PM EDT Tayla Koch Ma, [place] No [facility] 12-16-2014 Do you have serious difficulty walking or climbing stairs No 12/16/2014 2:25 PM EDT Tayla Koch [place], [place] No [facility] 12-16-2014 Do you have difficul ty dressing or bathing No 12/16/2014 2:25 PM EDT Tayla Koch Ma, [place] No [facility] 12-16-2014 Because of a physica l, mental, or emotional condition, do you have difficulty doing errands alone such as visiting a physician's office or shopping No 12/16/2014 2:25 PM SUMITT Tayla Koch Ma, [place] No [facility] Mental Status Date Assessment Result Facility 12-16-2014 Because of a physica l, mental, or emotional condition, do you have serious difficulty concentrating, remembering, or making decisions No 12/16/2014 2:25 PM EDT Tayla Koch Ma, [place] No [facility] Clinical Notes 10-01-2015 to 10-03-2024 Gary Hooper APRN.CLINICAL RESEARCHER - 10/03/2024 12:57 PM Ashley Sales APRN.CLINICAL RESEARCHER - 05/26/2024 9:14 AM EST Note Date & Type Note Facility 10-03-2024 Note HNO ID: [id number] Author: GARY HOOPER APRN.CLINICAL RESEARCHER Service: ? Author Type: Nurse Practitioner Type: Progress Notes Filed: 10/03/2024 13:13 Note Text: [facility] Subjective Lynsey Pina is a 69 year old female. Patient presents with: Pain, Sinus: Pressure and pain, nasal congestion, post nasal drainage, bilat ear pressure, headache cough x 6 days HPI Nontoxic-appearing 69-year-old female presents urgent care chief plaint sinus pressure cough headache bilateral ear pressure. Duration of symptoms 6 days. Associated symptoms listed above. Symptoms are worsening. Sinus pressure is worsening. OTC medications little to no success. Sick contacts unknown. No fevers. No cough chest pain or shortness of breath. Past medical history prescription medications allergies reviewed. BP 132/85 Pulse 99 Temp 36.8 ?C (98.2 ?F) Resp 20 Wt 78 kg (171 lb 15.3 oz) SpO2 96% BMI 31.13 kg/m? Review of Systems Constitutional: Negative for chills, diaphoresis, fatigue and fever. HENT: Positive for ear pain, sinus pressure and sinus pain. Negative for congestion, drooling, ear discharge, rhinorrhea, sneezing, sore throat and trouble swallowing. Eyes: Negative for pain, discharge, redness, itching and visual disturbance. Respiratory: Positive for cough. Negative for chest tightness, shortness of breath and wheezing. Cardiovascular: Negative for chest pain. Gastrointestinal: Negative for abdominal distention, abdominal pain, blood in stool, constipation, diarrhea, nausea and vomiting. Genitourinary: Negative for difficulty urinating and dysuria. Musculoskeletal: Negative for arthralgias, joint swelling, neck pain and neck stiffness. Skin: Negative for rash. Neurological: Positive for headaches. Negative for dizziness, weakness and numbness. Objective Physical Exam Constitutional: Appearance: Normal appearance. HENT: Head: Normocephalic. Jaw: No trismus, tenderness, swelling or pain on movement. Right Ear: Tympanic membrane, ear canal and external ear normal. Left Ear: Tympanic membrane, ear canal and external ear normal. Nose: Congestion present. Right Sinus: Maxillary sinus tenderness present. Left Sinus: Maxillary sinus tenderness present. Mouth/Throat: Mouth: Mucous membranes are moist. Pharynx: Oropharynx is clear. Uvula midline. No oropharyngeal exudate or posterior oropharyngeal erythema. Eyes: Conjunctiva/sclera: Conjunctivae normal. Cardiovascular: Rate and Rhythm: Normal rate. Pulmonary: Effort: Pulmonary effort is normal. Breath sounds: Normal breath sounds. No wheezing, rhonchi or rales. Abdominal: Palpations: Abdomen is soft. Tenderness: There is no abdominal tenderness. There is no guarding or rebound. Musculoskeletal: General: Normal range of motion. Cervical back: Normal range of motion and neck supple. No edema or erythema. No pain with movement. Normal range of motion. Lymphadenopathy: Cervical: No cervical adenopathy. Skin: General: Skin is warm. Findings: No rash. Neurological: General: No focal deficit present. Mental Status: She is alert and oriented to person, place, and time. Mental status is at baseline. {ASSESSMENT/PLAN: 1. Sinobronchitis - ICD9: 473.9, 490, ICD10: J32.9, J40 Diagnosis sinobronchitis. Suspicious viral etiologies point. Supportive therapies recommended. Safety net antibiotic sent to pharmacy. Patient was educated on supportive therapies. Patient will follow up with primary care provider as needed. Patient was instructed to immediately proceed to emergency room for any new, worsening, or symptoms lasting longer than anticipated. The patient's clinical presentation is otherwise unremarkable at this time. Based on exam and clinical finding, the patient is stable for discharge. Plan of care was discussed with patient. Patient verbalizes understanding and agrees to plan of care. This note was generated using [employer] software. It may contain errors in wording, punctuation, or spelling. Gary Hooper APRN.CLINICAL RESEARCHER History and Record Review Clinical information obtained from an independent historian. History obtained from or confirmed by: parent. External record(s) reviewed: prior outpatient record. Disposition The patient was discharged. OTC Medications were advised: Procedures [facility] 10-03-2024 History of Present illness Narrative [facility] Subjective Lynsey Pina is a 69 year old female. Patient presents with: Pain, Sinus: Pressure and pain, nasal congestion, post nasal drainage, bilat ear pressure, headache cough x 6 days HPI Nontoxic-appearing 69-year-old female presents urgent care chief plaint sinus pressure cough headache bilateral ear pressure. Duration of symptoms 6 days. Associated symptoms listed above. Symptoms are worsening. Sinus pressure is worsening. OTC medications little to no success. Sick contacts unknown. No fevers. No cough chest pain or shortness of breath. Past medical history prescription medications allergies reviewed. BP 132/85 Pulse 99 Temp 36.8 C (98.2 F) Resp 20 Wt 78 kg (171 lb 15.3 oz) SpO2 96% BMI 31.13 kg/m Review of Systems Constitutional: Negative for chills, diaphoresis, fatigue and fever. HENT: Positive for ear pain, sinus pressure and sinus pain. Negative for congestion, drooling, ear discharge, rhinorrhea, sneezing, sore throat and trouble swallowing. Eyes: Negative for pain, discharge, redness, itching and visual disturbance. Respiratory: Positive for cough. Negative for chest tightness, shortness of breath and wheezing. Cardiovascular: Negative for chest pain. Gastrointestinal: Negative for abdominal distention, abdominal pain, blood in stool, constipation, diarrhea, nausea and vomiting. Genitourinary: Negative for difficulty urinating and dysuria. Musculoskeletal: Negative for arthralgias, joint swelling, neck pain and neck stiffness. Skin: Negative for rash. Neurological: Positive for headaches. Negative for dizziness, weakness and numbness. Objective Physical Exam Constitutional: Appearance: Normal appearance. HENT: Head: Normocephalic. Jaw: No trismus, tenderness, swelling or pain on movement. Right Ear: Tympanic membrane, ear canal and external ear normal. Left Ear: Tympanic membrane, ear canal and external ear normal. Nose: Congestion present. Right Sinus: Maxillary sinus tenderness present. Left Sinus: Maxillary sinus tenderness present. Mouth/Throat: Mouth: Mucous membranes are moist. Pharynx: Oropharynx is clear. Uvula midline. No oropharyngeal exudate or posterior oropharyngeal erythema. Eyes: Conjunctiva/sclera: Conjunctivae normal. Cardiovascular: Rate and Rhythm: Normal rate. Pulmonary: Effort: Pulmonary effort is normal. Breath sounds: Normal breath sounds. No wheezing, rhonchi or rales. Abdominal: Palpations: Abdomen is soft. Tenderness: There is no abdominal tenderness. There is no guarding or rebound. Musculoskeletal: General: Normal range of motion. Cervical back: Normal range of motion and neck supple. No edema or erythema. No pain with movement. Normal range of motion. Lymphadenopathy: Cervical: No cervical adenopathy. Skin: General: Skin is warm. Findings: No rash. Neurological: General: No focal deficit present. Mental Status: She is alert and oriented to person, place, and time. Mental status is at baseline. {ASSESSMENT/PLAN: 1. Sinobronchitis - ICD9: 473.9, 490, ICD10: J32.9, J40 Diagnosis sinobronchitis. Suspicious viral etiologies point. Supportive therapies recommended. Safety net antibiotic sent to pharmacy. Patient was educated on supportive therapies. Patient will follow up with primary care provider as needed. Patient was instructed to immediately proceed to emergency room for any new, worsening, or symptoms lasting longer than anticipated. The patient's clinical presentation is otherwise unremarkable at this time. Based on exam and clinical finding, the patient is stable for discharge. Plan of care was discussed with patient. Patient verbalizes understanding and agrees to plan of care. This note was generated using [employer] software. It may contain errors in wording, punctuation, or spelling. Gary Hooper APRN.LORENE History and Record Review Clinical information obtained from an independent historian. History obtained from or confirmed by: parent. External record(s) reviewed: prior outpatient record. Disposition The patient was discharged. OTC Medications were advised: Procedures documented in this encounter [facility] 05-26-2024 Note HNO ID: [id number] Author: ASHLEY OLSON APRN.LORENE Service: ? Author Type: Nurse Practitioner Type: Progress Notes Filed: 05/26/2024 10:03 Note Text: Patient declined psychodramatist. Lynsey is a 68 year old who presents for an annual gynecologic exam without complaints. Postmenopausal: Yes since age 50's HRT use: Yes, OCP How long: few yrs. 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 No bloating, early satiety, indigestion, or increased flatulence. Bladder: No dysuria, gross hematuria, urinary frequency, urinary urgency, or incontinence Breast: No breast lumps, nipple d/c, overlying skin changes, redness or skin retraction Allergies and current medication updated:Yes SENSITIVE EXAM: The sensitive examination was discussed with the Patient or Patient's Authorized Conversion Worker. As applicable, any other physician, advance practice provider, medical student, or other health professional student that will be observing or involved in the sensitive examination for educational or training purposes was discussed with the Patient or Authorized Conversion Worker. The Patient or Authorized Conversion Worker has agreed to proceed with the sensitive examination. (Sensitive examination includes inspection and/or palpation of the breasts, pelvis, prostate and anorectal regions). EXAM: There were no vitals taken for this visit. GENERAL: pleasant, female in no apparent distress [...] external genitalia normal, normal Bartholin's glands, urethra, [place]'s glands, no vulvar lesions, no cervical lesions, good vaginal support, physiologic discharge present, normal appearing perineal body and perianal region BIMANUAL: uterus normal size, shape and consistency, no adnexal masses, and non-tender RECTOVAGINAL: deferred. NEURO: alert and oriented x3,exam grossly non-focal EXTREMITIES: normal ASSESSMENT/PLAN: 1) Health maintenance: Pap/HPV screening no longer needed Mammogram due June 2024 2) Follow up one year or sooner as needed Ashley Olson APRN.CLINICAL RESEARCHER [facility] 05-26-2024 History of Present illness Narrative Patient declined psychodramatist. Lynsey is a 68 year old who presents for an annual gynecologic exam without complaints. Postmenopausal: Yes since age 50's HRT use: Yes, OCP How long: few yrs. Last Pap: 2020 negative (located under scanned documents) HPV: 2020 negative negative History of abnormal pap: No Last mammogram: [address], 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 No bloating, early satiety, indigestion, or increased flatulence. Bladder: No dysuria, gross hematuria, urinary frequency, urinary urgency, or incontinence Breast: No breast lumps, nipple d/c, overlying skin changes, redness or skin retraction Allergies and current medication updated:Yes SENSITIVE EXAM: The sensitive examination was discussed with the Patient or Patient's Authorized Conversion Worker. As applicable, any other physician, advance practice provider, medical student, or other health professional student that will be observing or involved in the sensitive examination for educational or training purposes was discussed with the Patient or Authorized Conversion Worker. The Patient or Authorized Conversion Worker has agreed to proceed with the sensitive examination. (Sensitive examination includes inspection and/or palpation of the breasts, pelvis, prostate and anorectal regions). EXAM: There were no vitals taken for this visit. GENERAL: pleasant, female in no apparent distress [...] external genitalia normal, normal Bartholin's glands, urethra, [place]'s glands, no vulvar lesions, no cervical lesions, good vaginal support, physiologic discharge present, normal appearing perineal body and perianal region BIMANUAL: uterus normal size, shape and consistency, no adnexal masses, and non-tender RECTOVAGINAL: deferred. NEURO: alert and oriented x3,exam grossly non-focal EXTREMITIES: normal ASSESSMENT/PLAN: 1) Health maintenance: Pap/HPV screening no longer needed Mammogram due June 2024 2) Follow up one year or sooner as needed Ashley Olson APRN.CNP documented in this encounter [facility] 07-08-2023 Discharge summary Note Date/Time July 08, 2023 12:16pm [facility] Medical Records Department [address] [place] [address] Emergency Department Summary 07/08/23 MR#: [id number] Acct: [id number] Name: LYNSEY PINA Rep #:[id number] : 1955 68 From: Aiyana AN PCP: Dr. Padmini Hinkle, DO Status:RE G CLI Location: [facility] <JUVE Bonner - Last Filed: 07/08/23 16:19> History of Present Illness Chief Complaint: Diarrhea Narrative Narrative: Patient presenting today due to diarrhea that she has had since . She reports a history of IBS, she was not sure if her diarrhea was related to that or not. She reports that on she had several episodes of vomiting that resolved within 24 hours. She is no longer nauseous or vomiting. She reports having some mild abdominal cramping when she has to have a bowel movement but otherwise denies having abdominal pain. No history of diverticulitis or previous abdominal surgeries. No history of C. difficile or recent antibiotic use. She denies fevers, chills, hematemesis, and melena. She reports that she does have a few hemorrhoids that have become irritated and are bleeding slightlywhile she has a bowel movement but quickly stops. [facility] <JUVE Bonner - Last Filed: 07/08/23 16:19> [facility] Home Medications ergocalciferol (vitamin D2) 1,250 mcg (50,000 unit) capsule (Vitamin D2) 50,000 unit PO WE supplement 05/22/13 [History Last Taken Unknown] lorazepam 0.5 mg tablet 0.5 mg PO PRN PRN Anxiety 05/22/13 [History Last Taken Unknown] multivitamin with folic acid 400 mcg tablet (Thera) 1 tab PO DAILY supplement 05/22/13 [History Last Taken Unknown] omeprazole 20 mg capsule,delayed release 20 mg PO DAILY gerd 05/22/13 [History Last Taken 03/06/18 05:00 20 mg] lorazepam 0.5 mg tablet 0.5 mg PO BID ANXIETY 03/06/18 [History Last Taken Unknown] acetaminophen 500 mg tablet 1,000 mg (2 x 500 mg) PO Q8 #90 tabs 03/07/18 [Rx Last Taken Unknown] sennosides 8.6 mg-docusate sodium 50 mg tablet 2 tab PO BID #20 tabs 03/07/18 [Rx Last Taken Unknown] Allergy/AdvReac Type Severity Reaction Status Date / Time lansoprazole [From Prevacid] Allergy Chest Verified 02/22/18 10:15 tightness rabeprazole sodium Allergy Chest Verified 02/22/18 10:15 [From Aciphex] tightness clarithromycin AdvReac Nausea/Vom/ Verified 02/22/18 10:15 Diarrhea cyclobenzaprine HCl AdvReac Nausea/Vom/ Verified 02/22/18 10:15 [From Flexeril] Diarrhea hydrocodone bitartrate AdvReac Nausea Verified 02/22/18 10:15 [From Vicodin] morphine AdvReac Nausea/Vom/ Verified 02/22/18 10:15 Diarrhea Social History Smoking Status: Never smoker ROS <JUVE Bonner - Last Filed: 07/08/23 16:19> ROS ED Constitutional Constitutional ED: Denies chills or fever(s) Cardiovascular Cardiovascular: Denies chest pain Respiratory/Chest Respiratory/Chest: Denies cough or dyspnea Gastrointestinal Gastrointestinal: Reports diarrhea; Denies abdominal pain, constipation, nausea or vomiting Genitourinary Genitourinary ED: Denies dysuria, hematuria or urinary urgency Musculoskeletal Musculoskeletal: Denies arthralgias or myalgias Integumentary Denies rash Neurologic Neurologic: Denies weakness EXAM <JUVE Bonner - Last Filed: 07/08/23 16:19> Physical Exam Const Vital Signs: 07/08/23 11:52 Temperature 96.7 F L Temperature Source Temporal Pulse Rate 107 H Respiratory Rate 18 Blood Pressure 145/85 H Blood Pressure Mean 105 Pulse Ox 98 Oxygen Delivery Method Room Air Positive well nourished, well developed and no apparent distress General Appearance ED: well developed HEENT Reports normocephalic and head/scalp atraumatic Mouth ED: Yes moist mucous membranes normal Eyes PERRL and EOMs intact bilaterally Neck full ROM and supple Chest Wall inspection of chest normal Resp normal respiratory effort and clear to auscultation bilaterally Cardio regular rate and regular rhythm GI soft to palpation, non-tender, non-distended and no masses Back/Spine normal ROM and normal to inspection Extremity normal to inspection and full ROM Neuro oriented x3, CN's II-XII intact bilaterally, moves all extremities, no focal motor deficits and no sensory deficits noted Sensorium / Orientation: awake and alert Psych mental status grossly normal and thought process normal Skin no rashes or lesions noted and no wounds <Dr. Maryann Wheatley DO - Last Filed: 07/08/23 15:37> Physical Exam Const Vital Signs: 07/08/23 11:52 Temperature 96.7 F L Temperature Source Temporal Pulse Rate 107 H Respiratory Rate 18 Blood Pressure 145/85 H Blood Pressure Mean 105 Pulse Ox 98 Oxygen Delivery Method Room Air [facility] <JUVE Bonner - Last Filed: 07/08/23 16:19> [facility] Narrative Medical decision making narrative: Patient presenting due to diarrhea that she has had since . On he had several episodes of nausea and vomiting which did resolve. She is no longer nauseous. She does have a history of IBS but reports she does not usually have diarrhea that last this long. She is nontoxic-appearing and in no acute distress. Abdomen is soft and nontender. Basic labs to be obtained to rule out electrolyte abnormality and leukocytosis. She will be given IV fluids. Stool series will be obtained if patient is able to provide a sample to help rule out C. difficile and enteric pathogens. CBC unremarkable. Potassium 3.0, patient given potassium replacement. She was unable to provide a stool sample, we will give her an order to provide this as an outpatient. Do suspect that this is likely a viral diarrheal illness. She can take Imodium as needed and will be given return instructions. She will be discharged home in stable condition and is comfortable with plan. I have personally performed a face to face assessment of the patient and have reviewed the [facility] Note. I performed a substantive portion of the visit including all aspects of the following. My bullock findings include: History is [patient presents to the emergency department with complaint of diarrhea that started 4 days ago. She is having severe watery stools. After the diarrhea started she took an Imodium and then several hours later started vomiting but that was short-lived. She denies any abdominal pain. Patient states that she was on antibiotics that she took for a cold several weeks ago but only took about 4 tablets of amoxicillin that she had leftover. She denies sick contacts. Patient states that she did eat a soup that her did not eat prior to the illness and urgent care was worried that she may have E. coli. Patient does have history of IBS and thought initially when this started that it was related to her IBS.] Exam is [HEENT-PERRLA, EOMI. Cranial nerves II through XII grossly intact. TMs clear. Mucous membranes moist. No adenopathy. Cardiovascular-regular rate and rhythm without murmur or ectopy Lungs-clear to auscultation, chest wall stable without crepitus or subcu emphysema Abdomen-normoactive bowel sounds, soft, nontender, no rebound or rigidity, no peritoneal signs. Extremities-intact ?4, normal range of motion, normal pulses, atraumatic] Medical Decison Making [patient will have an IV line established. She will have basic labs ordered. She will have stool sent for enteric pathogen's as well as C. difficile. Clinically she looks well. Abdomen is benign.] Patient lab workup unremarkable. She was unable to give a stool sample here. Her abdomen is benign I do not feel she needs any imaging. Recommended she use Imodium as needed for diarrhea. Suspect likely a viral process. Will send home with prescription to bring a stool sample in for C. difficile as well as enteric pathogen's. Other additions or changes: [None] Lab Data Labs: Laboratory Results - last 24 hr 07/08/23 12:15 WBC 7.1 RBC 5.09 Hgb 15.2 H Hct 46.6 MCV 91.6 MCH 29.9 MCHC 32.6 RDW Std Deviation 43.7 RDW Coeff of Moustapha 13.0 Plt Count 261 MPV 10.1 Immature Gran % (Auto) 1.700 H Neut % (Auto) 59.0 Lymph % (Auto) 27.5 [place] % (Auto) 10.5 H Eos % (Auto) 0.7 Baso % (Auto) 0.6 Absolute Neuts (auto) 4.2 Absolute Lymphs (auto) 1.96 Nucleated RBC % 0 Sodium 140 Potassium 3.0 L Chloride 106 Carbon Dioxide 28.0 Anion Gap 6 BUN 12 Creatinine 0.72 Estim Creat Clear Calc 67.49 Est GFR (MDRD) Af Amer 104 Est GFR (MDRD) Non-Af 86 BUN/Creatinine Ratio 16.7 Glucose 113 H Calcium 9.2 <Dr. Maryann Wheatley, DO - Last Filed: 07/08/23 15:37> [facility] Narrative Medical decision making narrative: Patient presenting due to diarrhea that she has had since . On she had several episodes of nausea and vomiting which did resolve. She is no longer nauseous. She does have a history of IBS but reports she does not usually have diarrhea that last this long. She is nontoxic-appearing and in no acute distress. Abdomen is soft and nontender. Basic labs to be obtained to rule out electrolyte abnormality and leukocytosis. She will be given IV fluids. Stool series will be obtained if patient is able to provide a sample to help rule out C. difficile and enteric pathogens. I have personally performed a face to face assessment of the patient and have reviewed the [facility] Note. I performed a substantive portion of the visit including all aspects of the following. My bullock findings include: History is [patient presents to the emergency department with complaint of diarrhea that started 4 days ago. She is having severe watery stools. After the diarrhea started she took an Imodium and then several hours later started vomiting but that was short-lived. She denies any abdominal pain. Patient states that she was on antibiotics that she took for a cold several weeks ago but only took about 4 tablets of amoxicillin that she had leftover. She denies sick contacts. Patient states that she did eat a soup that her did not eat prior to the illness and urgent care was worried that she may have E. coli. Patient does have history of IBS and thought initially when this started that it was related to her IBS.] Exam is [HEENT-PERRLA, EOMI. Cranial nerves II through XII grossly intact. TMs clear. Mucous membranes moist. No adenopathy. Cardiovascular-regular rate and rhythm without murmur or ectopy Lungs-clear to auscultation, chest wall stable without crepitus or subcu emphysema Abdomen-normoactive bowel sounds, soft, nontender, no rebound or rigidity, no peritoneal signs. Extremities-intact ?4, normal range of motion, normal pulses, atraumatic] Medical Decison Making [patient will have an IV line established. She will have basic labs ordered. She will have stool sent for enteric pathogen's as well as C. difficile. Clinically she looks well. Abdomen is benign.] Patient lab workup unremarkable. She was unable to give a stool sample here. Her abdomen is benign I do not feel she needs any imaging. Recommended she use Imodium as needed for diarrhea. Suspect likely a viral process. Will send home with prescription to bring a stool sample in for C. difficile as well as enteric pathogen's. Other additions or changes: [None] Lab Data Attestation: I reviewed the patient's lab results. Labs: Laboratory Results - last 24 hr 07/08/23 12:15 WBC 7.1 RBC 5.09 Hgb 15.2 H Hct 46.6 MCV 91.6 MCH 29.9 MCHC 32.6 RDW Std Deviation 43.7 RDW Coeff of Moustapha 13.0 Plt Count 261 MPV 10.1 Immature Gran % (Auto) 1.700 H Neut % (Auto) 59.0 Lymph % (Auto) 27.5 [place] % (Auto) 10.5 H Eos % (Auto) 0.7 Baso % (Auto) 0.6 Absolute Neuts (auto) 4.2 Absolute Lymphs (auto) 1.96 Nucleated RBC % 0 Sodium 140 Potassium 3.0 L Chloride 106 Carbon Dioxide 28.0 Anion Gap 6 BUN 12 Creatinine 0.72 Estim Creat Clear Calc 67.49 Est GFR (MDRD) Af Amer 104 Est GFR (MDRD) Non-Af 86 BUN/Creatinine Ratio 16.7 Glucose 113 H Calcium 9.2 Discharge Plan Triage Chief Complaint: Diarrhea ED Midlevel Provider: Aiyana Restrepo ED Provider: Maryann Wheatley Dx/Rx/DC Orders Clinical Impression: Diarrhea Primary Care Provider: Padmini Hinkle Disposition Disposition: Home, Self Care Discharge Date/Time: 07/08/23 14:21 What to do if you have Problems For any increased pain, shortness of breath, bleeding, nausea or vomiting, chest pain, or any unexpected problems, contact your Primary Care Provider. Call [facility] ([phone]) or report to the closest Emergency Room. Call 911 if necessary. 07/08/23 1619 <Electronically signed by Aiyana Restrepo PA> Cosigner Signature (if applicable): 07/08/23 1537 <Electronically signed by Maryann Wheatley DO> CC: Dr. Padmini Hinkle, ~ Signed [facility] Work Phone: 1(129) 875-938609-08-2023 History of Present illness Narrative* Colette Tomas RN - 02/23/2023 12:54 PM EDT Received outside medical records from [place] SHIPPING CLERK/ADMIN. Sent for scanning. Colette Tomas RN documented in this encounterCleveland [id number] Discharge summary Author Aminata Giles [facility] September 13, 2022 1:36pm Note Date/Time September 13, 2022 1:3 6pm [facility] Physical Therapy [facility] [address] [place] [address] / REHABILITATION SERVICES DISCHARGE SUMMARY MR#: [id number] Acct: [id number] Name: LYNSEY PINA Rep #: [id number] : [id number] 67 From: Aminata Giles PT Cert. T Referring Dr.: Dr. Elena Nichole MD Status: REG RCR Insurance: [employer] INSURANCE LYNSEY PINA was seen in my office for initial evaluation on 05/22/22. The following Plan of Care was established for this patient: Initial Frequency: 1x/Week Initial Duration: 8-10 WKS Patient/Client Instruction: Educate patient on: Condition, Plan of Care, Risk Factors For the Purpose of:: To improve self management Therapeutic Exercise to Include: Strength training, Endurance training, Coordination, Body mechanics, Postural training, Flexibilty training, Neuromotordevelopment, Dynamic Lumbar Stabilization For the Purpose of:: To decrease pain, To improve muscle performance and motor function, To increase tolerance to activity/condition/position, To improve ability of physical actions for home/community/work/leisure Manual Therapy Techniques to Include: Soft tissue mobilization Comment: BIOFEEDBACK For the Purpose of:: To decrease pain, To improve muscle performance and motor function This patient was last seen in our office 05/22/23. Pertinent comments regardingtheir Physical therapy will appear below: This patient has not returned to Physical Therapy and is appropriate to return to MD for further follow-up as needed. At this point I will be discontinuing this patient from physical therapy. I would be happy to see this patient again in the future if found appropriate by the physician. Thank you! Aminata Giles PT, Cert MDT <Electronically signed by Aminata Giles PT Cert. MDT> 09/13/22 8215 CC: CUCO Zelaya; Dr. Elena Nichole MD ~ SOFI Handley [facility] Work Phone: [phone]) 762-287611-28-2022 History of Present illness Narrative* Antonia MattsonKAYLEN.CLINICAL RESEARCHER - 05/15/2022 8:54 AM EST Chief Complaint Patient presents with: Established Patient [...] developed and its performance characteristics determined by [facility]'s Jose Juan Rosario [facility] [place]. The U.[place]. Food and Drug Administration has [...] in accordance with guidelines published by the [place] Society of Clinical Oncology and the College of [place] [employer] (J. Clin. Oncol. 25: 118-145, 2007). JJR/sondra/04/17/2013 Procedure Pathologist: Abraham Che M.D. Electronic Signature ESTROGEN/PROGESTERONE RECEPTOR (ER/GA) ANALYSIS Date Ordered: 04/15/2013 Date Reported: 04/16/2013 [...] in the axilla. Axillary contents sample didn't containLNs. Final pathology: 2 mm invasive ductal carcinoma. No LVI. Margins negative. Closest was superior at 3 mm. Triple negative. No lymph nodes observed. Underwent repeat SLN biopsy on 08/21/2013--1 node negative. Radiation treatment:09/24/13 to 11/06/13. No new concerns today. Appetite:It's Good. Energy level:Good. Denies fevers or recent illness. Resp:denies cough or sob Cardiac:denies chest pain/palpitations GI:denies abd pain, n/v, moving bowels regularly :denies dysuria/hematuria-UTI in Mar. treated at -seeing Urologist tomorrow. Extrem:+arthritis to feet/hands-takes mobic prn- Dx with RA fall 2016. Pt. s/p L total knee done inJan. 2019 Endo:denies hot flashes Neuro:denies symptoms of neuropathy Skin:denies rashes/lesions Heme:denies bleeding The ROS is otherwise negative. Past medical history, appointments, medications, allergies reviewed. No changes. EXAM: BP 157/92 Pulse 111 Temp 36.8 C (98.2 F) Ht 160 cm (5' 2.99) Wt 81.6 kg (180 lb) BMI 31.89 [...] V10.3, ICD10: Z85.3 pT1a (2mm) pN0 M0 ER/GA negative HER2 non-amplified (FISH) invasive ductal carcinoma of the left breast. - No concerning findings on exam. - Pt. now over 8 years out from radiation treatment. - BP lower at home per pt. - Reviewed mammogram with pt. Done at [facility]. - Mammogram due 2022. Pt. has this done at [facility]. - Follow up as needed. Pt. will follow up with PCP/MEDICAID BUSINESS ANALYST for yearly CBE/mammogram. - Pt. aware to call office with any questions/concerns. The patient indicates understanding of these issues and agrees with the plan. All documentation from previous visit of 05/11/21-Dr. James/myself was copied and pasted, documentation has been reviewed and edited as necessary for today's visit. Antonia Mattson APRN.CNP documented in this encounterDunlap [facility]10[facility] Miscellaneous Notes* Telephone Encounter - Bonita Gatica - 04/17/2022 4:45 PM EDT Patient given results and verbalized understanding of instructions given. Bonita Gatica * Telephone Encounter - Marine aBhena APRN.CNP - 04/17/2022 3:21 PM EDT Please inform patient that urine culture did not show any growth of bacteria requiring treatment. Iwould recommend to stop antibiotic Advise due to blood in the urine that she follow up with urology or MEDICAID BUSINESS ANALYST for recheck of urine in 1-2weeks, as well as discuss possible UTI symptom. documented in this encounterDunlap [facility] Hospital10-30-2022 History of Present illness Narrative* Natalie Jay APRN.CNP - 04/16/2022 1:30 PM EDT Subjective HPI Lynsey presents today with one [...] tablet Take 1 tablet by mouth twice dailyfor 7 days. FAMILY HISTORY Problem Relation Age [...] notified Natalie Jay APRN.CNP documented in this encounterDunlap [facility] Hospital03-19-2019 Microscopic observation Gram stain Nom (Sput)Gram Stain EvaluationGSACC (Normal)Comments:This specimen is of good quality and is acceptable for routinebacterial culture. [facility]; [facility] Work Phone: comment on above:This specimen is of good quality and is acceptable for routinebacterial culture.PATIENT NOT FASTINGPERFORMED BY: [facility]Nor-[facility] HospitalZkhabo0814 [facility] [id number] Information: SRC:[id number] History of Past illness Narrative* Problem Noted Date Resolved Date Colon cancer screening 10/01/2015 6 Abnormal mammogram, unspecified 04/10/2013 12/04/2013 Hyperlipidemia 08/04/2009 03/20/2013 Overview: Mild elevation. Diet recommended. Component Reference Range 07/14/2009 Triglyceride, Mirta 30-200 mg/dL 142 Cholesterol, [place] 0-200 mg/dL 203 (H) HDL Chol, [place] 40-60 mg/dL 39 (L) VLDL Chol, [place] 5-40 mg/dL 28 LDL Chol, [place] 0-129 mg/dL 136 (H) TC HDL Risk, [place] 0.0-5.0 5.2 (H) Atopic rhinitis 03/12/2009 08/04/2009 Pain in joint, shoulder region 09/01/2008 0 10/13/2008 Neck Sprain and Strain 07/04/2007 3 Overview: 08/04/09 - Neck symptom stable, occaisional need for home exercises documented as of this encounter (statuses as of 04/16/2022) [facility]04-[facility] History of Past illness Narrative* Problem Noted Date Resolved Date Colon cancer screening 10/01/2015 6 Abnormal mammogram, unspecified 04/10/2013 12/04/2013 Hyperlipidemia 08/04/2009 03/20/2013 Overview: Mild elevation. Diet recommended. Component Reference Range 07/14/2009 Triglyceride, [place] 30-200 mg/dL 142 Cholesterol, [place] 0-200 mg/dL 203 (H) HDL Chol, [place] 40-60 mg/dL 39 (L) VLDL Chol, [place] 5-40 mg/dL 28 LDL Chol, [place] 0-129 mg/dL 136 (H) TC HDL Risk, [place] 0.0-5.0 5.2 (H) Atopic rhinitis 03/12/2009 08/04/2009 Pain in joint, shoulder region 09/01/2008 0 10/13/2008 Neck Sprain and Strain 07/04/2007 3 Overview: 08/04/09 - Neck symptom stable, occaisional need for home exercises documented as of this encounter (statuses as of 04/17/2022) [facility]04-[facility] History of Past illness Narrative* Problem Noted Date Resolved Date Colon cancer screening 10/01/2015 6 Abnormal mammogram, unspecified 04/10/2013 12/04/2013 Hyperlipidemia 08/04/2009 03/20/2013 Overview: Mild elevation. Diet recommended. Component Reference Range 07/14/2009 Triglyceride, [place] 30-200 mg/dL 142 Cholesterol, [place] 0-200 mg/dL 203 (H) HDL Chol, [place] 40-60 mg/dL 39 (L) VLDL Chol, [place] 5-40 mg/dL 28 LDL Chol, [place] 0-129 mg/dL 136 (H) TC HDL Risk, [place] 0.0-5.0 5.2 (H) Atopic rhinitis 03/12/2009 08/04/2009 Pain in joint, shoulder region 09/01/2008 0 10/13/2008 Neck Sprain and Strain 07/04/2007 3 Overview: 08/04/09 - Neck symptom stable, occaisional need for home exercises documented as of this encounter (statuses as of 05/15/2022) [facility] History of Past illness Narrative* Problem Noted Date Diagnosed Date Resolved Date Colon cancer screening 10/01/201505/05 Abnormal mammogram, unspecified 04/10/2013 12/04/2013 Hyperlipidemia 08/04/2009 03/20/2013 Overview: Mild elevation. Diet recommended. Component Reference Range 07/14/2009 Triglyceride, Mir[place] 30-200 mg/dL 142 Cholesterol, [place] 0-200 mg/dL 203 (H) HDL Chol, [place] 40-60 mg/dL 39 (L) VLDL Chol, [place] 5-40 mg/dL 28 LDL Chol, [place] 0-129 mg/dL 136 (H) TC HDL Risk, [place] 0.0-5.0 5.2 (H) Atopic rhinitis 03/12/2009 08/04/2009 Pain in joint, shoulder region 09/01/2008 10/13/2008 Neck Sprain and Strain 07/04/200703/20 Overview: 08/04/09 - Neck symptom stable, occaisional need for home exercises documented as of this encounter (statuses as of 02/23/2023) [facility] noteNo assessment information availableWooUniversity Hospitals [facility] Work Phone: Evaluation note* Diagnosis Urinary frequency- Primary documented in this encounter [facility] note* Diagnosis Personal history of breast cancer- Primary Personal history of malignant neoplasm of breast documented in this encounter [facility] note* Diagnosis Onset Date Resolution Status Diarrhea acute [facility] Work Phone: Evaluation note* Diagnosis Encounter for gynecological examination (general) (routine) without abnormal findings- Primary documented in this encounter [facility] note* Diagnosis Sinobronchitis- Primary Unspecified sinusitis (chronic) [facility] Discharge instructions Additional Instructions Stay well hydrated, follow-up with your PCP and return for any worsening of your symptoms.[facility] Work Phone: Instructions* Name Dates Details How to access Timescape Indication:Non-smoker Start:24-Jun-2019 Instruction Type:Patient Education How to access Ligandal online - Detail Indication:Non-smoker Start:24-Jun-2019 Instruction Type:Patient [...] Informa tion Online using Patient Portal and [employer] Apps Indication:BMI 32.0-32.9,adult Start:02-Feb-2021 Instruction Type:Patient [...] tion Online using Patient Portal and 3rd [employer] Apps Indication:Non-smoker Start:22-Jun-2021 Instruction Type:Patient Education Patient Instructions Indication:BMI 32.0-32.9,adult Start:02-Feb-2021 Instruction Type:Provider Instructions for Treatment How to Access Health Informa tion Online using Patient Portal and 3rd [employer] Apps Indication:BMI 32.0-32.9,adult Start:02-Feb-2021 Instruction Type:Patient [...] tion Online using Patient Portal and 3rd [employer] Apps Indication:Non-smoker Start:22-Jun-2021 Instruction Type:Patient Education Patient Instructions Indication:BMI 32.0-32.9,adult Start:02-Feb-2021 Instruction Type:Provider Instructions for Treatment How to Access Health Informa tion Online using Patient Portal and 3rd [employer] Apps Indication:BMI 32.0-32.9,adult Start:02-Feb-2021 Instruction Type:Patient [...] tion Online using Patient Portal and 3rd [employer] Apps Indication:Non-smoker Start:21-Sep-2021 Instruction Type:Patient Education Patient Instructions Indication:BMI 32.0-32.9,adult Start:22-Aug-2021 Instruction Type:Provider Instructions for Treatment How to Access Health Informa tion Online using Patient Portal and [employer] Apps Indication:BMI 32.0-32.9,adult Start:22-Aug-2021 Instruction Type:Patient Education Patient Instructions Indication:Non-smoker Start:22-Jun-2021 Instruction Type:Provider Instructions for Treatment How to Access Health Informa tion Online using Patient Portal and 3rd [employer] Apps Indication:Non-smoker Start:22-Jun-2021 Instruction Type:Patient Education Patient Instructions Indication:BMI 32.0-32.9,adult Start:02-Feb-2021 Instruction Type:Provider Instructions for Treatment How to Access Health Informa tion Online using Patient Portal and 3rd [employer] Apps Indication:BMI 32.0-32.9,adult Start:02-Feb-2021 Instruction Type:Patient [...] tion Online using Patient Portal and 3rd [employer] Apps Indication:Non-smoker Start:04-Jan-2022 Instruction Type:Patient Education Patient Instructions Indication:Non-smoker Start:21-Sep-2021 Instruction Type:Provider Instructions for Treatment How to Access Health Informa tion Online using Patient Portal and 3rd [employer] Apps Indication:Non-smoker Start:21-Sep-2021 Instruction Type:Patient Education Patient Instructions Indication:BMI 32.0-32.9,adult Start:22-Aug-2021 Instruction Type:Provider Instructions for Treatment How to Access Health Informa tion Online using Patient Portal and 3rd [employer] Apps Indication:BMI 32.0-32.9,adult Start:22-Aug-2021 Instruction Type:Patient Education Patient Instructions Indication:Non-smoker Start:22-Jun-2021 Instruction Type:Provider Instructions for Treatment How to Access Health Informa tion Online using Patient Portal and 3rd [employer] Apps Indication:Non-smoker Start:22-Jun-2021 Instruction Type:Patient Education Patient Instructions Indication:BMI 32.0-32.9,adult Start:02-Feb-2021 Instruction Type:Provider Instructions for Treatment How to Access Health Informa tion Online using Patient Portal and [employer]rd [employer] Apps Indication:BMI 32.0-32.9,adult Start:02-Feb-2021 Instruction Type:Patient [...] tion Online using Patient Portal and [employer]rd [employer] Apps Indication:Non-smoker Start:04-Jan-2022 Instruction Type:Patient Education Patient Instructions Indication:Non-smoker Start:21-Sep-2021 Instruction Type:Provider Instructions for Treatment How to Access Health Informa tion Online using Patient Portal and [employer] Apps Indication:Non-smoker Start:21-Sep-2021 Instruction Type:Patient Education Patient Instructions Indication:BMI 32.0-32.9,adult Start:22-Aug-2021 Instruction Type:Provider Instructions for Treatment How to Access Health Informa tion Online using Patient Portal and [employer]rd [employer] Apps Indication:BMI 32.0-32.9,adult Start:22-Aug-2021 Instruction Type:Patient Education Patient Instructions Indication:Non-smoker Start:22-Jun-2021 Instruction Type:Provider Instructions for Treatment How to Access Health Informa tion Online using Patient Portal and [employer] Apps Indication:Non-smoker Start:22-Jun-2021 Instruction Type:Patient Education Patient Instructions Indication:BMI 32.0-32.9,adult Start:02-Feb-2021 Instruction Type:Provider Instructions for Treatment How to Access Health Informa tion Online using Patient Portal and [employer] Apps Indication:BMI 32.0-32.9,adult Start:02-Feb-2021 Instruction Type:Patient [...] tion Online using Patient Portal and [employer] Apps Indication:Non-smoker Start:04-Jan-2022 Instruction Type:Patient Education Patient Instructions Indication:Non-smoker Start:21-Sep-2021 Instruction Type:Provider Instructions for Treatment How to Access Health Informa tion Online using Patient Portal and [employer] Apps Indication:Non-smoker Start:21-Sep-2021 Instruction Type:Patient Education Patient Instructions Indication:BMI 32.0-32.9,adult Start:22-Aug-2021 Instruction Type:Provider Instructions for Treatment How to Access Health Informa tion Online using Patient Portal and [employer] Apps Indication:BMI 32.0-32.9,adult Start:22-Aug-2021 Instruction Type:Patient Education Patient Instructions Indication:Non-smoker Start:22-Jun-2021 Instruction Type:Provider Instructions for Treatment How to Access Health Informa tion Online using Patient Portal and [employer] Apps Indication:Non-smoker Start:22-Jun-2021 Instruction Type:Patient Education Patient Instructions Indication:BMI 32.0-32.9,adult Start:02-Feb-2021 Instruction Type:Provider Instructions for Treatment How to Access Health Informa tion Online using Patient Portal and [employer] Apps Indication:BMI 32.0-32.9,adult Start:02-Feb-2021 Instruction Type:Patient [...] tion Online using Patient Portal and [employer] Apps Indication:Non-smoker Start:04-Jan-2022 Instruction Type:Patient Education Patient Instructions Indication:Non-smoker Start:21-Sep-2021 Instruction Type:Provider Instructions for Treatment How to Access Health Informa tion Online using Patient Portal and [employer] Apps Indication:Non-smoker Start:21-Sep-2021 Instruction Type:Patient Education Patient Instructions Indication:BMI 32.0-32.9,adult Start:22-Aug-2021 Instruction Type:Provider Instructions for Treatment How to Access Health Informa tion Online using Patient Portal and [employer] Apps Indication:BMI 32.0-32.9,adult Start:22-Aug-2021 Instruction Type:Patient Education Patient Instructions Indication:Non-smoker Start:22-Jun-2021 Instruction Type:Provider Instructions for Treatment How to Access Health Informa tion Online using Patient Portal and [employer] Apps Indication:Non-smoker Start:22-Jun-2021 Instruction Type:Patient Education Patient Instructions Indication:BMI 32.0-32.9,adult Start:02-Feb-2021 Instruction Type:Provider Instructions for Treatment How to Access Health Informa tion Online using Patient Portal and [employer] Apps Indication:BMI 32.0-32.9,adult Start:02-Feb-2021 Instruction Type:Patient [...] tion Online using Patient Portal and [employer] Apps Indication:Non-smoker Start:20-Apr-2022 Instruction Type:Patient Education Patient Instructions Indication:Painful urination Start:30-Mar-2022 Instruction Type:Provider Instructions for Treatment How to Access Health Informa tion Online using Patient Portal and [employer] Apps Indication:Painful urination Start:30-Mar-2022 Instruction Type:Patient Education Patient Instructions Indication:Non-smoker Start:04-Jan-2022 Instruction Type:Provider Instructions for Treatment How to Access Health Informa tion Online using Patient Portal and [employer] Apps Indication:Non-smoker Start:04-Jan-2022 Instruction Type:Patient Education Patient Instructions Indication:Non-smoker Start:21-Sep-2021 Instruction Type:Provider Instructions for Treatment How to Access Health Informa tion Online using Patient Portal and [employer] Apps Indication:Non-smoker Start:21-Sep-2021 Instruction Type:Patient Education Patient Instructions Indication:BMI 32.0-32.9,adult Start:22-Aug-2021 Instruction Type:Provider Instructions for Treatment How to Access Health Informa tion Online using Patient Portal and [employer] Apps Indication:BMI 32.0-32.9,adult Start:22-Aug-2021 Instruction Type:Patient Education Patient Instructions Indication:Non-smoker Start:22-Jun-2021 Instruction Type:Provider Instructions for Treatment How to Access Health Informa tion Online using Patient Portal and [employer] Apps Indication:Non-smoker Start:22-Jun-2021 Instruction Type:Patient Education Patient Instructions Indication:BMI 32.0-32.9,adult Start:02-Feb-2021 Instruction Type:Provider Instructions for Treatment How to Access Health Informa tion Online using Patient Portal and [employer] Apps Indication:BMI 32.0-32.9,adult Start:02-Feb-2021 Instruction Type:Patient [...] Informa tion Online using Patient Portal and [employer] Apps Indication:Non-smoker Start:20-Apr-2022 Instruction Type:Patient Education Patient Instructions Indication:Painful urination Start:30-Mar-2022 Instruction Type:Provider Instructions for Treatment How to Access Health Informa tion Online using Patient Portal and [employer] Apps Indication:Painful urination Start:30-Mar-2022 Instruction Type:Patient Education Patient Instructions Indication:Non-smoker Start:04-Jan-2022 Instruction Type:Provider Instructions for Treatment How to Access Health Informa tion Online using Patient Portal and [employer] Apps Indication:Non-smoker Start:04-Jan-2022 Instruction Type:Patient Education Patient Instructions Indication:Non-smoker Start:21-Sep-2021 Instruction Type:Provider Instructions for Treatment How to Access Health Informa tion Online using Patient Portal and [employer] Apps Indication:Non-smoker Start:21-Sep-2021 Instruction Type:Patient Education Patient Instructions Indication:BMI 32.0-32.9,adult Start:22-Aug-2021 Instruction Type:Provider Instructions for Treatment How to Access Health Informa tion Online using Patient Portal and [employer] Apps Indication:BMI 32.0-32.9,adult Start:22-Aug-2021 Instruction Type:Patient Education Patient Instructions Indication:Non-smoker Start:22-Jun-2021 Instruction Type:Provider Instructions for Treatment How to Access Health Informa tion Online using Patient Portal and [employer] Apps Indication:Non-smoker Start:22-Jun-2021 Instruction Type:Patient Education Patient Instructions Indication:BMI 32.0-32.9,adult Start:02-Feb-2021 Instruction Type:Provider Instructions for Treatment How to Access Health Informa tion Online using Patient Portal and [employer] Apps Indication:BMI 32.0-32.9,adult Start:02-Feb-2021 Instruction Type:Patient [...] tion Online using Patient Portal and [employer] Apps Indication:Non-smoker Start:23-May-2022 Instruction Type:Patient Education Patient Instructions Indication:Non-smoker Start:23-May-2022 Instruction Type:Provider Instructions for Treatment Patient Instructions Indication:Non-smoker Start:20-Apr-2022 Instruction Type:Provider Instructions for Treatment How to Access Health Informa tion Online using Patient Portal and [employer] Apps Indication:Non-smoker Start:20-Apr-2022 Instruction Type:Patient Education Patient Instructions Indication:Painful urination Start:30-Mar-2022 Instruction Type:Provider Instructions for Treatment How to Access Health Informa tion Online using Patient Portal and [employer] Apps Indication:Painful urination Start:30-Mar-2022 Instruction Type:Patient Education Patient Instructions Indication:Non-smoker Start:04-Jan-2022 Instruction Type:Provider Instructions for Treatment How to Access Health Informa tion Online using Patient Portal and [employer] Apps Indication:Non-smoker Start:04-Jan-2022 Instruction Type:Patient Education Patient Instructions Indication:Non-smoker Start:21-Sep-2021 Instruction Type:Provider Instructions for Treatment How to Access Health Informa tion Online using Patient Portal and [employer] Apps Indication:Non-smoker Start:21-Sep-2021 Instruction Type:Patient Education Patient Instructions Indication:BMI 32.0-32.9,adult Start:22-Aug-2021 Instruction Type:Provider Instructions for Treatment How to Access Health Informa tion Online using Patient Portal and [employer] Apps Indication:BMI 32.0-32.9,adult Start:22-Aug-2021 Instruction Type:Patient Education Patient Instructions Indication:Non-smoker Start:22-Jun-2021 Instruction Type:Provider Instructions for Treatment How to Access Health Informa tion Online using Patient Portal and [employer] Apps Indication:Non-smoker Start:22-Jun-2021 Instruction Type:Patient Education Patient Instructions Indication:BMI 32.0-32.9,adult Start:02-Feb-2021 Instruction Type:Provider Instructions for Treatment How to Access Health Informa tion Online using Patient Portal and [employer] Apps Indication:BMI 32.0-32.9,adult Start:02-Feb-2021 Instruction Type:Patient [...] tion Online using Patient Portal and [employer] Apps Indication:Non-smoker Start:23-May-2022 Instruction Type:Patient Education Patient Instructions Indication:Non-smoker Start:23-May-2022 Instruction Type:Provider Instructions for Treatment Patient Instructions Indication:Non-smoker Start:20-Apr-2022 Instruction Type:Provider Instructions for Treatment How to Access Health Informa tion Online using Patient Portal and [employer] Apps Indication:Non-smoker Start:20-Apr-2022 Instruction Type:Patient Education Patient Instructions Indication:Painful urination Start:30-Mar-2022 Instruction Type:Provider Instructions for Treatment How to Access Health Informa tion Online using Patient Portal and [employer] Apps Indication:Painful urination Start:30-Mar-2022 Instruction Type:Patient Education Patient Instructions Indication:Non-smoker Start:04-Jan-2022 Instruction Type:Provider Instructions for Treatment How to Access Health Informa tion Online using Patient Portal and [employer] Apps Indication:Non-smoker Start:04-Jan-2022 Instruction Type:Patient Education Patient Instructions Indication:Non-smoker Start:21-Sep-2021 Instruction Type:Provider Instructions for Treatment How to Access Health Informa tion Online using Patient Portal and [employer] Apps Indication:Non-smoker Start:21-Sep-2021 Instruction Type:Patient Education Patient Instructions Indication:BMI 32.0-32.9,adult Start:22-Aug-2021 Instruction Type:Provider Instructions for Treatment How to Access Health Informa tion Online using Patient Portal and [employer] Apps Indication:BMI 32.0-32.9,adult Start:22-Aug-2021 Instruction Type:Patient Education Patient Instructions Indication:Non-smoker Start:22-Jun-2021 Instruction Type:Provider Instructions for Treatment How to Access Health Informa tion Online using Patient Portal and [employer] Apps Indication:Non-smoker Start:22-Jun-2021 Instruction Type:Patient Education Patient Instructions Indication:BMI 32.0-32.9,adult Start:02-Feb-2021 Instruction Type:Provider Instructions for Treatment How to Access Health Informa tion Online using Patient Portal and [employer] Apps Indication:BMI 32.0-32.9,adult Start:02-Feb-2021 Instruction Type:Patient [...] tion Online using Patient Portal and [employer] Apps Indication:Non-smoker Start:24-Jul-2022 Instruction Type:Patient Education How to Access Health Informa tion Online using Patient Portal and [employer] Apps Indication:Non-smoker Start:23-May-2022 Instruction Type:Patient Education Patient Instructions Indication:Non-smoker Start:23-May-2022 Instruction Type:Provider Instructions for Treatment Patient Instructions Indication:Non-smoker Start:20-Apr-2022 Instruction Type:Provider Instructions for Treatment How to Access Health Informa tion Online using Patient Portal and [employer] Apps Indication:Non-smoker Start:20-Apr-2022 Instruction Type:Patient Education Patient Instructions Indication:Painful urination Start:30-Mar-2022 Instruction Type:Provider Instructions for Treatment How to Access Health Informa tion Online using Patient Portal and [employer] Apps Indication:Painful urination Start:30-Mar-2022 Instruction Type:Patient Education Patient Instructions Indication:Non-smoker Start:04-Jan-2022 Instruction Type:Provider Instructions for Treatment How to Access Health Informa tion Online using Patient Portal and [employer] Apps Indication:Non-smoker Start:04-Jan-2022 Instruction Type:Patient Education Patient Instructions Indication:Non-smoker Start:21-Sep-2021 Instruction Type:Provider Instructions for Treatment How to Access Health Informa tion Online using Patient Portal and [employer] Apps Indication:Non-smoker Start:21-Sep-2021 Instruction Type:Patient Education Patient Instructions Indication:BMI 32.0-32.9,adult Start:22-Aug-2021 Instruction Type:Provider Instructions for Treatment How to Access Health Informa tion Online using Patient Portal and [employer] Apps Indication:BMI 32.0-32.9,adult Start:22-Aug-2021 Instruction Type:Patient Education Patient Instructions Indication:Non-smoker Start:22-Jun-2021 Instruction Type:Provider Instructions for Treatment How to Access Health Informa tion Online using Patient Portal and [employer] Apps Indication:Non-smoker Start:22-Jun-2021 Instruction Type:Patient Education Patient Instructions Indication:BMI 32.0-32.9,adult Start:02-Feb-2021 Instruction Type:Provider Instructions for Treatment How to Access Health Informa tion Online using Patient Portal and [employer] Apps Indication:BMI 32.0-32.9,adult Start:02-Feb-2021 Instruction Type:Patient [...] Informa tion Online using Patient Portal and [employer] Apps Indication:Non-smoker Start:24-Jul-2022 Instruction Type:Patient Education How to Access Health Informa tion Online using Patient Portal and [employer] Apps Indication:Non-smoker Start:23-May-2022 Instruction Type:Patient Education Patient Instructions Indication:Non-smoker Start:23-May-2022 Instruction Type:Provider Instructions for Treatment Patient Instructions Indication:Non-smoker Start:20-Apr-2022 Instruction Type:Provider Instructions for Treatment How to Access Health Informa tion Online using Patient Portal and [employer] Apps Indication:Non-smoker Start:20-Apr-2022 Instruction Type:Patient Education Patient Instructions Indication:Painful urination Start:30-Mar-2022 Instruction Type:Provider Instructions for Treatment How to Access Health Informa tion Online using Patient Portal and [employer] Apps Indication:Painful urination Start:30-Mar-2022 Instruction Type:Patient Education Patient Instructions Indication:Non-smoker Start:04-Jan-2022 Instruction Type:Provider Instructions for Treatment How to Access Health Informa tion Online using Patient Portal and [employer] Apps Indication:Non-smoker Start:04-Jan-2022 Instruction Type:Patient Education Patient Instructions Indication:Non-smoker Start:21-Sep-2021 Instruction Type:Provider Instructions for Treatment How to Access Health Informa tion Online using Patient Portal and [employer] Apps Indication:Non-smoker Start:21-Sep-2021 Instruction Type:Patient Education Patient Instructions Indication:BMI 32.0-32.9,adult Start:22-Aug-2021 Instruction Type:Provider Instructions for Treatment How to Access Health Informa tion Online using Patient Portal and [employer] Apps Indication:BMI 32.0-32.9,adult Start:22-Aug-2021 Instruction Type:Patient Education Patient Instructions Indication:Non-smoker Start:22-Jun-2021 Instruction Type:Provider Instructions for Treatment How to Access Health Informa tion Online using Patient Portal and [employer] Apps Indication:Non-smoker Start:22-Jun-2021 Instruction Type:Patient Education Patient Instructions Indication:BMI 32.0-32.9,adult Start:02-Feb-2021 Instruction Type:Provider Instructions for Treatment How to Access Health Informa tion Online using Patient Portal and [employer] Apps Indication:BMI 32.0-32.9,adult Start:02-Feb-2021 Instruction Type:Patient [...] tion Online using Patient Portal and [employer] Apps Indication:Non-smoker Start:25-Sep-2022 Instruction Type:Patient Education Patient Instructions Indication:Non-smoker Start:24-Jul-2022 Instruction Type:Provider Instructions for Treatment How to Access Health Informa tion Online using Patient Portal and [employer] Apps Indication:Non-smoker Start:24-Jul-2022 Instruction Type:Patient Education How to Access Health Informa tion Online using Patient Portal and [employer] Apps Indication:Non-smoker Start:23-May-2022 Instruction Type:Patient Education Patient Instructions Indication:Non-smoker Start:23-May-2022 Instruction Type:Provider Instructions for Treatment Patient Instructions Indication:Non-smoker Start:20-Apr-2022 Instruction Type:Provider Instructions for Treatment How to Access Health Informa tion Online using Patient Portal and [employer] Apps Indication:Non-smoker Start:20-Apr-2022 Instruction Type:Patient Education Patient Instructions Indication:Painful urination Start:30-Mar-2022 Instruction Type:Provider Instructions for Treatment How to Access Health Informa tion Online using Patient Portal and [employer] Apps Indication:Painful urination Start:30-Mar-2022 Instruction Type:Patient Education Patient Instructions Indication:Non-smoker Start:04-Jan-2022 Instruction Type:Provider Instructions for Treatment How to Access Health Informa tion Online using Patient Portal and [employer] Apps Indication:Non-smoker Start:04-Jan-2022 Instruction Type:Patient Education Patient Instructions Indication:Non-smoker Start:21-Sep-2021 Instruction Type:Provider Instructions for Treatment How to Access Health Informa tion Online using Patient Portal and [employer] Apps Indication:Non-smoker Start:21-Sep-2021 Instruction Type:Patient Education Patient Instructions Indication:BMI 32.0-32.9,adult Start:22-Aug-2021 Instruction Type:Provider Instructions for Treatment How to Access Health Informa tion Online using Patient Portal and [employer] Apps Indication:BMI 32.0-32.9,adult Start:22-Aug-2021 Instruction Type:Patient Education Patient Instructions Indication:Non-smoker Start:22-Jun-2021 Instruction Type:Provider Instructions for Treatment How to Access Health Informa tion Online using Patient Portal and [employer] Apps Indication:Non-smoker Start:22-Jun-2021 Instruction Type:Patient Education Patient Instructions Indication:BMI 32.0-32.9,adult Start:02-Feb-2021 Instruction Type:Provider Instructions for Treatment How to Access Health Informa tion Online using Patient Portal and [employer] Apps Indication:BMI 32.0-32.9,adult Start:02-Feb-2021 Instruction Type:Patient [...] tion Online using Patient Portal and [employer] Apps Indication:Non-smoker Start:28-Mar-2023 Instruction Type:Patient Education Patient Instructions Indication:Non-smoker Start:28-Mar-2023 Instruction Type:Provider Instructions for Treatment Patient Instructions Indication:Non-smoker Start:25-Sep-2022 Instruction Type:Provider Instructions for Treatment How to Access Health Informa tion Online using Patient Portal and [employer] Apps Indication:Non-smoker Start:25-Sep-2022 Instruction Type:Patient Education Patient Instructions Indication:Non-smoker Start:24-Jul-2022 Instruction Type:Provider Instructions for Treatment How to Access Health Informa tion Online using Patient Portal and [employer] Apps Indication:Non-smoker Start:24-Jul-2022 Instruction Type:Patient Education How to Access Health Informa tion Online using Patient Portal and [employer] Apps Indication:Non-smoker Start:23-May-2022 Instruction Type:Patient Education Patient Instructions Indication:Non-smoker Start:23-May-2022 Instruction Type:Provider Instructions for Treatment Patient Instructions Indication:Non-smoker Start:20-Apr-2022 Instruction Type:Provider Instructions for Treatment How to Access Health Informa tion Online using Patient Portal and [employer] Apps Indication:Non-smoker Start:20-Apr-2022 Instruction Type:Patient Education Patient Instructions Indication:Painful urination Start:30-Mar-2022 Instruction Type:Provider Instructions for Treatment How to Access Health Informa tion Online using Patient Portal and [employer] Apps Indication:Painful urination Start:30-Mar-2022 Instruction Type:Patient Education Patient Instructions Indication:Non-smoker Start:04-Jan-2022 Instruction Type:Provider Instructions for Treatment How to Access Health Informa tion Online using Patient Portal and [employer] Apps Indication:Non-smoker Start:04-Jan-2022 Instruction Type:Patient Education Patient Instructions Indication:Non-smoker Start:21-Sep-2021 Instruction Type:Provider Instructions for Treatment How to Access Health Informa tion Online using Patient Portal and [employer] Apps Indication:Non-smoker Start:21-Sep-2021 Instruction Type:Patient Education Patient Instructions Indication:BMI 32.0-32.9,adult Start:22-Aug-2021 Instruction Type:Provider Instructions for Treatment How to Access Health Informa tion Online using Patient Portal and [employer] Apps Indication:BMI 32.0-32.9,adult Start:22-Aug-2021 Instruction Type:Patient Education Patient Instructions Indication:Non-smoker Start:22-Jun-2021 Instruction Type:Provider Instructions for Treatment How to Access Health Informa tion Online using Patient Portal and [employer] Apps Indication:Non-smoker Start:22-Jun-2021 Instruction Type:Patient Education Patient Instructions Indication:BMI 32.0-32.9,adult Start:02-Feb-2021 Instruction Type:Provider Instructions for Treatment How to Access Health Informa tion Online using Patient Portal and [employer] Apps Indication:BMI 32.0-32.9,adult Start:02-Feb-2021 Instruction Type:Patient [...] Internal [facility]; [facility] Work Phone: reason for referral (narrative)No reason for referral information available[facility]: Family History No Family History [...] Purpose Advance Directives No Advanced Directives Records Found Advance Directive Response Recorded Date/ Time Advance Directives No May 22, 2013 3:48pm Living Will Yes February 22 018 10:19am Power of Windshield Repair Technician Yes February 22, 2018 10:19am Advance Directive Response Recorded Date/ Time Advance Directives No May 22, 2013 2:48pm Living Will Yes February 22, 018 9:19am Power of Windshield Repair Technician Yes February 22, 2018 9:19am Advance Directive Response Recorded Date/ Time Name of Medical Power of Windshield Repair Technician Syd Pina July 08, 2023 1:20pm Advance Directives No May 22, 2013 2:48pm Living Will Yes July 08 1:20pm Power of Windshield Repair Technician Yes July 08, 2023 1:20pm Advance Directive Response Recorded Date/ Time Name of Medical Power of Windshield Repair Technician Syd Pina July 08, 2023 2:20pm Advance Directives No May 22, 2013 3:48pm Living Will Yes July 08 2:20pm Power of Windshield Repair Technician Yes July 08, 2023 2:20pm Advance Directive Response Recorded Date/ Time Living Will Yes July 08 2:20pm Do you have a Healthcare Power of Windshield Repair Technician? Yes July 08, 2023 2:20pm Advance Directives No May 22, 2013 3:48pm Chief Complaint and Reason for Visit Chief Complaint POST JUDIT Chief Complaint POST JUDIT SCREENING Chief Complaint PELVIC FLOOR, STRESS INCONTINENCE/RX HERE Chief Complaint SCREENING Chief Complaint SCREENING diarrhea Reason for Visit Diarrhea Chief Complaint Admit Date SCREENING June 24, 2024 8: 34am CONCERN FOR UTI August 26, 2024 1:1 2pm Additional Source Comments INFORMATION SOURCE (unrecogn ized section and content) DATE CREATED AUTHOR 07/09/2019 [facility] ([place]) DATE CREATED AUTHOR AUTHOR'S ORGANIZ ATION 09/25/2022 [facility] DATE CREATED AUTHOR AUTHOR'S ORGANIZ ATION 10/22/2024 [facility] DATE CREATED AUTHOR AUTHOR'S ORGANIZ ATION 04/18/2025 [facility] Goals (unrecognized section and content) Goals may be documented in a n alternate sectionGoals may be documented in an alternate sectionGoals may be documented in an alternate sectionGoals may be documented in an alternate sectionGoals may be documented in an alternate sectionGoals may be documented in an alternate sectionGoals may be documented in an alternate sectionGoals may be documented in an alternate sectionGoals may be documented in an alternate section Source Comments (unrecognize d section and content) In the event this informatio n is protected by the Federal Confidentiality of Alcohol and Drug Abuse Patient Records regulations: The Federal rules restrict any use of the information to criminally investigate or prosecute any alcohol or drug abuse patient.[facility] the event this information is protected by the Federal Confidentiality of Alcohol and Drug Abuse Patient Records regulations: The Federal rules restrict any use of the information to criminally investigate or prosecute any alcohol or drug abuse patient.[facility] Hospital[facility] the event this information is protected by the Federal Confidentiality of Alcohol and Drug Abuse Patient Records regulations: The Federal rules restrict any use of the information to criminally investigate or prosecute any alcohol or drug abuse patient.[facility] the event this information is protected by the Federal Confidentiality of Alcohol and Drug Abuse Patient Records regulations: The Federal rules restrict any use of the information to criminally investigate or prosecute any alcohol or drug abuse patient.[facility] Hospital[facility] the event this information is protected by the Federal Confidentiality of Alcohol and Drug Abuse Patient Records regulations: The Federal rules restrict any use of the information to criminally investigate or prosecute any alcohol or drug abuse patient.[facility] Hospital[facility] the event this information is protected by the Federal Confidentiality of Alcohol and Drug Abuse Patient Records regulations: The Federal rules restrict any use of the information to criminally investigate or prosecute any alcohol or drug abuse patient.[facility] Reason for Visit (unrecogniz ed section and content) Reason Comments Urinary Frequency Frequency, urgency a nd burning-symptoms started last night Reason Comments Results Reason Comments Established Patient Specialty Diagnoses / Procedures Referred By Rock santiago Referred To Contact HEMATOLOGY/ONCOLOGY Diagnoses 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) Procedures office visit Antonia Mattson APRN.CLINICAL RESEARCHER [address] [place] [address] [facility] [address] [place] [address] Referral ID Status Reason Start Date Expiration Date V isits Requested Visits Authorized [id number] Closed Financial Clearance Required - OON Payor Patient Cleared - Qualified 100% FAS Patient Cleared - INN Insurance Found 04/05/2021 07/04/2021 1 1 Reason Comments Received Outside Medical Records Reason Comments Well Woman Reason Comments Pain, Sinus Pressure and pain, n crissy congestion, post nasal drainage, bilat ear pressure, headache cough x 6 days Care Teams (unrecognized sec tion and content) Center Administrator Relationship Specialty Start Date End Date Yaneth Mcgregor CNP [id number] [facility] [address] [place], [place] [id number] PCP - General Internal Medicine 05/07/17 Center Administrator Relationship Specialty Start Date End Date Yaneth Mcgregor CNP [address] [place] [address] PCP - General Internal Medicine 05/07/17 Center Administrator Relationship Specialty Start Date End Date Beryl Zelaya [address] [facility] [address] [place] [address] PCP - General Family Medicine 05/15/22 Team Status: Active Member Role Status Dates Yaneth Pickardcoleman KNITTER MACHINE, KNITTER MACHINE-C Family Provider Active Beryl Zelaya NP-C Primary Care Provider Active Team Status: Inactive Member Role Status Dates Dr. Elena Nichole MD Attending Provider, Referring P rovider Active Beryl Zelaya NP-C Primary Care Provider Active Team Status: Active Member Role Status Dates Yaneth Mcgregor KNITTER MACHINE, KNITTER MACHINE-C Family Provider Active Dr. Padmini Hinkle , Primary Care Provider Active Team Status: Inactive Member Role Status Dates Beryl Zelaya NP-C Attending Provider, Referring Pr ovider Active Dr. Padmini Hinkle DO Primary Care Provider Active Center Administrator Relationship Specialty Start Date End Date Beryl Zelaya [address] [facility] [address] [place] [address] PCP - General Family Medicine 05/15/22 Team Status: Inactive Member Role Status Dates Dr. Padmini Hinkle DO Primary Care Provider, Referr ing Provider Active ALFREDA LozanoC Attending Provider Active Team Status: Inactive Member Role Status Dates Dr. Padmini Hinkle DO Primary Care Provider Active Dr. Maryann Wheatley DO Attending Provider, Emergency Pro vider Active Team Status: Inactive Member Role Status Dates Dr. Padmini Hinkle DO Primary Care Provider Active Beryl Zelaya NP-C Attending Provider, Referring Pr ovider Active Center Administrator Relationship Specialty Start Date End Date Beryl Zelaya CNP [address] [facility] [address] [place] [address] PCP - General Family Medicine 05/15/22 Team Status: Inactive Member Role Status Dates Dr. Padmini Hinkle DO Primary Care Provider Active Start: June 24, 2024 End: June 24, 2024 [facility] Lozano Attending Provider Active Start: June 24, 2024 End: June 24, 2024 [facility] Lozano Referring Provider Active Start: June 24, 2024 End: June 24, 2024 Team Status: Active Member Role Status Dates Dr. Padmini Hinkle DO Primary Care Provider Active Start: August 26, 2024 JUVE Gonzalez Attending Provider Active Start: August 26, 2024 Team Status: Inactive Member Role Status Dates Dr. Padmini Hinkle DO Primary Care Provider Active Start: August 26, 2024 End: August 26, 2024 Dr. Padmini Hinkle DO Referring Provider Active Start: August 26, 2024 End: August 26, 2024 JUVE Gonzalez Attending Provider Active Start: August 26, 2024 End: August 26, 2024 Team Status: Inactive Member Role Status Dates Dr. Padmini Hinkle DO Primary Care Provider Active Start: August 26, 2024 End: August 26, 2024 JUVE Gonzalez Attending Provider Active Start: August 26, 2024 End: August 26, 2024 Team Status: Inactive Member Role Status Dates [facility] Lozano Primary Care Provider Active Start: September 22, 2024 End: September 22, 2024 [facility] Lozano Attending Provider Active Start: September 22, 2024 End: September 22, 2024 [facility] Lozano Referring Provider Active Start: September 22, 2024 End: September 22, 2024 Center Administrator Relationship Specialty Start Date End Date Beryl Zelaya CNP [address] [facility] [address] [place] [address] PCP - General Family Medicine 05/15/22 FOR [...] BE BASED ON THE PRIMARY CLINICAL RECORDS. [facility] [employer] [facility]. provides no warranty or guarantee of the accuracy or completeness of information in this document.
--- NOTE | 2025-04-20 14:22 | STRESSREP ---
Stress Test Report Date: 04/20/2025 Procedure: Pharmacologic stress nuclear imaging study Indications: Abnormal echocardiogram Consent: Per the patient Procedure: The patient underwent pharmacologic (Regadenoson 0.4mg ) evaluation with a peak heart rate of 116 beats per minute (76%predicted maximal heart rate) and a peak blood pressure of 142/88 mmHg. The baseline ECG demonstrated sinus rhythm. The peak pharmacologic ECG did not show any ischemic changes. Rare PVC noted. There was no complaint of chest discomfort during pharmacologic infusion or recovery. The patient was injected with 11.6 millicuries of technetium 99m Cardiolite and subsequently rest SPECT Cardiolite nuclear imaging was obtained in the horizontal long, vertical long, and short axis views. The patient underwent pharmacologic (Regadenoson) evaluation. The patient was injected with 34.5 millicuries of technetium 99m Cardiolite and subsequently stress SPECT Cardiolite nuclear imaging was obtained in the horizontal long, vertical long, and short axis views. A gated Cardiolite study at peak stress was obtained. The examination was stopped secondary to completion of protocol. Rest and stress SPECT Cardiolite nuclear imaging status post realignment, normalization, and attenuation correction demonstrate no fixed or reversible perfusion defects. There is end systolic thickening and brightening. The gated Cardiolite study demonstrates myocardial thickening and inward wall motion. The reported LVEF is 74%. Impression: 1. Pharmacologic (Regadenoson) evaluation 2. Peak pharmacologic ECG with no ischemic changes. 3. No significant cardiac dysrhythmias noted. 5. Rest and stress SPECT Cardiolite nuclear imaging demonstrate relative uniform tracer uptake and myocardial perfusion appearing within normal limits. 6. The gated Cardiolite study reports an LVEF of 74%. This note was generated with [employer] software. It may contain incorrect words, spelling, and punctuation that were not noted in checking the note before signing.
== END 2025-04-20 23:59 | disposition home or self-care (01) ==
PROVIDERS: PCP Internal Medicine; Referring Provider Nurse Practitioner Family; Visit Provider Nurse Practitioner Family
DX: I51.89 Other ill-defined heart diseases (principal)
CPT/HCPCS: 78452; 93017; A9500; A4216; J2785